=== PATIENT | male | born 1950 | race Caucasian/White ===

== ENCOUNTER → 2016-04-22 | Outpatient (CLI) | payer MEDICARE ==
--- NOTE | 2016-04-22 15:12 | XR ---
EXAMINATION TYPE: XR KUB DATE OF EXAM: 04/22/2016 12:13 PM CLINICAL HISTORY: Left-sided kidney stone per order. TECHNIQUE: 2 supine KUB images of the abdomen are obtained COMPARISON: CT abdomen and pelvis January 01, 2015. Abdominal x-ray May 09, 2015 FINDINGS: Small punctate renal calculi on CT are not clearly identified on plain films. Left-sided pe lvic phleboliths are redemonstrated in the pelvis. There is fairly moderate joint space loss with mild to moderate acetabular spurring in both hips. The re is prominent spurring along visualized course of the thoracolumbar spine. There is overall nonobst ructive bowel gas pattern. IMPRESSION: Punctate bilateral renal calculi on CT are less well seen on plain films.
== END ==
LOC: RADXRMAIN 11:56
PROVIDERS: ATTEND Urology
DX: N20.0 Calculus of kidney (principal)
CPT/HCPCS: 74000

== ENCOUNTER → 2016-06-18 | Outpatient (CLI) | payer MEDICARE ==
--- NOTE | 2016-06-18 17:37 | CT ---
EXAMINATION TYPE: CT abdomen pelvis wo con DATE OF EXAM: 06/18/2016 3:55 PM COMPARISON: 01/01/2015 HISTORY: year-old male with left flank pain for past couple of [id number] DLP: 1070.0 mGycm. Automate d exposure control for dose reduction was used. TECHNIQUE: Contiguous axial scanning of the abdomen and pelvis without IV contrast. Coronal and sagit ramiro reconstructions performed. FINDINGS: The heart is normal size without pericardial effusion. Coronary vessel calcifications are p resent and are remarkable for coronary artery disease. 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 There is patchy scarring at the posterior right base. No pleural effusion. Patchy opacity at the left base is new and probably represents atelectasis. Noncontrast appearance of the liver, adrenal glands, and spleen within normal limits. The cystic lesion within the pancreatic tail has enlarged now measuring 2.3 cm versus 1.9 cm on 2014. Additional 1 cm and smaller cystic lesions are suggestive, relatively stable from 01/01/2015. Cholelithiasis without abnormal gallbladder distention. Redemonstrated bilateral nephrolithiasis with 2 calculi on the right and 4 calculi in the left measur ing up to 3 mm. There is mild left-sided pelvocaliectasis and mild nephric stranding asymmetric to the contralateral side. However, there is no ureteric dilatation or ureteric calculus seen. However, there are increased tiny dependent bladder calculi measuring up to 3 mm. Redemonstrated pros tatomegaly at 6.5 cm. Multiple pelvic phleboliths. No dilated small bowel, free fluid, or free air. Some scattered prominent but nonenlarged mesenteric lymph nodes measuring up to 4 mm. Small fatty umbilical hernia. Normal appendix. Oral contrast has progressed to the ascending colon. N o pericolonic inflammatory change. Distended, thick-walled, trabeculated bladder with small bladder diverticula. Patulous right inguinal canal. No abnormal fluid collection in the pelvis or pelvic lymphadenopathy seen. Bones: Mild degenerative changes at the hips. Degenerative bridging ankylosis at the SI joints and ad ditional degenerative changes throughout the lumbar spine. No osseous destructive process. RESSION: 1. Mild left-sided pelvicaliectasis though without any obstructing calculus. As seen previously, find ings could represent sequela of a recently passed stone as there are increasing tiny calculi dependen t within the bladder. Some asymmetric perinephric stranding on the left could be reactive. Correlate to exclude underlying infection. 2. Additional nonobstructive bilateral nephrolithiasis measuring up to 3 mm. 3. The patient's cystic pancreatic tail lesion has enlarged now measuring 2.3 cm versus 1.9 cm on 12/05. Cystic pancreatic neoplasm is in the differential. Correlate with findings and recommendation s from interval workup. Appropriate management is recommended. 4. Redemonstrated marked prostatomegaly (6.5 cm wide) and changes involving the bladder wall suggesti ng chronic bladder outlet obstruction. 5. Mild aneurysm ascending aorta (4.0 cm), cholelithiasis, and small fatty umbilical hernia.
== END | disposition home or self-care (01) ==
LOC: RADCTMAIN 14:08
PROVIDERS: ATTEND Family Medicine
DX: N20.0 Calculus of kidney (principal); K86.2 Cyst of pancreas; N40.0 Benign prostatic hyperplasia without lower urinary tract symptoms; K80.20 Calculus of gallbladder without cholecystitis without obstruction; K42.9 Umbilical hernia without obstruction or gangrene; N21.0 Calculus in bladder
CPT/HCPCS: 74176

== ENCOUNTER → 2016-09-21 | Outpatient (CLI) | payer MEDICARE ==
[2016-09-21 14:13] LABS: Blood Urea Nitrogen 18 mg/dL (9-20); Non-African American GFR(MDRD) >60 (>60 ml/min/1.73 sqM)
--- NOTE | 2016-09-21 15:19 | CT ---
EXAMINATION TYPE: CT abdomen w con DATE OF EXAM: 09/21/2016 COMPARISON: 06/18/2016 HISTORY: BENIGN NEOPLASM OF PANCREAS CT DLP: 1523.6 mGycm Automated exposure control for dose reduction was used. TECHNIQUE: Helical acquisition of images was performed from the lung bases through the top of iliac crest to include entire abdomen. CONTRAST: Performed with Oral Contrast and with IV Contrast, patient injected with 100 mL of Omnipaque 300. FINDINGS: LUNG BASES: Subsegmental changes involving both lung bases compatible with atelectasis. Heart is enla rged. LIVER/GB: Tiny gallstones are noted. PANCREAS: There is a persistent cystic lesion involving the tail the pancreas appears fairly stable i n size measuring 2.2 cm SPLEEN: No significant abnormality is seen. ADRENALS: No significant abnormality is seen. KIDNEYS: Multiple punctate renal calculi are seen in the right estimated at 3 total and to definitive on the left. No hydronephrosis. All measure less than 5 mm. BOWEL: No significant abnormality is seen. LYMPH NODES: No significant abnormality is seen. OSSEOUS STRUCTURES: Hypertrophic and degenerative change of the spine.. FREE AIR: No free air is visualized. IMPRESSION: 1. Cystic pancreatic tail lesion measures 2.2 cm and is stable. Differential includes a pancreatic cy st although cystic neoplasms of the pancreas are also within the differential diagnosis. 2. Bilateral nonobstructing renal calculi 3. Cholelithiasis. 4. Right basilar atelectasis favored over infiltrate.
== END | disposition home or self-care (01) ==
LOC: RADCTMAIN 13:11
PROVIDERS: ATTEND Internal Medicine Hematology & Oncology
DX: L98.9 Disorder of the skin and subcutaneous tissue, unspecified (principal); N20.0 Calculus of kidney; K80.20 Calculus of gallbladder without cholecystitis without obstruction
CPT/HCPCS: 82565; 84520; 74160; 36415; Q9967

== ENCOUNTER → 2017-02-23 | Outpatient (CLI) | payer MEDICARE ==
[2017-02-23 16:04] LABS: CH 30.9; CHCM 32.4; HCT 46.4 % (39.0-53.0); HDW 2.27; HGB 14.7 gm/dL (13.0-17.5); MCH 30.4 pg (25.0-35.0); MCHC 31.7 g/dL (31.0-37.0); MCV 95.9 fL (80.0-100.0); Mean Platelet Volume 8.2; RBC 4.84 m/uL (4.30-5.90); WBC 5.7 k/uL (3.8-10.6)
[2017-02-23 16:38] LABS: Anion Gap 10 mmol/L; Blood Urea Nitrogen 20 mg/dL (9-20); Carbon Dioxide 25 mmol/L (22-30); Chloride 106 mmol/L (98-107); Non-African American GFR(MDRD) >60 (>60 ml/min/1.73 sqM); Potassium 4.2 mmol/L (3.5-5.1); Sodium 141 mmol/L (137-145)
== END | disposition home or self-care (01) ==
LOC: LABPAT 15:34
PROVIDERS: ATTEND Internal Medicine Interventional Cardiology
DX: Z01.812 Encounter for preprocedural laboratory examination (principal); R94.30 Abnormal result of cardiovascular function study, unspecified
CPT/HCPCS: 36415; 80051; 82565; 84520; 85027

== ENCOUNTER 2017-03-01 06:32 | Day surgery (SDC) | payer MEDICARE ==
[2017-02-22 11:59] VITALS: BMI 32.5
[~2017-03-01 06:32] MED LIST: ALPRAZolam 0.25 MG TAB PO PRN; ALPRAZolam 0.5 MG TAB PO PRN; ASPIRIN 325 MG TAB PO STA; NITROGLYCERIN SL TABS 0.4 MG TAB SUBLINGUAL PRN; SODIUM CHLORIDE 0.9% 1,000 ML in EMPTY BAG 1 BAG IV ONE
[2017-03-01 07:12] VITALS: TEMP 97.9
[2017-03-01] MEDS ORDERED: LIDOCAINE 2% INJ 20 MG/ML (20 ML MDV) ONE (07:26)
[2017-03-01] MEDS ORDERED: VERAPAMIL 2.5 MG/ML 2 ML AMP ONE (07:28)
[2017-03-01] MEDS ORDERED: MIDAZOLAM 2 MG/2 ML VIAL ONE (07:35)
[2017-03-01] MEDS ORDERED: MIDAZOLAM 2 MG/2 ML VIAL IV ONE (07:40)
[2017-03-01] MEDS ORDERED: LIDOCAINE 2% INJ 20 MG/ML SQ ONE (07:45)
[2017-03-01] MEDS ORDERED: HEPARIN SODIUM 1,000 UN/ML (10ML VL) ONE (07:45)
[2017-03-01] MEDS ORDERED: VERAPAMIL SYRINGE (5 MG/10 ML) INTRAARTER ONE ×2 (07:49→08:04)
[2017-03-01] MEDS ORDERED: IOHEXOL 350 MG/ML 125ML BOTTLE INJ ONE (08:05)
[2017-03-01] MEDS ORDERED: RX INFO: IV CONTRAST WAS GIVEN 1 EACH MISC MISCELLANE PRN (08:10)
[2017-03-01] MEDS ORDERED: SODIUM CHLORIDE 0.9% 1,000 ML IV SCH (08:15)
--- NOTE | 2017-03-01 09:40 | CC ---
CARDIAC CATHETERIZATION REPORT DATE OF SERVICE: 03/01/2017. PERFORMING PHYSICIAN: Michael Kenny MD, Clock Maker. PROCEDURE PERFORMED: 1. Selective right and left coronary angiogram. 2. Left heart catheterization. 3. Left ventriculography. INDICATION: This is a pleasant 66-year-old gentleman who was experiencing recurrent syncope. He underwent a myocardial perfusion imaging stress test and that came in to be abnormal with apical ischemia. In view of that, he was brought today to undergo a heart catheterization. APPROACH: Right radial artery. COMPLICATION: None. LEVEL OF SEDATION: Moderate with sedation length of 24 minutes. PROCEDURE DESCRIPTION: After obtaining an informed consent, the patient was brought to Cardiac [facility] [employer] Machine Operator [facility]. The right common femoral artery was cannulated using micropuncture technique and a micropuncture wire passed easily. Then I placed a 6-Swedish sheath in the right common femoral artery. After that, I did selective right and left coronary angiogram using JR4 and JL3.5 catheters. After that, I did left heart catheterization and left ventriculography using 6-Swedish pigtail catheter. The procedure was completed without any complication. SELECTIVE CORONARY ANGIOGRAM: 1. The RCA is a large caliber vessel and it is a dominant vessel. It is angiographically normal. It distally bifurcates into PDA and PLV branches, both are angiographically normal. 2. The left main has mild disease only distally. It bifurcates into the left circumflex and left anterior descending artery. 3. The left circumflex is a large caliber vessel. It is a codominant vessel. The proximal circ is angiographically normal and gives rise into the first OM branch which is intermediate caliber vessel and seems to be angiographically normal. The mid left circumflex is normal and the left circumflex distally is angiographically normal and bifurcates into PDA and PLV branches, both are angiographically normal. 4. The left anterior descending artery; the proximal LAD appeared to appear to be appears to have mild disease only. Gives rise into a good-sized diagonal branch which has ostial disease, appeared to be in the range of 50% to 60%. The mid LAD is angiographically normal and the LAD distally is normal and reached the apex. HEMODYNAMICS: The left ventricular end-diastolic pressure was 10 mmHg and no gradient was identified across the aortic valve. Left ventriculography was performed in the LIPSCOMB projection and using a power injection. The left ventricular systolic function is mildly impaired with EF about 45%. CONCLUSION: 1. Calcified right and left coronary systems. 2. Mild nonobstructive disease involving the distal left main coronary artery. 3. Mildly impaired left ventricular function with an ejection fraction of 45%. POSTPROCEDURE MANAGEMENT: Maximize medical treatment and follow up with the patient. VETO / JONI: [id number] /
--- NOTE | 2017-03-01 09:43 | LTR ---
DATE: 03/01/2017 RE: Caleb Riggins Dear Dr. Land; Mr. Caleb Riggins underwent a heart catheterization earlier today and that revealed mild nonobstructive coronary artery disease. I want to thank you for allowing me to participate in his care and please do not hesitate to call with any questions or concerns. Sincerely, MD VETO Diana / TATON: [id number] /
[2017-03-01 10:25] VITALS: RESP 16
[2017-03-01 13:53] VITALS: BP 150/86; PULSE 86
== END 2017-03-01 14:05 | disposition home or self-care (01) ==
LOC: CATHCVL 06:32
PROVIDERS: ATTEND Internal Medicine Interventional Cardiology
DX: I25.110 Atherosclerotic heart disease of native coronary artery with unstable angina pectoris (principal); I25.84 Coronary atherosclerosis due to calcified coronary lesion; Z79.899 Other long term (current) drug therapy; Z88.0 Allergy status to penicillin
CPT/HCPCS: 93458; C1894; J2001; J2250; J1644; Q9967

== ENCOUNTER 2017-12-17 12:45 | Inpatient (IN) | payer BC, MEDICARE ==
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
[2017-12-17 13:07] LABS: Glucose,Whole Blood 106 mg/dL (75-99)
[2017-12-17 13:28] LABS: ALT 21 U/L (21-72); AST 20 U/L (17-59); Alcohol <10 mg/dL; Alkaline Phosphatase 62 U/L (38-126); Amylase 46 U/L (30-110); Anion Gap 7 mmol/L; Basophils % (A) 0 %; Blood Urea Nitrogen 28 mg/dL (9-20); Calcium 9.1 mg/dL (8.4-10.2); Carbon Dioxide 27 mmol/L (22-30); Chloride 107 mmol/L (98-107); Eosinophils # (A) 0.1 k/uL (0-0.7); Eosinophils % (A) 1 %; Glucose 108 mg/dL (74-99); HCT 45.2 % (39.0-53.0); HGB 14.9 gm/dL (13.0-17.5); Lipase 24 U/L (23-300); Lymphocytes # (A) 0.8 k/uL (1.0-4.8); Lymphocytes % (A) 11 %; MCH 30.7 pg (25.0-35.0); MCV 93.2 fL (80.0-100.0); Mean Platelet Volume 7.5; Monocytes # (A) 0.3 k/uL (0-1.0); Monocytes % (A) 4 %; Neutrophils # (A) 6.6 k/uL (1.3-7.7); Neutrophils % (A) 83 %; Platelet Count 140 k/uL (150-450); Potassium 4.4 mmol/L (3.5-5.1); RBC 4.85 m/uL (4.30-5.90); RDW 13.1 % (11.5-15.5); Sodium 141 mmol/L (137-145); Total Bilirubin 0.7 mg/dL (0.2-1.3); Total Protein 6.9 g/dL (6.3-8.2); WBC 7.9 k/uL (3.8-10.6)
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
[2017-12-17 13:36] LABS: INR 1.1 (<1.2); Partial Thromboplastin Time 22.5 sec (22.0-30.0); Prothrombin Time 10.9 sec (9.0-12.0)
[2017-12-17 13:41] LABS: Creatine Kinase 144 U/L (55-170)
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
[2017-12-17 13:53] LABS: Creatine Kinase MB 2.5 ng/mL (0.0-2.4); Troponin I <0.012 ng/mL (0.000-0.034)
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
--- NOTE | 2017-12-17 14:41 | XR ---
EXAMINATION TYPE: XR shoulder complete LT DATE OF EXAM: 12/17/2017 COMPARISON: NONE HISTORY: Pain TECHNIQUE: Shoulder examined in 3 FINDINGS: The humeral head articulates with the glenoid. Acromioclavicular joint hypertrophy is present. Rib fractures 3,4,5, and 6 are evident. No pneumothorax is evident. A follow up study can be performed 7-10 days from acute trauma for continued pain. IMPRESSION: 1. Left shoulder appears intact. 2. Multiple left-sided rib fractures are present.
[2017-12-17] MEDS: LIDOCAINE 5% PATCH TOPICAL SCH (15:57)
[2017-12-17 16:03] LABS: Appearance,Urine Clear (Clear); Bilirubin,Urine Negative (Negative); Blood,Urine Large (Negative); Color,Urine Yellow; Glucose,Urine (UA) Negative (Negative); Ketones,Urine Negative (Negative); Leukocyte Esterase,Urine Negative (Negative); Mucus,Urine Rare /hpf; Nitrite,Urine Negative (Negative); PH, Urine 5.5 (5.0-8.0); Protein,Urine Negative (Negative); RBC,Urine 82 /hpf (0-5); Squamous Epithelial Cell,Urine <1 /hpf (0-4); Urobilinogen,Urine <2.0 mg/dL (<2.0); WBC,Urine 7 /hpf (0-5)
[2017-12-17 16:12] LABS: Amphetamine Screen,Urine Not Detected (NotDetected); Barbiturate Screen,Urine Not Detected (NotDetected); Benzodiazepines Screen,Urine Not Detected (NotDetected); Cocaine Screen,Urine Not Detected (NotDetected); Methadone Screen, Urine Not Detected (NotDetected); Opiate Screen,Urine Not Detected (NotDetected); Oxycodone Screen, Urine Not Detected (NotDetected); Phencyclidine Screen,Urine Not Detected (NotDetected); Tricyclic Antidepressant,Urine Not Detected (NotDetected); Urn Cannabinoid Scrn Not Detected (NotDetected)
[2017-12-17] MEDS ORDERED: NALOXONE 0.4 MG/ML 1 ML VIAL IV PRN (16:37)
[2017-12-17] MEDS ORDERED: ACETAMINOPHEN TAB 325 MG TAB PO PRN (16:37)
[2017-12-17] MEDS ORDERED: fentaNYL (PF) 50 MCG/ML 2 ML AMP IVP STA (16:55)
[2017-12-17] MEDS ORDERED: METHOCARBAMOL 750 MG TAB PO PRN (16:55)
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
[2017-12-17 18:26] LABS: Glucose,Whole Blood 117 mg/dL (75-99)
[2017-12-17] MEDS: HYDROcodone/APAP 5-325MG 1 EACH TAB PO SCH ×2 (19:08→22:00)
[2017-12-17 21:16] LABS: Specific Gravity,Urine >1.050 (1.001-1.035)
[2017-12-17] MEDS: CARBIDOPA-LEVODOPA ER 50-200MG 1 EACH TABLET.ER PO SCH (21:19)
[2017-12-17] MEDS: DOXAZOSIN 4 MG TAB PO SCH (21:19)
[2017-12-17] MEDS: FAMOTIDINE 20 MG TAB PO SCH (21:19)
[2017-12-17] MEDS: AMANTADINE HCL 100 MG CAP PO SCH (21:20)
[2017-12-18] MEDS: HYDROcodone/APAP 5-325MG 1 EACH TAB PO SCH ×5 (02:45→18:39)
[2017-12-18 05:27] LABS: Basophils % (A) 0 %; Eosinophils # (A) 0.1 k/uL (0-0.7); Eosinophils % (A) 1 %; HGB 13.3 gm/dL (13.0-17.5); Lymphocytes # (A) 1.1 k/uL (1.0-4.8); Lymphocytes % (A) 16 %; MCH 29.5 pg (25.0-35.0); MCHC 30.9 g/dL (31.0-37.0); MCV 95.5 fL (80.0-100.0); Mean Platelet Volume 6.9; Monocytes # (A) 0.5 k/uL (0-1.0); Monocytes % (A) 7 %; Neutrophils # (A) 5.1 k/uL (1.3-7.7); Neutrophils % (A) 75 %; Platelet Count 129 k/uL (150-450); RDW 13.3 % (11.5-15.5); WBC 6.8 k/uL (3.8-10.6)
[2017-12-18 05:40] LABS: Anion Gap 6 mmol/L; Blood Urea Nitrogen 24 mg/dL (9-20); Calcium 8.9 mg/dL (8.4-10.2); Carbon Dioxide 24 mmol/L (22-30); Chloride 106 mmol/L (98-107); Glucose 107 mg/dL (74-99); Phosphorus 3.3 mg/dL (2.5-4.5); Potassium 4.2 mmol/L (3.5-5.1); Sodium 136 mmol/L (137-145)
--- NOTE | 2017-12-18 06:50 | XR ---
EXAMINATION TYPE: XR chest 1V DATE OF EXAM: 12/18/2017 HISTORY: rib fracture. REFERENCE: Previous study dated 12/17/2017. FINDINGS: There are multiple left-sided rib fractures. No definite pneumothorax is seen. There is lef t basilar airspace disease. This has worsened. There is a left-sided effusion. IMPRESSION: 1. MULTIPLE LEFT-SIDED RIB FRACTURES. 2. LEFT BASILAR AIRSPACE DISEASE. 3. LEFT-SIDED EFFUSION.
[2017-12-18] MEDS: FAMOTIDINE 20 MG TAB PO SCH ×2 (08:28→20:50)
[2017-12-18] MEDS: TAMSULOSIN 0.4 MG CAP.ER.24H PO SCH (08:28)
[2017-12-18] MEDS: AMANTADINE HCL 100 MG CAP PO SCH ×2 (08:59→20:50)
[2017-12-18] MEDS: CARBIDOPA-LEVODOPA ER 50-200MG 1 EACH TABLET.ER PO SCH ×2 (08:59→20:50)
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
--- NOTE | 2017-12-18 13:29 | P.CRDCN ---
History of Present Illness History of present illness: This is Dr. Santana dictating a consult on this patient The patient was interviewed and examined by me IMPRESSION / ASSESSMENT: Chest trauma Left scapula fracture Multiple rib fractures Vitals stable Left-sided effusion noted, left-sided S pace consolidation Hypertension Nephrolithiasis Right bundle branch block, left anterior fascicular block PLAN: 2-D echo and Doppler study to assess pericardium post chest wall trauma HPI Patient interviewed and examined. He suffered an injury to the chest from the backside[, no syncope] ROS: No fever chills or rigors, no cough, phlegm or expectoration, no nausea, vomiting or diarrhea, no hematuria, dysuria, Musculoskeletal pain no strokes or seizures, no skin lesions. EXAMINATION Blood pressure 113/73 mmHg pulse rate in the 70s normal respirations afebrile 97.5F REVIEW OF LABS, ECG Hematocrit 43 Sodium 136 potassium normal kidney functions normal Troponin normal 12-lead ECG shows sinus rhythm normal SC right bundle branch block normal ST segments left anterior fascicular block Past Medical History Past Medical History: Hypertension, Musculoskeletal Disorder, Neurologic Disorder, Prostate Disorder, Renal Disease Additional Past Medical History / Comment(s): parkinsons disease, nephrolithiasis, BPH,uti's , fall 2012 with skull fracture and subdural hematoma and L eardrum rupture, sinus problems on occasion.past stress test, lt sprain ankle d/t fall. History of Any Multi-Drug Resistant Organisms: None Reported Past Surgical History: Heart Catheterization, Hernia Repair Additional Past Surgical History / Comment(s): cystoscopy, L inguinal hernia repair., anat cataracts Past Anesthesia/Blood Transfusion Reactions: No Reported Reaction Smoking Status: Never smoker - Past Family History Sister(s) Family Medical History: Cancer Mother Family Medical History: CVA/TIA, Diabetes Mellitus, Hypertension, Musculoskeletal Disorder, Neurologic Disorder Additional Family Medical History / Comment(s): Mother had parkinson's dx. Father Family Medical History: CVA/TIA Medications and Allergies Home Medications Medication Instructions Recorded Confirmed Type Amantadine HCl [Symmetrel] 100 mg PO BID 03/20/15 12/17/17 History Carbidopa-Levodopa ER 50-200Mg 1 tab PO BID 03/20/15 12/17/17 History [Sinemet CR 50-200 mg] Ferrous Sulfate [Feosol] 325 mg PO DAILY 03/20/15 12/17/17 History Terazosin HCl [Hytrin] 10 mg PO HS 03/20/15 12/17/17 History Tamsulosin HCl [Flomax] 0.4 mg PO DAILY 02/22/17 12/17/17 History [place]-3 Fatty Acids/Fish Oil [Fish 1 cap PO DAILY 12/17/17 12/17/17 History Oil 1,000 mg Softgel] Allergies Allergy/AdvReac Type Severity Reaction Status Date / Time adhesive tape Allergy Rash/Hives Verified 12/17/17 13:55 amoxicillin Allergy Dyspnea, Verified 12/17/17 13:55 SWELLING OF THROAT haloperidol [From Haldol] Allergy Unknown Verified 12/17/17 13:55 haloperidol lactate Allergy Unknown Verified 12/17/17 13:55 [From Haldol] lorazepam [From Ativan] Allergy Unknown Verified 12/17/17 13:55 Physical Exam Vitals: Vital Signs Temp Pulse Resp BP Pulse Ox 12/18/17 11:00 79 18 113/73 98 12/18/17 10:00 86 20 110/67 96 12/18/17 09:00 87 18 111/71 96 12/18/17 08:00 97.5 F L 84 18 121/74 95 12/18/17 07:00 75 18 119/74 96 12/18/17 06:30 74 16 122/75 96 12/18/17 06:00 72 16 122/75 98 12/18/17 05:30 73 15 134/78 99 12/18/17 05:00 73 14 134/78 97 12/18/17 04:30 68 16 115/74 98 12/18/17 04:00 72 16 115/74 98 12/18/17 03:30 75 15 118/73 95 12/18/17 03:00 75 18 118/73 97 12/18/17 02:30 70 18 110/73 98 12/18/17 02:00 72 20 119/68 99 12/18/17 01:30 70 17 111/77 98 12/18/17 01:00 98.7 F 71 18 112/71 97 12/18/17 00:30 69 19 121/71 97 12/18/17 00:00 71 21 110/68 97 12/17/17 23:30 74 19 137/77 98 12/17/17 23:00 75 18 125/78 98 12/17/17 22:30 77 20 125/77 88 L 12/17/17 22:00 76 17 119/72 97 12/17/17 21:30 78 131/69 97 12/17/17 21:00 81 15 121/69 96 12/17/17 20:30 80 14 110/70 96 12/17/17 20:00 98.9 F 87 16 123/73 98 12/17/17 19:30 81 15 119/71 99 12/17/17 19:00 76 150/78 99 12/17/17 18:30 78 142/87 100 12/17/17 18:20 76 151/92 99 12/17/17 18:10 97.4 F L 72 151/92 98 Intake and Output 12/17/17 12/18/17 12/18/17 22:59 06:59 14:59 Intake Total 340 Output Total 150 100 125 Balance -150 -100 215 Intake: Oral 340 Output: Urine 150 100 125 Other: Weight 101.3 kg Results 12/18/17 05:15 12/18/17 05:15 Cardiac Enzymes 12/17/17 Range/Units 13:06 CK-MB (CK-2) 2.5 H (0.0-2.4) ng/mL Troponin I <0.012 (0.000-0.034) ng/mL Coagulation 12/17/17 Range/Units 13:06 PT 10.9 (9.0-12.0) sec APTT 22.5 (22.0-30.0) sec CBC 12/17/17 12/18/17 Range/Units 13:06 05:15 WBC 7.9 6.8 (3.8-10.6) k/uL RBC 4.85 4.50 (4.30-5.90) m/uL Hgb 14.9 13.3 (13.0-17.5) gm/dL Hct 45.2 43.0 (39.0-53.0) % Plt Count 140 L 129 L (150-450) k/uL Comprehensive Metabolic Panel 12/18/17 Range/Units 05:15 Sodium 136 L (137-145) mmol/L Potassium 4.2 (3.5-5.1) mmol/L Chloride 106 (98-107) mmol/L Carbon Dioxide 24 (22-30) mmol/L BUN 24 H (9-20) mg/dL Creatinine 0.97 (0.66-1.25) mg/dL Glucose 107 H (74-99) mg/dL Calcium 8.9 (8.4-10.2) mg/dL Current Medications Generic Name Dose Route Start Last Admin Trade Name Freq PRN Reason Stop Dose Admin Acetaminophen 650 mg 12/17/17 16:37 Tylenol Tab PO Q4HR PRN Fever and/or Mild Pain Hydrocodone Bitart/Acetaminophen 1 each 12/17/17 18:00 12/18/17 11:39 [place] 5-325 PO 1 each Q4H ASHLYN Administration Albuterol/Ipratropium 3 ml 12/17/17 16:37 Duoneb 0.5 Mg-3 Mg/3 Ml Soln INHALATION RT-Q4H PRN Shortness Of Breath Or Wheezing Amantadine HCl 100 mg 12/17/17 21:00 12/18/17 08:59 Symmetrel PO 100 mg BID ASHLYN Administration Carbidopa/Levodopa 1 each 12/17/17 21:00 12/18/17 08:59 Sinemet Er 50-200 PO 1 each BID ASHLYN Administration Doxazosin Mesylate 8 mg 12/17/17 21:00 12/17/17 21:19 Cardura PO 8 mg HS ASHLYN Administration Famotidine 20 mg 12/17/17 21:00 12/18/17 08:28 Pepcid PO 20 mg BID ASHLYN Administration Hydromorphone HCl 1 mg 12/17/17 18:25 Dilaudid IVP Q4HR PRN Pain Lidocaine 1 patch 12/17/17 16:00 12/17/17 15:57 Lidoderm TOPICAL 1 patch Q24H ASHLYN Administration Methocarbamol 750 mg 12/17/17 16:55 Robaxin PO QID PRN Muscle Spasm Naloxone HCl 0.2 mg 12/17/17 16:37 Narcan IV Q2M PRN Opioid Reversal Tamsulosin HCl 0.4 mg 12/18/17 09:00 12/18/17 08:28 Flomax PO 0.4 mg DAILY ASHLYN Administration Intake and Output 12/17/17 12/18/17 12/18/17 22:59 06:59 14:59 Intake Total 340 Output Total 150 100 125 Balance -150 -100 215 Intake: Oral 340 Output: Urine 150 100 125 Other: Weight 101.3 kg 12/18/17 05:15 12/18/17 05:15
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
--- NOTE | 2017-12-18 13:52 | ECHOF ---
Referral Reason:r/o pericardial effusion MEASUREMENTS -------- HEIGHT: 182.9 cm WEIGHT: 101.2 kg BP: IVSd: 1.4 cm (0.6 - 1.1) LVIDd: 4.8 cm (3.9 - 5.3) LVPWd: 1.4 cm (0.6 - 1.1) IVSs: 2.2 cm LVIDs: 2.3 cm LVPWs: 2.1 cm Ao Diam: 3.5 cm (2.0 - 3.7) AV Cusp: 2.5 cm (1.5 - 2.6) LA Diam: 4.1 cm (2.7 - 3.8) MV EXCURSION: 17.570 mm (> 18.000) MV EF SLOPE: 85 mm/s (70 - 150) EPSS: 0.4 cm MV E Velasquez: 0.52 m/s MV DecT: 208 ms MV A Velasquez: 0.54 m/s MV E/A Ratio: 0.96 FINDINGS -------- Sinus rhythm. This was a technically difficult study with suboptimal views. The left ventricular size is normal. There is moderate concentric left ventricular hypertrophy. O verall left ventricular systolic function is normal with, an EF between 55 - 60 %. The right ventricle is normal in size and function. The left atrium is normal in size. The right atrium is normal in size. The aortic valve is trileaflet, and appears structurally normal. No aortic stenosis or regurgitation. There is trace mitral regurgitation. Trace tricuspid regurgitation present. The right ventricular systolic pressure, as measured by Dopp ler, is {RVSP}. Pulmonic valve appears structurally normal. The aortic root size is normal. Echo free space indicative of a pericardial fat pad. CONCLUSIONS -------- 1. Sinus rhythm. 2. This was a technically difficult study with suboptimal views. 3. The left ventricular size is normal. 4. There is moderate concentric left ventricular hypertrophy. 5. Overall left ventricular systolic function is normal with, an EF between 55 - 60 %. 6. The right ventricle is normal in size and function. 7. The left atrium is normal in size. 8. The right atrium is normal in size. 9. The aortic valve is trileaflet, and appears structurally normal. No aortic stenosis or regurgitati on. 10. There is trace mitral regurgitation. 11. Trace tricuspid regurgitation present. 12. The right ventricular systolic pressure, as measured by Doppler, is {RVSP}. 13. Pulmonic valve appears structurally normal. 14. The aortic root size is normal. 15. Echo free space indicative of a pericardial fat pad. FLORICULTURE PROFESSOR: Earnestine Carcamo RDCS
[2017-12-18] MEDS: LIDOCAINE 5% PATCH TOPICAL SCH (15:51)
[2017-12-18] MEDS: DOXAZOSIN 4 MG TAB PO SCH (20:50)
[2017-12-19] MEDS: HYDROcodone/APAP 5-325MG 1 EACH TAB PO SCH ×7 (00:55→22:56)
[2017-12-19 04:56] LABS: Basophils % (A) 0 %; Eosinophils # (A) 0.1 k/uL (0-0.7); Eosinophils % (A) 1 %; HCT 41.6 % (39.0-53.0); HGB 13.1 gm/dL (13.0-17.5); Lymphocytes # (A) 0.9 k/uL (1.0-4.8); Lymphocytes % (A) 14 %; MCH 29.9 pg (25.0-35.0); MCHC 31.4 g/dL (31.0-37.0); MCV 95.2 fL (80.0-100.0); Mean Platelet Volume 7.1; Monocytes # (A) 0.5 k/uL (0-1.0); Monocytes % (A) 7 %; Neutrophils # (A) 4.8 k/uL (1.3-7.7); Neutrophils % (A) 77 %; Platelet Count 118 k/uL (150-450); RBC 4.38 m/uL (4.30-5.90); WBC 6.2 k/uL (3.8-10.6)
[2017-12-19 05:14] LABS: Calcium 8.5 mg/dL (8.4-10.2); Phosphorus 2.6 mg/dL (2.5-4.5); Potassium 4.3 mmol/L (3.5-5.1)
[2017-12-19] MEDS: FAMOTIDINE 20 MG TAB PO SCH ×2 (08:22→20:35)
[2017-12-19] MEDS: CARBIDOPA-LEVODOPA ER 50-200MG 1 EACH TABLET.ER PO SCH ×2 (08:22→20:35)
[2017-12-19] MEDS: AMANTADINE HCL 100 MG CAP PO SCH ×2 (08:22→20:35)
[2017-12-19] MEDS: TAMSULOSIN 0.4 MG CAP.ER.24H PO SCH (08:23)
[2017-12-19] MEDS: HYDROmorphone 1 MG/ML 1 ML SYRINGE IVP PRN ×2 (08:37→16:56)
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
[2017-12-19] MEDS: HEPARIN SODIUM,PORCINE 5,000 UNIT/ML 1 ML VIAL SQ SCH (16:43)
[2017-12-19] MEDS: LIDOCAINE 5% PATCH TOPICAL SCH (16:43)
[2017-12-19] MEDS: DOXAZOSIN 4 MG TAB PO SCH (20:36)
[2017-12-20] MEDS: HEPARIN SODIUM,PORCINE 5,000 UNIT/ML 1 ML VIAL SQ SCH ×4 (00:12→23:42)
[2017-12-20] MEDS: HYDROcodone/APAP 5-325MG 1 EACH TAB PO SCH ×6 (02:00→22:20)
[2017-12-20 07:43] LABS: Basophils % (A) 0 %; Eosinophils # (A) 0.1 k/uL (0-0.7); Eosinophils % (A) 2 %; HGB 13.4 gm/dL (13.0-17.5); Lymphocytes # (A) 1.2 k/uL (1.0-4.8); Lymphocytes % (A) 23 %; MCH 31.4 pg (25.0-35.0); MCHC 33.5 g/dL (31.0-37.0); MCV 93.8 fL (80.0-100.0); Mean Platelet Volume 7.7; Monocytes # (A) 0.4 k/uL (0-1.0); Monocytes % (A) 8 %; Neutrophils # (A) 3.4 k/uL (1.3-7.7); Neutrophils % (A) 66 %; Platelet Count 120 k/uL (150-450); RBC 4.26 m/uL (4.30-5.90); RDW 13.1 % (11.5-15.5); WBC 5.1 k/uL (3.8-10.6)
[2017-12-20] MEDS: TAMSULOSIN 0.4 MG CAP.ER.24H PO SCH (08:00)
[2017-12-20] MEDS: FAMOTIDINE 20 MG TAB PO SCH ×2 (08:00→21:21)
[2017-12-20] MEDS: AMANTADINE HCL 100 MG CAP PO SCH ×2 (08:00→21:21)
[2017-12-20] MEDS: CARBIDOPA-LEVODOPA ER 50-200MG 1 EACH TABLET.ER PO SCH ×2 (08:00→21:21)
[2017-12-20 08:11] LABS: Anion Gap 8 mmol/L; Blood Urea Nitrogen 17 mg/dL (9-20); Calcium 8.5 mg/dL (8.4-10.2); Carbon Dioxide 27 mmol/L (22-30); Chloride 103 mmol/L (98-107); Glucose 99 mg/dL (74-99); Phosphorus 2.7 mg/dL (2.5-4.5); Potassium 4.3 mmol/L (3.5-5.1); Sodium 138 mmol/L (137-145)
[2017-12-20] MEDS: DOCUSATE 100 MG CAP PO SCH ×2 (09:17→21:21)
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
[2017-12-20] MEDS: LIDOCAINE 5% PATCH TOPICAL SCH (16:58)
[2017-12-20] MEDS: DOXAZOSIN 4 MG TAB PO SCH (21:21)
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
[2017-12-21] MEDS: HYDROcodone/APAP 5-325MG 1 EACH TAB PO SCH ×6 (03:45→22:24)
[2017-12-21] MEDS: IPRATROPIUM-ALBUTEROL 3 ML NEB INHALATION PRN ×2 (07:22→11:49)
[2017-12-21 08:06] LABS: Basophils % (A) 0 %; Eosinophils % (A) 0 %; HCT 42.4 % (39.0-53.0); HGB 14.2 gm/dL (13.0-17.5); Lymphocytes # (A) 0.7 k/uL (1.0-4.8); Lymphocytes % (A) 8 %; MCH 31.2 pg (25.0-35.0); MCHC 33.4 g/dL (31.0-37.0); MCV 93.1 fL (80.0-100.0); Mean Platelet Volume 7.6; Monocytes # (A) 0.6 k/uL (0-1.0); Monocytes % (A) 6 %; Neutrophils # (A) 7.7 k/uL (1.3-7.7); Neutrophils % (A) 85 %; Platelet Count 143 k/uL (150-450); RBC 4.55 m/uL (4.30-5.90); WBC 9.1 k/uL (3.8-10.6)
[2017-12-21 08:38] LABS: Anion Gap 11 mmol/L; Calcium 8.8 mg/dL (8.4-10.2); Carbon Dioxide 19 mmol/L (22-30); Chloride 107 mmol/L (98-107); Glucose 121 mg/dL (74-99); Sodium 137 mmol/L (137-145)
[2017-12-21] MEDS: TAMSULOSIN 0.4 MG CAP.ER.24H PO SCH (08:40)
[2017-12-21] MEDS: CARBIDOPA-LEVODOPA ER 50-200MG 1 EACH TABLET.ER PO SCH ×2 (08:40→20:19)
[2017-12-21] MEDS: AMANTADINE HCL 100 MG CAP PO SCH ×2 (08:41→20:19)
[2017-12-21] MEDS: FAMOTIDINE 20 MG TAB PO SCH ×2 (08:42→20:19)
[2017-12-21] MEDS: DOCUSATE 100 MG CAP PO SCH ×2 (08:42→20:19)
[2017-12-21] MEDS: HEPARIN SODIUM,PORCINE 5,000 UNIT/ML 1 ML VIAL SQ SCH ×3 (08:43→23:58)
[2017-12-21 08:45] LABS: Potassium 5.3 mmol/L (3.5-5.1)
[2017-12-21 08:46] LABS: Blood Urea Nitrogen 19 mg/dL (9-20); Phosphorus 3.4 mg/dL (2.5-4.5)
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
[2017-12-21] MEDS: LIDOCAINE 5% PATCH TOPICAL SCH (17:25)
[2017-12-21] MEDS: DOXAZOSIN 4 MG TAB PO SCH (20:19)
[2017-12-22] MEDS: HYDROcodone/APAP 5-325MG 1 EACH TAB PO SCH ×3 (02:49→09:28)
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
[2017-12-22 09:02] VITALS: RESP 22
[2017-12-22] MEDS: HEPARIN SODIUM,PORCINE 5,000 UNIT/ML 1 ML VIAL SQ SCH (09:29)
[2017-12-22] MEDS: CARBIDOPA-LEVODOPA ER 50-200MG 1 EACH TABLET.ER PO SCH (09:29)
[2017-12-22] MEDS: TAMSULOSIN 0.4 MG CAP.ER.24H PO SCH (09:29)
[2017-12-22] MEDS: AMANTADINE HCL 100 MG CAP PO SCH (09:29)
[2017-12-22] MEDS: FAMOTIDINE 20 MG TAB PO SCH (09:30)
[2017-12-22] MEDS: DOCUSATE 100 MG CAP PO SCH (09:30)
[2017-12-22 10:35] LABS: Basophils % (A) 0 %; Eosinophils # (A) 0.1 k/uL (0-0.7); Eosinophils % (A) 1 %; HCT 40.7 % (39.0-53.0); HGB 13.3 gm/dL (13.0-17.5); Lymphocytes # (A) 1.2 k/uL (1.0-4.8); Lymphocytes % (A) 18 %; MCH 30.6 pg (25.0-35.0); MCHC 32.7 g/dL (31.0-37.0); MCV 93.3 fL (80.0-100.0); Monocytes # (A) 0.4 k/uL (0-1.0); Monocytes % (A) 5 %; Neutrophils # (A) 4.9 k/uL (1.3-7.7); Neutrophils % (A) 75 %; Platelet Count 146 k/uL (150-450); RBC 4.36 m/uL (4.30-5.90); RDW 13.3 % (11.5-15.5); WBC 6.6 k/uL (3.8-10.6)
[2017-12-22 10:41] LABS: Anion Gap 7 mmol/L; Blood Urea Nitrogen 23 mg/dL (9-20); Calcium 8.5 mg/dL (8.4-10.2); Carbon Dioxide 25 mmol/L (22-30); Chloride 105 mmol/L (98-107); Glucose 153 mg/dL (74-99); Magnesium 2.2 mg/dL (1.6-2.3); Phosphorus 2.9 mg/dL (2.5-4.5); Potassium 4.5 mmol/L (3.5-5.1); Sodium 137 mmol/L (137-145)
--- NOTE | 2017-12-22 12:07 | XR ---
EXAMINATION TYPE: XR chest 1V portable DATE OF EXAM: 12/22/2017 COMPARISON: 12/18/2017 INDICATION: Follow-up history of rib fracture TECHNIQUE: Single frontal view of the chest is obtained. FINDINGS: The heart size is normal. The pulmonary vasculature is normal. There is a small left pleural effusion which is slightly greater comparison. Multiple left-sided rib fractures are again evident. IMPRESSION: 1. Multiple left upper lateral fractures with increased pleural fluid collection.
[2017-12-22 12:14] VITALS: BP 126/75; PULSE 87; TEMP 98
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
== END 2017-12-22 14:22 | disposition home health service (06) | DRG 183 ==
LOC: EC 12:45 → 6ICU 16:37 → 3SUR 12-19 13:29 → 5MS5E 12-20 11:03
PROVIDERS: ADMIT Surgery Plastic and Reconstructive Surgery; ATTEND Surgery Plastic and Reconstructive Surgery
PROC: 2W3BX1Z Immobilization of Left Upper Arm using Splint (ICD-10-PCS; principal; 2017-12-18)
DX: S22.42XA Multiple fractures of ribs, left side, initial encounter for closed fracture (principal); J96.01 Acute respiratory failure with hypoxia; I45.2 Bifascicular block; S27.321A Contusion of lung, unilateral, initial encounter; R04.89 Hemorrhage from other sites in respiratory passages; J98.11 Atelectasis; S42.112A Displaced fracture of body of scapula, left shoulder, initial encounter for closed fracture; G20 Parkinson's disease; F02.80 Dementia in other diseases classified elsewhere, unspecified severity, without behavioral disturbance, psychotic disturbance, mood disturbance, and anxiety; S70.02XA Contusion of left hip, initial encounter; G25.0 Essential tremor; I25.10 Atherosclerotic heart disease of native coronary artery without angina pectoris; N20.0 Calculus of kidney; M47.9 Spondylosis, unspecified; N40.0 Benign prostatic hyperplasia without lower urinary tract symptoms; I10 Essential (primary) hypertension; Z79.899 Other long term (current) drug therapy; Z87.820 Personal history of traumatic brain injury; Z87.442 Personal history of urinary calculi; Z98.42 Cataract extraction status, left eye; Z98.41 Cataract extraction status, right eye; V84.5XXA Driver of special agricultural vehicle injured in nontraffic accident, initial encounter; Z88.0 Allergy status to penicillin; Z88.8 Allergy status to other drugs, medicaments and biological substances; Z91.048 Other nonmedicinal substance allergy status; Z82.0 Family history of epilepsy and other diseases of the nervous system; Z82.49 Family history of ischemic heart disease and other diseases of the circulatory system; Z83.3 Family history of diabetes mellitus; Z82.3 Family history of stroke
CPT/HCPCS: 36415; 70450; 71045; 71260; 72125; 72170; 74177; 80048; 80053; 80306; 80320; 81001; 82150; 82550; 82553; 83690; 83735; 84100; 84484; 85025; 85610; 85730; 86850; 86900; 86901; 93306; 94640; 94760; 96374; 99285

== ENCOUNTER → 2019-01-12 | Outpatient (CLI) | payer MEDICARE ==
--- NOTE | 2019-01-12 11:48 | US ---
EXAMINATION TYPE: US abdomen complete DATE OF EXAM: 01/12/2019 COMPARISON: CT 2018 CLINICAL HISTORY: R10.32 LLQ PAIN. Pt has a caregiver and parkinson's, difficult to scan pt has constipation and unable to move much EXAM MEASUREMENTS: Liver Length: 14.6 cm Gallbladder Wall: 0.1 cm CBD: 0.2 cm Spleen: 12.4 cm Right Kidney: 11.0 x 5.4 x 7.3 cm Left Kidney: 11.1 x 6.8 c 7.3 cm Pancreas: Obscured by bowel gas Liver: portions seen wnl, limited accessibility for scanning Gallbladder: wnl Evidence for sonographic Gifford's sign: No CBD: wnl Spleen: wnl Right Kidney: hydronephrosis Left Kidney: hydronephrosis Upper IVC: wnl ,limited Abd Aorta: wnl distended bladder over area of pain pt has prostate cancer and just finished radiation this week The visualized portion of liver are slightly heterogeneous. The intrahepatic portion of the IVC and proximal abdominal aorta are within normal limits. There is no evidence of cholelithiasis. Common b ile duct is unremarkable. Suboptimal evaluation of pancreas due to overlying bowel gas per technologi st.. The spleen is unremarkable. Kidneys are symmetric with suspected bilateral left greater than r ight hydronephrosis. No renal lesions are seen. Bladder is distended with trabeculations in the wall . IMPRESSION: Moderate to severe left greater than right hydronephrosis. Correlate for vesicoureteral r eflux as there is distended bladder. Overall suboptimal study.
== END | disposition home or self-care (01) ==
LOC: RADUSWWP 10:36
PROVIDERS: ATTEND Family Medicine
DX: N13.30 Unspecified hydronephrosis (principal); N32.89 Other specified disorders of bladder
CPT/HCPCS: 76700

== ENCOUNTER 2019-01-21 15:26 | Emergency (ER) | payer MEDICARE ==
[2019-01-21 16:00] LABS: Glucose,Whole Blood 132 mg/dL (75-99)
--- NOTE | 2019-01-21 16:22 | ED ---
Altered Mental Status HPI - General Chief Complaint: Altered Mental Status Stated Complaint: Falls/confusion Time Seen by Provider: 01/21/19 16:03 Source: patient Mode of arrival: wheelchair Limitations: altered mental status - History of Present Illness Initial Comments: Patient is a 68-year-old male with history of Parkinson's and prostate cancer is presenting to the emergency department with a chief complaint of altered mental status. Daughter reports the patient was at Dr. Cardoso's office yesterday when he tripped and fell forward and assessment. Daughter reports the patient had trauma to the face and his left hand. Daughter reports they went to the primary care please multiple stitches on the mucosal side of the upper lip. According to daughter patient also had an abrasion on the face which she has been putting Silvadene on. Patient reports he has pain in his left hand and limited range of motion. Patient is arousable and able to answer questions. Patient denies any weakness at this time reports feeling tired. - Related Data Home Medications Medication Instructions Recorded Confirmed Amantadine HCl [Symmetrel] 100 mg PO BID 03/20/15 12/17/17 Carbidopa-Levodopa ER 50-200Mg 1 tab PO BID 03/20/15 12/17/17 [Sinemet CR 50-200 mg] Ferrous Sulfate [Feosol] 325 mg PO DAILY 03/20/15 12/17/17 Terazosin HCl [Hytrin] 10 mg PO HS 03/20/15 12/17/17 Tamsulosin HCl [Flomax] 0.4 mg PO DAILY 02/22/17 12/17/17 [place]-3 Fatty Acids/Fish Oil [Fish 1 cap PO DAILY 12/17/17 12/17/17 Oil 1,000 mg Softgel] Previous Rx's Medication Instructions Recorded Acetaminophen Tab [Tylenol] 650 mg PO Q4HR PRN #30 tab 12/22/17 HYDROcodone/APAP 5-325MG [[place] 1 tab PO Q4HR PRN 3 Days #18 tab 12/22/17 5-325] Ipratropium-Albuterol Nebulize 3 ml INHALATION RT-Q4H PRN 12/22/17 [Duoneb 0.5 mg-3 mg/3 ml Soln] ampul.neb Allergies Allergy/AdvReac Type Severity Reaction Status Date / Time adhesive tape Allergy Rash/Hives Verified 01/21/19 15:42 amoxicillin Allergy Dyspnea, Verified 01/21/19 15:42 SWELLING OF THROAT haloperidol [From Haldol] Allergy Unknown Verified 01/21/19 15:42 haloperidol lactate Allergy Unknown Verified 01/21/19 15:42 [From Haldol] lorazepam [From Ativan] Allergy Unknown Verified 01/21/19 15:42 alprazolam [From Xanax] AdvReac Unknown Verified 01/21/19 15:44 Review of Systems ROS Statement: Those systems with pertinent positive or pertinent negative responses have been documented in the HPI. ROS Other: All systems not noted in ROS Statement are negative. Past Medical History Past Medical History: Hypertension, Musculoskeletal Disorder, Neurologic Dis order, Prostate Disorder, Renal Disease Additional Past Medical History / Comment(s): parkinsons disease, nephrolithiasis, BPH,uti's , fall 2012 with skull fracture and subdural hematoma and L eardrum rupture, sinus problems on occasion.past stress test, lt sprain ankle d/t fall. History of Any Multi-Drug Resistant Organisms: None Reported Past Surgical History: Heart Catheterization, Hernia Repair Additional Past Surgical History / Comment(s): cystoscopy, L inguinal hernia repair., anat cataracts Past Anesthesia/Blood Transfusion Reactions: No Reported Reaction Past Psychological History: No Psychological Hx Reported Smoking Status: Never smoker - Past Family History Sister(s) Family Medical History: Cancer Mother Family Medical History: CVA/TIA, Diabetes Mellitus, Hypertension, Musculoskeletal Disorder, Neurologic Disorder Additional Family Medical History / Comment(s): Mother had parkinson's dx. Father Family Medical History: CVA/TIA General Exam Limitations: altered mental status General appearance: alert, in no apparent distress Head exam: Present: normocephalic. Absent: atraumatic (Abrasion on the left side of the face covered with Silvadene.), normal inspection (Negative hemotympanum, negative Lau sign, negative periorbital ecchymosis.) Eye exam: Present: normal appearance ENT exam: Present: normal exam, normal oropharynx (Sutures due to oral trauma), mucous membranes moist, TM's normal bilaterally, normal external ear exam Neck exam: Present: normal inspection, full ROM. Absent: tenderness Respiratory exam: Present: normal lung sounds bilaterally Cardiovascular Exam: Present: regular rate, normal rhythm, normal heart sounds Extremities exam: Present: tenderness (Tenderness in the left hand), normal ca pillary refill, other (+2 ulnar radial pulses bilaterally.). Absent: normal inspection (Swelling and ecchymosis in the left hand), full ROM (Limited range of motion the left hand.) Back exam: Present: normal inspection, full ROM Neurological exam: Present: alert, oriented X3, CN II-XII intact, normal gait, other (Neuro exam unremarkable.) Psychiatric exam: Present: normal affect, normal mood Skin exam: Present: warm, intact, normal color Course Vital Signs 01/21/19 01/21/19 01/21/19 15:36 15:49 16:00 Temperature 99.1 F Pulse Rate 91 81 Respiratory 16 13 Rate Blood Pressure 122/68 129/82 O2 Sat by Pulse 95 94 L 98 Oximetry 01/21/19 01/21/19 01/21/19 16:35 17:00 18:00 Temperature 98.7 F Pulse Rate 87 78 76 Respiratory 18 21 15 Rate Blood Pressure 125/78 124/82 152/90 O2 Sat by Pulse 98 97 98 Oximetry Medical Decision Making - Medical Decision Making Patient is a 68-year-old male with history of Parkinson's disease presenting to emergency per with the chief complaint altered mental status. Daughter is there to answer additional questions. On initial evaluation patient is responsive however he does appear to be sleepy. Patient does appear to be having involuntary movements however that is his baseline due to the Parkinson's according to the daughter. Physical examination is remarkable for an abrasion on the face and a laceration to the mouth. Patient does have swelling in the left hand from the fall that he took yesterday. Neurological examination is unremarkable. Chest x-ray is unremarkable. Labs indicate poor kidney function and decrease in his hemoglobin by 3 during the past 30 days. Patient appears to be in acute kidney injury. Patient given fluids. On reevaluation patient is more sleepy and is less responsive to stimuli. Dr. Tapia also examined the patient. Case was discussed with internal medicine who would like to transfer the patient to [facility] for neurological evaluation. I spoke with who will accept the patient. - Lab Data Result diagrams: 01/21/19 16:02 01/21/19 16:02 Lab Results 01/21/19 01/21/19 01/21/19 Range/Units 15:56 16:02 16:02 WBC 5.8 (3.8-10.6) k/uL RBC 3.19 L (4.30-5.90) m/uL Hgb 10.5 L (13.0-17.5) gm/dL Hct 30.0 L (39.0-53.0) % MCV 94.1 (80.0-100.0) fL MCH 32.8 (25.0-35.0) pg MCHC 34.9 (31.0-37.0) g/dL RDW 13.1 (11.5-15.5) % Plt Count 141 L (150-450) k/uL Neutrophils % 78 % Lymphocytes % 13 % Monocytes % 6 % Eosinophils % 1 % Basophils % 0 % Neutrophils # 4.5 (1.3-7.7) k/uL Lymphocytes # 0.8 L (1.0-4.8) k/uL Monocytes # 0.4 (0-1.0) k/uL Eosinophils # 0.1 (0-0.7) k/uL Basophils # 0.0 (0-0.2) k/uL PT (9.0-12.0) sec INR (<1.2) APTT (22.0-30.0) sec Sodium 142 (137-145) mmol/L Potassium 4.1 (3.5-5.1) mmol/L Chloride 108 H (98-107) mmol/L Carbon Dioxide 24 (22-30) mmol/L Anion Gap 10 mmol/L BUN 33 H (9-20) mg/dL Creatinine 2.12 H (0.66-1.25) mg/dL Est GFR (CKD-EPI)AfAm 35 (>60 ml/min/1.73 sqM) Est GFR (CKD-EPI)NonAf 31 (>60 ml/min/1.73 sqM) Glucose 132 H (74-99) mg/dL POC Glucose (mg/dL) 132 H (75-99) mg/dL POC Glu Immigration Inspector ID July Calcium 8.6 (8.4-10.2) mg/dL Total Bilirubin 0.7 (0.2-1.3) mg/dL AST 25 (17-59) U/L ALT 25 (21-72) U/L Alkaline Phosphatase 68 (38-126) U/L Ammonia (<30) umol/L Troponin I (0.000-0.034) ng/mL Total Protein 6.7 (6.3-8.2) g/dL Albumin 3.7 (3.5-5.0) g/dL Urine Color Urine Appearance (Clear) Urine pH (5.0-8.0) Ur Specific [place] (1.001-1.035) Urine Protein (Negative) Urine Glucose (UA) (Negative) Urine Ketones (Negative) Urine Blood (Negative) Urine Nitrite (Negative) Urine Bilirubin (Negative) Urine Urobilinogen (<2.0) mg/dL Ur Leukocyte Esterase (Negative) Urine RBC (0-5) /hpf Urine WBC (0-5) /hpf Urine Mucus (None) /hpf Urine Opiates Screen (NotDetected) Ur Oxycodone Screen (NotDetected) Urine Methadone Screen (NotDetected) Ur Propoxyphene Screen (NotDetected) Ur Barbiturates Screen (NotDetected) U Tricyclic Antidepress (NotDetected) Ur Phencyclidine Scrn (NotDetected) Ur Amphetamines Screen (NotDetected) U Methamphetamines Scrn (NotDetected) U Benzodiazepines Scrn (NotDetected) Urine Cocaine Screen (NotDetected) U Marijuana (THC) Screen (NotDetected) 01/21/19 01/21/19 01/21/19 Range/Units 16:02 16:02 16:02 WBC (3.8-10.6) k/uL RBC (4.30-5.90) m/uL Hgb (13.0-17.5) gm/dL Hct (39.0-53.0) % MCV (80.0-100.0) fL MCH (25.0-35.0) pg MCHC (31.0-37.0) g/dL RDW (11.5-15.5) % Plt Count (150-450) k/uL Neutrophils % % Lymphocytes % % Monocytes % % Eosinophils % % Basophils % % Neutrophils # (1.3-7.7) k/uL Lymphocytes # (1.0-4.8) k/uL Monocytes # (0-1.0) k/uL Eosinophils # (0-0.7) k/uL Basophils # (0-0.2) k/uL PT 10.5 (9.0-12.0) sec INR 1.0 (<1.2) APTT 26.8 (22.0-30.0) sec Sodium (137-145) mmol/L Potassium (3.5-5.1) mmol/L Chloride (98-107) mmol/L Carbon Dioxide (22-30) mmol/L Anion Gap mmol/L BUN (9-20) mg/dL Creatinine (0.66-1.25) mg/dL Est GFR (CKD-EPI)AfAm (>60 ml/min/1.73 sqM) Est GFR (CKD-EPI)NonAf (>60 ml/min/1.73 sqM) Glucose (74-99) mg/dL POC Glucose (mg/dL) (75-99) mg/dL POC Glu Immigration Inspector ID Calcium (8.4-10.2) mg/dL Total Bilirubin (0.2-1.3) mg/dL AST (17-59) U/L ALT (21-72) U/L Alkaline Phosphatase (38-126) U/L Ammonia 10 (<30) umol/L Troponin I <0.012 (0.000-0.034) ng/mL Total Protein (6.3-8.2) g/dL Albumin (3.5-5.0) g/dL Urine Color Urine Appearance (Clear) Urine pH (5.0-8.0) Ur Specific [place] (1.001-1.035) Urine Protein (Negative) Urine Glucose (UA) (Negative) Urine Ketones (Negative) Urine Blood (Negative) Urine Nitrite (Negative) Urine Bilirubin (Negative) Urine Urobilinogen (<2.0) mg/dL Ur Leukocyte Esterase (Negative) Urine RBC (0-5) /hpf Urine WBC (0-5) /hpf Urine Mucus (None) /hpf Urine Opiates Screen (NotDetected) Ur Oxycodone Screen (NotDetected) Urine Methadone Screen (NotDetected) Ur Propoxyphene Screen (NotDetected) Ur Barbiturates Screen (NotDetected) U Tricyclic Antidepress (NotDetected) Ur Phencyclidine Scrn (NotDetected) Ur Amphetamines Screen (NotDetected) U Methamphetamines Scrn (NotDetected) U Benzodiazepines Scrn (NotDetected) Urine Cocaine Screen (NotDetected) U Marijuana (THC) Screen (NotDetected) 01/21/19 01/21/19 Range/Units 17:52 17:52 WBC (3.8-10.6) k/uL RBC (4.30-5.90) m/uL Hgb (13.0-17.5) gm/dL Hct (39.0-53.0) % MCV (80.0-100.0) fL MCH (25.0-35.0) pg MCHC (31.0-37.0) g/dL RDW (11.5-15.5) % Plt Count (150-450) k/uL Neutrophils % % Lymphocytes % % Monocytes % % Eosinophils % % Basophils % % Neutrophils # (1.3-7.7) k/uL Lymphocytes # (1.0-4.8) k/uL Monocytes # (0-1.0) k/uL Eosinophils # (0-0.7) k/uL Basophils # (0-0.2) k/uL PT (9.0-12.0) sec INR (<1.2) APTT (22.0-30.0) sec Sodium (137-145) mmol/L Potassium (3.5-5.1) mmol/L Chloride (98-107) mmol/L Carbon Dioxide (22-30) mmol/L Anion Gap mmol/L BUN (9-20) mg/dL Creatinine (0.66-1.25) mg/dL Est GFR (CKD-EPI)AfAm (>60 ml/min/1.73 sqM) Est GFR (CKD-EPI)NonAf (>60 ml/min/1.73 sqM) Glucose (74-99) mg/dL POC Glucose (mg/dL) (75-99) mg/dL POC Glu Immigration Inspector ID Calcium (8.4-10.2) mg/dL Total Bilirubin (0.2-1.3) mg/dL AST (17-59) U/L ALT (21-72) U/L Alkaline Phosphatase (38-126) U/L Ammonia (<30) umol/L Troponin I (0.000-0.034) ng/mL Total Protein (6.3-8.2) g/dL Albumin (3.5-5.0) g/dL Urine Color Yellow Urine Appearance Clear (Clear) Urine pH 6.0 (5.0-8.0) Ur Specific [place] 1.017 (1.001-1.035) Urine Protein 1+ H (Negative) Urine Glucose (UA) Negative (Negative) Urine Ketones Negative (Negative) Urine Blood Moderate H (Negative) Urine Nitrite Negative (Negative) Urine Bilirubin Negative (Negative) Urine Urobilinogen <2.0 (<2.0) mg/dL Ur Leukocyte Esterase Moderate H (Negative) Urine RBC 50 H (0-5) /hpf Urine WBC 5 (0-5) /hpf Urine Mucus Rare H (None) /hpf Urine Opiates Screen Detected H (NotDetected) Ur Oxycodone Screen Not Detected (NotDetected) Urine Methadone Screen Not Detected (NotDetected) Ur Propoxyphene Screen Not Detected (NotDetected) Ur Barbiturates Screen Not Detected (NotDetected) U Tricyclic Antidepress Not Detected (NotDetected) Ur Phencyclidine Scrn Not Detected (NotDetected) Ur Amphetamines Screen Not Detected (NotDetected) U Methamphetamines Scrn Not Detected (NotDetected) U Benzodiazepines Scrn Not Detected (NotDetected) Urine Cocaine Screen Not Detected (NotDetected) U Marijuana (THC) Screen Not Detected (NotDetected) Disposition Clinical Impression: Altered mental status Disposition: OTHER INSTITUTION NOT DEFINED Condition: Stable Instructions (If sedation given, give patient instructions): Altered Mental Status (ED) Additional Instructions: Patient will be transferred Is patient prescribed a controlled substance at d/c from ED?: No Referrals: Nancy Land MD [Primary Care Provider] - 1-2 days Time of Disposition: 18:17 - Out of Hospital Transfer - Req. Specs Out of Hospital Transfer - Requested Specifics: Other Emergency Center ([facility]
[2019-01-21 16:54] LABS: Basophils % (A) 0 %; Eosinophils # (A) 0.1 k/uL (0-0.7); Eosinophils % (A) 1 %; HGB 10.5 gm/dL (13.0-17.5); Lymphocytes # (A) 0.8 k/uL (1.0-4.8); Lymphocytes % (A) 13 %; MCH 32.8 pg (25.0-35.0); MCHC 34.9 g/dL (31.0-37.0); MCV 94.1 fL (80.0-100.0); Mean Platelet Volume 6.3; Monocytes # (A) 0.4 k/uL (0-1.0); Monocytes % (A) 6 %; Neutrophils # (A) 4.5 k/uL (1.3-7.7); Neutrophils % (A) 78 %; Platelet Count 141 k/uL (150-450); RBC 3.19 m/uL (4.30-5.90); RDW 13.1 % (11.5-15.5); WBC 5.8 k/uL (3.8-10.6)
--- NOTE | 2019-01-21 16:54 | XR ---
EXAMINATION TYPE: XR chest 2V DATE OF EXAM: 01/21/2019 COMPARISON: 12/22/2017 HISTORY: Altered mental status TECHNIQUE: Frontal and lateral views of the chest are obtained. FINDINGS: There is rib deformity on the left lateral chest wall related to multiple old fractures. T here is no heart failure nor confluent pneumonic infiltrate. Costophrenic angles are fairly clear. Th ere are chest leads. IMPRESSION: No active cardiopulmonary disease. There is clearing of the pleural reaction at the late ral left lung base to a large extent compared to old exam.
[2019-01-21 17:03] LABS: Partial Thromboplastin Time 26.8 sec (22.0-30.0); Prothrombin Time 10.5 sec (9.0-12.0)
[2019-01-21 17:04] LABS: Albumin 3.7 g/dL (3.5-5.0); Calcium 8.6 mg/dL (8.4-10.2); Potassium 4.1 mmol/L (3.5-5.1); Total Bilirubin 0.7 mg/dL (0.2-1.3); Total Protein 6.7 g/dL (6.3-8.2)
[2019-01-21] MEDS ORDERED: SODIUM CHLORIDE 0.9% 1,000 ML IV STA (18:12)
[2019-01-21 18:31] LABS: Appearance,Urine Clear (Clear); Bilirubin,Urine Negative (Negative); Blood,Urine Moderate (Negative); Color,Urine Yellow; Glucose,Urine (UA) Negative (Negative); Ketones,Urine Negative (Negative); Leukocyte Esterase,Urine Moderate (Negative); Mucus,Urine Rare /hpf; Nitrite,Urine Negative (Negative); Protein,Urine 1+ (Negative); RBC,Urine 50 /hpf (0-5); Specific Gravity,Urine 1.017 (1.001-1.035); Urobilinogen,Urine <2.0 mg/dL (<2.0)
--- NOTE | 2019-01-21 18:31 | CT ---
EXAMINATION TYPE: CT brain tung gomez con DATE OF EXAM: 01/21/2019 COMPARISON: 12/17/2017 HISTORY: Pt fall yesterday, and subsequently fell 2 more times. Laceration to LT forehead. Pt family states hx Parkinson's, hx of falls Neck pain CT DLP: 1584 mGycm Automated exposure control for dose reduction was used. TECHNIQUE: CT scan of the head and cervical spine are performed without contrast. FINDINGS: There is cerebral cortical atrophy. There is no mass effect nor midline shift. There is n o sign of intracranial hemorrhage. There is hypodensity left lateral frontal lobe consistent with old ischemic infarct. The calvarium is intact. Cervical vertebra show fairly normal alignment. There is hypertrophic anterior spurring in the lower cervical and upper thoracic spine. Posterior elements are intact. There is multilevel hypertrophic fa cet arthropathy. The skull base is intact. There is no evidence of cervical spine fracture. IMPRESSION: Cerebral atrophy. 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 Spondylotic changes in the cervical spine unchanged.
--- NOTE | 2019-01-21 18:34 | XR ---
EXAMINATION TYPE: XR hand complete LT DATE OF EXAM: 01/21/2019 COMPARISON: NONE HISTORY: Pain and injury TECHNIQUE: 3 views FINDINGS: There is soft tissue swelling on the dorsum of the hand. The metacarpals appear intact. Car pal bones are intact. There is moderate narrowing and spurring at the first carpometacarpal joint. Th ere is spurring at the IP joints of the fingers. IMPRESSION: Osteoarthritic changes. No fracture seen. Moderate soft tissue swelling.
[2019-01-21 18:53] LABS: Amphetamine Screen,Urine Not Detected (NotDetected); Barbiturate Screen,Urine Not Detected (NotDetected); Benzodiazepines Screen,Urine Not Detected (NotDetected); Cocaine Screen,Urine Not Detected (NotDetected); Methadone Screen, Urine Not Detected (NotDetected); Opiate Screen,Urine Detected (NotDetected); Oxycodone Screen, Urine Not Detected (NotDetected); Phencyclidine Screen,Urine Not Detected (NotDetected); Tricyclic Antidepressant,Urine Not Detected (NotDetected); Urn Cannabinoid Scrn Not Detected (NotDetected)
[2019-01-21 21:13] VITALS: BP 148/78; PULSE 78; RESP 18; TEMP 97.8
== END 2019-01-21 20:20 | disposition other institution (70) ==
LOC: EC 15:26
DX: R41.82 Altered mental status, unspecified (principal); S01.81XA Laceration without foreign body of other part of head, initial encounter; G20 Parkinson's disease; N40.0 Benign prostatic hyperplasia without lower urinary tract symptoms; I10 Essential (primary) hypertension; Z88.8 Allergy status to other drugs, medicaments and biological substances; Z91.048 Other nonmedicinal substance allergy status; Z88.0 Allergy status to penicillin; Z79.899 Other long term (current) drug therapy; Z91.81 History of falling; Z95.5 Presence of coronary angioplasty implant and graft; Z83.3 Family history of diabetes mellitus; Z82.49 Family history of ischemic heart disease and other diseases of the circulatory system; Z85.46 Personal history of malignant neoplasm of prostate; W01.0XXA Fall on same level from slipping, tripping and stumbling without subsequent striking against object, initial encounter
CPT/HCPCS: 36415; 70450; 71046; 72125; 80053; 80306; 81001; 82140; 84484; 85025; 85610; 85730; 93005; 96360; 99285

== ENCOUNTER → 2019-05-03 | Outpatient (CLI) | payer MEDICARE, OTHER ==
--- NOTE | 2019-05-03 15:26 | US ---
EXAMINATION TYPE: US kidneys/renal and bladder DATE OF EXAM: 05/03/2019 COMPARISON: 01/12/2019 CLINICAL HISTORY: R93.4 Hx of hydronephrosis. History of hydronephrosis EXAM MEASUREMENTS: Right Kidney: 11.2 x 5.5 x 4.3 cm Left Kidney: 13.2 x 7.0 x 5.1 cm Right Kidney: very minimal hydronephrosis Left Kidney: Mild hydronephrosis Bladder: diverticula noted Bilateral Jets seen: no There is no evidence for hydronephrosis at this point in time. No nephrolithiasis is seen. No yudelka s are identified. The urinary bladder is anechoic but has trabeculated urinary bladder londono. Bilate ral ureteral jets are not seen. Small urinary bladder diverticula are likely on the basis of chronic urinary bladder outlet obstruction. IMPRESSION: 1. Minimal right and mild left hydronephrosis, improved from the prior of 01/12/2019. 2. There is a trabeculated appearance of the urinary bladder wall, small urinary bladder diverticula and enlarged prostate gland. Findings suggest sequela of urinary bladder outlet obstruction.
== END | disposition home or self-care (01) ==
LOC: RADUSWWP 14:42
PROVIDERS: ATTEND Urology
DX: N13.30 Unspecified hydronephrosis (principal); N32.89 Other specified disorders of bladder; N40.0 Benign prostatic hyperplasia without lower urinary tract symptoms; Z88.1 Allergy status to other antibiotic agents; Z88.8 Allergy status to other drugs, medicaments and biological substances
CPT/HCPCS: 76770

== ENCOUNTER 2019-11-07 13:38 | Inpatient (IN) | payer MEDICARE, OTHER ==
[2019-11-07] MEDS ORDERED: SODIUM CHLORIDE 0.9% 500 ML 500 ML IV STA (13:55)
[2019-11-07 14:41] LABS: Basophils % (A) 0 %; Eosinophils % (A) 0 %; HCT 45.5 % (39.0-53.0); HGB 14.7 gm/dL (13.0-17.5); Lymphocytes # (A) 0.4 k/uL (1.0-4.8); Lymphocytes % (A) 4 %; MCH 30.9 pg (25.0-35.0); MCHC 32.4 g/dL (31.0-37.0); MCV 95.4 fL (80.0-100.0); Mean Platelet Volume 7.7; Monocytes # (A) 0.4 k/uL (0-1.0); Monocytes % (A) 4 %; Neutrophils # (A) 7.8 k/uL (1.3-7.7); Neutrophils % (A) 91 %; Platelet Count 141 k/uL (150-450); RBC 4.77 m/uL (4.30-5.90); RDW 13.6 % (11.5-15.5); WBC 8.6 k/uL (3.8-10.6)
[2019-11-07 14:44] LABS: Albumin 3.9 g/dL (3.5-5.0); Magnesium 2.2 mg/dL (1.6-2.3); Potassium 4.5 mmol/L (3.5-5.1); Total Bilirubin 0.9 mg/dL (0.2-1.3); Total Protein 6.8 g/dL (6.3-8.2)
--- NOTE | 2019-11-07 14:52 | ED ---
General Adult HPI - General Source: patient, RN notes reviewed, old records reviewed Mode of arrival: ambulatory Limitations: no limitations <Feliberto Lara - Last Filed: 11/07/19 14:52> <Giovanni Sainz - Last Filed: 11/07/19 15:57> - General Chief complaint: Weakness Stated complaint: Weakness/fall Time Seen by Provider: 11/07/19 13:50 - History of Present Illness Initial comments: This is a 68-year-old male presents emergency department stating over the last 3 days he is becoming weaker and weaker patient states it's fallen 3 times. Patient states he felt today try to get out of bed and ambulate on the ground for about 3 hours. Patient states he does have Parkinson's disease. Patient states he's had generalized weakness and there is been no focal deficit. Patient states he fell today and landed on his knees and forearms did not hit his head. Patient denies any loss of consciousness or neck pain. Patient denies any numbness or weakness. Patient states she has a little bit of tenderness in his ribs. Patient denies any shortness of breath or difficulty breathing. Patient denies any back pain. Patient denies any lower extremity pain. Patient states she has no knee or hip pain. He states he feels a superficial abrasion on the left knee. (Feliberto Lara) - Related Data Home Medications Medication Instructions Recorded Confirmed Carbidopa-Levodopa ER 50-200Mg 1 tab PO BID 03/20/15 12/17/17 [Sinemet CR 50-200 mg] Ferrous Sulfate [Feosol] 325 mg PO DAILY 03/20/15 12/17/17 Terazosin HCl [Hytrin] 10 mg PO HS 03/20/15 12/17/17 amantadine HCL [Symmetrel] 100 mg PO BID 03/20/15 12/17/17 Tamsulosin HCl [Flomax] 0.4 mg PO DAILY 02/22/17 12/17/17 Hallie-3 Fatty Acids/Fish Oil [Fish 1 cap PO DAILY 12/17/17 12/17/17 Oil 1,000 mg Softgel] Previous Rx's Medication Instructions Recorded Acetaminophen Tab [Tylenol] 650 mg PO Q4HR PRN #30 tab 12/22/17 HYDROcodone/APAP 5-325MG [[place] 1 tab PO Q4HR PRN 3 Days #18 tab 12/22/17 5-325] Ipratropium-Albuterol Nebulize 3 ml INHALATION RT-Q4H PRN 12/22/17 [Duoneb 0.5 mg-3 mg/3 ml Soln] ampul.neb Allergies Allergy/AdvReac Type Severity Reaction Status Date / Time adhesive tape Allergy Rash/Hives Verified 11/07/19 13:55 amoxicillin Allergy Dyspnea, Verified 11/07/19 13:55 SWELLING OF THROAT haloperidol [From Haldol] Allergy Unknown Verified 11/07/19 13:55 haloperidol lactate Allergy Unknown Verified 11/07/19 13:55 [From Haldol] lorazepam [From Ativan] Allergy Unknown Verified 11/07/19 13:55 alprazolam [From Xanax] AdvReac Unknown Verified 11/07/19 13:55 Review of Systems ROS Other: All systems not noted in ROS Statement are negative. <Feliberto Lara - Last Filed: 11/07/19 14:52> ROS Other: All systems not noted in ROS Statement are negative. <Giovanni Sainz - Last Filed: 11/07/19 15:57> ROS Statement: Those systems with pertinent positive or pertinent negative responses have been documented in the HPI. Past Medical History Past Medical History: Hypertension, Musculoskeletal Disorder, Neurologic Disorder, Prostate Disorder, Renal Disease Additional Past Medical History / Comment(s): parkinsons disease, nephrolithiasis, BPH,uti's , fall 2012 with skull fracture and subdural hematoma and L eardrum rupture, sinus problems on occasion.past stress test, lt sprain ankle d/t fall. History of Any Multi-Drug Resistant Organisms: None Reported Past Surgical History: Heart Catheterization, Hernia Repair Additional Past Surgical History / Comment(s): cystoscopy, L inguinal hernia repair., anat cataracts Past Anesthesia/Blood Transfusion Reactions: No Reported Reaction Past Psychological History: No Psychological Hx Reported Smoking Status: Never smoker Past Alcohol Use History: None Reported Past Drug Use History: None Reported - Past Family History Sister(s) Family Medical History: Cancer Mother Family Medical History: CVA/TIA, Diabetes Mellitus, Hypertension, Muscul oskeletal Disorder, Neurologic Disorder Additional Family Medical History / Comment(s): Mother had parkinson's dx. Father Family Medical History: CVA/TIA <Feliberto Lara - Last Filed: 11/07/19 14:52> General Exam Limitations: no limitations <Feliberto Lara - Last Filed: 11/07/19 14:52> - General Exam Comments Initial Comments: GENERAL: Patient is well-developed and well-nourished. Patient is nontoxic and well- hydrated and is in no acute distress. ENT: Neck is soft and supple. No significant lymphadenopathy is noted. Oropharynx is clear. Moist mucous membranes. Neck has full range of motion without eliciting any pain. EYES: The sclera were anicteric and conjunctiva were pink and moist. Extraocular movements were intact and pupils were equal round and reactive to light. Eyelids were unremarkable. PULMONARY: Unlabored respirations. Good breath sounds bilaterally. No audible rales rhonchi or wheezing was noted. CARDIOVASCULAR: There is a regular rate and rhythm without any murmurs gallops or rubs. ABDOMEN: Soft and nontender with normal bowel sounds. SKIN: Patient has a very superficial abrasion to the right upper arm and left knee. NEUROLOGIC: Patient is alert and oriented x3. Cranial nerves II through XII are grossly intact. Motor and sensory are also intact. Normal speech, volume and content. Symmetrical smile. MUSCULOSKELETAL: Patient has some tenderness in the mid forearm on the right.. LYMPHATICS: No significant lymphadenopathy is noted PSYCHIATRIC: Normal psychiatric evaluation. (Feliberto Lara) Course Vital Signs 11/07/19 11/07/19 11/07/19 13:49 14:00 14:30 Temperature 97.5 F L Pulse Rate 100 91 89 Respiratory 18 16 16 Rate Blood Pressure 132/98 132/98 121/78 O2 Sat by Pulse 98 95 95 Oximetry 11/07/19 15:30 Temperature Pulse Rate 89 Respiratory 15 Rate Blood Pressure 122/98 O2 Sat by Pulse 98 Oximetry Medical Decision Making - Lab Data Result diagrams: 11/07/19 14:16 <Feliberto Lara - Last Filed: 11/07/19 14:52> - Lab Data Result diagrams: 11/07/19 14:16 11/07/19 14:16 - Radiology Data Radiology results: image reviewed (Chest x-ray shows no acute process. X-ray of the right forearm shows no fracture.) <Giovanni Sainz - Last Filed: 11/07/19 15:57> - Medical Decision Making EKG shows atrial fibrillation at 110 bpm QRS is 140 QT interval 410 QTC is 554. Patient's has a right bundle branch block Dr. Sainz be taking over the care of this patient at 3 PM (Feliberto Lara) Patient reevaluated and reexamined by myself, Dr. Sainz. Patient resting co mfortably in bed. Patient updated on results and plan. Case was discussed in detail with Dr. Fernandez, who will admit covering for Dr. sanches. IV fluids will be provided. Patient has evidence of UTI however no evidence of sepsis at this time. Elevated lactic acid is felt to be due to fluid depletion and rhabdomyolysis (Giovanni Sainz) - Lab Data Lab Results 11/07/19 11/07/19 11/07/19 Range/Units 14:16 14:16 14:16 WBC 8.6 (3.8-10.6) k/uL RBC 4.77 (4.30-5.90) m/uL Hgb 14.7 (13.0-17.5) gm/dL Hct 45.5 (39.0-53.0) % MCV 95.4 (80.0-100.0) fL MCH 30.9 (25.0-35.0) pg MCHC 32.4 (31.0-37.0) g/dL RDW 13.6 (11.5-15.5) % Plt Count 141 L (150-450) k/uL Neutrophils % 91 % Lymphocytes % 4 % Monocytes % 4 % Eosinophils % 0 % Basophils % 0 % Neutrophils # 7.8 H (1.3-7.7) k/uL Lymphocytes # 0.4 L (1.0-4.8) k/uL Monocytes # 0.4 (0-1.0) k/uL Eosinophils # 0.0 (0-0.7) k/uL Basophils # 0.0 (0-0.2) k/uL PT 10.4 (9.0-12.0) sec INR 1.0 (<1.2) APTT 21.2 L (22.0-30.0) sec Sodium 138 (137-145) mmol/L Potassium 4.5 (3.5-5.1) mmol/L Chloride 109 H (98-107) mmol/L Carbon Dioxide 20 L (22-30) mmol/L Anion Gap 9 mmol/L BUN 23 H (9-20) mg/dL Creatinine 1.18 (0.66-1.25) mg/dL Est GFR (CKD-EPI)AfAm 72 (>60 ml/min/1.73 sqM) Est GFR (CKD-EPI)NonAf 62 (>60 ml/min/1.73 sqM) Glucose 128 H (74-99) mg/dL Plasma Lactic Acid Boni (0.7-2.0) mmol/L Calcium 9.0 (8.4-10.2) mg/dL Magnesium 2.2 (1.6-2.3) mg/dL Total Bilirubin 0.9 (0.2-1.3) mg/dL AST 226 H (17-59) U/L ALT 17 (4-49) U/L Alkaline Phosphatase 79 (38-126) U/L Creatine Kinase 7120 H* (55-170) U/L Troponin I (0.000-0.034) ng/mL Total Protein 6.8 (6.3-8.2) g/dL Albumin 3.9 (3.5-5.0) g/dL Urine Color Urine Appearance (Clear) Urine pH (5.0-8.0) Ur Specific [place] (1.001-1.035) Urine Protein (Negative) Urine Glucose (UA) (Negative) Urine Ketones (Negative) Urine Blood (Negative) Urine Nitrite (Negative) Urine Bilirubin (Negative) Urine Urobilinogen (<2.0) mg/dL Ur Leukocyte Esterase (Negative) Urine RBC (0-5) /hpf Urine WBC (0-5) /hpf Urine WBC Clumps (None) /hpf Urine Bacteria (None) /hpf Urine Mucus (None) /hpf 11/07/19 11/07/19 11/07/19 Range/Units 14:16 14:16 14:52 WBC (3.8-10.6) k/uL RBC (4.30-5.90) m/uL Hgb (13.0-17.5) gm/dL Hct (39.0-53.0) % MCV (80.0-100.0) fL MCH (25.0-35.0) pg MCHC (31.0-37.0) g/dL RDW (11.5-15.5) % Plt Count (150-450) k/uL Neutrophils % % Lymphocytes % % Monocytes % % Eosinophils % % Basophils % % Neutrophils # (1.3-7.7) k/uL Lymphocytes # (1.0-4.8) k/uL Monocytes # (0-1.0) k/uL Eosinophils # (0-0.7) k/uL Basophils # (0-0.2) k/uL PT (9.0-12.0) sec INR (<1.2) APTT (22.0-30.0) sec Sodium (137-145) mmol/L Potassium (3.5-5.1) mmol/L Chloride (98-107) mmol/L Carbon Dioxide (22-30) mmol/L Anion Gap mmol/L BUN (9-20) mg/dL Creatinine (0.66-1.25) mg/dL Est GFR (CKD-EPI)AfAm (>60 ml/min/1.73 sqM) Est GFR (CKD-EPI)NonAf (>60 ml/min/1.73 sqM) Glucose (74-99) mg/dL Plasma Lactic Acid Boni 3.4 H* (0.7-2.0) mmol/L Calcium (8.4-10.2) mg/dL Magnesium (1.6-2.3) mg/dL Total Bilirubin (0.2-1.3) mg/dL AST (17-59) U/L ALT (4-49) U/L Alkaline Phosphatase (38-126) U/L Creatine Kinase (55-170) U/L Troponin I <0.012 (0.000-0.034) ng/mL Total Protein (6.3-8.2) g/dL Albumin (3.5-5.0) g/dL Urine Color Yellow Urine Appearance Turbid (Clear) Urine pH 6.5 (5.0-8.0) Ur Specific [place] 1.020 (1.001-1.035) Urine Protein 2+ H (Negative) Urine Glucose (UA) Negative (Negative) Urine Ketones Negative (Negative) Urine Blood Large H (Negative) Urine Nitrite Positive (Negative) Urine Bilirubin Negative (Negative) Urine Urobilinogen <2.0 (<2.0) mg/dL Ur Leukocyte Esterase Large H (Negative) Urine RBC 13 H (0-5) /hpf Urine WBC >182 H (0-5) /hpf Urine WBC Clumps Many H (None) /hpf Urine Bacteria Occasional H (None) /hpf Urine Mucus Few H (None) /hpf Disposition <Feliberto Lara - Last Filed: 11/07/19 14:52> Is patient prescribed a controlled substance at d/c from ED?: No Decision Time: 15:57 <Giovanni Sainz - Last Filed: 11/07/19 15:57> Clinical Impression: Rhabdomyolysis, Urinary tract infection Disposition: ADMITTED IP TO THIS HOSP Referrals: Nancy Land MD [Primary Care Provider] - 1-2 days
[2019-11-07 15:04] LABS: Prothrombin Time 10.4 sec (9.0-12.0)
--- NOTE | 2019-11-07 15:14 | XR ---
EXAMINATION TYPE: XR chest 2V DATE OF EXAM: 11/07/2019 COMPARISON: 01/21/19 HISTORY: Shortness of breath TECHNIQUE: Frontal and lateral views of the chest are obtained. FINDINGS: Scattered senescent parenchymal changes noted. No evidence for infiltrate. No evidence for atelectasis. Heart size is stable. Mediastinal structures are stable and grossly unremarkable. No evidence for hilar prominence. Degenerative changes dorsal spine. IMPRESSION: 1. No evidence for acute pulmonary disease.
--- NOTE | 2019-11-07 15:15 | XR ---
EXAMINATION TYPE: XR forearm RT DATE OF EXAM: 11/07/2019 CLINICAL HISTORY: pain TECHNIQUE: Frontal and lateral images of the right forearm are obtained. COMPARISON: None. FINDINGS: There is no acute fracture/dislocation evident. The joint spaces appear within normal limi ts. The overlying soft tissue appears unremarkable. IMPRESSION: There is no acute fracture or dislocation. ICD 10 NO FRACTURE, INITIAL EVALUATION
[2019-11-07 15:21] LABS: Appearance,Urine Turbid (Clear); Bacteria,Urine Occasional /hpf; Bilirubin,Urine Negative (Negative); Blood,Urine Large (Negative); Color,Urine Yellow; Glucose,Urine (UA) Negative (Negative); Ketones,Urine Negative (Negative); Leukocyte Esterase,Urine Large (Negative); Mucus,Urine Few /hpf; Nitrite,Urine Positive (Negative); PH, Urine 6.5 (5.0-8.0); Protein,Urine 2+ (Negative); RBC,Urine 13 /hpf (0-5); Urobilinogen,Urine <2.0 mg/dL (<2.0); WBC,Urine >182 /hpf (0-5)
[2019-11-07 15:26] LABS: Partial Thromboplastin Time 21.2 sec (22.0-30.0)
[2019-11-07] MEDS ORDERED: LEVOFLOXACIN 750MG-D5W PMX 750 MG in DEXTROSE/WATER 1 150ML.BAG IVPB STA (15:57)
[2019-11-07] MEDS ORDERED: NALOXONE 0.4 MG/ML 1 ML VIAL IV PRN (15:58)
[2019-11-07] MEDS: SODIUM CHLORIDE 0.9% 1,000 ML IV SCH ×2 (16:14→23:41)
--- NOTE | 2019-11-07 18:39 | P.HPIM ---
History of Present Illness H&P Date: 11/07/19 Caleb Riggins, is a 68-year-old male patient of Dr. Land with known history of advanced Parkinson disease who presented to [facility] emergency room after sustaining falls 3 days in a row patient was complaining of generalized pain, he was evaluated in the emergency room, no clinical or radiologic evidence of any fracture, patient had elevated creatinine kinase with evidence of rhabdomyolysis, he also had evidence of urinary tract infection, he was started on IV antibiotics and was admitted to medical floor for further evaluation. On review of system patient is alert and oriented 3 in no apparent distress there is no fever or chills no headache or dizziness no chest pain no shortness of breath no cough no nausea or vomiting no abdominal pain no diarrhea no burning with urination no frequency or urgency and no hematuria patient has tremors in bilateral hands. Past Medical History Past Medical History: Hypertension, Musculoskeletal Disorder, Neurologic Disorder, Prostate Disorder, Renal Disease Additional Past Medical History / Comment(s): parkinsons disease, nephrolithiasis, BPH,uti's , fall 2012 with skull fracture and subdural hematoma and L eardrum rupture, sinus problems on occasion.past stress test, lt sprain ankle d/t fall. History of Any Multi-Drug Resistant Organisms: None Reported Past Surgical History: Heart Catheterization, Hernia Repair Additional Past Surgical History / Comment(s): cystoscopy, L inguinal hernia repair., anat cataracts Past Anesthesia/Blood Transfusion Reactions: No Reported Reaction Past Psychological History: No Psychological Hx Reported Smoking Status: Never smoker Past Alcohol Use History: None Reported Past Drug Use History: None Reported - Past Family History Sister(s) Family Medical History: Cancer Mother Family Medical History: CVA/TIA, Diabetes Mellitus, Hypertension, Musculoskeletal Disorder, Neurologic Disorder Additional Family Medical History / Comment(s): Mother had parkinson's dx. Father Family Medical History: CVA/TIA Medications and Allergies Home Medications Medication Instructions Recorded Confirmed Type Carbidopa-Levodopa ER 50-200Mg 2 tab PO BID 03/20/15 11/07/19 History [Sinemet CR 50-200 mg] Ferrous Sulfate [Feosol] 325 mg PO DAILY 03/20/15 11/07/19 History Terazosin HCl [Hytrin] 10 mg PO HS 03/20/15 11/07/19 History amantadine HCL [Symmetrel] 100 mg PO BID 03/20/15 11/07/19 History Tamsulosin HCl [Flomax] 0.4 mg PO DAILY 02/22/17 11/07/19 History Finasteride [Proscar] 5 mg PO HS 11/07/19 11/07/19 History HYDROcodone/APAP 7.5-325MG [[place] 1 tab PO Q6H PRN 11/07/19 11/07/19 History 7.5-325] Metoprolol Tartrate [Lopressor] 25 mg PO DAILY 11/07/19 11/07/19 History Multivitamins, Thera [Multivitamin 1 tab PO DAILY 11/07/19 11/07/19 History (formulary)] Allergies Allergy/AdvReac Type Severity Reaction Status Date / Time adhesive tape Allergy Rash/Hives Verified 11/07/19 16:22 amoxicillin Allergy Dyspnea, Verified 11/07/19 16:22 SWELLING OF THROAT haloperidol [From Haldol] Allergy Unknown Verified 11/07/19 16:22 haloperidol lactate Allergy Unknown Verified 11/07/19 16:22 [From Haldol] lorazepam [From Ativan] Allergy Unknown Verified 11/07/19 16:22 alprazolam [From Xanax] AdvReac Unknown Verified 11/07/19 16:22 Physical Exam Vitals: Vital Signs Temp Pulse Pulse Resp BP BP Pulse Ox 11/07/19 17:02 97.6 F 90 18 133/85 96 11/07/19 16:30 92 18 139/94 94 L 11/07/19 16:00 88 18 125/89 99 11/07/19 15:30 89 15 122/98 98 11/07/19 14:30 89 16 121/78 95 11/07/19 14:00 91 16 132/98 95 11/07/19 13:49 97.5 F L 100 18 132/98 98 Intake and Output 11/07/19 11/07/19 11/07/19 06:59 14:59 22:59 Other: Weight 117.934 kg In general patient is alert and oriented 3 in no apparent distress HEENT head normocephalic and atraumatic Neck is supple no JVD no goiter no lymphadenopathy no carotid bruit Chest exam reveals a few scattered rhonchi no wheezing Cardiac exam reveals regular heart sounds no gallops no murmurs Abdomen is soft nontender no organomegaly with normal bowel sounds Extremity exam reveals no edema no cyanosis or clubbing Neurological examination reveals no gross focal deficit Results CBC & Chem 7: 11/07/19 14:16 11/07/19 14:16 Labs: Abnormal Lab Results - Last 24 Hours (Table) 11/07/19 11/07/19 11/07/19 Range/Units 14:16 14:16 14:16 Plt Count 141 L (150-450) k/uL Neutrophils # 7.8 H (1.3-7.7) k/uL Lymphocytes # 0.4 L (1.0-4.8) k/uL APTT 21.2 L (22.0-30.0) sec Chloride 109 H (98-107) mmol/L Carbon Dioxide 20 L (22-30) mmol/L BUN 23 H (9-20) mg/dL Glucose 128 H (74-99) mg/dL Plasma Lactic Acid Boni (0.7-2.0) mmol/L AST 226 H (17-59) U/L Creatine Kinase 7120 H* (55-170) U/L Urine Protein (Negative) Urine Blood (Negative) Ur Leukocyte Esterase (Negative) Urine RBC (0-5) /hpf Urine WBC (0-5) /hpf Urine WBC Clumps (None) /hpf Urine Bacteria (None) /hpf Urine Mucus (None) /hpf 11/07/19 11/07/19 Range/Units 14:16 14:52 Plt Count (150-450) k/uL Neutrophils # (1.3-7.7) k/uL Lymphocytes # (1.0-4.8) k/uL APTT (22.0-30.0) sec Chloride (98-107) mmol/L Carbon Dioxide (22-30) mmol/L BUN (9-20) mg/dL Glucose (74-99) mg/dL Plasma Lactic Acid Boni 3.4 H* (0.7-2.0) mmol/L AST (17-59) U/L Creatine Kinase (55-170) U/L Urine Protein 2+ H (Negative) Urine Blood Large H (Negative) Ur Leukocyte Esterase Large H (Negative) Urine RBC 13 H (0-5) /hpf Urine WBC >182 H (0-5) /hpf Urine WBC Clumps Many H (None) /hpf Urine Bacteria Occasional H (None) /hpf Urine Mucus Few H (None) /hpf Assessment and Plan Plan: 1. Rhabdomyolysis, CPK is 7120, on presentation will monitor kidney function closely 2. Urinary tract infection with sepsis, as evidenced by elevated lactic acid at 3.4 patient was started on IV Levaquin in the emergency room will monitor closely 3. Underlying history of advanced Parkinson disease 4. Underlying history of benign prostatic hypertrophy 5. Underlying history of hypertension 6. Underlying history of anemia At this time patient is admitted to medical floor he was started on IV antibiotics Will monitor progress closely Will consult physical therapy and occupational therapy and assess if patient needs rehab in regard to recurrent falls Will consult neurology to assess if Parkinson disease medications need to be adjusted For DVT prophylaxis we will use subcu Lovenox for GI prophylaxis we will use Protonix Will follow in a.m.
[2019-11-07] MEDS: CARBIDOPA-LEVODOPA ER 50-200MG 1 EACH TABLET.ER PO SCH (21:04)
[2019-11-07] MEDS: DOXAZOSIN 4 MG TAB PO SCH (21:04)
[2019-11-07] MEDS: ENOXAPARIN 40 MG/0.4 ML SYRINGE SQ SCH (21:05)
[2019-11-07] MEDS: FINASTERIDE 5 MG TAB PO SCH (21:09)
[2019-11-08 06:31] LABS: Basophils % (A) 0 %; Eosinophils # (A) 0.1 k/uL (0-0.7); Eosinophils % (A) 2 %; HCT 40.3 % (39.0-53.0); Lymphocytes # (A) 0.9 k/uL (1.0-4.8); Lymphocytes % (A) 17 %; MCHC 32.2 g/dL (31.0-37.0); MCV 96.3 fL (80.0-100.0); Mean Platelet Volume 7.8; Monocytes # (A) 0.4 k/uL (0-1.0); Monocytes % (A) 8 %; Neutrophils # (A) 3.7 k/uL (1.3-7.7); Neutrophils % (A) 72 %; Platelet Count 130 k/uL (150-450); RBC 4.19 m/uL (4.30-5.90); RDW 13.6 % (11.5-15.5); WBC 5.2 k/uL (3.8-10.6)
[2019-11-08 06:45] LABS: Calcium 7.9 mg/dL (8.4-10.2); Potassium 4.4 mmol/L (3.5-5.1); Total Bilirubin 0.9 mg/dL (0.2-1.3); Total Protein 5.5 g/dL (6.3-8.2)
[2019-11-08] MEDS: SODIUM CHLORIDE 0.9% 1,000 ML IV SCH ×3 (08:03→20:09)
[2019-11-08] MEDS: PANTOPRAZOLE 40 MG TABLET PO SCH (08:03)
[2019-11-08] MEDS: FERROUS SULFATE 325 MG TAB PO SCH (08:03)
[2019-11-08] MEDS: CARBIDOPA-LEVODOPA ER 50-200MG 1 EACH TABLET.ER PO SCH ×2 (09:44→20:04)
[2019-11-08] MEDS: METOPROLOL TARTRATE 25 MG TAB PO SCH (09:45)
[2019-11-08] MEDS: MULTIVITAMINS, THERA 1 EACH TAB PO SCH (09:45)
[2019-11-08] MEDS: ENOXAPARIN 40 MG/0.4 ML SYRINGE SQ SCH (09:46)
[2019-11-08] MEDS: TAMSULOSIN 0.4 MG CAP.ER.24H PO SCH (09:46)
--- NOTE | 2019-11-08 14:09 | P.PN ---
Subjective Progress Note Date: 11/08/19 Caleb Riggins, is a 68-year-old male patient of Dr. Land with known history of advanced Parkinson disease who presented to [facility] emergency room after sustaining falls 3 days in a row patient was complaining of generalized pain, he was evaluated in the emergency room, no clinical or r adiologic evidence of any fracture, patient had elevated creatinine kinase with evidence of rhabdomyolysis, he also had evidence of urinary tract infection, he was started on IV antibiotics and was admitted to medical floor for further evaluation. On review of system patient is alert and oriented 3 in no apparent distress there is no fever or chills no headache or dizziness no chest pain no shortness of breath no cough no nausea or vomiting no abdominal pain no diarrhea no burning with urination no frequency or urgency and no hematuria patient has tremors in bilateral hands. On 11/08/2019 patient was seen and examined on the medical floor he is alert and oriented 3 in no apparent distress CPK level has increased since yesterday he remains on IV fluid normal saline at 130 mL/h he is still maintained on IV antibiotic for urinary tract infection neurology was consulted to review medication of Parkinson disease and assess if any changes beneficial to patient. Clinically he is stable there is no fever or chills no headache no dizziness no chest pain no shortness of breath no cough no nausea or vomiting no abdominal pain no diarrhea no burning was urination no frequency or urgency no hematuria. Objective - Vital Signs Vital signs: Vital Signs Temp 97.9 F 11/08/19 13:00 Pulse 68 11/08/19 13:00 Resp 18 11/08/19 13:00 BP 100/65 11/08/19 13:00 Pulse Ox 96 11/08/19 13:00 Intake & Output 11/07/19 11/08/19 11/08/19 18:59 06:59 18:59 Weight 117.934 kg Other: Voiding Method Urinal Urinal Diaper Incontinent # Voids 1 - Exam In general patient is alert and oriented 3 in no apparent distress HEENT head normocephalic and atraumatic Neck is supple no JVD no goiter no lymphadenopathy no carotid bruit Chest exam reveals a few scattered rhonchi no wheezing Cardiac exam reveals regular heart sounds no gallops no murmurs Abdomen is soft nontender no organomegaly with normal bowel sounds Extremity exam reveals no edema no cyanosis or clubbing Neurological examination reveals no gross focal deficit - Labs CBC & Chem 7: 11/08/19 05:47 11/08/19 05:47 Labs: Abnormal Lab Results - Last 24 Hours (Table) 11/07/19 11/07/19 11/07/19 Range/Units 14:16 14:16 14:16 RBC (4.30-5.90) m/uL Plt Count 141 L (150-450) k/uL Neutrophils # 7.8 H (1.3-7.7) k/uL Lymphocytes # 0.4 L (1.0-4.8) k/uL APTT 21.2 L (22.0-30.0) sec Chloride 109 H (98-107) mmol/L Carbon Dioxide 20 L (22-30) mmol/L BUN 23 H (9-20) mg/dL Glucose 128 H (74-99) mg/dL Plasma Lactic Acid Boni (0.7-2.0) mmol/L Calcium (8.4-10.2) mg/dL AST 226 H (17-59) U/L Creatine Kinase 7120 H* (55-170) U/L Total Protein (6.3-8.2) g/dL Albumin (3.5-5.0) g/dL Urine Protein (Negative) Urine Blood (Negative) Ur Leukocyte Esterase (Negative) Urine RBC (0-5) /hpf Urine WBC (0-5) /hpf Urine WBC Clumps (None) /hpf Urine Bacteria (None) /hpf Urine Mucus (None) /hpf 11/07/19 11/07/19 11/07/19 Range/Units 14:16 14:52 18:14 RBC (4.30-5.90) m/uL Plt Count (150-450) k/uL Neutrophils # (1.3-7.7) k/uL Lymphocytes # (1.0-4.8) k/uL APTT (22.0-30.0) sec Chloride (98-107) mmol/L Carbon Dioxide (22-30) mmol/L BUN (9-20) mg/dL Glucose (74-99) mg/dL Plasma Lactic Acid Boni 3.4 H* 2.1 H* (0.7-2.0) mmol/L Calcium (8.4-10.2) mg/dL AST (17-59) U/L Creatine Kinase (55-170) U/L Total Protein (6.3-8.2) g/dL Albumin (3.5-5.0) g/dL Urine Protein 2+ H (Negative) Urine Blood Large H (Negative) Ur Leukocyte Esterase Large H (Negative) Urine RBC 13 H (0-5) /hpf Urine WBC >182 H (0-5) /hpf Urine WBC Clumps Many H (None) /hpf Urine Bacteria Occasional H (None) /hpf Urine Mucus Few H (None) /hpf 11/08/19 11/08/19 Range/Units 05:47 05:47 RBC 4.19 L (4.30-5.90) m/uL Plt Count 130 L (150-450) k/uL Neutrophils # (1.3-7.7) k/uL Lymphocytes # 0.9 L (1.0-4.8) k/uL APTT (22.0-30.0) sec Chloride 111 H (98-107) mmol/L Carbon Dioxide (22-30) mmol/L BUN 22 H (9-20) mg/dL Glucose 106 H (74-99) mg/dL Plasma Lactic Acid Boni (0.7-2.0) mmol/L Calcium 7.9 L (8.4-10.2) mg/dL AST 310 H (17-59) U/L Creatine Kinase 01452 H* (55-170) U/L Total Protein 5.5 L (6.3-8.2) g/dL Albumin 3.0 L (3.5-5.0) g/dL Urine Protein (Negative) Urine Blood (Negative) Ur Leukocyte Esterase (Negative) Urine RBC (0-5) /hpf Urine WBC (0-5) /hpf Urine WBC Clumps (None) /hpf Urine Bacteria (None) /hpf Urine Mucus (None) /hpf Microbiology - Last 24 Hours (Table) 11/07/19 14:52 Urine Culture - Preliminary Urine,Voided Assessment and Plan Plan: 1. Rhabdomyolysis, CPK is 7120, on presentation will monitor kidney function closely 2. Urinary tract infection with sepsis, as evidenced by elevated lactic acid at 3.4 patient was started on IV Levaquin in the emergency room will monitor cl osely 3. Underlying history of advanced Parkinson disease 4. Underlying history of benign prostatic hypertrophy 5. Underlying history of hypertension 6. Underlying history of anemia At this time patient is admitted to medical floor he was started on IV antibiotics Will monitor progress closely Will consult physical therapy and occupational therapy and assess if patient needs rehab in regard to recurrent falls Will consult neurology to assess if Parkinson disease medications need to be a djusted For DVT prophylaxis we will use subcu Lovenox for GI prophylaxis we will use Protonix Will follow in a.m.
[2019-11-08] MEDS: HYDROcodone/APAP 7.5-325MG 1 EACH TAB PO PRN (15:44)
[2019-11-08] MEDS ORDERED: LEVOFLOXACIN 750MG-D5W PMX 750 MG in DEXTROSE/WATER 1 150ML.BAG IVPB SCH (16:00)
[2019-11-08] MEDS: FINASTERIDE 5 MG TAB PO SCH (20:03)
[2019-11-08] MEDS: DOXAZOSIN 4 MG TAB PO SCH (20:04)
[2019-11-09 07:04] LABS: Basophils % (A) 0 %; Eosinophils # (A) 0.1 k/uL (0-0.7); Eosinophils % (A) 3 %; HCT 40.7 % (39.0-53.0); HGB 12.5 gm/dL (13.0-17.5); Hypochromasia Slight; Lymphocytes # (A) 0.9 k/uL (1.0-4.8); Lymphocytes % (A) 17 %; MCH 30.1 pg (25.0-35.0); MCHC 30.6 g/dL (31.0-37.0); MCV 98.3 fL (80.0-100.0); Mean Platelet Volume 7.5; Monocytes # (A) 0.4 k/uL (0-1.0); Monocytes % (A) 8 %; Neutrophils # (A) 3.6 k/uL (1.3-7.7); Neutrophils % (A) 70 %; Platelet Count 124 k/uL (150-450); RBC 4.14 m/uL (4.30-5.90); RDW 13.6 % (11.5-15.5); WBC 5.1 k/uL (3.8-10.6)
[2019-11-09 07:21] LABS: ALT 10 U/L (4-49); AST 229 U/L (17-59); African American GFR (CKD) >90 (>60 ml/min/1.73 sqM); Albumin 2.7 g/dL (3.5-5.0); Alkaline Phosphatase 54 U/L (38-126); Anion Gap 4 mmol/L; Blood Urea Nitrogen 18 mg/dL (9-20); Calcium 7.9 mg/dL (8.4-10.2); Carbon Dioxide 20 mmol/L (22-30); Chloride 113 mmol/L (98-107); Glucose 109 mg/dL (74-99); Non-African American GFR(CKD) 85 (>60 ml/min/1.73 sqM); Potassium 4.3 mmol/L (3.5-5.1); Sodium 137 mmol/L (137-145); Total Bilirubin 0.8 mg/dL (0.2-1.3); Total Protein 5.3 g/dL (6.3-8.2)
[2019-11-09 07:37] LABS: Creatine Kinase 6383 U/L (55-170)
[2019-11-09] MEDS: SODIUM CHLORIDE 0.9% 1,000 ML IV SCH ×3 (07:45→22:16)
[2019-11-09] MEDS: PANTOPRAZOLE 40 MG TABLET PO SCH (08:50)
[2019-11-09] MEDS: TAMSULOSIN 0.4 MG CAP.ER.24H PO SCH (08:50)
[2019-11-09] MEDS: CARBIDOPA-LEVODOPA ER 50-200MG 1 EACH TABLET.ER PO SCH ×2 (08:50→20:22)
[2019-11-09] MEDS: METOPROLOL TARTRATE 25 MG TAB PO SCH (08:50)
[2019-11-09] MEDS: FERROUS SULFATE 325 MG TAB PO SCH (08:50)
[2019-11-09] MEDS: MULTIVITAMINS, THERA 1 EACH TAB PO SCH (08:50)
[2019-11-09] MEDS: ENOXAPARIN 40 MG/0.4 ML SYRINGE SQ SCH (08:51)
--- NOTE | 2019-11-09 09:18 | CT ---
EXAMINATION TYPE: CT brain wo con DATE OF EXAM: 11/09/2019 HISTORY: Multiple falls CT DLP: 995.5 mGycm. Automated Exposure Control for Dose Reduction was Utilized. TECHNIQUE: CT scan of the head is performed without contrast. COMPARISON: 01/21/2019 CT brain FINDINGS: There is no acute intracranial hemorrhage, midline shift, or mass effect identified. There is old enc ephalomalacia of the left frontal lobe. Patchy white matter hypodensities likely sequela of chronic m icrovascular ischemic change. Diffuse volume loss. The ventricles, sulci, and cisterns are normal in size and configuration. No extra-axial fluid collection. Bones and extracranial soft tissues are intact. The globes are gross ly symmetric. Bilateral maxillary sinus mucosal retention cyst versus polyps. Mastoid air cells are c lear. IMPRESSION: No acute intracranial hemorrhage, midline shift, or mass effect.
--- NOTE | 2019-11-09 14:09 | P.CNNES ---
History of Present Illness Consult date: 11/09/19 Requesting physician: Rose Fernandez Reason for Consult: Multiple falls and Parkinsons disease History of Present Illness: Mr. Riggins is a 68-year-old gentleman with medical history of Parkinson's disease, fallen 2012 with skull fracture and subdural hematoma and left ear drum rupture, atrial fibrillation (not on anticoagulation at home), hypertension, nephrolithiasis, benign prostatic hyperplasia who presented to the [facility] emergency 11/07/2019 after sustaining multiple falls. patient is complaining of generalized pain. Patient stated that he has a fallen 3 times in total and that was in 3 days, which were November 03, and the third. He said that he got out of bed that he wasn't feeling dizzy no lightheadedness no blurry vision no weakness and then he was walk-in he took a couple steps and all of a sudden he fell. And the old 3 falls were similar presentation. He denies of any tripping over anything or the floor being wet. He lives alone without the any Walker or can assistance. Again he did not have any weakness numbness blurry vision difficulty swallowing prior or after that fall. Regarding the patient's of Parkinson's disease he is on carbidopa levodopa 50/200 mg 2 tablets twice a day. He is on amantadine 100 mg twice a day. He said that he had Parkinson's for about 12 years and he follows up with a neurologist at [facility]. His Parkinson that started off with the r esting tremor of the right upper extremity that worsens with years. He was initially started on amantadine and a while then was later started on carbidopa levodopa area and he said the last time that the carbidopa levodopa was changed was about 6 months ago and that was titrated up. Regarding patient's history of atrial fibrillation he said that he is not on any anticoagulation. On admission he had elevated creatinine kinase 7120 and the with evidence of rhabdomyolysis and had evidence of urinary tract infections with the patient was started on IV antibiotics and was admitted to the hospital. CT of the head on 11/09/2019 showed an old encephalomalacia over the left frontal lobe. This showed the chronic microvascular ischemic changes. Diffuse volume loss. No acute intracranial hemorrhage, midline shift or mass effect. EKG was read as atrial fibrillation with rapid ventricular response. Right bundle branch block. Left anterior fascicular block. chest x-ray was done and shows no evidence of acute pulmonary disease. On initial presentation his AST was 226 currently it's 229.ALTs 17 and currently 10. Calcium initially was 9.0 currently last was 7.9. CPK initially was 7120 last was 6300s. UA shows the colors yellow appears turbid, 20 with 2 positive, there is a large amount of blood, nitrite is positive leukocyte esterase was large and urinary blood cell is 13. I attempted and contacting the patient's daughter who is the next of kin at [phone] but no response. Review of Systems Review of system: The 12 point system was reviewed and apparent positive and negative per HPI. Past Medical History Past Medical History: Hypertension, Musculoskeletal Disorder, Neurologic Disorder, Prostate Disorder, Renal Disease Additional Past Medical History / Comment(s): parkinsons disease, nephrolithiasis, BPH,uti's , fall 2012 with skull fracture and subdural hematoma and L eardrum rupture, sinus problems on occasion.past stress test, lt sprain ankle d/t fall. History of Any Multi-Drug Resistant Organisms: None Reported Past Surgical History: Heart Catheterization, Hernia Repair Additional Past Surgical History / Comment(s): cystoscopy, L inguinal hernia repair., anat cataracts Past Anesthesia/Blood Transfusion Reactions: No Reported Reaction Past Psychological History: No Psychological Hx Reported Smoking Status: Never smoker Past Alcohol Use History: None Reported Past Drug Use History: None Reported - Past Family History Sister(s) Family Medical History: Cancer Mother Family Medical History: CVA/TIA, Diabetes Mellitus, Hypertension, Musculo skeletal Disorder, Neurologic Disorder Additional Family Medical History / Comment(s): Mother had parkinson's dx. Father Family Medical History: CVA/TIA Medications and Allergies Home Medications Medication Instructions Recorded Confirmed Type Carbidopa-Levodopa ER 50-200Mg 2 tab PO BID 03/20/15 11/07/19 History [Sinemet CR 50-200 mg] Ferrous Sulfate [Feosol] 325 mg PO DAILY 03/20/15 11/07/19 History Terazosin HCl [Hytrin] 10 mg PO HS 03/20/15 11/07/19 History amantadine HCL [Symmetrel] 100 mg PO BID 03/20/15 11/07/19 History Tamsulosin HCl [Flomax] 0.4 mg PO DAILY 02/22/17 11/07/19 History Finasteride [Proscar] 5 mg PO HS 11/07/19 11/07/19 History HYDROcodone/APAP 7.5-325MG [Ogden 1 tab PO Q6H PRN 11/07/19 11/07/19 History 7.5-325] Metoprolol Tartrate [Lopressor] 25 mg PO DAILY 11/07/19 11/07/19 History Multivitamins, Thera [Multivitamin 1 tab PO DAILY 11/07/19 11/07/19 History (formulary)] Allergies Allergy/AdvReac Type Severity Reaction Status Date / Time adhesive tape Allergy Rash/Hives Verified 11/07/19 16:22 amoxicillin Allergy Dyspnea, Verified 11/07/19 16:22 SWELLING OF THROAT haloperidol [From Haldol] Allergy Unknown Verified 11/07/19 16:22 haloperidol lactate Allergy Unknown Verified 11/07/19 16:22 [From Haldol] lorazepam [From Ativan] Allergy Unknown Verified 11/07/19 16:22 alprazolam [From Xanax] AdvReac Unknown Verified 11/07/19 16:22 Physical Examination - Vital Signs Vital Signs: Vital Signs Temp Pulse Resp BP Pulse Ox 11/09/19 12:02 98.3 F 69 19 138/86 100 11/09/19 05:00 98.0 F 67 18 127/80 94 L 11/08/19 20:31 98.2 F 65 18 134/78 95 11/08/19 13:00 97.9 F 68 18 100/65 96 Intake and Output 11/08/19 11/09/19 11/09/19 22:59 06:59 14:59 Intake Total 250 1760 Balance 250 1760 Intake: Intake, IV Titration 1560 Amount Sodium Chloride 0.9% 1, 1560 000 ml @ 130 mls/hr IV . Q7H42M [facility] Rx#:[id number] Oral 250 200 Other: Voiding Method Urinal Urinal Diaper Diaper Incontinent Incontinent # Voids 2 400 # Bowel Movements 1 GENERAL: The patient is sitting in chair and is not in acute distress. CHEST: The heart rate is irregular rate rhythm. No murmurs to auscultation. LUNG: Clear to auscultation bilaterally. Not labored breathing. ABDOMEN/GI: Bowel sounds present in all 4 quadrants. No tenderness to palpation throughout. NEUROLOGICAL: Higher mental function: The patient is awake, alert, oriented to self, place. He correctly said it was November but said the year was 2001 Patient is following simple commands. No aphasia and no neglect. Cranial nerves: The pupils are round, equal and reactive to light and accommodation. Visual ramos are full to confrontation throughout. Extraocular movement is intact somewhat limited to vertical gaze. Facial sensation is normal to touch throughout. The facial strength is normal throughout. Hearing is normal bilaterally to hand rub. Tongue is midline and moved [id number] without any difficulty. No dysarthria is noted. Shoulder shrug is normal bilaterally. Motor: Gait: It was hard to assess but had mild shuffling gait but will attempt to walk fast. The strength is 5 over 5 throughout but was somewhat slow in performing test. Normal tone and bulk. No cogwheel rigidity noted but maybe some increase tone in both elbows. Cerebellum: Normal finger to nose bilaterally. Sensation: Sensation is normal to touch throughout. Reflexes (right/left): 1+ throughout. Plantars are downgoing bilaterally. Results - Laboratory Findings CBC and BMP: 11/09/19 06:44 11/09/19 06:44 Abnormal Lab Findings: Abnormal Labs 11/07/19 11/07/19 11/07/19 14:16 14:16 14:16 RBC Hgb MCHC Plt Count 141 L Neutrophils # 7.8 H Lymphocytes # 0.4 L APTT 21.2 L Chloride 109 H Carbon Dioxide 20 L BUN 23 H Glucose 128 H Plasma Lactic Acid Boni Calcium AST 226 H Creatine Kinase 7120 H* Total Protein Albumin Urine Protein Urine Blood Ur Leukocyte Esterase Urine RBC Urine WBC Urine WBC Clumps Urine Bacteria Urine Mucus 11/07/19 11/07/19 11/07/19 14:16 14:52 18:14 RBC Hgb MCHC Plt Count Neutrophils # Lymphocytes # APTT Chloride Carbon Dioxide BUN Glucose Plasma Lactic Acid Boni 3.4 H* 2.1 H* Calcium AST Creatine Kinase Total Protein Albumin Urine Protein 2+ H Urine Blood Large H Ur Leukocyte Esterase Large H Urine RBC 13 H Urine WBC >182 H Urine WBC Clumps Many H Urine Bacteria Occasional H Urine Mucus Few H 11/08/19 11/08/19 11/09/19 05:47 05:47 06:44 RBC 4.19 L 4.14 L Hgb 12.5 L MCHC 30.6 L Plt Count 130 L 124 L Neutrophils # Lymphocytes # 0.9 L 0.9 L APTT Chloride 111 H Carbon Dioxide BUN 22 H Glucose 106 H Plasma Lactic Acid Boni Calcium 7.9 L AST 310 H Creatine Kinase 41635 H* Total Protein 5.5 L Albumin 3.0 L Urine Protein Urine Blood Ur Leukocyte Esterase Urine RBC Urine WBC Urine WBC Clumps Urine Bacteria Urine Mucus 11/09/19 06:44 RBC Hgb MCHC Plt Count Neutrophils # Lymphocytes # APTT Chloride 113 H Carbon Dioxide 20 L BUN Glucose 109 H Plasma Lactic Acid Boni Calcium 7.9 L AST 229 H Creatine Kinase 6383 H* Total Protein 5.3 L Albumin 2.7 L Urine Protein Urine Blood Ur Leukocyte Esterase Urine RBC Urine WBC Urine WBC Clumps Urine Bacteria Urine Mucus Assessment and Plan Assessment: Mr. Riggins is a 68-year-old gentleman with medical history of Parkinson's disease for 12 years, fallen 2012 with skull fracture and subdural hematoma and left ear drum rupture, atrial fibrillation (not on anticoagulation at home), hy pertension, nephrolithiasis, benign prostatic hyperplasia who presented to the [facility] emergency 11/07/2019 after sustaining three falls and were not mechanical. He lives alone without the any Walker or can assistance. Denies weakness or numbness or any neurological problem. Regarding patient's history of atrial fibrillation he said that he is not on any anticoagulation. On admission he had elevated creatinine kinase 7120 and the with evidence of rhabdomyolysis and had evidence of urinary tract infections with the patient was started on IV antibiotics and was admitted to the hospital. On examination I felt he had limitation in vertical eye movement, no resting tremor. Parkinson's disease Falls Rhabdomyolysis urinary tract infection Atrial fibrillation Plan: CT of the head on 11/09/2019 showed an old encephalomalacia over the left frontal lobe. This showed the chronic microvascular ischemic changes. Diffuse volume loss. No acute intracranial hemorrhage, midline shift or mass effect. 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 He is currently on carbidopa levodopa 50/200 mg 2 tablets twice a day. He is on amantadine 100 mg twice a day. I will not change his carbidopa levodopa. Regarding the amantadine he takes 1 in the morning when at night amantadine should be avoided at nighttime since it can and hands the the neurocognitive system. So I'll change it in the morning and the last one at 2:00 or 3:00 in the afternoon. Patient's need to follow up with his neurologist regarding his management of his Parkinson's disease Recommend getting orthostatic blood pressure with heart rate. I will defer treatment of the rhabdomyolysis and urinary tract infection to the primary team. Regarding the patient's living status, I feel the patient should be residing and the assisted-living facility since he lives alone and has multiple falls. And that if it's deemed that he should the decides to live alone then I recommended that he has a walker or a cane for ambulation. Regarding patient's history of atrial fibrillation, he states that he is not in any and fibrillation I we'll defer the management to the primary team. But I would not recommend Coumadin, I would recommend if it's deemed necessary to put him on Eliquis since there is a less risk of bleed compared with Coumadin. I attempted and contacting the patient's daughter who is the next of kin at [phone] but no response. thank you for the consult Tony Baker MD Neurohospitalist Time with Patient: Greater than 30
[2019-11-09] MEDS: LEVOFLOXACIN 750 MG TAB PO SCH (15:18)
--- NOTE | 2019-11-09 18:23 | P.PN ---
Subjective Progress Note Date: 11/09/19 Caleb Riggins, is a 68-year-old male patient of Dr. Land with known history of advanced Parkinson disease who presented to [facility] emergency room after sustaining falls 3 days in a row patient was complaining of generalized pain, he was evaluated in the emergency room, no clinical or r adiologic evidence of any fracture, patient had elevated creatinine kinase with evidence of rhabdomyolysis, he also had evidence of urinary tract infection, he was started on IV antibiotics and was admitted to medical floor for further evaluation. On review of system patient is alert and oriented 3 in no apparent distress there is no fever or chills no headache or dizziness no chest pain no shortness of breath no cough no nausea or vomiting no abdominal pain no diarrhea no burning with urination no frequency or urgency and no hematuria patient has tremors in bilateral hands. On 11/08/2019 patient was seen and examined on the medical floor he is alert and oriented 3 in no apparent distress CPK level has increased since yesterday he remains on IV fluid normal saline at 130 mL/h he is still maintained on IV antibiotic for urinary tract infection neurology was consulted to review medication of Parkinson disease and assess if any changes beneficial to patient. Clinically he is stable there is no fever or chills no headache no dizziness no chest pain no shortness of breath no cough no nausea or vomiting no abdominal pain no diarrhea no burning was urination no frequency or urgency no hematuria. On 11/09/2019 patient was seen and examined on the medical floor, he is complaining of pain in the lower chest and upper abdomen on the left side he stated that his pain started when he fell and has been worsening otherwise he denies any complaints he was evaluated by neurology no significant change in Parkinson medication was suggested, at this time will check computed tomography scan of the chest and abdomen without contrast if stable patient can be discharged to home tomorrow Objective - Vital Signs Vital signs: Vital Signs Temp 98.3 F 11/09/19 12:02 Pulse 72 11/09/19 15:42 Resp 19 11/09/19 15:42 BP 138/86 11/09/19 12:02 Pulse Ox 100 11/09/19 12:02 Intake & Output 11/08/19 11/09/19 11/09/19 18:59 06:59 18:59 Intake Total 2009 1919 Balance 2009 1919 Intake: Intake, IV Titration 1560 1300 Amount Sodium Chloride 0.9% 1, 1560 1300 000 ml @ 130 mls/hr IV . Q7H42M [facility] Rx#:[id number] Oral 450 620 Other: Voiding Method Urinal Urinal Urinal Diaper Diaper Diaper Incontinent Incontinent Incontinent # Voids 4 400 3 # Bowel Movements 1 - Exam In general patient is alert and oriented 3 in no apparent distress HEENT head normocephalic and atraumatic Neck is supple no JVD no goiter no lymphadenopathy no carotid bruit Chest exam reveals a few scattered rhonchi no wheezing Cardiac exam reveals regular heart sounds no gallops no murmurs Abdomen is soft nontender no organomegaly with normal bowel sounds Extremity exam reveals no edema no cyanosis or clubbing Neurological examination reveals no gross focal deficit - Labs CBC & Chem 7: 11/09/19 06:44 11/09/19 06:44 Labs: Abnormal Lab Results - Last 24 Hours (Table) 11/09/19 11/09/19 Range/Units 06:44 06:44 RBC 4.14 L (4.30-5.90) m/uL Hgb 12.5 L (13.0-17.5) gm/dL MCHC 30.6 L (31.0-37.0) g/dL Plt Count 124 L (150-450) k/uL Lymphocytes # 0.9 L (1.0-4.8) k/uL Chloride 113 H (98-107) mmol/L Carbon Dioxide 20 L (22-30) mmol/L Glucose 109 H (74-99) mg/dL Calcium 7.9 L (8.4-10.2) mg/dL AST 229 H (17-59) U/L Creatine Kinase 6383 H* (55-170) U/L Total Protein 5.3 L (6.3-8.2) g/dL Albumin 2.7 L (3.5-5.0) g/dL Microbiology - Last 24 Hours (Table) 11/07/19 14:52 Urine Culture - Final Urine,Voided Assessment and Plan Plan: 1. Rhabdomyolysis, CPK is 7120, on presentation will monitor kidney function closely 2. Urinary tract infection with sepsis, as evidenced by elevated lactic acid at 3.4 patient was started on IV Levaquin in the emergency room will monitor closely 3. Underlying history of advanced Parkinson disease 4. Underlying history of benign prostatic hypertrophy 5. Underlying history of hypertension 6. Underlying history of anemia 7. Atrial fibrillation, paroxysmal at this time heart rate is well-controlled patient is not a candidate for anticoagulation at this time due to multiple falls. If patient is not having any falls for a while. I will leave for his primary care physician to start anticoagulation as outpatient At this time patient is admitted to medical floor he was started on IV antibiotics Will monitor progress closely Will consult physical therapy and occupational therapy and assess if patient needs rehab in regard to recurrent falls Neurology consultation reviewed For DVT prophylaxis we will use subcu Lovenox for GI prophylaxis we will use Protonix Will follow in a.m.
[2019-11-09] MEDS: FINASTERIDE 5 MG TAB PO SCH (20:22)
[2019-11-09] MEDS: DOXAZOSIN 4 MG TAB PO SCH (20:23)
[2019-11-09] MEDS: HYDROcodone/APAP 7.5-325MG 1 EACH TAB PO PRN (21:10)
--- NOTE | 2019-11-09 22:51 | CT ---
EXAMINATION TYPE: CT ChestAbdPelvis wo con DATE OF EXAM: 11/09/2019 COMPARISON: 12/17/2017 HISTORY: Fall, left sided chest and abdominal pain. CT DLP: 1873.6 mGycm Automated exposure control for dose reduction was used. Images were obtained from the thoracic inlet to the floor the pelvis with no contrast. There is some atelectasis and pleural thickening and infiltrate posterior right lung base. Heart size is normal. There are no hilar masses. There is no mediastinal adenopathy. There is mild atherosclero tic vascular calcification. There is no pericardial effusion. Liver shows no focal defect. There are small calcified gallstones. Spleen is intact. The stomach is i ntact. There is small left pleural effusion and left basilar atelectasis. There is 4 cm cyst anterior tail of the pancreas consistent with a pseudocyst. There is pancreatic at rophy. There is 1.7 cm cyst in the anterior tail of the pancreas. There is additional 1.8 cm rounded mass in the anterior body of the pancreas. There is moderate bilateral hydronephrosis. There is left-sided hydroureter. I see no definite ureter al calculus. Right ureter also somewhat dilated. There is dilated urinary bladder that measures 16 cm . There is right-sided inguinal hernia that contains fat. There is no free fluid in the pelvis. There is no sign of a bowel obstruction. Appendix is posterior and appears normal. Small bowel pattern is normal. There is no ascites or free air. There is no mesenteric edema. There is small umbilical herni a that contains fat. There is multilevel spondylotic changes in the thoracic and lumbar spine. The bony pelvis appears int act. There is no thoracic or lumbar compression fracture. Sternum is intact. The ribs appear intact. Prostate is enlarged and measures 6.1 cm but is smaller than old exam. IMPRESSION: There is infiltrate and atelectasis at both lung bases similar to old exam. There is a new small left pleural effusion compared to old exam. Pancreatic multiple densities as above appear not significantly different than old exam and consisten t with benign disease and stenosis. Moderate bilateral hydronephrosis and hydroureter is a change compared to old exam. Dilated urinary b ladder. Chronic bladder outlet obstruction should be considered with secondary obstruction of the upp er collecting systems. Normal appendix. Right inguinal hernia unchanged. Cholelithiasis unchanged. Enlarged prostate.
[2019-11-10] MEDS: SODIUM CHLORIDE 0.9% 1,000 ML IV SCH ×3 (05:26→20:51)
[2019-11-10 07:38] LABS: Basophils % (A) 0 %; Eosinophils # (A) 0.1 k/uL (0-0.7); Eosinophils % (A) 3 %; HCT 38.9 % (39.0-53.0); HGB 12.4 gm/dL (13.0-17.5); Lymphocytes # (A) 0.8 k/uL (1.0-4.8); Lymphocytes % (A) 20 %; MCH 30.5 pg (25.0-35.0); MCHC 31.8 g/dL (31.0-37.0); MCV 95.9 fL (80.0-100.0); Mean Platelet Volume 7.5; Monocytes # (A) 0.3 k/uL (0-1.0); Monocytes % (A) 8 %; Neutrophils # (A) 2.8 k/uL (1.3-7.7); Neutrophils % (A) 66 %; Platelet Count 133 k/uL (150-450); RBC 4.05 m/uL (4.30-5.90); RDW 13.4 % (11.5-15.5); WBC 4.2 k/uL (3.8-10.6)
[2019-11-10 07:51] LABS: ALT 14 U/L (4-49); AST 229 U/L (17-59); African American GFR (CKD) >90 (>60 ml/min/1.73 sqM); Albumin 2.9 g/dL (3.5-5.0); Alkaline Phosphatase 60 U/L (38-126); Anion Gap 3 mmol/L; Blood Urea Nitrogen 18 mg/dL (9-20); Calcium 8.2 mg/dL (8.4-10.2); Carbon Dioxide 23 mmol/L (22-30); Chloride 110 mmol/L (98-107); Glucose 106 mg/dL (74-99); Non-African American GFR(CKD) 85 (>60 ml/min/1.73 sqM); Potassium 4.3 mmol/L (3.5-5.1); Sodium 136 mmol/L (137-145); Total Bilirubin 0.7 mg/dL (0.2-1.3); Total Protein 5.4 g/dL (6.3-8.2)
[2019-11-10 08:13] LABS: Creatine Kinase 5833 U/L (55-170)
[2019-11-10] MEDS: TAMSULOSIN 0.4 MG CAP.ER.24H PO SCH (09:14)
[2019-11-10] MEDS: MULTIVITAMINS, THERA 1 EACH TAB PO SCH (09:14)
[2019-11-10] MEDS: METOPROLOL TARTRATE 25 MG TAB PO SCH (09:15)
[2019-11-10] MEDS: FERROUS SULFATE 325 MG TAB PO SCH (09:15)
[2019-11-10] MEDS: PANTOPRAZOLE 40 MG TABLET PO SCH (09:15)
[2019-11-10] MEDS: ENOXAPARIN 40 MG/0.4 ML SYRINGE SQ SCH (09:16)
[2019-11-10] MEDS: CARBIDOPA-LEVODOPA ER 50-200MG 1 EACH TABLET.ER PO SCH ×2 (09:16→20:46)
--- NOTE | 2019-11-10 13:45 | P.PN ---
Subjective Progress Note Date: 11/10/19 Caleb Riggins, is a 68-year-old male patient of Dr. Land with known history of advanced Parkinson disease who presented to [facility] emergency room after sustaining falls 3 days in a row patient was complaining of generalized pain, he was evaluated in the emergency room, no clinical or r adiologic evidence of any fracture, patient had elevated creatinine kinase with evidence of rhabdomyolysis, he also had evidence of urinary tract infection, he was started on IV antibiotics and was admitted to medical floor for further evaluation. On review of system patient is alert and oriented 3 in no apparent distress there is no fever or chills no headache or dizziness no chest pain no shortness of breath no cough no nausea or vomiting no abdominal pain no diarrhea no burning with urination no frequency or urgency and no hematuria patient has tremors in bilateral hands. On 11/08/2019 patient was seen and examined on the medical floor he is alert and oriented 3 in no apparent distress CPK level has increased since yesterday he remains on IV fluid normal saline at 130 mL/h he is still maintained on IV antibiotic for urinary tract infection neurology was consulted to review medication of Parkinson disease and assess if any changes beneficial to patient. Clinically he is stable there is no fever or chills no headache no dizziness no chest pain no shortness of breath no cough no nausea or vomiting no abdominal pain no diarrhea no burning was urination no frequency or urgency no hematuria. On 11/09/2019 patient was seen and examined on the medical floor, he is complaining of pain in the lower chest and upper abdomen on the left side he stated that his pain started when he fell and has been worsening otherwise he denies any complaints he was evaluated by neurology no significant change in Parkinson medication was suggested, at this time will check computed tomography scan of the chest and abdomen without contrast if stable patient can be discharged to home tomorrow. On 11/10/2019 patient was seen and examined on the medical floor he is still complaining of left upper quadrant abdominal pain, computed tomography scan of the chest abdomen and pelvis was reviewed, there is no evidence of rib fracture, there is evidence of bilateral hydronephrosis, urology consultation was requested in that regard, otherwise patient denies any complaints there is no fever or chills no headache or dizziness no chest pain no shortness of breath no cough no nausea or vomiting no abdominal pain no diarrhea no burning with urination no frequency or urgency and no hematuria Objective - Vital Signs Vital signs: Vital Signs Temp 98.5 F 11/10/19 12:17 Pulse 61 11/10/19 12:17 Resp 18 11/10/19 12:17 BP 107/72 11/10/19 12:17 Pulse Ox 96 11/10/19 12:17 Intake & Output 11/09/19 11/10/19 11/10/19 18:59 06:59 18:59 Intake Total 1920 400 Balance 1920 400 Intake: Intake, IV Titration 1300 Amount Sodium Chloride 0.9% 1, 1300 000 ml @ 130 mls/hr IV . Q7H42M [facility] Rx#:[id number] Oral 620 400 Other: Voiding Method Urinal Urinal Urinal Diaper Diaper Diaper Incontinent Incontinent Incontinent # Voids 3 1 - Exam In general patient is alert and oriented 3 in no apparent distress HEENT head normocephalic and atraumatic Neck is supple no JVD no goiter no lymphadenopathy no carotid bruit Chest exam reveals a few scattered rhonchi no wheezing Cardiac exam reveals regular heart sounds no gallops no murmurs Abdomen is soft nontender no organomegaly with normal bowel sounds Extremity exam reveals no edema no cyanosis or clubbing Neurological examination reveals no gross focal deficit - Labs CBC & Chem 7: 11/10/19 06:56 11/10/19 06:56 Labs: Abnormal Lab Results - Last 24 Hours (Table) 11/10/19 11/10/19 Range/Units 06:56 06:56 RBC 4.05 L (4.30-5.90) m/uL Hgb 12.4 L (13.0-17.5) gm/dL Hct 38.9 L (39.0-53.0) % Plt Count 133 L (150-450) k/uL Lymphocytes # 0.8 L (1.0-4.8) k/uL Sodium 136 L (137-145) mmol/L Chloride 110 H (98-107) mmol/L Glucose 106 H (74-99) mg/dL Calcium 8.2 L (8.4-10.2) mg/dL AST 229 H (17-59) U/L Creatine Kinase 5833 H* (55-170) U/L Total Protein 5.4 L (6.3-8.2) g/dL Albumin 2.9 L (3.5-5.0) g/dL Assessment and Plan Plan: 1. Rhabdomyolysis, CPK is 7120, on presentation will monitor kidney function closely 2. Urinary tract infection with sepsis, as evidenced by elevated lactic acid at 3.4 patient was started on IV Levaquin in the emergency room will monitor closely 3. Underlying history of advanced Parkinson disease 4. Underlying history of benign prostatic hypertrophy 5. Underlying history of hypertension 6. Underlying history of anemia 7. Atrial fibrillation, paroxysmal at this time heart rate is well-controlled patient is not a candidate for anticoagulation at this time due to multiple falls. If patient is not having any falls for a while. I will leave for his primary care physician to start anticoagulation as outpatient 8. Abdominal pain with evidence of bilateral hydronephrosis on computed tomography scan urology consultation was requested At this time patient is admitted to medical floor he was started on IV antibiotics Will monitor progress closely Will consult physical therapy and occupational therapy and assess if patient needs rehab in regard to recurrent falls Neurology consultation reviewed For DVT prophylaxis we will use subcu Lovenox for GI prophylaxis we will use Protonix Will follow in a.m.
[2019-11-10] MEDS: LEVOFLOXACIN 750 MG TAB PO SCH (16:22)
--- NOTE | 2019-11-10 19:16 | P.PN ---
Subjective Progress Note Date: 11/10/19 Principal diagnosis: Falls, Rhabdomyolysis, UTI The patient was seen at bedside and states he is doing well. Objective - Vital Signs Vital signs: Vital Signs Temp 98.5 F 11/10/19 12:17 Pulse 61 11/10/19 12:17 Resp 18 11/10/19 12:17 BP 107/72 11/10/19 12:17 Pulse Ox 96 11/10/19 12:17 Intake & Output 11/10/19 11/10/19 11/11/19 06:59 18:59 06:59 Intake Total 400 Balance 400 Intake: Oral 400 Other: Voiding Method Urinal Urinal Diaper Diaper Incontinent Incontinent # Voids 1 2 - Exam GENERAL: The patient is sitting in chair and is not in acute distress. CHEST: The heart rate is irregular rate rhythm. No murmurs to auscultation. LUNG: Clear to auscultation bilaterally. Not labored breathing. ABDOMEN/GI: Bowel sounds present in all 4 quadrants. No tenderness to palpation throughout. NEUROLOGICAL: Higher mental function: The patient is awake, alert, oriented to self, place. He correctly said it was November but said the year was 2001 Patient is following simple commands. No aphasia and no neglect. Cranial nerves: The pupils are round, equal and reactive to light and accommodation. Visual ramos are full to confrontation throughout. Extraocular movement is intact somewhat limited to vertical gaze. Facial sensation is normal to touch throughout. The facial strength is normal throughout. Hearing is normal bilaterally to hand rub. Tongue is midline and moved [id number] without any difficulty. No dysarthria is noted. Shoulder shrug is normal bilaterally. Motor: Defered. The strength is 5 over 5 throughout but was somewhat slow in performing test. Normal tone and bulk. No cogwheel rigidity noted but maybe some increase tone in both elbows. Cerebellum: Normal finger to nose bilaterally. Sensation: Sensation is normal to touch throughout. Reflexes (right/left): 1+ throughout. Plantars are downgoing bilaterally. - Labs CBC & Chem 7: 11/10/19 06:56 11/10/19 06:56 Labs: Abnormal Lab Results - Last 24 Hours (Table) 11/10/19 11/10/19 Range/Units 06:56 06:56 RBC 4.05 L (4.30-5.90) m/uL Hgb 12.4 L (13.0-17.5) gm/dL Hct 38.9 L (39.0-53.0) % Plt Count 133 L (150-450) k/uL Lymphocytes # 0.8 L (1.0-4.8) k/uL Sodium 136 L (137-145) mmol/L Chloride 110 H (98-107) mmol/L Glucose 106 H (74-99) mg/dL Calcium 8.2 L (8.4-10.2) mg/dL AST 229 H (17-59) U/L Creatine Kinase 5833 H* (55-170) U/L Total Protein 5.4 L (6.3-8.2) g/dL Albumin 2.9 L (3.5-5.0) g/dL Assessment and Plan Assessment: Mr. Riggins is a 68-year-old gentleman with medical history of Parkinson's disease for 12 years, fallen 2012 with skull fracture and subdural hematoma and left ear drum rupture, atrial fibrillation (not on anticoagulation at home), hypertension, nephrolithiasis, benign prostatic hyperplasia who presented to the [facility] emergency 11/07/2019 after sustaining three falls and were not mechanical. He lives alone without the any Walker or can assistance. Denies weakness or numbness or any neurological problem. Regarding patient's history of atrial fibrillation he said that he is not on any anticoagulation. On admission he had elevated creatinine kinase 7120 and the with evidence of rhabdomyolysis and had evidence of urinary tract infections with the patient was started on IV antibiotics and was admitted to the hospital. On examination I felt he had limitation in vertical eye movement, no resting tremor. Parkinson's disease Falls Rhabdomyolysis urinary tract infection Atrial fibrillation Plan: CT of the head on 11/09/2019 showed an old encephalomalacia over the left frontal lobe. This showed the chronic microvascular ischemic changes. Diffuse volume loss. No acute intracranial hemorrhage, midline shift or mass effect. 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 He is currently on carbidopa levodopa 50/200 mg 2 tablets twice a day. He is on amantadine 100 mg twice a day. I will not change his carbidopa levodopa. Regarding the amantadine he takes 1 in the morning when at night amantadine should be avoided at nighttime since it can and hands the the neurocognitive system. So I'll change it in the morning and the last one at 2:00 or 3:00 in the afternoon. Patient's need to follow up with his neurologist regarding his management of his Parkinson's disease Orthostatic blood pressure: Supine 157/84. Sittin/110. Standin/104. The orthostatic was not performed without heart rate. I spoke with patient nurse and notified her if orthostatic can be done with heart rate. I will defer treatment of the rhabdomyolysis and urinary tract infection to the primary team. Regarding the patient's living status, I feel the patient should be residing and the assisted-living facility since he lives alone and has multiple falls. And that if it's deemed that he should the decides to live alone then I recommended that he has a walker or a cane for ambulation. Regarding patient's history of atrial fibrillation, he states that he is not in any and fibrillation I we'll defer the management to the primary team. Patient has history of falls. I would not recommend Coumadin, I would recommend if it's deemed necessary to put him on Eliquis since there is a less risk of bleed compared with Coumadin. Patient need to follow-up with his neurologist as outpatient. If orthostatic vitals are positive please contact us. If not then no further work-up. Tony Baker MD Neurohospitalist Time with Patient: Less than 30
[2019-11-10] MEDS: FINASTERIDE 5 MG TAB PO SCH (20:47)
[2019-11-10] MEDS: DOXAZOSIN 4 MG TAB PO SCH (20:47)
[2019-11-10] MEDS: HYDROcodone/APAP 7.5-325MG 1 EACH TAB PO PRN (22:40)
[2019-11-11] MEDS: CARBIDOPA-LEVODOPA ER 50-200MG 1 EACH TABLET.ER PO SCH ×2 (08:22→20:38)
[2019-11-11] MEDS: FERROUS SULFATE 325 MG TAB PO SCH (08:22)
[2019-11-11] MEDS: TAMSULOSIN 0.4 MG CAP.ER.24H PO SCH (08:22)
[2019-11-11] MEDS: PANTOPRAZOLE 40 MG TABLET PO SCH (08:22)
[2019-11-11] MEDS: MULTIVITAMINS, THERA 1 EACH TAB PO SCH (08:22)
[2019-11-11] MEDS: METOPROLOL TARTRATE 25 MG TAB PO SCH (08:22)
[2019-11-11] MEDS: ENOXAPARIN 40 MG/0.4 ML SYRINGE SQ SCH (08:23)
[2019-11-11 08:37] LABS: Basophils % (A) 0 %; Eosinophils # (A) 0.1 k/uL (0-0.7); Eosinophils % (A) 3 %; HCT 39.9 % (39.0-53.0); HGB 12.9 gm/dL (13.0-17.5); Lymphocytes # (A) 0.7 k/uL (1.0-4.8); Lymphocytes % (A) 17 %; MCH 30.4 pg (25.0-35.0); MCHC 32.4 g/dL (31.0-37.0); Mean Platelet Volume 7.5; Monocytes # (A) 0.2 k/uL (0-1.0); Monocytes % (A) 5 %; Neutrophils # (A) 3.1 k/uL (1.3-7.7); Neutrophils % (A) 73 %; Platelet Count 145 k/uL (150-450); RBC 4.24 m/uL (4.30-5.90); RDW 13.3 % (11.5-15.5); WBC 4.3 k/uL (3.8-10.6)
[2019-11-11 08:47] LABS: ALT 10 U/L (4-49); AST 177 U/L (17-59); African American GFR (CKD) >90 (>60 ml/min/1.73 sqM); Alkaline Phosphatase 62 U/L (38-126); Anion Gap 5 mmol/L; Blood Urea Nitrogen 19 mg/dL (9-20); Calcium 8.4 mg/dL (8.4-10.2); Carbon Dioxide 23 mmol/L (22-30); Chloride 108 mmol/L (98-107); Glucose 144 mg/dL (74-99); Non-African American GFR(CKD) 84 (>60 ml/min/1.73 sqM); Sodium 136 mmol/L (137-145); Total Bilirubin 0.7 mg/dL (0.2-1.3); Total Protein 5.4 g/dL (6.3-8.2)
--- NOTE | 2019-11-11 11:13 | P.GSCN ---
History of Present Illness Consult date: 11/11/19 Reason for Consult: Hydronephrosis Requesting physician: Rose Fernandez History of present illness: the patient is a 68-year-old white male well known to me. He has a long history of prostatic enlargement with incomplete bladder emptying. A CT scan in December 2017 showed small right renal calculi and bladder calculi, with no evidence of hydronephrosis. The postvoid residual in June 2018 was 456 mL. In June 2018, his PSA level was 7.8. He underwent a prostate ultrasound with biopsies. The prostate volume was measured to be 112 mL. 2 of 12 biopsies showed [place] 7 (3+4) adenocarcinoma. He was treated with 6 months of androgen deprivation therapy in conjunction with IMRT. A Sosa catheter was placed in March 2019 for urinary retention. In April 2019, the postvoid residual was 340 mL. He was taking Terazosin 10 mg daily at bedtime at that time. Ultrasound in April 2019 showed minimal right hydronephrosis, mild left hydronephrosis. He was last seen in the office in May 2019. The postvoid residual at that time was 354 mL, and he was advised to consider a TURP. He has not been seen since that time. He is now admitted after several falls at home. Review of Systems - Constitutional Denies chills, Denies fever - Genitourinary Denies dysuria, Denies flank pain, Denies hematuria Past Medical History Past Medical History: Hypertension, Musculoskeletal Disorder, Neurologic Disorder, Prostate Disorder, Renal Disease Additional Past Medical History / Comment(s): parkinsons disease, nephrolithiasis, BPH,uti's , fall 2012 with skull fracture and subdural hematoma and L eardrum rupture, sinus problems on occasion.past stress test, lt sprain ankle d/t fall. History of Any Multi-Drug Resistant Organisms: None Reported Past Surgical History: Heart Catheterization, Hernia Repair Additional Past Surgical History / Comment(s): cystoscopy, L inguinal hernia repair., anat cataracts Past Anesthesia/Blood Transfusion Reactions: No Reported Reaction Past Psychological History: No Psychological Hx Reported Smoking Status: Never smoker Past Alcohol Use History: None Reported Past Drug Use History: None Reported - Past Family History Sister(s) Family Medical History: Cancer Mother Family Medical History: CVA/TIA, Diabetes Mellitus, Hypertension, Muscul oskeletal Disorder, Neurologic Disorder Additional Family Medical History / Comment(s): Mother had parkinson's dx. Father Family Medical History: CVA/TIA Medications and Allergies Home Medications Medication Instructions Recorded Confirmed Type Carbidopa-Levodopa ER 50-200Mg 2 tab PO BID 03/20/15 11/07/19 History [Sinemet CR 50-200 mg] Ferrous Sulfate [Feosol] 325 mg PO DAILY 03/20/15 11/07/19 History Terazosin HCl [Hytrin] 10 mg PO HS 03/20/15 11/07/19 History amantadine HCL [Symmetrel] 100 mg PO BID 03/20/15 11/07/19 History Tamsulosin HCl [Flomax] 0.4 mg PO DAILY 02/22/17 11/07/19 History Finasteride [Proscar] 5 mg PO HS 11/07/19 11/07/19 History HYDROcodone/APAP 7.5-325MG [[place] 1 tab PO Q6H PRN 11/07/19 11/07/19 History 7.5-325] Metoprolol Tartrate [Lopressor] 25 mg PO DAILY 11/07/19 11/07/19 History Multivitamins, Thera [Multivitamin 1 tab PO DAILY 11/07/19 11/07/19 History (formulary)] Allergies Allergy/AdvReac Type Severity Reaction Status Date / Time adhesive tape Allergy Rash/Hives Verified 11/07/19 16:22 amoxicillin Allergy Dyspnea, Verified 11/07/19 16:22 SWELLING OF THROAT haloperidol [From Haldol] Allergy Unknown Verified 11/07/19 16:22 haloperidol lactate Allergy Unknown Verified 11/07/19 16:22 [From Haldol] lorazepam [From Ativan] Allergy Unknown Verified 11/07/19 16:22 alprazolam [From Xanax] AdvReac Unknown Verified 11/07/19 16:22 Surgical - Exam Vital Signs Temp Pulse Resp BP Pulse Ox 97.5 F L 100 18 132/98 98 11/07/19 13:49 11/07/19 13:49 11/07/19 13:49 11/07/19 13:49 11/07/19 13:49 - General well developed, well nourished, no distress - Respiratory normal respiratory effort - Abdomen Abdomen: soft, non tender, no guarding, no rigid, no rebound - Genitourinary normal penis with no external lesions, testicles non-tender - Psychiatric oriented to time, oriented to person, oriented to place, speech is normal, memory intact Results - Labs 11/11/19 08:04 11/11/19 08:04 Abnormal Lab Results - Last 24 Hours (Table) 11/11/19 11/11/19 Range/Units 08:04 08:04 RBC 4.24 L (4.30-5.90) m/uL Hgb 12.9 L (13.0-17.5) gm/dL Plt Count 145 L (150-450) k/uL Lymphocytes # 0.7 L (1.0-4.8) k/uL Sodium 136 L (137-145) mmol/L Chloride 108 H (98-107) mmol/L Glucose 144 H (74-99) mg/dL AST 177 H (17-59) U/L Total Protein 5.4 L (6.3-8.2) g/dL Albumin 3.0 L (3.5-5.0) g/dL Diabetes panel 11/11/19 Range/Units 08:04 Sodium 136 L (137-145) mmol/L Potassium 4.0 (3.5-5.1) mmol/L Chloride 108 H (98-107) mmol/L Carbon Dioxide 23 (22-30) mmol/L BUN 19 (9-20) mg/dL Creatinine 0.92 (0.66-1.25) mg/dL Glucose 144 H (74-99) mg/dL Calcium 8.4 (8.4-10.2) mg/dL AST 177 H (17-59) U/L ALT 10 (4-49) U/L Alkaline Phosphatase 62 (38-126) U/L Total Protein 5.4 L (6.3-8.2) g/dL Albumin 3.0 L (3.5-5.0) g/dL Calcium panel 11/11/19 Range/Units 08:04 Calcium 8.4 (8.4-10.2) mg/dL Albumin 3.0 L (3.5-5.0) g/dL Pituitary panel 11/11/19 Range/Units 08:04 Sodium 136 L (137-145) mmol/L Potassium 4.0 (3.5-5.1) mmol/L Chloride 108 H (98-107) mmol/L Carbon Dioxide 23 (22-30) mmol/L BUN 19 (9-20) mg/dL Creatinine 0.92 (0.66-1.25) mg/dL Glucose 144 H (74-99) mg/dL Calcium 8.4 (8.4-10.2) mg/dL Adrenal panel 11/11/19 Range/Units 08:04 Sodium 136 L (137-145) mmol/L Potassium 4.0 (3.5-5.1) mmol/L Chloride 108 H (98-107) mmol/L Carbon Dioxide 23 (22-30) mmol/L BUN 19 (9-20) mg/dL Creatinine 0.92 (0.66-1.25) mg/dL Glucose 144 H (74-99) mg/dL Calcium 8.4 (8.4-10.2) mg/dL Total Bilirubin 0.7 (0.2-1.3) mg/dL AST 177 H (17-59) U/L ALT 10 (4-49) U/L Alkaline Phosphatase 62 (38-126) U/L Total Protein 5.4 L (6.3-8.2) g/dL Albumin 3.0 L (3.5-5.0) g/dL - Imaging CT scan - abdomen: report reviewed, image reviewed Assessment and Plan (1) Malignant neoplasm of prostate Current Visit: Yes Status: Acute Code(s): C61 - MALIGNANT NEOPLASM OF PROSTATE SNOMED Code(s): 707661296 (2) Acquired hydronephrosis due to obstruction of bladder Current Visit: Yes Status: Acute Code(s): N13.30 - UNSPECIFIED HYDRONEPHROSIS; N32.89 - OTHER SPECIFIED DISORDERS OF BLADDER SNOMED Code(s): 067777062 Plan: Urinalysis obtained at the time of admission suggested a UTI, but a urine cultur e showed mixed skin organisms. PSA and testosterone levels will be obtained to assess the status of his known prostate cancer. I attribute the hydronephrosis to the patient's known incomplete bladder emptying. His renal function is normal. Bladder scan will be utilized to check the postvoid residual. The patient may benefit from a TURP, but given his progressive Parkinson's disease this may result in urinary incontinence. Time with Patient: Greater than 30
--- NOTE | 2019-11-11 14:46 | P.PN ---
Subjective Progress Note Date: 11/11/19 Caleb Riggins, is a 68-year-old male patient of Dr. Land with known history of advanced Parkinson disease who presented to [facility] emergency room after sustaining falls 3 days in a row patient was complaining of generalized pain, he was evaluated in the emergency room, no clinical or r adiologic evidence of any fracture, patient had elevated creatinine kinase with evidence of rhabdomyolysis, he also had evidence of urinary tract infection, he was started on IV antibiotics and was admitted to medical floor for further evaluation. On review of system patient is alert and oriented 3 in no apparent distress there is no fever or chills no headache or dizziness no chest pain no shortness of breath no cough no nausea or vomiting no abdominal pain no diarrhea no burning with urination no frequency or urgency and no hematuria patient has tremors in bilateral hands. On 11/08/2019 patient was seen and examined on the medical floor he is alert and oriented 3 in no apparent distress CPK level has increased since yesterday he remains on IV fluid normal saline at 130 mL/h he is still maintained on IV antibiotic for urinary tract infection neurology was consulted to review medication of Parkinson disease and assess if any changes beneficial to patient. Clinically he is stable there is no fever or chills no headache no dizziness no chest pain no shortness of breath no cough no nausea or vomiting no abdominal pain no diarrhea no burning was urination no frequency or urgency no hematuria. On 11/09/2019 patient was seen and examined on the medical floor, he is complaining of pain in the lower chest and upper abdomen on the left side he stated that his pain started when he fell and has been worsening otherwise he denies any complaints he was evaluated by neurology no significant change in Parkinson medication was suggested, at this time will check computed tomography scan of the chest and abdomen without contrast if stable patient can be discharged to home tomorrow. On 11/10/2019 patient was seen and examined on the medical floor he is still complaining of left upper quadrant abdominal pain, computed tomography scan of the chest abdomen and pelvis was reviewed, there is no evidence of rib fracture, there is evidence of bilateral hydronephrosis, urology consultation was requested in that regard, otherwise patient denies any complaints there is no fever or chills no headache or dizziness no chest pain no shortness of breath no cough no nausea or vomiting no abdominal pain no diarrhea no burning with urination no frequency or urgency and no hematuria. On 11/11/2019 patient was seen and examined on the medical floor he is alert and oriented 3 he is having significant difficulty with his mobility he is unable to stand on his own without 2 person assist there is no fever or chills no headache or dizziness no chest pain no shortness of breath no cough no nausea or vomiting no abdominal pain no diarrhea no burning with urination no frequency or urgency and no hematuria. Patient lives at home by himself he is not able to take care of himself continue physical therapy and occupational therapy if there is no significant improvement by Wednesday will discuss transfer to a rehab unit, although patient is very strongly opposed to that at this time Objective - Vital Signs Vital signs: Vital Signs Temp 97.8 F 11/11/19 12:00 Pulse 64 11/11/19 12:00 Resp 18 11/11/19 05:37 BP 110/67 11/11/19 12:00 Pulse Ox 96 11/11/19 05:37 Intake & Output 11/10/19 11/11/19 11/11/19 18:59 06:59 18:59 Intake Total 600 Balance 600 Intake: Oral 600 Other: Voiding Method Urinal Urinal Urinal Diaper Diaper Diaper Incontinent Incontinent Incontinent # Voids 2 1 - Exam In general patient is alert and oriented 3 in no apparent distress HEENT head normocephalic and atraumatic Neck is supple no JVD no goiter no lymphadenopathy no carotid bruit Chest exam reveals a few scattered rhonchi no wheezing Cardiac exam reveals regular heart sounds no gallops no murmurs Abdomen is soft nontender no organomegaly with normal bowel sounds Extremity exam reveals no edema no cyanosis or clubbing Neurological examination reveals no gross focal deficit - Labs CBC & Chem 7: 11/11/19 08:04 11/11/19 08:04 Labs: Abnormal Lab Results - Last 24 Hours (Table) 11/11/19 11/11/19 Range/Units 08:04 08:04 RBC 4.24 L (4.30-5.90) m/uL Hgb 12.9 L (13.0-17.5) gm/dL Plt Count 145 L (150-450) k/uL Lymphocytes # 0.7 L (1.0-4.8) k/uL Sodium 136 L (137-145) mmol/L Chloride 108 H (98-107) mmol/L Glucose 144 H (74-99) mg/dL AST 177 H (17-59) U/L Total Protein 5.4 L (6.3-8.2) g/dL Albumin 3.0 L (3.5-5.0) g/dL Assessment and Plan Plan: 1. Rhabdomyolysis, CPK is 7120, on presentation will monitor kidney function closely 2. Urinary tract infection with sepsis, as evidenced by elevated lactic acid at 3.4 patient was started on IV Levaquin in the emergency room will monitor closely 3. Underlying history of advanced Parkinson disease 4. Underlying history of benign prostatic hypertrophy 5. Underlying history of hypertension 6. Underlying history of anemia 7. Atrial fibrillation, paroxysmal at this time heart rate is well-controlled patient is not a candidate for anticoagulation at this time due to multiple falls. If patient is not having any falls for a while. I will leave for his primary care physician to start anticoagulation as outpatient 8. Abdominal pain with evidence of bilateral hydronephrosis on computed harris graphy scan urology consultation was requested At this time patient is admitted to medical floor he was started on IV antibiotics Will monitor progress closely Will consult physical therapy and occupational therapy and assess if patient needs rehab in regard to recurrent falls Neurology consultation reviewed For DVT prophylaxis we will use subcu Lovenox for GI prophylaxis we will use Protonix Will follow in a.m.
[2019-11-11] MEDS: LEVOFLOXACIN 750 MG TAB PO SCH (15:25)
[2019-11-11] MEDS: HYDROcodone/APAP 7.5-325MG 1 EACH TAB PO PRN ×2 (15:26→21:26)
[2019-11-11] MEDS: DOXAZOSIN 4 MG TAB PO SCH (20:38)
[2019-11-11] MEDS: FINASTERIDE 5 MG TAB PO SCH (20:38)
[2019-11-12] MEDS: HYDROcodone/APAP 7.5-325MG 1 EACH TAB PO PRN ×2 (05:55→20:49)
[2019-11-12 07:42] LABS: Basophils % (A) 0 %; Eosinophils # (A) 0.2 k/uL (0-0.7); Eosinophils % (A) 5 %; HCT 39.7 % (39.0-53.0); HGB 12.6 gm/dL (13.0-17.5); Lymphocytes # (A) 0.9 k/uL (1.0-4.8); Lymphocytes % (A) 21 %; MCH 30.4 pg (25.0-35.0); MCHC 31.6 g/dL (31.0-37.0); MCV 96.2 fL (80.0-100.0); Mean Platelet Volume 7.6; Monocytes # (A) 0.4 k/uL (0-1.0); Monocytes % (A) 9 %; Neutrophils # (A) 2.6 k/uL (1.3-7.7); Neutrophils % (A) 64 %; Platelet Count 140 k/uL (150-450); RBC 4.13 m/uL (4.30-5.90); RDW 13.4 % (11.5-15.5); WBC 4.1 k/uL (3.8-10.6)
[2019-11-12 07:54] LABS: ALT 13 U/L (4-49); AST 128 U/L (17-59); African American GFR (CKD) >90 (>60 ml/min/1.73 sqM); Albumin 2.6 g/dL (3.5-5.0); Alkaline Phosphatase 45 U/L (38-126); Anion Gap 5 mmol/L; Blood Urea Nitrogen 21 mg/dL (9-20); Carbon Dioxide 21 mmol/L (22-30); Chloride 110 mmol/L (98-107); Glucose 93 mg/dL (74-99); Non-African American GFR(CKD) 87 (>60 ml/min/1.73 sqM); Potassium 4.3 mmol/L (3.5-5.1); Sodium 136 mmol/L (137-145); Total Bilirubin 0.7 mg/dL (0.2-1.3); Total Protein 5.2 g/dL (6.3-8.2)
[2019-11-12] MEDS: ENOXAPARIN 40 MG/0.4 ML SYRINGE SQ SCH (08:08)
[2019-11-12] MEDS: PANTOPRAZOLE 40 MG TABLET PO SCH (08:09)
[2019-11-12] MEDS: METOPROLOL TARTRATE 25 MG TAB PO SCH (08:09)
[2019-11-12] MEDS: MULTIVITAMINS, THERA 1 EACH TAB PO SCH (08:09)
[2019-11-12] MEDS: FERROUS SULFATE 325 MG TAB PO SCH (08:09)
[2019-11-12] MEDS: CARBIDOPA-LEVODOPA ER 50-200MG 1 EACH TABLET.ER PO SCH ×2 (08:09→20:43)
[2019-11-12] MEDS: TAMSULOSIN 0.4 MG CAP.ER.24H PO SCH (08:09)
--- NOTE | 2019-11-12 09:59 | P.PN ---
Progress Note - Text Progress Note Date: 11/12/19 The patient has been noted to be incontinent of urine. His serum creatinine level remains normal. His postvoid residual was measured at 612 mL. In view of this, a Sosa catheter will be placed. He has a long history of incomplete bladder emptying. It will be my recommendation that he be discharged home with the Sosa catheter. Arrangements will be made for him to undergo outpatient urodynamic testing and cystoscopy, as he may benefit from a TURP.
[2019-11-12] MEDS: LEVOFLOXACIN 750 MG TAB PO SCH (16:24)
[2019-11-12] MEDS: DOXAZOSIN 4 MG TAB PO SCH (20:43)
[2019-11-12] MEDS: FINASTERIDE 5 MG TAB PO SCH (20:43)
[2019-11-13] MEDS: HYDROcodone/APAP 7.5-325MG 1 EACH TAB PO PRN (06:00)
[2019-11-13] MEDS: CARBIDOPA-LEVODOPA ER 50-200MG 1 EACH TABLET.ER PO SCH ×2 (07:55→22:47)
[2019-11-13] MEDS: FERROUS SULFATE 325 MG TAB PO SCH (07:55)
[2019-11-13] MEDS: PANTOPRAZOLE 40 MG TABLET PO SCH (07:55)
[2019-11-13] MEDS: TAMSULOSIN 0.4 MG CAP.ER.24H PO SCH (07:56)
[2019-11-13] MEDS: METOPROLOL TARTRATE 25 MG TAB PO SCH (07:56)
[2019-11-13] MEDS: ENOXAPARIN 40 MG/0.4 ML SYRINGE SQ SCH (07:56)
[2019-11-13] MEDS: MULTIVITAMINS, THERA 1 EACH TAB PO SCH (07:57)
[2019-11-13 08:40] LABS: Basophils % (A) 0 %; Eosinophils # (A) 0.1 k/uL (0-0.7); Eosinophils % (A) 3 %; HCT 38.9 % (39.0-53.0); HGB 12.9 gm/dL (13.0-17.5); Lymphocytes % (A) 20 %; MCH 30.8 pg (25.0-35.0); MCHC 33.2 g/dL (31.0-37.0); MCV 92.7 fL (80.0-100.0); Mean Platelet Volume 7.5; Monocytes # (A) 0.3 k/uL (0-1.0); Monocytes % (A) 7 %; Neutrophils # (A) 3.3 k/uL (1.3-7.7); Neutrophils % (A) 69 %; Platelet Count 153 k/uL (150-450); RDW 13.2 % (11.5-15.5); WBC 4.8 k/uL (3.8-10.6)
[2019-11-13 08:51] LABS: ALT 10 U/L (4-49); AST 97 U/L (17-59); African American GFR (CKD) >90 (>60 ml/min/1.73 sqM); Alkaline Phosphatase 59 U/L (38-126); Anion Gap 4 mmol/L; Blood Urea Nitrogen 18 mg/dL (9-20); Calcium 8.2 mg/dL (8.4-10.2); Carbon Dioxide 27 mmol/L (22-30); Chloride 105 mmol/L (98-107); Glucose 95 mg/dL (74-99); Non-African American GFR(CKD) 88 (>60 ml/min/1.73 sqM); Potassium 4.2 mmol/L (3.5-5.1); Sodium 136 mmol/L (137-145); Total Bilirubin 0.7 mg/dL (0.2-1.3); Total Protein 5.4 g/dL (6.3-8.2)
--- NOTE | 2019-11-13 10:27 | P.PN ---
Subjective Progress Note Date: 11/12/19 Caleb Riggins, is a 68-year-old male patient of Dr. Land with known history of advanced Parkinson disease who presented to [facility] emergency room after sustaining falls 3 days in a row patient was complaining of generalized pain, he was evaluated in the emergency room, no clinical or r adiologic evidence of any fracture, patient had elevated creatinine kinase with evidence of rhabdomyolysis, he also had evidence of urinary tract infection, he was started on IV antibiotics and was admitted to medical floor for further evaluation. On review of system patient is alert and oriented 3 in no apparent distress there is no fever or chills no headache or dizziness no chest pain no shortness of breath no cough no nausea or vomiting no abdominal pain no diarrhea no burning with urination no frequency or urgency and no hematuria patient has tremors in bilateral hands. On 11/08/2019 patient was seen and examined on the medical floor he is alert and oriented 3 in no apparent distress CPK level has increased since yesterday he remains on IV fluid normal saline at 130 mL/h he is still maintained on IV antibiotic for urinary tract infection neurology was consulted to review medication of Parkinson disease and assess if any changes beneficial to patient. Clinically he is stable there is no fever or chills no headache no dizziness no chest pain no shortness of breath no cough no nausea or vomiting no abdominal pain no diarrhea no burning was urination no frequency or urgency no hematuria. On 11/09/2019 patient was seen and examined on the medical floor, he is complaining of pain in the lower chest and upper abdomen on the left side he stated that his pain started when he fell and has been worsening otherwise he denies any complaints he was evaluated by neurology no significant change in Parkinson medication was suggested, at this time will check computed tomography scan of the chest and abdomen without contrast if stable patient can be discharged to home tomorrow. On 11/10/2019 patient was seen and examined on the medical floor he is still complaining of left upper quadrant abdominal pain, computed tomography scan of the chest abdomen and pelvis was reviewed, there is no evidence of rib fracture, there is evidence of bilateral hydronephrosis, urology consultation was requested in that regard, otherwise patient denies any complaints there is no fever or chills no headache or dizziness no chest pain no shortness of breath no cough no nausea or vomiting no abdominal pain no diarrhea no burning with urination no frequency or urgency and no hematuria. On 11/11/2019 patient was seen and examined on the medical floor he is alert and oriented 3 he is having significant difficulty with his mobility he is unable to stand on his own without 2 person assist there is no fever or chills no headache or dizziness no chest pain no shortness of breath no cough no nausea or vomiting no abdominal pain no diarrhea no burning with urination no frequency or urgency and no hematuria. Patient lives at home by himself he is not able to take care of himself continue physical therapy and occupational therapy if there is no significant improvement by Wednesday will discuss transfer to a rehab unit, although patient is very strongly opposed to that at this time. On 11/12/2019 patient was seen and examined on the medical floor, input from Dr. Johnson reviewed Sosa catheter inserted, patient remains very weak and and able to stand without help otherwise he denies any complaints there is no fever or chills no headache or dizziness no chest pain no shortness of breath no cough no nausea or vomiting no abdominal pain no diarrhea no burning with urination no frequency or urgency and no hematuria Objective - Vital Signs Vital signs: Vital Signs Temp 97.9 F 11/12/19 04:32 Pulse 75 11/12/19 04:32 Resp 16 11/12/19 04:32 BP 141/75 11/12/19 04:32 Pulse Ox 96 11/12/19 04:32 Intake & Output 11/11/19 11/12/19 11/12/19 18:59 06:59 18:59 Intake Total 1040 1180 Output Total 612 Balance 1040 1180 -612 Intake: Intake, IV Titration 1040 Amount Sodium Chloride 0.9% 1, 1040 000 ml @ 130 mls/hr IV . [id number] [facility] Rx#:[id number] Oral 1180 Output: Post Void Residual 612 Other: Voiding Method Urinal Urinal Urinal Diaper Diaper Diaper Incontinent Incontinent Incontinent # Voids 2 2 - Exam In general patient is alert and oriented 3 in no apparent distress HEENT head normocephalic and atraumatic Neck is supple no JVD no goiter no lymphadenopathy no carotid bruit Chest exam reveals a few scattered rhonchi no wheezing Cardiac exam reveals regular heart sounds no gallops no murmurs Abdomen is soft nontender no organomegaly with normal bowel sounds Extremity exam reveals no edema no cyanosis or clubbing Neurological examination reveals no gross focal deficit - Labs CBC & Chem 7: 11/12/19 06:26 11/12/19 06:26 Labs: Abnormal Lab Results - Last 24 Hours (Table) 11/12/19 11/12/19 Range/Units 06:26 06:26 RBC 4.13 L (4.30-5.90) m/uL Hgb 12.6 L (13.0-17.5) gm/dL Plt Count 140 L (150-450) k/uL Lymphocytes # 0.9 L (1.0-4.8) k/uL Sodium 136 L (137-145) mmol/L Chloride 110 H (98-107) mmol/L Carbon Dioxide 21 L (22-30) mmol/L BUN 21 H (9-20) mg/dL Calcium 8.0 L (8.4-10.2) mg/dL AST 128 H (17-59) U/L Total Protein 5.2 L (6.3-8.2) g/dL Albumin 2.6 L (3.5-5.0) g/dL Assessment and Plan Plan: 1. Rhabdomyolysis, CPK is 7120, on presentation will monitor kidney function closely 2. Urinary tract infection with sepsis, as evidenced by elevated lactic acid at 3.4 patient was started on IV Levaquin in the emergency room will monitor closely 3. Underlying history of advanced Parkinson disease 4. Underlying history of benign prostatic hypertrophy 5. Underlying history of hypertension 6. Underlying history of anemia 7. Atrial fibrillation, paroxysmal at this time heart rate is well-controlled patient is not a candidate for anticoagulation at this time due to multiple falls. If patient is not having any falls for a while. I will leave for his primary care physician to start anticoagulation as outpatient 8. Abdominal pain with evidence of bilateral hydronephrosis on computed tomography scan urology consultation was requested At this time patient is admitted to medical floor he was started on IV antibiotics Will monitor progress closely Will consult physical therapy and occupational therapy and assess if patient needs rehab in regard to recurrent falls Neurology consultation reviewed For DVT prophylaxis we will use subcu Lovenox for GI prophylaxis we will use Protonix Will follow in a.m.
[2019-11-13 10:47] VITALS: BMI 35.2
[2019-11-13] MEDS: LEVOFLOXACIN 750 MG TAB PO SCH (16:21)
--- NOTE | 2019-11-13 19:29 | P.PN ---
Subjective Progress Note Date: 11/13/19 Caleb Riggins, is a 68-year-old male patient of Dr. Land with known history of advanced Parkinson disease who presented to [facility] emergency room after sustaining falls 3 days in a row patient was complaining of generalized pain, he was evaluated in the emergency room, no clinical or r adiologic evidence of any fracture, patient had elevated creatinine kinase with evidence of rhabdomyolysis, he also had evidence of urinary tract infection, he was started on IV antibiotics and was admitted to medical floor for further evaluation. On review of system patient is alert and oriented 3 in no apparent distress there is no fever or chills no headache or dizziness no chest pain no shortness of breath no cough no nausea or vomiting no abdominal pain no diarrhea no burning with urination no frequency or urgency and no hematuria patient has tremors in bilateral hands. On 11/08/2019 patient was seen and examined on the medical floor he is alert and oriented 3 in no apparent distress CPK level has increased since yesterday he remains on IV fluid normal saline at 130 mL/h he is still maintained on IV antibiotic for urinary tract infection neurology was consulted to review medication of Parkinson disease and assess if any changes beneficial to patient. Clinically he is stable there is no fever or chills no headache no dizziness no chest pain no shortness of breath no cough no nausea or vomiting no abdominal pain no diarrhea no burning was urination no frequency or urgency no hematuria. On 11/09/2019 patient was seen and examined on the medical floor, he is complaining of pain in the lower chest and upper abdomen on the left side he stated that his pain started when he fell and has been worsening otherwise he denies any complaints he was evaluated by neurology no significant change in Parkinson medication was suggested, at this time will check computed tomography scan of the chest and abdomen without contrast if stable patient can be discharged to home tomorrow. On 11/10/2019 patient was seen and examined on the medical floor he is still complaining of left upper quadrant abdominal pain, computed tomography scan of the chest abdomen and pelvis was reviewed, there is no evidence of rib fracture, there is evidence of bilateral hydronephrosis, urology consultation was requested in that regard, otherwise patient denies any complaints there is no fever or chills no headache or dizziness no chest pain no shortness of breath no cough no nausea or vomiting no abdominal pain no diarrhea no burning with urination no frequency or urgency and no hematuria. On 11/11/2019 patient was seen and examined on the medical floor he is alert and oriented 3 he is having significant difficulty with his mobility he is unable to stand on his own without 2 person assist there is no fever or chills no headache or dizziness no chest pain no shortness of breath no cough no nausea or vomiting no abdominal pain no diarrhea no burning with urination no frequency or urgency and no hematuria. Patient lives at home by himself he is not able to take care of himself continue physical therapy and occupational therapy if there is no significant improvement by Wednesday will discuss transfer to a rehab unit, although patient is very strongly opposed to that at this time. On 11/12/2019 patient was seen and examined on the medical floor, input from Dr. Johnson reviewed Sosa catheter inserted, patient remains very weak and and able to stand without help otherwise he denies any complaints there is no fever or chills no headache or dizziness no chest pain no shortness of breath no cough no nausea or vomiting no abdominal pain no diarrhea no burning with urination no frequency or urgency and no hematuria. On 11/13/2019 patient was seen and examined on the medical floor he is alert and oriented 3 in no apparent distress there is no fever or chills no headache or dizziness no chest pain no shortness of breath no cough no nausea or vomiting no abdominal pain no diarrhea no burning with urination no frequency or urgency and no hematuria. Clinically patient is stable for discharge, he received a full course of antibiotic for urinary tract infection. Patient is and able to stand or walk on his own, however he is insisting on going home and not going to any alf or any rehab unit, social psychologist and briefcase sewer are working with his family to resolve this issue either by providing 24-hour care for patient at home or to obtain legal guardianship and transfer him to a alf or rehab unit. From clinical standpoint patient is ready for discharge. Objective - Vital Signs Vital signs: Vital Signs Temp 97.7 F 11/13/19 11:05 Pulse 62 11/13/19 11:05 Resp 18 11/13/19 11:05 BP 113/71 11/13/19 11:05 Pulse Ox 97 11/13/19 11:05 Intake & Output 11/12/19 11/13/19 11/13/19 18:59 06:59 18:59 Intake Total 890 Output Total 1712 825 Balance -1712 65 Weight 117.934 kg Intake: Oral 890 Output: Urine 1100 825 Post Void Residual 612 Other: Voiding Method Indwelling Catheter Indwelling Catheter Indwelling Catheter # Voids 2 - Exam In general patient is alert and oriented 3 in no apparent distress HEENT head normocephalic and atraumatic Neck is supple no JVD no goiter no lymphadenopathy no carotid bruit Chest exam reveals a few scattered rhonchi no wheezing Cardiac exam reveals regular heart sounds no gallops no murmurs Abdomen is soft nontender no organomegaly with normal bowel sounds Extremity exam reveals no edema no cyanosis or clubbing Neurological examination reveals no gross focal deficit - Labs CBC & Chem 7: 11/13/19 07:45 11/13/19 07:45 Labs: Abnormal Lab Results - Last 24 Hours (Table) 11/13/19 11/13/19 Range/Units 07:45 07:45 RBC 4.20 L (4.30-5.90) m/uL Hgb 12.9 L (13.0-17.5) gm/dL Hct 38.9 L (39.0-53.0) % Sodium 136 L (137-145) mmol/L Calcium 8.2 L (8.4-10.2) mg/dL AST 97 H (17-59) U/L Total Protein 5.4 L (6.3-8.2) g/dL Albumin 3.0 L (3.5-5.0) g/dL Assessment and Plan Plan: 1. Rhabdomyolysis, CPK is 7120, on presentation will monitor kidney function closely 2. Urinary tract infection with sepsis, as evidenced by elevated lactic acid at 3.4 patient was started on IV Levaquin in the emergency room will monitor closely 3. Underlying history of advanced Parkinson disease 4. Underlying history of benign prostatic hypertrophy 5. Underlying history of hypertension 6. Underlying history of anemia 7. Atrial fibrillation, paroxysmal at this time heart rate is well-controlled patient is not a candidate for anticoagulation at this time due to multiple falls. If patient is not having any falls for a while. I will leave for his primary care physician to start anticoagulation as outpatient 8. Abdominal pain with evidence of bilateral hydronephrosis on computed tomography scan urology consultation was requested At this time patient is admitted to medical floor he was started on IV antibiotics Will monitor progress closely Will consult physical therapy and occupational therapy and assess if patient needs rehab in regard to recurrent falls Neurology consultation reviewed For DVT prophylaxis we will use subcu Lovenox for GI prophylaxis we will use P rotonix Will follow in a.m.
[2019-11-13] MEDS: FINASTERIDE 5 MG TAB PO SCH (22:46)
[2019-11-13] MEDS: DOXAZOSIN 4 MG TAB PO SCH (22:47)
[2019-11-14 05:52] VITALS: BP 138/73; PULSE 67; RESP 20; TEMP 97
[2019-11-14] MEDS: CARBIDOPA-LEVODOPA ER 50-200MG 1 EACH TABLET.ER PO SCH (08:26)
[2019-11-14] MEDS: METOPROLOL TARTRATE 25 MG TAB PO SCH (08:26)
[2019-11-14] MEDS: MULTIVITAMINS, THERA 1 EACH TAB PO SCH (08:26)
[2019-11-14] MEDS: PANTOPRAZOLE 40 MG TABLET PO SCH (08:26)
[2019-11-14] MEDS: TAMSULOSIN 0.4 MG CAP.ER.24H PO SCH (08:26)
[2019-11-14] MEDS: FERROUS SULFATE 325 MG TAB PO SCH (08:26)
[2019-11-14] MEDS: ENOXAPARIN 40 MG/0.4 ML SYRINGE SQ SCH (08:27)
--- NOTE | 2019-11-14 19:15 | P.DS ---
Providers Date of admission: 11/07/19 15:58 Expected date of discharge: 11/14/19 Attending physician: Rose Fernandez Consults: 11/08/19 13:53 Consult Physician Routine Consulting Provider: Tony Baker Consult Reason/Comments: parkinson disease multiple falls Do you want consulting provider notified?: Yes 11/10/19 12:57 Consult Physician Routine Consulting Provider: Adis Fine Consult Reason/Comments: hydronephrosis Do you want consulting provider notified?: Yes Primary care physician: Nancy Land Hospital Course: diagnosis on discharge: 1. Rhabdomyolysis, CPK is 7120, on presentation will monitor kidney function closely 2. Urinary tract infection with sepsis, as evidenced by elevated lactic acid at 3.4 patient was started on IV Levaquin in the emergency room will monitor closely 3. Underlying history of advanced Parkinson disease 4. Underlying history of benign prostatic hypertrophy 5. Underlying history of hypertension 6. Underlying history of anemia 7. Atrial fibrillation, paroxysmal at this time heart rate is well-controlled patient is not a candidate for anticoagulation at this time due to multiple fa lls. If patient is not having any falls for a while. I will leave for his primary care physician to start anticoagulation as outpatient 8. Abdominal pain with evidence of bilateral hydronephrosis on computed tomography scan urology consultation was requested Hospital course: Caleb Riggins, is a 68-year-old male patient of Dr. Land with known history of advanced Parkinson disease who presented to [facility] emergency room after sustaining falls 3 days in a row patient was complaining of generalized pain, he was evaluated in the emergency room, no clinical or radiologic evidence of any fracture, patient had elevated creatinine kinase with evidence of rhabdomyolysis, he also had evidence of urinary tract infection, he was started on IV antibiotics and was admitted to medical floor for further evaluation. On review of system patient is alert and oriented 3 in no apparent distress there is no fever or chills no headache or dizziness no chest pain no shortness of breath no cough no nausea or vomiting no abdominal pain no diarrhea no burning with urination no frequency or urgency and no hematuria patient has tremors in bilateral hands. On 11/08/2019 patient was seen and examined on the medical floor he is alert and oriented 3 in no apparent distress CPK level has increased since yesterday he remains on IV fluid normal saline at 130 mL/h he is still maintained on IV antibiotic for urinary tract infection neurology was consulted to review medication of Parkinson disease and assess if any changes beneficial to patient. Clinically he is stable there is no fever or chills no headache no dizziness no chest pain no shortness of breath no cough no nausea or vomiting no abdominal pain no diarrhea no burning was urination no frequency or urgency no hematuria. On 11/09/2019 patient was seen and examined on the medical floor, he is complaining of pain in the lower chest and upper abdomen on the left side he stated that his pain started when he fell and has been worsening otherwise he denies any complaints he was evaluated by neurology no significant change in Parkinson medication was suggested, at this time will check computed tomography scan of the chest and abdomen without contrast if stable patient can be discharged to home tomorrow. On 11/10/2019 patient was seen and examined on the medical floor he is still complaining of left upper quadrant abdominal pain, computed tomography scan of the chest abdomen and pelvis was reviewed, there is no evidence of rib fracture, there is evidence of bilateral hydronephrosis, urology consultation was requested in that regard, otherwise patient denies any complaints there is no fever or chills no headache or dizziness no chest pain no shortness of breath no cough no nausea or vomiting no abdominal pain no diarrhea no burning with urination no frequency or urgency and no hematuria. On 11/11/2019 patient was seen and examined on the medical floor he is alert and oriented 3 he is having significant difficulty with his mobility he is unable to stand on his own without 2 person assist there is no fever or chills no headache or dizziness no chest pain no shortness of breath no cough no nausea or vomiting no abdominal pain no diarrhea no burning with urination no frequency or urgency and no hematuria. Patient lives at home by himself he is not able to take care of himself continue physical therapy and occupational therapy if there is no significant improvement by Wednesday will discuss transfer to a rehab unit, although patient is very strongly opposed to that at this time. On 11/12/2019 patient was seen and examined on the medical floor, input from Dr. Johnson reviewed Sosa catheter inserted, patient remains very weak and and able to stand without help otherwise he denies any complaints there is no fever or chills no headache or dizziness no chest pain no shortness of breath no cough no nausea or vomiting no abdominal pain no diarrhea no burning with urination no frequency or urgency and no hematuria. On 11/13/2019 patient was seen and examined on the medical floor he is alert and oriented 3 in no apparent distress there is no fever or chills no headache or dizziness no chest pain no shortness of breath no cough no nausea or vomiting no abdominal pain no diarrhea no burning with urination no frequency or urgency and no hematuria. Clinically patient is stable for discharge, he received a full course of antibiotic for urinary tract infection. Patient is and able to stand or walk on his own, however he is insisting on going home and not going to any care home or any rehab unit, director of social work and renal case manager are working with his family to resolve this issue either by providing 24-hour care for patient at home or to obtain legal guardianship and transfer him to a care home or rehab unit. From clinical standpoint patient is ready for discharge. on 11/14/2019 patient was seen and examined on the medical floor he is alert and oriented 3 in no distress there is no or chills no headach or dizziness no chest pain no shortness of nausea or vomiting no abdominl pain, no diarrhea, Sosa catheter is in. Patient is still complaining of severe weakness and having significant difficulty standing up from the sitting position, however he is very insisting on not going to any rehab unit and to on returning to his own home he states that he has head up operator helper at the house to help him with his daily activities. He is refusing any kind of rehab admission at this time. Plan - Discharge Summary New Discharge Prescriptions: Continue amantadine HCL [Symmetrel] 100 mg PO BID Carbidopa-Levodopa ER 50-200Mg [Sinemet CR 50-200 mg] 2 tab PO BID Terazosin HCl [Hytrin] 10 mg PO HS Ferrous Sulfate [Feosol] 325 mg PO DAILY Tamsulosin HCl [Flomax] 0.4 mg PO DAILY Finasteride [Proscar] 5 mg PO HS HYDROcodone/APAP 7.5-325MG [Marion 7.5-325] 1 tab PO Q6H PRN PRN Reason: Pain Metoprolol Tartrate [Lopressor] 25 mg PO DAILY Multivitamins, Thera [Multivitamin (formulary)] 1 tab PO DAILY Discharge Medication List Carbidopa-Levodopa ER 50-200Mg [Sinemet CR 50-200 mg] 2 tab PO BID 03/20/15 [History] Ferrous Sulfate [Feosol] 325 mg PO DAILY 03/20/15 [History] Terazosin HCl [Hytrin] 10 mg PO HS 03/20/15 [History] amantadine HCL [Symmetrel] 100 mg PO BID 03/20/15 [History] Tamsulosin HCl [Flomax] 0.4 mg PO DAILY 02/22/17 [History] Finasteride [Proscar] 5 mg PO HS 11/07/19 [History] HYDROcodone/APAP 7.5-325MG [Marion 7.5-325] 1 tab PO Q6H PRN 11/07/19 [History] Metoprolol Tartrate [Lopressor] 25 mg PO DAILY 11/07/19 [History] Multivitamins, Thera [Multivitamin (formulary)] 1 tab PO DAILY 11/07/19 [History] Follow up Appointment(s)/Referral(s): Nancy Land MD [Primary Care Provider] - 11/21/19 1:00 pm [facility] [NON-STAFF] - 1 Week Bong Johnson MD [STAFF PHYSICIAN] - 1 Week (office to contact pt) Patient Instructions/Handouts: Rhabdomyolysis (DC), Sosa Catheter Placement and Care (DC), Fall Prevention for Older Adults (DC), Urinary Leg Bag (GEN) Activity/Diet/Wound Care/Special Instructions: Patient is to be discharged home with Sosa catheter. Dr. Johnson' office will contact patient to schedule in-office urodynamic testing and cystoscopy. Discharge Disposition: HOME WITH HOME HEALTH SERVICES
== END 2019-11-14 17:02 | disposition home health service (06) | DRG 872 ==
LOC: EC 13:38 → 5NMEDONC 15:58
PROVIDERS: ADMIT Internal Medicine; ATTEND Internal Medicine
DX: A41.9 Sepsis, unspecified organism (principal); I45.2 Bifascicular block; M62.82 Rhabdomyolysis; N13.6 Pyonephrosis; N13.8 Other obstructive and reflux uropathy; E87.2 Acidosis; C61 Malignant neoplasm of prostate; G20 Parkinson's disease; I10 Essential (primary) hypertension; I48.0 Paroxysmal atrial fibrillation; N40.1 Benign prostatic hyperplasia with lower urinary tract symptoms; R29.6 Repeated falls; R32 Unspecified urinary incontinence; Z79.899 Other long term (current) drug therapy; Z82.0 Family history of epilepsy and other diseases of the nervous system; Z82.49 Family history of ischemic heart disease and other diseases of the circulatory system; Z83.3 Family history of diabetes mellitus; Z87.442 Personal history of urinary calculi; D64.9 Anemia, unspecified; Z20.828 Contact with and (suspected) exposure to other viral communicable diseases; Z82.69 Family history of other diseases of the musculoskeletal system and connective tissue; Z82.3 Family history of stroke; W19.XXXA Unspecified fall, initial encounter; R07.81 Pleurodynia; S80.212A Abrasion, left knee, initial encounter; Z60.2 Problems related to living alone; Z87.440 Personal history of urinary (tract) infections; Z80.9 Family history of malignant neoplasm, unspecified; Z98.42 Cataract extraction status, left eye; Z98.41 Cataract extraction status, right eye; Z87.81 Personal history of (healed) traumatic fracture; Z87.820 Personal history of traumatic brain injury; Z88.0 Allergy status to penicillin; Z88.8 Allergy status to other drugs, medicaments and biological substances
CPT/HCPCS: 36415; 70450; 71046; 71250; 74176; 80053; 81001; 82330; 82550; 83605; 83735; 84153; 84403; 84484; 85025; 85610; 85730; 87086; 93005; 96361; 96365; 99285

== ENCOUNTER → 2019-12-14 | Outpatient (CLI) | payer MEDICARE, OTHER ==
[2019-12-14 13:47] LABS: Basophils % (A) 0 %; Eosinophils # (A) 0.1 k/uL (0-0.7); Eosinophils % (A) 2 %; HCT 40.9 % (39.0-53.0); Lymphocytes # (A) 1.1 k/uL (1.0-4.8); Lymphocytes % (A) 23 %; MCHC 31.9 g/dL (31.0-37.0); MCV 94.2 fL (80.0-100.0); Mean Platelet Volume 7.6; Monocytes # (A) 0.3 k/uL (0-1.0); Monocytes % (A) 6 %; Neutrophils # (A) 3.4 k/uL (1.3-7.7); Neutrophils % (A) 67 %; Platelet Count 140 k/uL (150-450); RBC 4.35 m/uL (4.30-5.90); RDW 13.4 % (11.5-15.5)
[2019-12-14 13:56] LABS: African American GFR (CKD) >90 (>60 ml/min/1.73 sqM); Anion Gap 6 mmol/L; Blood Urea Nitrogen 17 mg/dL (9-20); Carbon Dioxide 27 mmol/L (22-30); Chloride 107 mmol/L (98-107); Glucose 131 mg/dL (74-99); Non-African American GFR(CKD) 78 (>60 ml/min/1.73 sqM); Potassium 4.2 mmol/L (3.5-5.1); Sodium 140 mmol/L (137-145)
== END | disposition home or self-care (01) ==
LOC: LABPAT 12:27
PROVIDERS: ATTEND Urology
DX: Z01.818 Encounter for other preprocedural examination (principal); R33.9 Retention of urine, unspecified; R31.29 Other microscopic hematuria
CPT/HCPCS: 36415; 80048; 85025; 87086

== ENCOUNTER 2019-12-21 07:57 | Day surgery (SDC) | payer MEDICARE, OTHER ==
--- NOTE | 2019-12-18 06:54 | P.GSHP ---
History of Present Illness H&P Date: 12/18/19 Chief Complaint: Incomplete bladder emptying The patient is a 69-year-old white male well known to me. He has a long history of prostatic enlargement with incomplete bladder emptying. A CT scan in December 2017 showed small right renal calculi and bladder calculi, with no evidence of hydronephrosis. The postvoid residual in June 2018 was 456 mL. In June 2018, his PSA level was 7.8. He underwent a prostate ultrasound with biopsies. The prostate volume was measured to be 112 mL. 2 of 12 biopsies showed Yar[place]za 7 (3+4) adenocarcinoma. He was treated with 6 months of androgen deprivation therapy in conjunction with IMRT. His PSA level last month was undetectable. A Sosa catheter was placed in March 2019 for urinary retention. In April 2019, the postvoid residual was 340 mL. He was taking Terazosin 10 mg daily at bedtime at that time. Ultrasound in April 2019 showed minimal right hydronephrosis, mild left hydronephrosis. The postvoid residual in May 2019 was 354 mL, and he was advised to consider a TURP. He was recently admitted after several falls at home. A Sosa catheter was placed due to incomplete bladder emptying. Recent urodynamic testing shows normal detrusor function. Cystoscopy in February 2019 showed trilobar prostatic enlargement, and he now comes for transurethral resection of the prostate (TURP). - Constitutional Constitutional: Denies chills, Denies fever - Genitourinary (Male) Genitourinary: Denies dysuria, Denies flank pain, Denies hematuria Past Medical History Past Medical History: Hypertension, Musculoskeletal Disorder, Neurologic Disorder, Prostate Disorder, Renal Disease Additional Past Medical History / Comment(s): parkinsons disease, nephrolithiasis, BPH,uti's , fall 2012 with skull fracture and subdural hematoma and L eardrum rupture, sinus problems on occasion.past stress test, lt sprain ankle d/t fall. History of Any Multi-Drug Resistant Organisms: None Reported Past Surgical History: Heart Catheterization, Hernia Repair Additional Past Surgical History / Comment(s): cystoscopy, L inguinal hernia repair., anat cataracts Past Anesthesia/Blood Transfusion Reactions: No Reported Reaction Past Psychological History: No Psychological Hx Reported Smoking Status: Never smoker Past Alcohol Use History: None Reported Past Drug Use History: None Reported - Past Family History Sister(s) Family Medical History: Cancer Mother Family Medical History: CVA/TIA, Diabetes Mellitus, Hypertension, Musculoskeletal Disorder, Neurologic Disorder Additional Family Medical History / Comment(s): Mother had parkinson's dx. Father Family Medical History: CVA/TIA Medications and Allergies Home Medications Medication Instructions Recorded Confirmed Type Carbidopa-Levodopa ER 50-200Mg 2 tab PO BID 03/20/15 11/07/19 History [Sinemet CR 50-200 mg] Ferrous Sulfate [Feosol] 325 mg PO DAILY 03/20/15 11/07/19 History Terazosin HCl [Hytrin] 10 mg PO HS 03/20/15 11/07/19 History amantadine HCL [Symmetrel] 100 mg PO BID 03/20/15 11/07/19 History Tamsulosin HCl [Flomax] 0.4 mg PO DAILY 02/22/17 11/07/19 History Finasteride [Proscar] 5 mg PO HS 11/07/19 11/07/19 History HYDROcodone/APAP 7.5-325MG [[place] 1 tab PO Q6H PRN 11/07/19 11/07/19 History 7.5-325] Metoprolol Tartrate [Lopressor] 25 mg PO DAILY 11/07/19 11/07/19 History Multivitamins, Thera [Multivitamin 1 tab PO DAILY 11/07/19 11/07/19 History (formulary)] Allergies Allergy/AdvReac Type Severity Reaction Status Date / Time adhesive tape Allergy Rash/Hives Verified 11/07/19 16:22 amoxicillin Allergy Dyspnea, Verified 11/07/19 16:22 SWELLING OF THROAT haloperidol [From Haldol] Allergy Unknown Verified 11/07/19 16:22 haloperidol lactate Allergy Unknown Verified 11/07/19 16:22 [From Haldol] lorazepam [From Ativan] Allergy Unknown Verified 11/07/19 16:22 alprazolam [From Xanax] AdvReac Unknown Verified 11/07/19 16:22 Surgical - Exam - General well developed, well nourished, no distress - Respiratory normal respiratory effort, clear to auscultation - Cardiovascular Rhythm: regular Abnormal Heart Sounds: no systolic murmur, no diastolic murmur, no rub, no S3 Gallop, no S4 Gallop, no click, no other - Abdomen Abdomen: soft, non tender, no guarding, no rigid, no rebound - Genitourinary normal penis with no external lesions, testicles non-tender - Psychiatric oriented to time, oriented to person, oriented to place, speech is normal, memory intact Assessment and Plan (1) Retention of urine, unspecified Status: Acute Code(s): R33.9 - RETENTION OF URINE, UNSPECIFIED SNOMED Code(s): 837462135 Plan: The patient comes for cystoscopy, transurethral resection of prostate with the intent of relieving bladder outflow obstruction and improving bladder emptying. The rationale for the procedure has been discussed with the patient. However, given the prior radiation therapy and the fact that he has Parkinson's disease, there is a somewhat higher likelihood of developing postoperative stress urinary incontinence. Other risks include anesthesia, bleeding, infection, and persistent incomplete bladder emptying.
[2019-12-20 14:16] VITALS: BMI 35.2
[~2019-12-21 07:57] MED LIST changes: -ALPRAZolam 0.25 MG TAB PO PRN; -ALPRAZolam 0.5 MG TAB PO PRN; -ASPIRIN 325 MG TAB PO STA; +CLINDAMYCIN 900 MG in DEXTROSE 5% IN WATER 50 ML IVPB ONE; +DEXAMETHASONE SOD PHOSPHATE 10 MG/ML 1 ML VIAL IV ONE; +GENTAMICIN 120 MG in SODIUM CHLORIDE 0.9% 100 ML IVPB ONE; +HYDROmorphone 0.5 MG/0.5 ML SYRINGE IVP PRN; +LACTATED RINGERS 1,000 ML IV SCH; -NITROGLYCERIN SL TABS 0.4 MG TAB SUBLINGUAL PRN; +ONDANSETRON 4 MG/2 ML VIAL IVP ONE; -SODIUM CHLORIDE 0.9% 1,000 ML in EMPTY BAG 1 BAG IV ONE
[2019-12-21 08:28] VITALS: TEMP 97.6
[2019-12-21] MEDS ORDERED: fentaNYL (PF) 50 MCG/ML 2 ML AMP ONE (08:45)
[2019-12-21] MEDS ORDERED: PHENYLEPHRINE-0.9% NACL SYG 1 MG/10 ML SYRINGE ONE (08:45)
[2019-12-21] MEDS ORDERED: LIDOCAINE 1% INJ 10MG/ML (20 ML MDV) ONE (08:45)
[2019-12-21] MEDS ORDERED: ePHEDrine SULFATE/0.9% NACL/PF 50 MG/5 ML SYRINGE IV ONE (08:45)
[2019-12-21] MEDS ORDERED: PROPOFOL 10 MG/ML 20 ML VIAL IV ONE (08:45)
--- NOTE | 2019-12-21 11:14 | P.OP ---
Date of Procedure: 12/21/19 Preoperative Diagnosis: Urinary retention, prostate cancer Postoperative Diagnosis: Same Procedure(s) Performed: Cystoscopy, bipolar transurethral resection of prostate (TURP) Anesthesia: ANKUR Surgeon: Bong Johnson Estimated Blood Loss (ml): 50 IV fluids (ml): 1,000 Pathology: other (Prostate chips) Condition: stable Disposition: PACU Indications for Procedure: The patient is a 69-year-old white male well known to nd. He has a long history of prostatic enlargement with incomplete bladder emptying. A CT scan in December 2017 showed small right renal calculi and bladder calculi, with no evidence of hydronephrosis. The postvoid residual in June 2018 was 456 mL. In June 2018, his PSA level was 7.8. He underwent a prostate ultrasound with biopsies. The prostate volume was measured to be 112 mL. 2 of 12 biopsies showed Yaritza 7 (3+4) adenocarcinoma. He was treated with 6 months of androgen deprivation therapy in conjunction with IMRT. His PSA level last month was undetectable. A Sosa catheter was placed in March 2019 for urinary retention. In April 2019, the postvoid residual was 340 mL. He was taking Terazosin 10 mg daily at bedtime at that time. Ultrasound in April 2019 showed minimal right hydronephrosis, mild left hydronephrosis. The postvoid residual in May 2019 was 354 mL, and he was advised to consider a TURP. He was recently admitted after several falls at home. A Sosa catheter was placed due to incomplete bladder emptying. Recent urodynamic testing shows normal detrusor function. Cystoscopy in February 2019 showed trilobar prostatic enlargement, and he now comes for transurethral resection of the prostate (TURP). Operative Findings: Trilobar prostatic enlargement, complete occlusion. Description of Procedure: The patient was taken in the operating room and placed in the dorsolithotomy position. The external genitalia was prepped and draped sterilely. The 25- [place] ACMI resectoscope sheath was introduced into the bladder. The bladder was inspected. There was evidence of catheter cystitis. The ureteral orifices could not be identified with certainty. No tumors or foreign bodies were seen. Examination of the prostate revealed complete obstruction with a trilobar configuration. Using the bipolar cutting loop, the lateral lobes were resected down to the surgical capsule. The floor of the prostate was then resected, proximal to the verumontanum. Lastly, any remaining anterior tissue was resected. The remaining apical tissue was then carefully resected, though not all of the apical tissue was resected to reduce the likelihood of postoperative incontinence. The prostatic fossa was then carefully examined, and any areas of bleeding were controlled with electrocautery. Excellent hemostasis was attained. The resectoscope was withdrawn into the bulbous urethra. The external urinary sphincter remained intact. The prostatic fossa was open. The nextsocial evacuator was used to remove all prostate chips from the bladder. These were saved and sent for pathologic examination. The resectoscope was removed, and a 20 [place] Sosa catheter was placed. The return was essentially clear. The patient tolerated the procedure well was taken to the recovery room in stable condition.
[2019-12-21 13:39] VITALS: BP 122/74; PULSE 88; RESP 18
== END 2019-12-21 13:40 | disposition home or self-care (01) ==
LOC: OR 07:57
PROVIDERS: ATTEND Urology
DX: C61 Malignant neoplasm of prostate (principal); N40.1 Benign prostatic hyperplasia with lower urinary tract symptoms; R33.8 Other retention of urine; N13.30 Unspecified hydronephrosis; I48.91 Unspecified atrial fibrillation; G20 Parkinson's disease; Z98.890 Other specified postprocedural states; Z79.899 Other long term (current) drug therapy; Z91.048 Other nonmedicinal substance allergy status; Z88.0 Allergy status to penicillin; Z88.8 Allergy status to other drugs, medicaments and biological substances; Z87.440 Personal history of urinary (tract) infections; Z80.9 Family history of malignant neoplasm, unspecified; Z82.3 Family history of stroke; Z83.3 Family history of diabetes mellitus; Z82.49 Family history of ischemic heart disease and other diseases of the circulatory system; Z82.69 Family history of other diseases of the musculoskeletal system and connective tissue
CPT/HCPCS: 88305; 52601; J2001; J3010; J1580; J2370; J2704

== ENCOUNTER 2019-12-23 23:54 | Emergency (ER) | payer MEDICARE, OTHER ==
[2019-12-24] VITALS: RESP 18
--- NOTE | 2019-12-24 00:23 | ED ---
Male Urogenital HPI - General Chief complaint: Urogenital Stated complaint: catheter issue Time Seen by Provider: 12/24/19 00:01 Source: patient, EMS, RN notes reviewed, old records reviewed Mode of arrival: EMS Limitations: no limitations - History of Present Illness Initial comments: This is a 69-year-old male DF for evaluation patient to the ER for evaluation regards to possible malfunctioning urinary catheter. Patient has recently placed urinary catheter secondary to surgical procedure. Catheter was malfunctioning took it out was unable to get catheter working again. At this point patient is not having any symptoms or complaints no pain MD Complaint: other (Malfunctioning urinary catheter) -: hour(s) Radiation: none Improves with: none Worsens with: none recent surgery Reports: denies other symptoms - Related Data Home Medications Medication Instructions Recorded Confirmed Carbidopa-Levodopa ER 50-200Mg 2 tab PO BID 03/20/15 12/20/19 [Sinemet CR 50-200 mg] Ferrous Sulfate [Feosol] 325 mg PO DAILY 03/20/15 12/20/19 Terazosin HCl [Hytrin] 10 mg PO HS 03/20/15 12/20/19 amantadine HCL [Symmetrel] 100 mg PO BID 03/20/15 12/20/19 Tamsulosin HCl [Flomax] 0.4 mg PO DAILY 02/22/17 12/20/19 Finasteride [Proscar] 5 mg PO HS 11/07/19 12/20/19 HYDROcodone/APAP 7.5-325MG [[place] 1 tab PO Q6H PRN 11/07/19 12/21/19 7.5-325] Multivitamins, Thera [Multivitamin 1 tab PO DAILY 11/07/19 12/20/19 (formulary)] Ciprofloxacin HCl [Cipro] 500 mg PO Q12HR 12/20/19 12/20/19 Cyclobenzaprine [Flexeril] 10 mg PO TID PRN 12/20/19 12/20/19 Allergies Allergy/AdvReac Type Severity Reaction Status Date / Time adhesive tape Allergy Rash/Hives Verified 12/21/19 08:05 amoxicillin Allergy Dyspnea, Verified 12/21/19 08:05 SWELLING OF THROAT haloperidol [From Haldol] Allergy Unknown Verified 12/21/19 08:05 haloperidol lactate Allergy Unknown Verified 09/17/20 08:05 [From Haldol] lorazepam [From Ativan] Allergy Unknown Verified 12/21/19 08:05 alprazolam [From Xanax] AdvReac Unknown Verified 12/21/19 08:05 Review of Systems ROS Statement: Those systems with pertinent positive or pertinent negative responses have been documented in the HPI. ROS Other: All systems not noted in ROS Statement are negative. Past Medical History Past Medical History: Hypertension, Musculoskeletal Disorder, Neurologic Disorder, Prostate Disorder, Renal Disease Additional Past Medical History / Comment(s): parkinsons disease, nephrolithiasis, BPH,uti's , fall 2012 with skull fracture and subdural hematoma and L eardrum rupture, sinus problems on occasion.past stress test, lt sprain ankle d/t fall. History of Any Multi-Drug Resistant Organisms: None Reported Past Surgical History: Heart Catheterization, Hernia Repair Additional Past Surgical History / Comment(s): cystoscopy, L inguinal hernia repair., anat cataracts Past Anesthesia/Blood Transfusion Reactions: No Reported Reaction Past Psychological History: No Psychological Hx Reported Smoking Status: Never smoker Past Alcohol Use History: None Reported Past Drug Use History: None Reported - Past Family History Sister(s) Family Medical History: Cancer Mother Family Medical History: CVA/TIA, Diabetes Mellitus, Hypertension, Musculoskeletal Disorder, Neurologic Disorder Additional Family Medical History / Comment(s): Mother had parkinson's dx. Father Family Medical History: CVA/TIA General Exam Limitations: no limitations General appearance: alert, in no apparent distress Head exam: Present: atraumatic, normocephalic, normal inspection Eye exam: Present: normal appearance, PERRL, EOMI. Absent: scleral icterus, conjunctival injection, periorbital swelling ENT exam: Present: normal exam, mucous membranes moist Neck exam: Present: normal inspection. Absent: tenderness, meningismus, lymphadenopathy Respiratory exam: Present: normal lung sounds bilaterally. Absent: respiratory distress, wheezes, rales, rhonchi, stridor Cardiovascular Exam: Present: regular rate, normal rhythm, normal heart sounds. Absent: systolic murmur, diastolic murmur, rubs, gallop, clicks GI/Abdominal exam: Present: soft, normal bowel sounds. Absent: distended, tenderness, guarding, rebound, rigid Extremities exam: Present: normal inspection, full ROM, normal capillary refill. Absent: tenderness, pedal edema, joint swelling, calf tenderness Back exam: Present: normal inspection Neurological exam: Present: alert, oriented X3, CN II-XII intact Psychiatric exam: Present: normal affect, normal mood Skin exam: Present: warm, dry, intact, normal color. Absent: rash Course Vital Signs 12/23/19 23:55 Temperature 98 F Pulse Rate 93 Respiratory 18 Rate Blood Pressure 111/69 O2 Sat by Pulse 96 Oximetry - Reevaluation(s) Reevaluation #1: 12/24/19 00:31 Medical record is reviewed Reevaluation #2: 12/24/19 00:31 Patient has no complaints Reevaluation #3: 12/24/19 00:31 Catheter is placed without difficulty Medical Decision Making - Medical Decision Making 69 male to the ER for evaluation of malfunctioning urinary catheter catheter placed patient to be discharged Disposition Clinical Impression: Urinary retention, Sosa catheter problem Disposition: HOME SELF-CARE Condition: Good Instructions (If sedation given, give patient instructions): Sosa Catheter Placement and Care (ED) Is patient prescribed a controlled substance at d/c from ED?: No Referrals: Nancy Land MD [Primary Care Provider] - 1-2 days
[2019-12-24 02:33] VITALS: BP 118/65; PULSE 91; TEMP 97.8
== END 2019-12-24 05:55 | disposition home or self-care (01) ==
LOC: EC 23:54
DX: R33.9 Retention of urine, unspecified (principal); N40.0 Benign prostatic hyperplasia without lower urinary tract symptoms; I10 Essential (primary) hypertension; G20 Parkinson's disease; Z95.5 Presence of coronary angioplasty implant and graft; Z98.42 Cataract extraction status, left eye; Z98.41 Cataract extraction status, right eye; Z79.899 Other long term (current) drug therapy; Z88.0 Allergy status to penicillin; Z88.8 Allergy status to other drugs, medicaments and biological substances; Z91.048 Other nonmedicinal substance allergy status
CPT/HCPCS: 51702; 99284

== ENCOUNTER 2019-12-26 22:35 | Inpatient (IN) | payer MEDICARE, OTHER ==
--- NOTE | 2019-12-26 23:30 | XR ---
EXAMINATION TYPE: XR chest 1V portable DATE OF EXAM: 12/26/2019 COMPARISON: NONE HISTORY: Weakness TECHNIQUE: 2 views FINDINGS: There are old left-sided rib fractures. There is no heart failure. There is no pelvic conso lidation. There is slight blunting left costophrenic angle. There is coarse increased density over th e lateral aspect left lower lobe. There are no hilar masses. Thoracic aorta is atheromatous. There is old right fifth rib fracture. IMPRESSION: There is some pleural and pulmonary scarring in the left lower lobe that has progressed c ompared to old exam. No heart failure seen. Normal heart. Acute pneumonia in the left lower lobe not entirely excluded.
[2019-12-27] LABS: Basophils % (A) 0 %; Eosinophils # (A) 0.1 k/uL (0-0.7); Eosinophils % (A) 1 %; HCT 41.2 % (39.0-53.0); HGB 13.4 gm/dL (13.0-17.5); Lymphocytes # (A) 0.8 k/uL (1.0-4.8); Lymphocytes % (A) 10 %; MCH 30.1 pg (25.0-35.0); MCHC 32.4 g/dL (31.0-37.0); MCV 92.9 fL (80.0-100.0); Mean Platelet Volume 7.3; Monocytes # (A) 0.6 k/uL (0-1.0); Monocytes % (A) 7 %; Neutrophils # (A) 6.9 k/uL (1.3-7.7); Neutrophils % (A) 82 %; Platelet Count 206 k/uL (150-450); RBC 4.44 m/uL (4.30-5.90); WBC 8.5 k/uL (3.8-10.6)
[2019-12-27 00:10] LABS: Albumin 3.5 g/dL (3.5-5.0); Calcium 8.4 mg/dL (8.4-10.2); Potassium 4.3 mmol/L (3.5-5.1); Total Protein 6.4 g/dL (6.3-8.2)
[2019-12-27 00:14] LABS: INR 1.1 (<1.2); Partial Thromboplastin Time 23.4 sec (22.0-30.0); Prothrombin Time 11.1 sec (9.0-12.0)
[2019-12-27 00:17] LABS: Appearance,Urine Cloudy (Clear); Bacteria,Urine Occasional /hpf; Bilirubin,Urine Negative (Negative); Blood,Urine Large (Negative); Budding Yeast,Urine Few /hpf; Color,Urine Yellow; Glucose,Urine (UA) Negative (Negative); Hyaline Casts,Urine 7 /lpf (0-2); Ketones,Urine 2+ (Negative); Leukocyte Esterase,Urine Large (Negative); Mucus,Urine Many /hpf; Nitrite,Urine Negative (Negative); Protein,Urine 2+ (Negative); RBC,Urine 103 /hpf (0-5); Specific Gravity,Urine 1.025 (1.001-1.035); Urobilinogen,Urine <2.0 mg/dL (<2.0); WBC,Urine >182 /hpf (0-5)
--- NOTE | 2019-12-27 00:23 | ED ---
Weakness HPI - General Chief complaint: Weakness Stated complaint: Weakness Time Seen by Provider: 12/26/19 22:42 Source: EMS Mode of arrival: EMS Limitations: no limitations - History of Present Illness Initial comments: This patient is 69-year-old man with history of Parkinson's disease, who presents by ambulance to be evaluated for generalized weakness and difficulty walking. Patient states this been going on throughout today. It is worse when he attempts to stand and he states he is not getting around the house now. The patient also felt warm at home. When questioned about symptoms of infection, patient states that he does have a little bit of a cough with some white to yellow sputum. No dyspnea, hemoptysis, or chest pain. The patient also felt that his catheter drainage was darker than it had been. MD Complaint: generalized weakness, lack of energy, difficulty walking Onset/Timin -: days(s) Location: generalized Severity: moderate Improves with: none Worsens with: other (Standing) - Related Data Home Medications Medication Instructions Recorded Confirmed Carbidopa-Levodopa ER 50-200Mg 2 tab PO BID 03/20/15 12/27/19 [Sinemet CR 50-200 mg] Ferrous Sulfate [Feosol] 325 mg PO DAILY 03/20/15 12/27/19 Terazosin HCl [Hytrin] 10 mg PO HS 03/20/15 12/27/19 amantadine HCL [Symmetrel] 100 mg PO BID 03/20/15 12/27/19 Tamsulosin HCl [Flomax] 0.4 mg PO DAILY 02/22/17 12/27/19 Finasteride [Proscar] 5 mg PO HS 11/07/19 12/27/19 HYDROcodone/APAP 7.5-325MG [[place] 1 tab PO Q6H PRN 11/07/19 12/27/19 7.5-325] Multivitamins, Thera [Multivitamin 1 tab PO DAILY 11/07/19 12/27/19 (formulary)] Ciprofloxacin HCl [Cipro] 500 mg PO Q12HR 12/20/19 12/27/19 Cyclobenzaprine [Flexeril] 10 mg PO TID PRN 12/20/19 12/27/19 Allergies Allergy/AdvReac Type Severity Reaction Status Date / Time adhesive tape Allergy Rash/Hives Verified 12/27/19 08:56 amoxicillin Allergy Dyspnea, Verified 12/27/19 08:56 SWELLING OF THROAT haloperidol [From Haldol] Allergy Unknown Verified 12/27/19 08:56 haloperidol lactate Allergy Unknown Verified 12/27/19 08:56 [From Haldol] lorazepam [From Ativan] Allergy Unknown Verified 12/27/19 08:56 alprazolam [From Xanax] AdvReac Unknown Verified 12/27/19 08:56 Review of Systems ROS Statement: Those systems with pertinent positive or pertinent negative responses have been documented in the HPI. ROS Other: All systems not noted in ROS Statement are negative. Constitutional: Reports: as per HPI, fever, weakness Eyes: Denies: vision change ENT: Denies: congestion Respiratory: Reports: as per HPI, cough. Denies: dyspnea, wheezes, hemoptysis Cardiovascular: Denies: chest pain, palpitations, orthopnea, syncope Gastrointestinal: Denies: abdominal pain, nausea, vomiting Genitourinary: Reports: as per HPI Musculoskeletal: Denies: back pain Skin: Denies: rash Neurological: Reports: weakness. Denies: headache, numbness Past Medical History Past Medical History: Hypertension, Musculoskeletal Disorder, Neurologic Disorder, Prostate Disorder, Renal Disease Additional Past Medical History / Comment(s): parkinsons disease, nephrolithiasis, BPH,uti's , fall 2012 with skull fracture and subdural hematoma and L eardrum rupture, sinus problems on occasion.past stress test, lt sprain ankle d/t fall. History of Any Multi-Drug Resistant Organisms: None Reported Past Surgical History: Heart Catheterization, Hernia Repair Additional Past Surgical History / Comment(s): cystoscopy, L inguinal hernia repair., anat cataracts Past Anesthesia/Blood Transfusion Reactions: No Reported Reaction Past Psychological History: No Psychological Hx Reported Smoking Status: Never smoker Past Alcohol Use History: None Reported Past Drug Use History: None Reported - Past Family History Sister(s) Family Medical History: Cancer Mother Family Medical History: CVA/TIA, Diabetes Mellitus, Hypertension, Musculoskeletal Disorder, Neurologic Disorder Additional Family Medical History / Comment(s): Mother had parkinson's dx. Father Family Medical History: CVA/TIA General Exam Limitations: no limitations General appearance: alert, in no apparent distress Head exam: Present: atraumatic, normocephalic Eye exam: Present: normal appearance ENT exam: Present: mucous membranes dry Neck exam: Present: full ROM. Absent: meningismus Respiratory exam: Present: rales (Bilateral bases), rhonchi. Absent: respirato ry distress, wheezes, stridor, accessory muscle use Cardiovascular Exam: Present: tachycardia, normal heart sounds. Absent: systolic murmur, diastolic murmur, rubs, gallop GI/Abdominal exam: Present: soft. Absent: distended, tenderness, guarding, r ebound, rigid, mass, pulsatile mass Extremities exam: Present: normal inspection, normal capillary refill. Absent: pedal edema, calf tenderness Back exam: Present: normal inspection. Absent: CVA tenderness (R), CVA tenderness (L) Neurological exam: Present: alert Skin exam: Present: warm, dry, intact, normal color. Absent: rash Course Vital Signs 12/26/19 12/27/19 12/27/19 22:41 00:20 01:42 Temperature 99.3 F 99.4 F Pulse Rate 100 100 96 Pulse Rate [ Pulse Oximetery ] Respiratory 18 17 18 Rate Blood Pressure 117/87 126/90 135/86 Blood Pressure [Right Arm] O2 Sat by Pulse 97 97 98 Oximetry 12/27/19 02:12 Temperature 98.1 F Pulse Rate Pulse Rate [ 98 Pulse Oximetery ] Respiratory Rate Blood Pressure Blood Pressure 141/89 [Right Arm] O2 Sat by Pulse 96 Oximetry EKG Findings - EKG Results: EKG: interpreted by KIRSTEND, sinus rhythm EKG shows: tachycardia (Rate 107 bpm) - Blocks, [place], Hypertrophy, ST Abn: AV and intraventricular conduction: right bundle branch block (fixed/intermittent, complete/incomplete), left anterior fascicular block Medical Decision Making - Lab Data Result diagrams: 12/28/19 06:14 12/28/19 06:14 Lab Results 12/26/19 12/26/19 12/26/19 Range/Units 23:47 23:47 23:47 WBC 8.5 (3.8-10.6) k/uL RBC 4.44 (4.30-5.90) m/uL Hgb 13.4 (13.0-17.5) gm/dL Hct 41.2 (39.0-53.0) % MCV 92.9 (80.0-100.0) fL MCH 30.1 (25.0-35.0) pg MCHC 32.4 (31.0-37.0) g/dL RDW 13.0 (11.5-15.5) % Plt Count 206 (150-450) k/uL Neutrophils % 82 % Lymphocytes % 10 % Monocytes % 7 % Eosinophils % 1 % Basophils % 0 % Neutrophils # 6.9 (1.3-7.7) k/uL Lymphocytes # 0.8 L (1.0-4.8) k/uL Monocytes # 0.6 (0-1.0) k/uL Eosinophils # 0.1 (0-0.7) k/uL Basophils # 0.0 (0-0.2) k/uL PT 11.1 (9.0-12.0) sec INR 1.1 (<1.2) APTT 23.4 (22.0-30.0) sec Sodium (137-145) mmol/L Potassium (3.5-5.1) mmol/L Chloride (98-107) mmol/L Carbon Dioxide (22-30) mmol/L Anion Gap mmol/L BUN (9-20) mg/dL Creatinine (0.66-1.25) mg/dL Est GFR (CKD-EPI)AfAm (>60 ml/min/1.73 sqM) Est GFR (CKD-EPI)NonAf (>60 ml/min/1.73 sqM) Glucose (74-99) mg/dL Plasma Lactic Acid Boni (0.7-2.0) mmol/L Calcium (8.4-10.2) mg/dL Total Bilirubin (0.2-1.3) mg/dL AST (17-59) U/L ALT (4-49) U/L Alkaline Phosphatase (38-126) U/L Lactate Dehydrogenase (313-618) U/L Troponin I (0.000-0.034) ng/mL C-Reactive Protein (<10.0) mg/L Total Protein (6.3-8.2) g/dL Albumin (3.5-5.0) g/dL Procalcitonin (0.02-0.09) ng/mL Urine Color Yellow Urine Appearance Cloudy (Clear) Urine pH 6.0 (5.0-8.0) Ur Specific [place] 1.025 (1.001-1.035) Urine Protein 2+ H (Negative) Urine Glucose (UA) Negative (Negative) Urine Ketones 2+ H (Negative) Urine Blood Large H (Negative) Urine Nitrite Negative (Negative) Urine Bilirubin Negative (Negative) Urine Urobilinogen <2.0 (<2.0) mg/dL Ur Leukocyte Esterase Large H (Negative) Urine RBC 103 H (0-5) /hpf Urine WBC >182 H (0-5) /hpf Urine WBC Clumps Few H (None) /hpf Urine Bacteria Occasional H (None) /hpf Hyaline Casts 7 H (0-2) /lpf Urine Mucus Many H (None) /hpf Urine Yeast (Budding) Few H (None) /hpf 12/26/19 12/26/19 12/26/19 Range/Units 23:47 23:47 23:47 WBC (3.8-10.6) k/uL RBC (4.30-5.90) m/uL Hgb (13.0-17.5) gm/dL Hct (39.0-53.0) % MCV (80.0-100.0) fL MCH (25.0-35.0) pg MCHC (31.0-37.0) g/dL RDW (11.5-15.5) % Plt Count (150-450) k/uL Neutrophils % % Lymphocytes % % Monocytes % % Eosinophils % % Basophils % % Neutrophils # (1.3-7.7) k/uL Lymphocytes # (1.0-4.8) k/uL Monocytes # (0-1.0) k/uL Eosinophils # (0-0.7) k/uL Basophils # (0-0.2) k/uL PT (9.0-12.0) sec INR (<1.2) APTT (22.0-30.0) sec Sodium 138 (137-145) mmol/L Potassium 4.3 (3.5-5.1) mmol/L Chloride 107 (98-107) mmol/L Carbon Dioxide 22 (22-30) mmol/L Anion Gap 9 mmol/L BUN 24 H (9-20) mg/dL Creatinine 1.22 (0.66-1.25) mg/dL Est GFR (CKD-EPI)AfAm 69 (>60 ml/min/1.73 sqM) Est GFR (CKD-EPI)NonAf 60 (>60 ml/min/1.73 sqM) Glucose 131 H (74-99) mg/dL Plasma Lactic Acid Bon[place] 1.2 (0.7-2.0) mmol/L Calcium 8.4 (8.4-10.2) mg/dL Total Bilirubin 1.0 (0.2-1.3) mg/dL AST 172 H (17-59) U/L ALT 32 (4-49) U/L Alkaline Phosphatase 90 (38-126) U/L Lactate Dehydrogenase (313-618) U/L Troponin I 0.012 (0.000-0.034) ng/mL C-Reactive Protein (<10.0) mg/L Total Protein 6.4 (6.3-8.2) g/dL Albumin 3.5 (3.5-5.0) g/dL Procalcitonin (0.02-0.09) ng/mL Urine Color Urine Appearance (Clear) Urine pH (5.0-8.0) Ur Specific [place] (1.001-1.035) Urine Protein (Negative) Urine Glucose (UA) (Negative) Urine Ketones (Negative) Urine Blood (Negative) Urine Nitrite (Negative) Urine Bilirubin (Negative) Urine Urobilinogen (<2.0) mg/dL Ur Leukocyte Esterase (Negative) Urine RBC (0-5) /hpf Urine WBC (0-5) /hpf Urine WBC Clumps (None) /hpf Urine Bacteria (None) /hpf Hyaline Casts (0-2) /lpf Urine Mucus (None) /hpf Urine Yeast (Budding) (None) /hpf 12/26/19 12/26/19 Range/Units 23:47 23:47 WBC (3.8-10.6) k/uL RBC (4.30-5.90) m/uL Hgb (13.0-17.5) gm/dL Hct (39.0-53.0) % MCV (80.0-100.0) fL MCH (25.0-35.0) pg MCHC (31.0-37.0) g/dL RDW (11.5-15.5) % Plt Count (150-450) k/uL Neutrophils % % Lymphocytes % % Monocytes % % Eosinophils % % Basophils % % Neutrophils # (1.3-7.7) k/uL Lymphocytes # (1.0-4.8) k/uL Monocytes # (0-1.0) k/uL Eosinophils # (0-0.7) k/uL Basophils # (0-0.2) k/uL PT (9.0-12.0) sec INR (<1.2) APTT (22.0-30.0) sec Sodium (137-145) mmol/L Potassium (3.5-5.1) mmol/L Chloride (98-107) mmol/L Carbon Dioxide (22-30) mmol/L Anion Gap mmol/L BUN (9-20) mg/dL Creatinine (0.66-1.25) mg/dL Est GFR (CKD-EPI)AfAm (>60 ml/min/1.73 sqM) Est GFR (CKD-EPI)NonAf (>60 ml/min/1.73 sqM) Glucose (74-99) mg/dL Plasma Lactic Acid Bon[place] (0.7-2.0) mmol/L Calcium (8.4-10.2) mg/dL Total Bilirubin (0.2-1.3) mg/dL AST (17-59) U/L ALT (4-49) U/L Alkaline Phosphatase (38-126) U/L Lactate Dehydrogenase 1008 H (313-618) U/L Troponin I (0.000-0.034) ng/mL C-Reactive Protein 225.8 H (<10.0) mg/L Total Protein (6.3-8.2) g/dL Albumin (3.5-5.0) g/dL Procalcitonin 0.17 H (0.02-0.09) ng/mL Urine Color Urine Appearance (Clear) Urine pH (5.0-8.0) Ur Specific [place] (1.001-1.035) Urine Protein (Negative) Urine Glucose (UA) (Negative) Urine Ketones (Negative) Urine Blood (Negative) Urine Nitrite (Negative) Urine Bilirubin (Negative) Urine Urobilinogen (<2.0) mg/dL Ur Leukocyte Esterase (Negative) Urine RBC (0-5) /hpf Urine WBC (0-5) /hpf Urine WBC Clumps (None) /hpf Urine Bacteria (None) /hpf Hyaline Casts (0-2) /lpf Urine Mucus (None) /hpf Urine Yeast (Budding) (None) /hpf Disposition Clinical Impression: Urinary tract infection, Generalized weakness Narrative: possible pneumonia Disposition: ADMITTED IP TO THIS HOSP Condition: Fair
[2019-12-27] MEDS ORDERED: LEVOFLOXACIN 750MG-D5W PMX 750 MG in DEXTROSE/WATER 1 150ML.BAG IVPB STA (01:05)
[2019-12-27] MEDS ORDERED: ACETAMINOPHEN TAB 325 MG TAB PO PRN (01:16)
[2019-12-27] MEDS ORDERED: NALOXONE 0.4 MG/ML 1 ML VIAL IV PRN (01:16)
[2019-12-27] MEDS ORDERED: CYCLOBENZAPRINE 10 MG TAB PO PRN (01:18)
[2019-12-27] MEDS: SODIUM CHLORIDE 0.9% 1,000 ML IV SCH ×2 (01:35→20:53)
[2019-12-27] MEDS: FERROUS SULFATE 325 MG TAB PO SCH (08:16)
[2019-12-27] MEDS: TAMSULOSIN 0.4 MG CAP.ER.24H PO SCH (08:16)
[2019-12-27] MEDS: MULTIVITAMINS, THERA 1 EACH TAB PO SCH (08:16)
[2019-12-27] MEDS: FAMOTIDINE 20 MG TAB PO SCH ×2 (08:16→20:52)
[2019-12-27] MEDS: CARBIDOPA-LEVODOPA ER 50-200MG 1 EACH TABLET.ER PO SCH ×2 (08:17→20:52)
[2019-12-27] MEDS: HYDROcodone/APAP 7.5-325MG 1 EACH TAB PO PRN ×3 (08:31→20:51)
--- NOTE | 2019-12-27 09:11 | P.HPIM ---
History of Present Illness H&P Date: 12/27/19 Caleb Riggins, is a 69 -year-old male who presented to [facility] emergency room, with generalized weakness and difficulty standing and walking, patient stated that he has been getting weaker over the last few days, he was and able to walk around the house on the day of admission, patient stated that he lives in a house in [place] he has a caregiver who lives with him but his condition has worsened due to weakness and inability to walk, patient states that he fell 2 days ago and he is having bilateral knee pain and right elbow pain. Patient has a known history of advanced Parkinson disease. Patient was evaluated in the emergency room his vital exam on admission revealed a temperature of 99.3 pulse 100 respiration 18 blood pressure 117/87 pulse ox 97% on room air, his EKG revealed normal sinus rhythm with bifascicular block, his chest x-ray revealed possible left lower lobe infiltrate, his white blood count was 8.5 he had mild dehydration was elevated BUN at 24 AST was s ignificantly elevated at the 172 with normal ALT and normal alkaline phosphatase. Urine analysis revealed evidence of urinary tract infection with positive leukocyte esterase and more than 180 white blood cells per high power field, patient was started on IV antibiotic Levaquin and was admitted to medical floor. Past medical history is significant for Parkinson disease, history of hypertension, history of benign prostatic hypertrophy, history of kidney stones. On review of systems patient is alert and oriented in no distress, he is complaining of pain in his knees, he is also complaining of occasional cough, otherwise he denies any complaints at this time, there is no fever or chills no headache or dizziness no chest pain no shortness of breath no nausea or vomiting no abdominal pain no diarrhea no blood in the stools no burning with urination no frequency or urgency no hematuria. Past Medical History Past Medical History: Hypertension, Musculoskeletal Disorder, Neurologic Disorder, Prostate Disorder, Renal Disease Additional Past Medical History / Comment(s): parkinsons disease, nephrolithiasis, BPH,uti's , fall 2012 with skull fracture and subdural hematoma and L eardrum rupture, sinus problems on occasion.past stress test, lt sprain ankle d/t fall. History of Any Multi-Drug Resistant Organisms: None Reported Past Surgical History: Heart Catheterization, Hernia Repair Additional Past Surgical History / Comment(s): cystoscopy, L inguinal hernia repair., anat cataracts Past Anesthesia/Blood Transfusion Reactions: No Reported Reaction Past Psychological History: No Psychological Hx Reported Smoking Status: Never smoker Past Alcohol Use History: None Reported Past Drug Use History: None Reported - Past Family History Sister(s) Family Medical History: Cancer Mother Family Medical History: CVA/TIA, Diabetes Mellitus, Hypertension, Musculoskeletal Disorder, Neurologic Disorder Additional Family Medical History / Comment(s): Mother had parkinson's dx. Father Family Medical History: CVA/TIA Medications and Allergies Home Medications Medication Instructions Recorded Confirmed Type Carbidopa-Levodopa ER 50-200Mg 2 tab PO BID 03/20/15 12/20/19 History [Sinemet CR 50-200 mg] Ferrous Sulfate [Feosol] 325 mg PO DAILY 03/20/15 12/20/19 History Terazosin HCl [Hytrin] 10 mg PO HS 03/20/15 12/20/19 History amantadine HCL [Symmetrel] 100 mg PO BID 03/20/15 12/20/19 History Tamsulosin HCl [Flomax] 0.4 mg PO DAILY 02/22/17 12/20/19 History Finasteride [Proscar] 5 mg PO HS 11/07/19 12/20/19 History HYDROcodone/APAP 7.5-325MG [[place] 1 tab PO Q6H PRN 11/07/19 12/21/19 History 7.5-325] Multivitamins, Thera [Multivitamin 1 tab PO DAILY 11/07/19 12/20/19 History (formulary)] Ciprofloxacin HCl [Cipro] 500 mg PO Q12HR 12/20/19 12/20/19 History Cyclobenzaprine [Flexeril] 10 mg PO TID PRN 12/20/19 12/20/19 History Allergies Allergy/AdvReac Type Severity Reaction Status Date / Time adhesive tape Allergy Rash/Hives Verified 12/26/19 22:45 amoxicillin Allergy Dyspnea, Verified 12/26/19 22:45 SWELLING OF THROAT haloperidol [From Haldol] Allergy Unknown Verified 12/26/19 22:45 haloperidol lactate Allergy Unknown Verified 12/26/19 22:45 [From Haldol] lorazepam [From Ativan] Allergy Unknown Verified 12/26/19 22:45 alprazolam [From Xanax] AdvReac Unknown Verified 12/26/19 22:45 Physical Exam Vitals: Vital Signs Temp Pulse Pulse Resp BP BP Pulse Ox 12/27/19 07:00 98.8 F 91 16 122/80 96 12/27/19 02:12 98.1 F 98 141/89 96 12/27/19 01:42 96 18 135/86 98 12/27/19 00:20 99.4 F 100 17 126/90 97 12/26/19 22:41 99.3 F 100 18 117/87 97 Intake and Output 12/26/19 12/27/19 12/27/19 22:59 06:59 14:59 Output Total 400 Balance -400 Output: Urine 400 Other: Voiding Method Indwelling Catheter Indwelling Catheter Weight 117.934 kg 117.934 kg In general patient is alert and oriented 3 HEENT head normocephalic and atraumatic Neck is supple no JVD no goiter no lymphadenopathy Chest exam reveals a few crackles in both bases no wheezing Cardiac exam reveals regular heart sounds S1 and S2 no gallops no murmurs Abdomen is soft nontender no organomegaly was normal bowel sounds Extremity exam reveals no edema no cyanosis or clubbing, there are some skin abrasion on both knees there is a blister on the right upper extremity Neurological examination is compatible was advanced Parkinson disease with rigidity, no focal deficits Results CBC & Chem 7: 12/26/19 23:47 12/26/19 23:47 Labs: Abnormal Lab Results - Last 24 Hours (Table) 12/26/19 12/26/19 12/26/19 Range/Units 23:47 23:47 23:47 Lymphocytes # 0.8 L (1.0-4.8) k/uL BUN 24 H (9-20) mg/dL Glucose 131 H (74-99) mg/dL AST 172 H (17-59) U/L Urine Protein 2+ H (Negative) Urine Ketones 2+ H (Negative) Urine Blood Large H (Negative) Ur Leukocyte Esterase Large H (Negative) Urine RBC 103 H (0-5) /hpf Urine WBC >182 H (0-5) /hpf Urine WBC Clumps Few H (None) /hpf Urine Bacteria Occasional H (None) /hpf Hyaline Casts 7 H (0-2) /lpf Urine Mucus Many H (None) /hpf Urine Yeast (Budding) Few H (None) /hpf Thrombosis Risk Factor Assmnt - Choose All That Apply Each Factor Represents 1 point: Obesity (BMI >25) Each Risk Factor Represents 2 Points: Age 61-74 years Thrombosis Risk Factor Assessment Total Risk Factor Score: 3 Thrombosis Risk Factor Assessment Level: Moderate Risk Assessment and Plan Plan: 1. Urinary tract infection with evidence of sepsis 2. Left lower lobe infiltrate possible pneumonia, will recheck chest x-ray PA and lateral 3. Worsening weakness with physical debility with inability to stand and walk 4. Recurrent fall was last fall 2 days ago with bilateral knee injury 5. Elevated AST at 172 Will monitor 6. Previous history of kidney stones 7. Underlying history of Parkinson disease maintained on Sinemet and amantadine 8. Underlying history of benign prostatic hypertrophy maintained on Proscar and Flomax 9. For DVT prophylaxis we will use Lovenox, for GI prophylaxis continue with famotidine Continue with IV Levaquin continue with gentle hydration Consult neurology to assess if Parkinson disease management need to be adjusted Consult physical therapy and occupational therapy Will follow closely
--- NOTE | 2019-12-27 16:40 | XR ---
EXAMINATION TYPE: XR chest 2V DATE OF EXAM: 12/27/2019 COMPARISON: 12/26/2019 INDICATION: Left lower lobe infiltrate TECHNIQUE: Frontal and lateral views of the chest are obtained. FINDINGS: The heart size is normal. The pulmonary vasculature is normal. There is some streak opacity at the right lung base. Some developing atelectasis may be present. The posterior left lung infiltrate best visualized on the lateral projection is somewhat improved from co mparison.. IMPRESSION: 1. Bibasilar infiltrates. This is developing on the right but may be improved on the left. Atelectasi s is favored within the differential.
[2019-12-27 16:50] LABS: C Reactive Protein 225.8 mg/L (<10.0)
--- NOTE | 2019-12-27 17:10 | P.CNNES ---
History of Present Illness Consult date: 12/27/19 Requesting physician: Rose Fernandez Reason for Consult: Parkinson's disease History of Present Illness: Patient is a 69-year-old male with history of Parkinson's disease, came to the hospital yesterday at 10:30 PM for a fall. Patient states that he was out in the [place], and fell due to tripping on a stick which was not very visible. He bruised his elbows and the knees. Did not pass out. Patient denies any focal symptoms. On arrival blood pressure was 117/87 pulse rate 100, temperature 99.3. Patient's blood test shows normal CBC, PT/PTT. Chem-20 showed elevated AST 172 with normal ALT 32. UA showed large amount of leukocyte esterase, negative nitrite, 182 WBC and few plums. Occasional bacteria. Urine culture so far negative. Patient's TSH 0.650 normal on 10/04/2019. Chest x-ray showed some pleural and pulmonary scarring in the left lower lobe that has progressed compared to old exam. No heart failure. Acute pneumonia in the left lower lobe not entirely excluded. EKG shows sinus tachycardia, right bundle branch block. Patient was recently seen by Dr. Tony Baker on 11/09/2019. Patient at that time was on Sinemet 50/200, 2 tablets twice a day and amantadine 100 mg twice a day. No medication changes were performed at that time. CT head from 11/09/2019 showed no acute intracranial hemorrhage, midline shift or mass effect. Evidence of old encephalomalacia in the left frontal lobe. Patchy white matter hypodensities likely sequela of chronic microvascular ischemic change. Patient has history of Parkinson's disease for 12 years, follows up with Dr. Boles. He had history of a fall in 2013 with skull fracture and subdural hematoma and left eardrum rupture, atrial fibrillation not on anticoagulation (due to frequent falls, as mentioned in discharge summary 11/14/2019), hypertension. Patient denies hypertension, diabetes. Denies tobacco use or alcohol intake. He uses walker sometimes but does not use any cane. Patient states that he recently had undergone surgery for his pancreas a few days ago. Review of Systems Denies headache problem with the vision, hoarseness sore throat dysphagia. Denies any chest pain shortness of breath wheezing or cough. Denies abdominal pain nausea vomiting diarrhea. Past Medical History Past Medical History: Hypertension, Musculoskeletal Disorder, Neurologic Disorder, Prostate Disorder, Renal Disease Additional Past Medical History / Comment(s): parkinsons disease, nephrolithiasis, BPH,uti's , fall 2012 with skull fracture and subdural hematoma and L eardrum rupture, sinus problems on occasion.past stress test, lt sprain ankle d/t fall. History of Any Multi-Drug Resistant Organisms: None Reported Past Surgical History: Heart Catheterization, Hernia Repair Additional Past Surgical History / Comment(s): cystoscopy, L inguinal hernia repair., anat cataracts Past Anesthesia/Blood Transfusion Reactions: No Reported Reaction Past Psychological History: No Psychological Hx Reported Smoking Status: Never smoker Past Alcohol Use History: None Reported Past Drug Use History: None Reported - Past Family History Sister(s) Family Medical History: Cancer Mother Family Medical History: CVA/TIA, Diabetes Mellitus, Hypertension, Musculoskeletal Disorder, Neurologic Disorder Additional Family Medical History / Comment(s): Mother had parkinson's dx. Father Family Medical History: CVA/TIA Medications and Allergies Home Medications Medication Instructions Recorded Confirmed Type Carbidopa-Levodopa ER 50-200Mg 2 tab PO BID 03/20/15 12/27/19 History [Sinemet CR 50-200 mg] Ferrous Sulfate [Feosol] 325 mg PO DAILY 03/20/15 12/27/19 History Terazosin HCl [Hytrin] 10 mg PO HS 03/20/15 12/27/19 History amantadine HCL [Symmetrel] 100 mg PO BID 03/20/15 12/27/19 History Tamsulosin HCl [Flomax] 0.4 mg PO DAILY 02/22/17 12/27/19 History Finasteride [Proscar] 5 mg PO HS 11/07/19 12/27/19 History HYDROcodone/APAP 7.5-325MG [[place] 1 tab PO Q6H PRN 11/07/19 12/27/19 History 7.5-325] Multivitamins, Thera [Multivitamin 1 tab PO DAILY 11/07/19 12/27/19 History (formulary)] Ciprofloxacin HCl [Cipro] 500 mg PO Q12HR 12/20/19 12/27/19 History Cyclobenzaprine [Flexeril] 10 mg PO TID PRN 12/20/19 12/27/19 History Allergies Allergy/AdvReac Type Severity Reaction Status Date / Time adhesive tape Allergy Rash/Hives Verified 12/27/19 08:56 amoxicillin Allergy Dyspnea, Verified 12/27/19 08:56 SWELLING OF THROAT haloperidol [From Haldol] Allergy Unknown Verified 12/27/19 08:56 haloperidol lactate Allergy Unknown Verified 12/27/19 08:56 [From Haldol] lorazepam [From Ativan] Allergy Unknown Verified 12/27/19 08:56 alprazolam [From Xanax] AdvReac Unknown Verified 12/27/19 08:56 Physical Examination - Vital Signs Vital Signs: Vital Signs Temp Pulse Pulse Resp BP BP Pulse Ox 12/27/19 07:00 98.8 F 91 16 122/80 96 12/27/19 02:12 98.1 F 98 141/89 96 12/27/19 01:42 96 18 135/86 98 12/27/19 00:20 99.4 F 100 17 126/90 97 12/26/19 22:41 99.3 F 100 18 117/87 97 Intake and Output 12/26/19 12/27/19 12/27/19 22:59 06:59 14:59 Intake Total 240 Output Total 400 Balance -400 240 Intake: Oral 240 Output: Urine 400 Other: Voiding Method Indwelling Catheter Indwelling Catheter Weight 117.934 kg 117.934 kg On examination patient is a elderly male, in no acute distress. Patient is alert and awake. His speech and language functions are normal. Patient has hypomimia. No aphasia or dysarthria. On cranial nerve examination pupils are round and reactive to light, visual ramos are full on confrontation, extraocular muscles are intact with no nystagmus. Face is symmetric, tongue protrudes the midline. Palatal elevation and sensation normal hearing and shoulder shrug normal on muscle strength testing there is no pronator drift and the strength is normal in arms and legs. Reflexes are symmetric and plantars are downgoing sensory touch is equal. No ataxia for [id number] testing. Patient has mild to moderate intermittent tremors at rest, right more than left. Patient's tone is moderately increased bilaterally. Patient appears bradykinetic. Gait was deferred. There is no carotid bruit, S1 and S2 audible, abdomen soft nontender chest is clear. Mild edema. Results - Laboratory Findings CBC and BMP: 12/26/19 23:47 12/26/19 23:47 Abnormal Lab Findings: Abnormal Labs 12/26/19 12/26/19 12/26/19 23:47 23:47 23:47 Lymphocytes # 0.8 L BUN 24 H Glucose 131 H AST 172 H Urine Protein 2+ H Urine Ketones 2+ H Urine Blood Large H Ur Leukocyte Esterase Large H Urine RBC 103 H Urine WBC >182 H Urine WBC Clumps Few H Urine Bacteria Occasional H Hyaline Casts 7 H Urine Mucus Many H Urine Yeast (Budding) Few H Assessment and Plan Assessment: * Parkinson's disease, at least moderate in degree. Patient presented to the hospital because of fall due to tripping on a stick while walking in the [place]. * Frequent falls * Acute UTI. Plan: * Patient has moderate parkinsonian symptoms at this time. He is on Sinemet 50/200, 2 tablet twice a day. We will increase dose by adding Sinemet 25/100, 1 tablet at midday. He will continue same dose of amantadine 100 mg twice a day. * PT OT, evaluate gait. Patient does not use any assistive device most of the time (uses a walker sometimes). He was strongly recommended to start using a cane or a walker to prevent frequent falls. * Follow up with his neurologist as scheduled. * We will check B12, folate to rule out B12 deficiency. * Treatment of UTI as per IM.
[2019-12-27] MEDS: CARBIDOPA-LEVODOPA 25-100 MG 1 EACH TAB PO SCH (17:54)
[2019-12-27] MEDS: FINASTERIDE 5 MG TAB PO SCH (20:51)
[2019-12-27] MEDS: DOXAZOSIN 4 MG TAB PO SCH (20:52)
--- NOTE | 2019-12-27 21:51 | XR ---
EXAMINATION TYPE: XR knee complete bilateral DATE OF EXAM: 12/27/2019 COMPARISON: None HISTORY: Fall with injury TECHNIQUE: Bilateral knees are examined in 3 views each FINDINGS: No joint effusions are evident. Bilateral posterior superior patellar spurring is noted. Th ere is narrowing of the medial compartment joint space bilaterally. No acute fractures are evident. IMPRESSION: 1. Mild bilateral degenerative changes discussed above. 2. No acute osseous abnormalities bilateral knees
--- NOTE | 2019-12-27 22:43 | P.CONS ---
History of Present Illness - Reason for Consult Consult date: 12/27/19 Pneumonia and urinary tract infection Requesting physician: Rose Fernandez - Chief Complaint Weakness and fever x few days - History of Present Illness Patient is 69 year old male with a past medical history significant for Parkinson's disease patient was brought into the ER at [facility] yesterday for the patient comes in with generalized weakness and difficulty walking his symptom has been getting worse throughout the day and worse when he attempts to stand and isn't getting around the house. The patient did have a fall as well as he tells me and the patient felt warm at home patient also have a indwelling Sosa catheter for urinary retention and was noticed to have more darker urine with the symptoms the patient was evaluated by the ER physician, on arrival to the ER, the patient did have low-grade of 99.3F patient did have a normal white count but developed lymphopenia, also noticed to have a elevated AST of 172 patient did have a positive UA chest x-ray which did shows some left lower lobe infiltrate that apparently has been noticed since last exam patient was started on Levaquin for infection he was considered to because of his a ntibiotic ALLERGIES for UTI and pneumonia patient himself is not a very good historian so most of the information has been obtained from review the chart and talking to the nursing staff Review of Systems Positive points has been mentioned in HPI complete review could not be obtained because of his underlying mental status Past Medical History Past Medical History: Hypertension, Musculoskeletal Disorder, Neurologic Disorder, Prostate Disorder, Renal Disease Additional Past Medical History / Comment(s): parkinsons disease, nephrolithiasis, BPH,uti's , fall 2012 with skull fracture and subdural hematoma and L eardrum rupture, sinus problems on occasion.past stress test, lt sprain ankle d/t fall. History of Any Multi-Drug Resistant Organisms: None Reported Past Surgical History: Heart Catheterization, Hernia Repair Additional Past Surgical History / Comment(s): cystoscopy, L inguinal hernia repair., anat cataracts Past Anesthesia/Blood Transfusion Reactions: No Reported Reaction Past Psychological History: No Psychological Hx Reported Smoking Status: Never smoker Past Alcohol Use History: None Reported Past Drug Use History: None Reported - Past Family History Sister(s) Family Medical History: Cancer Mother Family Medical History: CVA/TIA, Diabetes Mellitus, Hypertension, Musculoskeletal Disorder, Neurologic Disorder Additional Family Medical History / Comment(s): Mother had parkinson's dx. Father Family Medical History: CVA/TIA Medications and Allergies Home Medications Medication Instructions Recorded Confirmed Type Carbidopa-Levodopa ER 50-200Mg 2 tab PO BID 03/20/15 12/27/19 History [Sinemet CR 50-200 mg] Ferrous Sulfate [Feosol] 325 mg PO DAILY 03/20/15 12/27/19 History Terazosin HCl [Hytrin] 10 mg PO HS 03/20/15 12/27/19 History amantadine HCL [Symmetrel] 100 mg PO BID 03/20/15 12/27/19 History Tamsulosin HCl [Flomax] 0.4 mg PO DAILY 02/22/17 12/27/19 History Finasteride [Proscar] 5 mg PO HS 11/07/19 12/27/19 History HYDROcodone/APAP 7.5-325MG [[place] 1 tab PO Q6H PRN 11/07/19 12/27/19 History 7.5-325] Multivitamins, Thera [Multivitamin 1 tab PO DAILY 11/07/19 12/27/19 History (formulary)] Ciprofloxacin HCl [Cipro] 500 mg PO Q12HR 12/20/19 12/27/19 History Cyclobenzaprine [Flexeril] 10 mg PO TID PRN 12/20/19 12/27/19 History Allergies Allergy/AdvReac Type Severity Reaction Status Date / Time adhesive tape Allergy Rash/Hives Verified 12/27/19 08:56 amoxicillin Allergy Dyspnea, Verified 12/27/19 08:56 SWELLING OF THROAT haloperidol [From Haldol] Allergy Unknown Verified 12/27/19 08:56 haloperidol lactate Allergy Unknown Verified 12/27/19 08:56 [From Haldol] lorazepam [From Ativan] Allergy Unknown Verified 12/27/19 08:56 alprazolam [From Xanax] AdvReac Unknown Verified 12/27/19 08:56 Physical Exam Vitals: Vital Signs Temp Pulse Pulse Resp BP BP Pulse Ox 12/27/19 14:12 97.8 F 65 20 115/78 98 12/27/19 07:00 98.8 F 91 16 122/80 96 12/27/19 02:12 98.1 F 98 141/89 96 12/27/19 01:42 96 18 135/86 98 12/27/19 00:20 99.4 F 100 17 126/90 97 12/26/19 22:41 99.3 F 100 18 117/87 97 Intake and Output 12/27/19 12/27/19 12/27/19 06:59 14:59 22:59 Intake Total 720 Output Total 400 400 Balance -400 320 Intake: IV 160 Sodium Chloride 0.9% 1, 160 000 ml @ 20 mls/hr IV . Q24H [facility] [place] Rx#:[id number] Oral 560 Output: Urine 400 400 Other: Voiding Method Indwelling Catheter Indwelling Catheter Weight 117.934 kg GENERAL DESCRIPTION: An elderly male up in the chair, no distress. No tachypnea or accessory muscle of respiration use. HEENT: Shows Pallor , no scleral icterus. Oral mucous membrane is dry. No pharyngeal erythema or thrush NECK: Trachea central, no thyromegaly. LUNGS: Unlabored breathing. Decreased breath sound at the base. No wheeze or crackle. HEART: S1, S2, regular rate and rhythm. No loud murmur ABDOMEN: Soft, no tenderness , guarding or rigidity, no organomegaly EXTREMITIES: No edema of feet. SKIN: No rash, no masses palpable. NEUROLOGICAL: The patient is awake, alert, oriented x2, mood and affect normal. Results CBC & Chem 7: 12/26/19 23:47 12/26/19 23:47 Labs: Abnormal Lab Results - Last 24 Hours (Table) 12/26/19 12/26/19 12/26/19 Range/Units 23:47 23:47 23:47 Lymphocytes # 0.8 L (1.0-4.8) k/uL BUN 24 H (9-20) mg/dL Glucose 131 H (74-99) mg/dL AST 172 H (17-59) U/L Urine Protein 2+ H (Negative) Urine Ketones 2+ H (Negative) Urine Blood Large H (Negative) Ur Leukocyte Esterase Large H (Negative) Urine RBC 103 H (0-5) /hpf Urine WBC >182 H (0-5) /hpf Urine WBC Clumps Few H (None) /hpf Urine Bacteria Occasional H (None) /hpf Hyaline Casts 7 H (0-2) /lpf Urine Mucus Many H (None) /hpf Urine Yeast (Budding) Few H (None) /hpf Microbiology - Last 24 Hours (Table) 12/26/19 23:47 Urine Culture - Preliminary Urine,Clean Catch Assessment and Plan Assessment: 1- patient presented to the hospital with generalized weakness difficulty getting around in this patient who did have a indwelling Sosa cath for urinary retention or dark urine and significant positive UA concerning likely for possible catheter associated infection however the patient did complain of mild cough this patient would not have elevated white count with evidence of lymphopenia mildly elevated AST and pulmonary infiltrate eye clinic suspicious for possible covid 19 infection and less likely community acquired pneumonia 2-patient with penicillin ALLERGY that would limit the number of antibiotic safe to use (1) Pneumonia Current Visit: Yes Status: Acute Code(s): J18.9 - PNEUMONIA, UNSPECIFIED ORGANISM SNOMED Code(s): 713059640 (2) Suspected COVID-19 virus infection Current Visit: Yes Status: Acute Code(s): Z20.828 - CONTACT W AND EXPOSURE TO OTH VIRAL COMMUNICABLE DISEASES SNOMED Code(s): 539324324 (3) Urinary tract infection Current Visit: Yes Status: Acute Code(s): N39.0 - URINARY TRACT INFECTION, SITE NOT SPECIFIED SNOMED Code(s): 56963554 Plan: 1- patient noted persistent drop in isolation 2- check nasopharyngeal swab for Covid 19 3- we will check LDH CRP and Procalcitonin 4- continue with the Levaquin however will add Rocephin 1 g daily We will follow on clinical condition and cultures to further adjust medication if needed Thank you for this consultation will follow this patient with you Time with Patient: Greater than 30
[2019-12-28] MEDS ORDERED: LEVOFLOXACIN 750MG-D5W PMX 750 MG in DEXTROSE/WATER 1 150ML.BAG IVPB SCH (01:00)
[2019-12-28 02:37] LABS: Folate, Serum 13.4 ng/mL
[2019-12-28 06:38] LABS: Basophils % (A) 0 %; Eosinophils # (A) 0.3 k/uL (0-0.7); Eosinophils % (A) 5 %; HCT 37.2 % (39.0-53.0); Lymphocytes # (A) 1.1 k/uL (1.0-4.8); Lymphocytes % (A) 17 %; MCH 30.4 pg (25.0-35.0); MCHC 32.2 g/dL (31.0-37.0); MCV 94.2 fL (80.0-100.0); Mean Platelet Volume 7.9; Monocytes # (A) 0.4 k/uL (0-1.0); Monocytes % (A) 6 %; Neutrophils # (A) 4.4 k/uL (1.3-7.7); Neutrophils % (A) 70 %; Platelet Count 185 k/uL (150-450); RBC 3.95 m/uL (4.30-5.90); RDW 13.6 % (11.5-15.5); WBC 6.3 k/uL (3.8-10.6)
[2019-12-28] MEDS: ENOXAPARIN 40 MG/0.4 ML SYRINGE SQ SCH (07:35)
[2019-12-28] MEDS: FERROUS SULFATE 325 MG TAB PO SCH (07:35)
[2019-12-28] MEDS: TAMSULOSIN 0.4 MG CAP.ER.24H PO SCH (07:35)
[2019-12-28] MEDS: CARBIDOPA-LEVODOPA 25-100 MG 1 EACH TAB PO SCH (07:35)
[2019-12-28] MEDS: FAMOTIDINE 20 MG TAB PO SCH ×2 (07:35→20:43)
[2019-12-28] MEDS: CARBIDOPA-LEVODOPA ER 50-200MG 1 EACH TABLET.ER PO SCH ×2 (07:36→20:43)
[2019-12-28] MEDS: MULTIVITAMINS, THERA 1 EACH TAB PO SCH (07:36)
[2019-12-28 09:39] LABS: ALT <8 U/L (10-49); AST 80 U/L (14-35); African American GFR (CKD) 87.4 (60.0-200.0); Albumin/Globulin Ratio 1.74 (1.60-3.17); Alkaline Phosphatase 76 U/L (41-126); Calcium 8.1 mg/dL (8.7-10.3); Carbon Dioxide 26.4 mmol/L (21.6-31.8); Chloride 104 mmol/L (96-109); Globulin 1.9 g/dL (1.6-3.3); Glucose 102 mg/dL (70-110); Non-African American GFR(CKD) 75.4 (60.0-200.0); Potassium 3.9 mmol/L (3.5-5.5); Sodium 137 mmol/L (135-145); Total Bilirubin 0.6 mg/dL (0.3-1.2); Total Protein 5.2 g/dL (6.2-8.2)
--- NOTE | 2019-12-28 15:08 | P.PN ---
Subjective Progress Note Date: 12/28/19 Patient was seen for a follow-up. Offers no new complaints. No hallucinations. He is laying comfortably in the bed. Objective - Vital Signs Vital signs: Vital Signs Temp 97.7 F 12/28/19 14:38 Pulse 89 12/28/19 14:38 Resp 20 12/28/19 14:38 BP 127/71 12/28/19 14:38 Pulse Ox 96 12/28/19 14:38 Intake & Output 12/27/19 12/28/19 12/28/19 18:59 06:59 18:59 Intake Total 720 860 Output Total 1000 650 400 Balance -280 210 -400 Intake: IV 160 220 Sodium Chloride 0.9% 1, 160 220 000 ml @ 20 mls/hr IV . Q24H [facility] Rx#:[id number] Oral 560 640 Output: Urine 1000 650 400 Other: Voiding Method Indwelling Catheter Indwelling Catheter Indwelling Catheter - Exam Patient's mentation is stable. Speech and language functions are normal. Tone is mild to moderate increase. Appears better than yesterday. - Labs CBC & Chem 7: 12/28/19 06:14 12/28/19 06:14 Labs: Abnormal Lab Results - Last 24 Hours (Table) 12/26/19 12/26/19 12/27/19 Range/Units 23:47 23:47 17:26 RBC (4.30-5.90) m/uL Hgb (13.0-17.5) gm/dL Hct (39.0-53.0) % Calcium (8.7-10.3) mg/dL AST (14-35) U/L ALT (10-49) U/L Lactate Dehydrogenase 1008 H (313-618) U/L Creatine Kinase 4322 H* (35-257) U/L C-Reactive Protein 225.8 H (<10.0) mg/L Total Protein (6.2-8.2) g/dL Albumin (3.80-4.90) g/dL Procalcitonin 0.17 H (0.02-0.09) ng/mL 12/28/19 12/28/19 Range/Units 06:14 06:14 RBC 3.95 L (4.30-5.90) m/uL Hgb 12.0 L (13.0-17.5) gm/dL Hct 37.2 L (39.0-53.0) % Calcium 8.1 L (8.7-10.3) mg/dL AST 80 H (14-35) U/L ALT <8 L (10-49) U/L Lactate Dehydrogenase (313-618) U/L Creatine Kinase (35-257) U/L C-Reactive Protein (<10.0) mg/L Total Protein 5.2 L (6.2-8.2) g/dL Albumin 3.30 L (3.80-4.90) g/dL Procalcitonin (0.02-0.09) ng/mL Microbiology - Last 24 Hours (Table) 12/26/19 23:47 Urine Culture - Preliminary Urine,Clean Catch Yeast species 12/26/19 23:47 Blood Culture - Preliminary Blood No Growth after 24 hours 12/26/19 23:47 Blood Culture - Preliminary Blood No Growth after 24 hours Assessment and Plan Assessment: * Parkinson's disease, at least moderate in degree. Patient presented to the hospital because of fall due to tripping on a stick while walking in the [place]. * Frequent falls * Acute UTI. Plan: * Patient has moderate parkinsonian symptoms at this time. He is on Sinemet 50/200, 2 tablet twice a day. We will increase dose by adding Sinemet 25/100, 1 tablet at midday. He will continue same dose of amantadine 100 mg twice a day. * Patient tolerating slightly higher dose of Sinemet well. * PT OT, evaluate gait. Patient does not use any assistive device most of the time (uses a walker sometimes). He was strongly recommended to start using a cane or a walker to prevent frequent falls. * Follow up with his neurologist as scheduled. * B12 462, folate 13.4 * Treatment of UTI as per IM. * Patient has elevated CK 4322. Need to monitor CK over time. If persistently elevated, may need an EMG testing/muscle biopsy to rule out myopathy.
--- NOTE | 2019-12-28 17:13 | PN ---
PROGRESS NOTE DATE OF SERVICE: 12/28/2019 REASON FOR FOLLOWUP: Pneumonia and UTI. INTERVAL HISTORY: Patient is currently afebrile. The patient is feeling better. He is breathing comfortably. Denies having any chest pain or shortness of breath. No cough. No abdominal pain or diarrhea. PHYSICAL EXAMINATION: Blood pressure 127/70 with a pulse of 89, temperature 97.7. He is 96% on room air. General description is an elderly male, lying in bed in no distress. RESPIRATORY SYSTEM: Unlabored breathing, clear to auscultation anteriorly. HEART: S1, S2. Regular rate and rhythm. ABDOMEN: Soft, no tenderness. EXTREMITIES: No edema of the feet. LABS: [place] PCR came back negative, urine showing yeast. Blood culture so far pending. DIAGNOSTIC IMPRESSION AND PLAN: Patient admitted to the hospital with generalized weakness which is multifactorial, likely component of urinary intact infection. Urine showing a yeast. Sosa to be changed, has not changed with this admission. Diflucan will be added. Continue Rocephin and a question of pneumonia as well and monitor clinical course closely. MMODL / IJN: [id number] /
[2019-12-28] MEDS: SODIUM CHLORIDE 0.9% 1,000 ML IV SCH (20:43)
[2019-12-28] MEDS: FINASTERIDE 5 MG TAB PO SCH (20:43)
[2019-12-28] MEDS: DOXAZOSIN 4 MG TAB PO SCH (20:43)
[2019-12-28] MEDS ORDERED: LEVOFLOXACIN 750 MG TAB PO SCH (21:00)
[2019-12-29 07:30] LABS: Basophils % (A) 0 %; Eosinophils # (A) 0.2 k/uL (0-0.7); Eosinophils % (A) 4 %; HCT 36.9 % (39.0-53.0); HGB 11.5 gm/dL (13.0-17.5); Lymphocytes # (A) 0.8 k/uL (1.0-4.8); Lymphocytes % (A) 15 %; MCH 29.2 pg (25.0-35.0); MCHC 31.1 g/dL (31.0-37.0); MCV 93.8 fL (80.0-100.0); Mean Platelet Volume 7.2; Monocytes # (A) 0.4 k/uL (0-1.0); Monocytes % (A) 7 %; Neutrophils # (A) 4.1 k/uL (1.3-7.7); Neutrophils % (A) 74 %; Platelet Count 178 k/uL (150-450); RBC 3.93 m/uL (4.30-5.90); RDW 13.3 % (11.5-15.5); WBC 5.5 k/uL (3.8-10.6)
[2019-12-29] MEDS: CARBIDOPA-LEVODOPA ER 50-200MG 1 EACH TABLET.ER PO SCH ×2 (07:31→20:37)
[2019-12-29] MEDS: ENOXAPARIN 40 MG/0.4 ML SYRINGE SQ SCH (07:31)
[2019-12-29] MEDS: MULTIVITAMINS, THERA 1 EACH TAB PO SCH (07:31)
[2019-12-29] MEDS: FAMOTIDINE 20 MG TAB PO SCH ×2 (07:31→20:37)
[2019-12-29] MEDS: TAMSULOSIN 0.4 MG CAP.ER.24H PO SCH (07:32)
[2019-12-29] MEDS: FERROUS SULFATE 325 MG TAB PO SCH (07:32)
[2019-12-29] MEDS: CARBIDOPA-LEVODOPA 25-100 MG 1 EACH TAB PO SCH (07:32)
--- NOTE | 2019-12-29 11:02 | XR ---
EXAMINATION TYPE: XR wrist complete RT DATE OF EXAM: 12/29/2019 COMPARISON: None HISTORY: Pain injury TECHNIQUE: 4 view wrist FINDINGS: There is a 0.37 cm space between the scapholunate. If there is clinical concern for scaphol unate disassociation, MRI could be performed. No acute fractures are evident. The soft tissues appear normal. IMPRESSION: 1. If there is clinical concern for scapholunate disassociation, MRI could be performed. 2. No acute osseous abnormalities otherwise radiographically evident.
[2019-12-29 12:01] LABS: ALT <8 U/L (10-49); AST 47 U/L (14-35); African American GFR (CKD) 99.2 (60.0-200.0); Albumin/Globulin Ratio 1.74 (1.60-3.17); Alkaline Phosphatase 80 U/L (41-126); BUN/Creat Ratio 18.89 Ratio (12.00-20.00); Calcium 8.1 mg/dL (8.7-10.3); Carbon Dioxide 24.1 mmol/L (21.6-31.8); Chloride 104 mmol/L (96-109); Globulin 1.9 g/dL (1.6-3.3); Glucose 103 mg/dL (70-110); Non-African American GFR(CKD) 85.6 (60.0-200.0); Potassium 4.1 mmol/L (3.5-5.5); Sodium 135 mmol/L (135-145); Total Bilirubin 0.6 mg/dL (0.3-1.2); Total Protein 5.2 g/dL (6.2-8.2)
[2019-12-29] MEDS: FLUCONAZOLE 100 MG TAB PO SCH (12:22)
--- NOTE | 2019-12-29 13:15 | P.PN ---
Subjective Progress Note Date: 12/28/19 Caleb Riggins, is a 69 -year-old male who presented to [facility] emergency room, with generalized weakness and difficulty standing and walking, patient stated that he has been getting weaker over the last few days, he was and able to walk around the house on the day of admission, patient stated that he lives in a house in [place] he has a caregiver who lives with him but his condition has worsened due to weakness and inability to walk, patient states that he fell 2 days ago and he is having bilateral knee pain and right elbow pain. Patient has a known history of advanced Parkinson disease. Patient was evaluated in the emergency room his vital exam on admission revealed a temperature of 99.3 pulse 100 respiration 18 blood pressure 117/87 pulse ox 97% on room air, his EKG revealed normal sinus rhythm with bifascicular block, his chest x-ray revealed possible left lower lobe infiltrate, his white blood count was 8.5 he had mild dehydration was elevated BUN at 24 AST was signif icantly elevated at the 172 with normal ALT and normal alkaline phosphatase. Urine analysis revealed evidence of urinary tract infection with positive leukocyte esterase and more than 180 white blood cells per high power field, patient was started on IV antibiotic Levaquin and was admitted to medical floor. Past medical history is significant for Parkinson disease, history of hypertension, history of benign prostatic hypertrophy, history of kidney stones. On review of systems patient is alert and oriented in no distress, he is complaining of pain in his knees, he is also complaining of occasional cough, otherwise he denies any complaints at this time, there is no fever or chills no headache or dizziness no chest pain no shortness of breath no nausea or vomiting no abdominal pain no diarrhea no blood in the stools no burning with urination no frequency or urgency no hematuria. On 12/28/2019 patient was seen and examined on the medical floor he is alert and oriented 3 in no apparent distress he is complaining of generalized weakness otherwise he denies any complaints, there is no fever or chills no headache or dizziness no chest pain no shortness of breath no cough no nausea or vomiting no abdominal pain no diarrhea no blood in the stools no burning with urination no frequency or urgency no hematuria Sosa catheter is in Objective - Vital Signs Vital signs: Vital Signs Temp 97.7 F 12/28/19 14:38 Pulse 89 12/28/19 14:38 Resp 20 12/28/19 14:38 BP 127/71 12/28/19 14:38 Pulse Ox 96 12/28/19 14:38 Intake & Output 12/27/19 12/28/19 12/28/19 18:59 06:59 18:59 Intake Total 720 860 Output Total 1000 650 400 Balance -280 210 -400 Intake: IV 160 220 Sodium Chloride 0.9% 1, 160 220 000 ml @ 20 mls/hr IV . Q24H [facility] Rx#:[id number] Oral 560 640 Output: Urine 1000 650 400 Other: Voiding Method Indwelling Catheter Indwelling Catheter Indwelling Catheter - Exam In general patient is alert and oriented 3 HEENT head normocephalic and atraumatic Neck is supple no JVD no goiter no lymphadenopathy Chest exam reveals a few crackles in both bases no wheezing Cardiac exam reveals regular heart sounds S1 and S2 no gallops no murmurs Abdomen is soft nontender no organomegaly was normal bowel sounds Extremity exam reveals no edema no cyanosis or clubbing, there are some skin abrasion on both knees there is a blister on the right upper extremity Neurological examination is compatible was advanced Parkinson disease with rigidity, no focal deficits - Labs CBC & Chem 7: 12/29/19 07:05 12/29/19 07:05 Labs: Abnormal Lab Results - Last 24 Hours (Table) 12/26/19 12/26/19 12/27/19 Range/Units 23:47 23:47 17:26 RBC (4.30-5.90) m/uL Hgb (13.0-17.5) gm/dL Hct (39.0-53.0) % Calcium (8.7-10.3) mg/dL AST (14-35) U/L ALT (10-49) U/L Lactate Dehydrogenase 1008 H (313-618) U/L Creatine Kinase 4322 H* (35-257) U/L C-Reactive Protein 225.8 H (<10.0) mg/L Total Protein (6.2-8.2) g/dL Albumin (3.80-4.90) g/dL Procalcitonin 0.17 H (0.02-0.09) ng/mL 12/28/19 12/28/19 Range/Units 06:14 06:14 RBC 3.95 L (4.30-5.90) m/uL Hgb 12.0 L (13.0-17.5) gm/dL Hct 37.2 L (39.0-53.0) % Calcium 8.1 L (8.7-10.3) mg/dL AST 80 H (14-35) U/L ALT <8 L (10-49) U/L Lactate Dehydrogenase (313-618) U/L Creatine Kinase (35-257) U/L C-Reactive Protein (<10.0) mg/L Total Protein 5.2 L (6.2-8.2) g/dL Albumin 3.30 L (3.80-4.90) g/dL Procalcitonin (0.02-0.09) ng/mL Microbiology - Last 24 Hours (Table) 12/26/19 23:47 Urine Culture - Preliminary Urine,Clean Catch Yeast species 12/26/19 23:47 Blood Culture - Preliminary Blood No Growth after 24 hours 12/26/19 23:47 Blood Culture - Preliminary Blood No Growth after 24 hours Assessment and Plan Plan: 1. Urinary tract infection with evidence of sepsis 2. Left lower lobe infiltrate possible pneumonia, will recheck chest x-ray PA and lateral 3. Worsening weakness with physical debility with inability to stand and walk 4. Recurrent fall was last fall 2 days ago with bilateral knee injury 5. Elevated AST at 172 Will monitor 6. Previous history of kidney stones 7. Underlying history of Parkinson disease maintained on Sinemet and amantadine 8. Underlying history of benign prostatic hypertrophy maintained on Proscar and Flomax 9. For DVT prophylaxis we will use Lovenox, for GI prophylaxis continue with fa motidine. 10. Rhabdomyolysis, continue IV fluid Will monitor kidney function closely Continue with IV Levaquin continue with gentle hydration Consult neurology to assess if Parkinson disease management need to be adjusted Consult physical therapy and occupational therapy Will follow closely
--- NOTE | 2019-12-29 13:16 | P.PN ---
Subjective Progress Note Date: 12/29/19 Caleb Riggins, is a 69 -year-old male who presented to [facility] emergency room, with generalized weakness and difficulty standing and walking, patient stated that he has been getting weaker over the last few days, he was and able to walk around the house on the day of admission, patient stated that he lives in a house in [place] he has a caregiver who lives with him but his condition has worsened due to weakness and inability to walk, patient states that he fell 2 days ago and he is having bilateral knee pain and right elbow pain. Patient has a known history of advanced Parkinson disease. Patient was evaluated in the emergency room his vital exam on admission revealed a temperature of 99.3 pulse 100 respiration 18 blood pressure 117/87 pulse ox 97% on room air, his EKG revealed normal sinus rhythm with bifascicular block, his chest x-ray revealed possible left lower lobe infiltrate, his white blood count was 8.5 he had mild dehydration was elevated BUN at 24 AST was signif icantly elevated at the 172 with normal ALT and normal alkaline phosphatase. Urine analysis revealed evidence of urinary tract infection with positive leukocyte esterase and more than 180 white blood cells per high power field, patient was started on IV antibiotic Levaquin and was admitted to medical floor. Past medical history is significant for Parkinson disease, history of hypertension, history of benign prostatic hypertrophy, history of kidney stones. On review of systems patient is alert and oriented in no distress, he is complaining of pain in his knees, he is also complaining of occasional cough, otherwise he denies any complaints at this time, there is no fever or chills no headache or dizziness no chest pain no shortness of breath no nausea or vomiting no abdominal pain no diarrhea no blood in the stools no burning with urination no frequency or urgency no hematuria. On 12/28/2019 patient was seen and examined on the medical floor he is alert and oriented 3 in no apparent distress he is complaining of generalized weakness otherwise he denies any complaints, there is no fever or chills no headache or dizziness no chest pain no shortness of breath no cough no nausea or vomiting no abdominal pain no diarrhea no blood in the stools no burning with urination no frequency or urgency no hematuria Sosa catheter is in On 12/29/2019 patient was seen and examined on the medical floor he is feeling better, he is complaining of right wrist pain otherwise no complaints there is no fever or chills no headache or dizziness no chest pain no shortness of breath no cough no nausea or vomiting no abdominal pain no diarrhea no blood in the stools no urinary symptoms Sosa catheter is in place. Objective - Vital Signs Vital signs: Vital Signs Temp 98.0 F 12/29/19 07:00 Pulse 85 12/29/19 07:00 Resp 20 12/29/19 07:00 BP 119/66 12/29/19 07:00 Pulse Ox 94 L 12/29/19 08:22 Intake & Output 12/28/19 12/29/19 12/29/19 18:59 06:59 18:59 Intake Total 860 Output Total 400 775 600 Balance -400 85 -600 Intake: IV 660 Sodium Chloride 0.9% 1, 660 000 ml @ 20 mls/hr IV . Q24H [facility] Rx#:[id number] Oral 200 Output: Urine 400 775 600 Other: Voiding Method Indwelling Catheter Indwelling Catheter - Exam In general patient is alert and oriented 3 HEENT head normocephalic and atraumatic Neck is supple no JVD no goiter no lymphadenopathy Chest exam reveals a few crackles in both bases no wheezing Cardiac exam reveals regular heart sounds S1 and S2 no gallops no murmurs Abdomen is soft nontender no organomegaly was normal bowel sounds Extremity exam reveals no edema no cyanosis or clubbing, there are some skin abrasion on both knees there is a blister on the right upper extremity Neurological examination is compatible was advanced Parkinson disease with rigidity, no focal deficits - Labs CBC & Chem 7: 12/29/19 07:05 12/29/19 07:05 Labs: Abnormal Lab Results - Last 24 Hours (Table) 12/29/19 12/29/19 Range/Units 07:05 07:05 RBC 3.93 L (4.30-5.90) m/uL Hgb 11.5 L (13.0-17.5) gm/dL Hct 36.9 L (39.0-53.0) % Lymphocytes # 0.8 L (1.0-4.8) k/uL Calcium 8.1 L (8.7-10.3) mg/dL AST 47 H (14-35) U/L ALT <8 L (10-49) U/L Total Protein 5.2 L (6.2-8.2) g/dL Albumin 3.30 L (3.80-4.90) g/dL Microbiology - Last 24 Hours (Table) 12/26/19 23:47 Urine Culture - Final Urine,Clean Catch Milena sp,not albicans/galbr 12/26/19 23:47 Blood Culture - Preliminary Blood No Growth after 48 hours 12/26/19 23:47 Blood Culture - Preliminary Blood No Growth after 48 hours Assessment and Plan Plan: 1. Urinary tract infection with evidence of sepsis 2. Left lower lobe infiltrate possible pneumonia, will recheck chest x-ray PA and lateral 3. Worsening weakness with physical debility with inability to stand and walk 4. Recurrent fall was last fall 2 days ago with bilateral knee injury 5. Elevated AST at 172 Will monitor 6. Previous history of kidney stones 7. Underlying history of Parkinson disease maintained on Sinemet and amantadine 8. Underlying history of benign prostatic hypertrophy maintained on Proscar and Flomax 9. For DVT prophylaxis we will use Lovenox, for GI prophylaxis continue with famotidine. 10. Rhabdomyolysis, continue IV fluid Will monitor kidney function closely Continue with IV Levaquin continue with gentle hydration Consult neurology to assess if Parkinson disease management need to be adjusted Consult physical therapy and occupational therapy Will follow closely
[2019-12-29 14:10] LABS: Creatine Kinase 949 U/L (35-257)
--- NOTE | 2019-12-29 15:56 | PN ---
PROGRESS NOTE DATE OF SERVICE: 12/29/2019 REASON FOR FOLLOWUP: 1. Catheter-associated urinary tract infection. 2. Pneumonia. INTERVAL HISTORY: The patient is currently afebrile. The patient is feeling better, breathing comfortably. No chest pain or cough. No abdominal pain and no diarrhea has been reported. The patient's Sosa catheter has not been changed on admission. PHYSICAL EXAMINATION: Blood pressure 119/66, pulse of 85, temperature 98. He is 92% on room air. General description is an elderly male lying in bed in no distress. RESPIRATORY SYSTEM: Unlabored breathing. Clear to auscultation anteriorly. HEART: S1, S2. Regular rate and rhythm. ABDOMEN: Soft. No tenderness. LABS: Hemoglobin 11.5, white count 5.5, BUN of 17, creatinine 0.9. Urine is showing joseluis species, not albicans. Blood cultures have been negative. DIAGNOSTIC IMPRESSION AND PLAN: 1. Patient admitted to hospital with generalized weakness and low-grade fever with concern for possible pneumonia and urinary tract infection with a positive urinalysis, likely from the catheter, which has been changed today. Repeat UA will be obtained. Continue with Diflucan. If repeat UA is negative, Diflucan may be discontinued. 2. Patient with possible pneumonia. He has responded to the Rocephin. Finish therapy with a short course of oral Ceftin. MMODL / IJN: [id number] /
[2019-12-29 16:30] LABS: Appearance,Urine Clear (Clear); Bacteria,Urine Rare /hpf; Bilirubin,Urine Negative (Negative); Blood,Urine Large (Negative); Color,Urine Yellow; Glucose,Urine (UA) Negative (Negative); Ketones,Urine Negative (Negative); Leukocyte Esterase,Urine Large (Negative); Mucus,Urine Rare /hpf; Nitrite,Urine Negative (Negative); PH, Urine 6.5 (5.0-8.0); Protein,Urine Trace (Negative); RBC,Urine 121 /hpf (0-5); Specific Gravity,Urine 1.018 (1.001-1.035); Squamous Epithelial Cell,Urine <1 /hpf (0-4); Urobilinogen,Urine <2.0 mg/dL (<2.0); WBC,Urine 28 /hpf (0-5)
--- NOTE | 2019-12-29 19:55 | P.PN ---
Subjective Progress Note Date: 12/29/19 Patient was seen for a follow-up. Offers no new complaints. No hallucinations. He is laying comfortably in the bed. Objective - Vital Signs Vital signs: Vital Signs Temp 96.8 F L 12/29/19 15:00 Pulse 82 12/29/19 15:00 Resp 16 12/29/19 15:00 BP 136/84 12/29/19 15:00 Pulse Ox 96 12/29/19 15:00 Intake & Output 12/29/19 12/29/19 12/30/19 06:59 18:59 06:59 Intake Total 860 1080 Output Total 775 1200 Balance 85 -120 Intake: IV 660 Sodium Chloride 0.9% 1, 660 000 ml @ 20 mls/hr IV . Q24H [facility] Rx#:[id number] Oral 200 1080 Output: Urine 775 1200 Other: Voiding Method Indwelling Catheter - Exam Patient's mentation is stable. Speech and language functions are normal. Tone is mildly increases. Appears even more better than yesterday. - Labs CBC & Chem 7: 12/29/19 07:05 12/29/19 07:05 Labs: Abnormal Lab Results - Last 24 Hours (Table) 12/29/19 12/29/19 12/29/19 Range/Units 07:05 07:05 16:19 RBC 3.93 L (4.30-5.90) m/uL Hgb 11.5 L (13.0-17.5) gm/dL Hct 36.9 L (39.0-53.0) % Lymphocytes # 0.8 L (1.0-4.8) k/uL Calcium 8.1 L (8.7-10.3) mg/dL AST 47 H (14-35) U/L ALT <8 L (10-49) U/L Creatine Kinase 949 H (35-257) U/L Total Protein 5.2 L (6.2-8.2) g/dL Albumin 3.30 L (3.80-4.90) g/dL Urine Protein Trace H (Negative) Urine Blood Large H (Negative) Ur Leukocyte Esterase Large H (Negative) Urine RBC 121 H (0-5) /hpf Urine WBC 28 H (0-5) /hpf Urine Bacteria Rare H (None) /hpf Urine Mucus Rare H (None) /hpf Microbiology - Last 24 Hours (Table) 12/26/19 23:47 Urine Culture - Final Urine,Clean Catch Milena sp,not albicans/galbr 12/26/19 23:47 Blood Culture - Preliminary Blood No Growth after 48 hours 12/26/19 23:47 Blood Culture - Preliminary Blood No Growth after 48 hours Assessment and Plan Assessment: * Parkinson's disease, at least moderate in degree. Patient presented to the hospital because of fall due to tripping on a stick while walking in the [place]. * Frequent falls * Acute UTI. * possible pneumonia Plan: * Patient has moderate parkinsonian symptoms at this time. He is on Sinemet 50/200, 2 tablet twice a day. We will increase dose by adding Sinemet 25/100, 1 tablet at midday. He will continue same dose of amantadine 100 mg twice a day. * Patient tolerating slightly higher dose of Sinemet well. Patient's examination appears better than the initial visit. * PT OT, evaluate gait. Patient does not use any assistive device most of the time (uses a walker sometimes). He was strongly recommended to start using a cane or a walker to prevent frequent falls. * Follow up with his neurologist as scheduled. * B12 462, folate 13.4 * Treatment of UTI as per IM. * Repeat CK much improved 949. * ID on case for UTI and pneumonia. * Neurology will sign off. Please reconsult neurology if any concerns.
[2019-12-29] MEDS: FINASTERIDE 5 MG TAB PO SCH (20:37)
[2019-12-29] MEDS: DOXAZOSIN 4 MG TAB PO SCH (20:37)
[2019-12-29] MEDS: SODIUM CHLORIDE 0.9% 1,000 ML IV SCH (20:38)
[2019-12-30 06:38] LABS: Basophils % (A) 0 %; Eosinophils # (A) 0.1 k/uL (0-0.7); Eosinophils % (A) 2 %; HCT 34.9 % (39.0-53.0); HGB 11.7 gm/dL (13.0-17.5); Lymphocytes % (A) 15 %; MCH 30.7 pg (25.0-35.0); MCHC 33.5 g/dL (31.0-37.0); MCV 91.5 fL (80.0-100.0); Mean Platelet Volume 7.4; Monocytes # (A) 0.5 k/uL (0-1.0); Monocytes % (A) 8 %; Neutrophils # (A) 4.7 k/uL (1.3-7.7); Neutrophils % (A) 74 %; Platelet Count 200 k/uL (150-450); RBC 3.81 m/uL (4.30-5.90); RDW 13.3 % (11.5-15.5); WBC 6.4 k/uL (3.8-10.6)
[2019-12-30] MEDS: ENOXAPARIN 40 MG/0.4 ML SYRINGE SQ SCH (09:01)
[2019-12-30] MEDS: FAMOTIDINE 20 MG TAB PO SCH ×2 (09:01→21:31)
[2019-12-30] MEDS: CARBIDOPA-LEVODOPA ER 50-200MG 1 EACH TABLET.ER PO SCH ×2 (09:02→21:30)
[2019-12-30] MEDS: MULTIVITAMINS, THERA 1 EACH TAB PO SCH (09:02)
[2019-12-30] MEDS: FERROUS SULFATE 325 MG TAB PO SCH (09:02)
[2019-12-30] MEDS: TAMSULOSIN 0.4 MG CAP.ER.24H PO SCH (09:02)
[2019-12-30] MEDS: FLUCONAZOLE 100 MG TAB PO SCH (09:02)
[2019-12-30] MEDS: CARBIDOPA-LEVODOPA 25-100 MG 1 EACH TAB PO SCH (09:02)
[2019-12-30] MEDS: HYDROcodone/APAP 7.5-325MG 1 EACH TAB PO PRN (09:29)
[2019-12-30 09:48] LABS: ALT <8 U/L (10-49); AST 40 U/L (14-35); African American GFR (CKD) 99.2 (60.0-200.0); Albumin/Globulin Ratio 1.83 (1.60-3.17); Alkaline Phosphatase 82 U/L (41-126); BUN/Creat Ratio 17.78 Ratio (12.00-20.00); Calcium 8.1 mg/dL (8.7-10.3); Carbon Dioxide 24.8 mmol/L (21.6-31.8); Chloride 102 mmol/L (96-109); Globulin 1.8 g/dL (1.6-3.3); Glucose 108 mg/dL (70-110); Non-African American GFR(CKD) 85.6 (60.0-200.0); Potassium 4.2 mmol/L (3.5-5.5); Sodium 134 mmol/L (135-145); Total Bilirubin 0.6 mg/dL (0.2-1.2); Total Protein 5.1 g/dL (6.2-8.2)
--- NOTE | 2019-12-30 14:18 | PN ---
PROGRESS NOTE DATE OF SERVICE: 12/30/2019 REASON FOR FOLLOWUP: Catheter-associated urinary tract infection and pneumonia. INTERVAL HISTORY: Patient is currently afebrile. Patient is breathing comfortably. Denies having any chest pain. No shortness of breath. No nausea, vomiting. No abdominal pain. No diarrhea. PHYSICAL EXAMINATION: Blood pressure 121/72 with a pulse of 80, temperature 98.3. He is 94% on room air. General description is an elderly male lying in bed in no distress. Respiratory system: Unlabored breathing, decreased breath sounds at the bases. Heart with S1, S2. Regular rate and rhythm. Abdomen is soft, no tenderness. LABS: Hemoglobin 11.7, white count 6.4, creatinine 0.9. Repeat urine is positive. DIAGNOSTIC IMPRESSION AND PLAN: 1. Patient with catheter-associated urinary tract infection on admission. Urine with Milena, not albicans. Repeat urine is positive. On oral Diflucan. To continue. 2. Patient with possible lower lobe pneumonia on Rocephin. Finish therapy with oral Ceftin and close outpatient followup. MMODL / IJN: [id number] /
--- NOTE | 2019-12-30 16:00 | P.PN ---
Subjective Progress Note Date: 12/30/19 Caleb Riggins, is a 69 -year-old male who presented to [facility] emergency room, with generalized weakness and difficulty standing and walking, patient stated that he has been getting weaker over the last few days, he was and able to walk around the house on the day of admission, patient stated that he lives in a house in [place] he has a caregiver who lives with him but his condition has worsened due to weakness and inability to walk, patient states that he fell 2 days ago and he is having bilateral knee pain and right elbow pain. Patient has a known history of advanced Parkinson disease. Patient was evaluated in the emergency room his vital exam on admission revealed a temperature of 99.3 pulse 100 respiration 18 blood pressure 117/87 pulse ox 97% on room air, his EKG revealed normal sinus rhythm with bifascicular block, his chest x-ray revealed possible left lower lobe infiltrate, his white blood count was 8.5 he had mild dehydration was elevated BUN at 24 AST was signif icantly elevated at the 172 with normal ALT and normal alkaline phosphatase. Urine analysis revealed evidence of urinary tract infection with positive leukocyte esterase and more than 180 white blood cells per high power field, patient was started on IV antibiotic Levaquin and was admitted to medical floor. Past medical history is significant for Parkinson disease, history of hypertension, history of benign prostatic hypertrophy, history of kidney stones. On review of systems patient is alert and oriented in no distress, he is complaining of pain in his knees, he is also complaining of occasional cough, otherwise he denies any complaints at this time, there is no fever or chills no headache or dizziness no chest pain no shortness of breath no nausea or vomiting no abdominal pain no diarrhea no blood in the stools no burning with urination no frequency or urgency no hematuria. On 12/28/2019 patient was seen and examined on the medical floor he is alert and oriented 3 in no apparent distress he is complaining of generalized weakness otherwise he denies any complaints, there is no fever or chills no headache or dizziness no chest pain no shortness of breath no cough no nausea or vomiting no abdominal pain no diarrhea no blood in the stools no burning with urination no frequency or urgency no hematuria Sosa catheter is in On 12/29/2019 patient was seen and examined on the medical floor he is feeling better, he is complaining of right wrist pain otherwise no complaints there is no fever or chills no headache or dizziness no chest pain no shortness of breath no cough no nausea or vomiting no abdominal pain no diarrhea no blood in the stools no urinary symptoms Sosa catheter is in place. On 12/30/2019 patient was seen and examined on the medical floor alert and oriented 3 in no distress, there is no fever or chills no headache or dizziness no chest pain no shortness of breath no cough no nausea or vomiting no abdominal pain no diarrhea no blood in the stools, Sosa catheter was replaced yesterday and is draining well. Objective - Vital Signs Vital signs: Vital Signs Temp 98.3 F 12/30/19 07:00 Pulse 80 12/30/19 09:19 Resp 20 12/30/19 09:19 BP 121/72 12/30/19 07:00 Pulse Ox 94 L 12/30/19 07:00 Intake & Output 12/29/19 12/30/19 12/30/19 18:59 06:59 18:59 Intake Total 1080 1780 Output Total 1200 625 Balance -120 1155 Intake: IV 240 Sodium Chloride 0.9% 1, 240 000 ml @ 20 mls/hr IV . Q24H [facility] Rx#:[id number] Intake, IV Titration 60 Amount Sodium Chloride 0.9% 1, 60 000 ml @ 20 mls/hr IV . Q24H [facility] Rx#:[id number] Oral 1080 1480 Output: Urine 1200 625 Other: Voiding Method Indwelling Catheter Indwelling Catheter - Exam In general patient is alert and oriented 3 HEENT head normocephalic and atraumatic Neck is supple no JVD no goiter no lymphadenopathy Chest exam reveals a few crackles in both bases no wheezing Cardiac exam reveals regular heart sounds S1 and S2 no gallops no murmurs Abdomen is soft nontender no organomegaly was normal bowel sounds Extremity exam reveals no edema no cyanosis or clubbing, there are some skin abrasion on both knees there is a blister on the right upper extremity Neurological examination is compatible was advanced Parkinson disease with rigidity, no focal deficits - Labs CBC & Chem 7: 12/30/19 06:16 12/30/19 06:16 Labs: Abnormal Lab Results - Last 24 Hours (Table) 12/29/19 12/29/19 12/30/19 Range/Units 07:05 16:19 06:16 RBC 3.81 L (4.30-5.90) m/uL Hgb 11.7 L (13.0-17.5) gm/dL Hct 34.9 L (39.0-53.0) % Sodium (135-145) mmol/L Calcium (8.7-10.3) mg/dL AST (14-35) U/L ALT (10-49) U/L Creatine Kinase 949 H (35-257) U/L Total Protein (6.2-8.2) g/dL Albumin (3.80-4.90) g/dL Urine Protein Trace H (Negative) Urine Blood Large H (Negative) Ur Leukocyte Esterase Large H (Negative) Urine RBC 121 H (0-5) /hpf Urine WBC 28 H (0-5) /hpf Urine Bacteria Rare H (None) /hpf Urine Mucus Rare H (None) /hpf 12/30/19 Range/Units 06:16 RBC (4.30-5.90) m/uL Hgb (13.0-17.5) gm/dL Hct (39.0-53.0) % Sodium 134 L (135-145) mmol/L Calcium 8.1 L (8.7-10.3) mg/dL AST 40 H (14-35) U/L ALT <8 L (10-49) U/L Creatine Kinase (35-257) U/L Total Protein 5.1 L (6.2-8.2) g/dL Albumin 3.30 L (3.80-4.90) g/dL Urine Protein (Negative) Urine Blood (Negative) Ur Leukocyte Esterase (Negative) Urine RBC (0-5) /hpf Urine WBC (0-5) /hpf Urine Bacteria (None) /hpf Urine Mucus (None) /hpf Microbiology - Last 24 Hours (Table) 12/26/19 23:47 Blood Culture - Preliminary Blood No Growth after 72 hours 12/26/19 23:47 Blood Culture - Preliminary Blood No Growth after 72 hours 12/29/19 16:19 Urine Culture - Preliminary Urine,Voided 12/26/19 23:47 Urine Culture - Final Urine,Clean Catch Milena sp,not albicans/galbr Assessment and Plan Plan: 1. Urinary tract infection with evidence of sepsis 2. Left lower lobe infiltrate possible pneumonia, will recheck chest x-ray PA and lateral 3. Worsening weakness with physical debility with inability to stand and walk 4. Recurrent fall was last fall 2 days ago with bilateral knee injury 5. Elevated AST at 172 Will monitor 6. Previous history of kidney stones 7. Underlying history of Parkinson disease maintained on Sinemet and amantadine 8. Underlying history of benign prostatic hypertrophy maintained on Proscar and Flomax 9. For DVT prophylaxis we will use Lovenox, for GI prophylaxis continue with famotidine. 10. Rhabdomyolysis, continue IV fluid Will monitor kidney function closely Continue with IV Levaquin continue with gentle hydration Consult neurology to assess if Parkinson disease management need to be adjusted Consult physical therapy and occupational therapy Will follow closely
[2019-12-30] MEDS: FINASTERIDE 5 MG TAB PO SCH (21:31)
[2019-12-30] MEDS: DOXAZOSIN 4 MG TAB PO SCH (21:31)
[2019-12-30] MEDS: SODIUM CHLORIDE 0.9% 1,000 ML IV SCH (21:31)
[2019-12-31 07:45] LABS: Basophils % (A) 0 %; Eosinophils # (A) 0.2 k/uL (0-0.7); Eosinophils % (A) 4 %; HCT 37.1 % (39.0-53.0); HGB 12.1 gm/dL (13.0-17.5); Lymphocytes # (A) 0.9 k/uL (1.0-4.8); Lymphocytes % (A) 15 %; MCH 30.3 pg (25.0-35.0); MCHC 32.6 g/dL (31.0-37.0); Mean Platelet Volume 7.3; Monocytes # (A) 0.3 k/uL (0-1.0); Monocytes % (A) 5 %; Neutrophils # (A) 4.8 k/uL (1.3-7.7); Neutrophils % (A) 75 %; Platelet Count 220 k/uL (150-450); RBC 3.99 m/uL (4.30-5.90); RDW 13.5 % (11.5-15.5); WBC 6.3 k/uL (3.8-10.6)
[2019-12-31 08:05] LABS: ALT 6 U/L (4-49); AST 79 U/L (17-59); African American GFR (CKD) >90 (>60 ml/min/1.73 sqM); Albumin 2.9 g/dL (3.5-5.0); Alkaline Phosphatase 78 U/L (38-126); Anion Gap 6 mmol/L; Blood Urea Nitrogen 18 mg/dL (9-20); Calcium 8.2 mg/dL (8.4-10.2); Carbon Dioxide 25 mmol/L (22-30); Chloride 103 mmol/L (98-107); Globulin 2.8 g/dL; Glucose 106 mg/dL (74-99); Non-African American GFR(CKD) 87 (>60 ml/min/1.73 sqM); Potassium 4.2 mmol/L (3.5-5.1); Sodium 134 mmol/L (137-145); Total Bilirubin 0.7 mg/dL (0.2-1.3); Total Protein 5.7 g/dL (6.3-8.2)
[2019-12-31] MEDS: FLUCONAZOLE 100 MG TAB PO SCH (08:36)
[2019-12-31] MEDS: FAMOTIDINE 20 MG TAB PO SCH ×2 (08:36→22:28)
[2019-12-31] MEDS: TAMSULOSIN 0.4 MG CAP.ER.24H PO SCH (08:36)
[2019-12-31] MEDS: CARBIDOPA-LEVODOPA 25-100 MG 1 EACH TAB PO SCH (08:36)
[2019-12-31] MEDS: MULTIVITAMINS, THERA 1 EACH TAB PO SCH (08:36)
[2019-12-31] MEDS: CARBIDOPA-LEVODOPA ER 50-200MG 1 EACH TABLET.ER PO SCH ×2 (08:36→22:28)
[2019-12-31] MEDS: FERROUS SULFATE 325 MG TAB PO SCH (08:36)
[2019-12-31] MEDS: ENOXAPARIN 40 MG/0.4 ML SYRINGE SQ SCH (08:36)
--- NOTE | 2019-12-31 11:26 | P.PN ---
Subjective Progress Note Date: 12/31/19 Caleb Riggins, is a 69 -year-old male who presented to [facility] emergency room, with generalized weakness and difficulty standing and walking, patient stated that he has been getting weaker over the last few days, he was and able to walk around the house on the day of admission, patient stated that he lives in a house in [place] he has a caregiver who lives with him but his condition has worsened due to weakness and inability to walk, patient states that he fell 2 days ago and he is having bilateral knee pain and right elbow pain. Patient has a known history of advanced Parkinson disease. Patient was evaluated in the emergency room his vital exam on admission revealed a temperature of 99.3 pulse 100 respiration 18 blood pressure 117/87 pulse ox 97% on room air, his EKG revealed normal sinus rhythm with bifascicular block, his chest x-ray revealed possible left lower lobe infiltrate, his white blood count was 8.5 he had mild dehydration was elevated BUN at 24 AST was signif icantly elevated at the 172 with normal ALT and normal alkaline phosphatase. Urine analysis revealed evidence of urinary tract infection with positive leukocyte esterase and more than 180 white blood cells per high power field, patient was started on IV antibiotic Levaquin and was admitted to medical floor. Past medical history is significant for Parkinson disease, history of hypertension, history of benign prostatic hypertrophy, history of kidney stones. On review of systems patient is alert and oriented in no distress, he is complaining of pain in his knees, he is also complaining of occasional cough, otherwise he denies any complaints at this time, there is no fever or chills no headache or dizziness no chest pain no shortness of breath no nausea or vomiting no abdominal pain no diarrhea no blood in the stools no burning with urination no frequency or urgency no hematuria. On 12/28/2019 patient was seen and examined on the medical floor he is alert and oriented 3 in no apparent distress he is complaining of generalized weakness otherwise he denies any complaints, there is no fever or chills no headache or dizziness no chest pain no shortness of breath no cough no nausea or vomiting no abdominal pain no diarrhea no blood in the stools no burning with urination no frequency or urgency no hematuria Ssoa catheter is in On 12/29/2019 patient was seen and examined on the medical floor he is feeling better, he is complaining of right wrist pain otherwise no complaints there is no fever or chills no headache or dizziness no chest pain no shortness of breath no cough no nausea or vomiting no abdominal pain no diarrhea no blood in the stools no urinary symptoms Sosa catheter is in place. On 12/30/2019 patient was seen and examined on the medical floor alert and oriented 3 in no distress, there is no fever or chills no headache or dizziness no chest pain no shortness of breath no cough no nausea or vomiting no abdominal pain no diarrhea no blood in the stools, Sosa catheter was replaced yesterday and is draining well. On 12/31/2019 patient was seen and examined on the medical floor he is feeling better there is no fever or chills no headache or dizziness no chest pain no shortness of breath no cough no nausea or vomiting no abdominal pain no diarrhea no blood in the stools, Sosa catheter is in place. Repeat urine analysis and urine culture reviewed will discuss further treatment with infectious disease, possible transfer to correction tomorrow. Objective - Vital Signs Vital signs: Vital Signs Temp 98.3 F 12/31/19 07:00 Pulse 80 12/31/19 08:37 Resp 16 12/31/19 08:37 BP 135/72 12/31/19 07:00 Pulse Ox 97 12/31/19 07:00 Intake & Output 12/30/19 12/31/19 12/31/19 18:59 06:59 18:59 Intake Total 800 Output Total 1100 1974 Balance -1100 -1175 Intake: IV 300 Sodium Chloride 0.9% 1, 300 000 ml @ 20 mls/hr IV . Q24H [facility] Rx#:[id number] Oral 500 Output: Urine 1100 1974 Other: Voiding Method Indwelling Catheter Indwelling Catheter Indwelling Catheter - Exam In general patient is alert and oriented 3 HEENT head normocephalic and atraumatic Neck is supple no JVD no goiter no lymphadenopathy Chest exam reveals a few crackles in both bases no wheezing Cardiac exam reveals regular heart sounds S1 and S2 no gallops no murmurs Abdomen is soft nontender no organomegaly was normal bowel sounds Extremity exam reveals no edema no cyanosis or clubbing, there are some skin abrasion on both knees there is a blister on the right upper extremity Neurological examination is compatible was advanced Parkinson disease with rigidity, no focal deficits - Labs CBC & Chem 7: 12/31/19 06:51 12/31/19 06:51 Labs: Abnormal Lab Results - Last 24 Hours (Table) 12/31/19 12/31/19 Range/Units 06:51 06:51 RBC 3.99 L (4.30-5.90) m/uL Hgb 12.1 L (13.0-17.5) gm/dL Hct 37.1 L (39.0-53.0) % Lymphocytes # 0.9 L (1.0-4.8) k/uL Sodium 134 L (137-145) mmol/L Glucose 106 H (74-99) mg/dL Calcium 8.2 L (8.4-10.2) mg/dL AST 79 H (17-59) U/L Total Protein 5.7 L (6.3-8.2) g/dL Albumin 2.9 L (3.5-5.0) g/dL Microbiology - Last 24 Hours (Table) 12/26/19 23:47 Blood Culture - Preliminary Blood No Growth after 96 hours 12/26/19 23:47 Blood Culture - Preliminary Blood No Growth after 96 hours 12/29/19 16:19 Urine Culture - Final Urine,Voided Bacillus species Not Anthracis Assessment and Plan Plan: 1. Urinary tract infection with evidence of sepsis 2. Left lower lobe infiltrate possible pneumonia, will recheck chest x-ray PA and lateral 3. Worsening weakness with physical debility with inability to stand and walk 4. Recurrent fall was last fall 2 days ago with bilateral knee injury 5. Elevated AST at 172 Will monitor 6. Previous history of kidney stones 7. Underlying history of Parkinson disease maintained on Sinemet and amantadine 8. Underlying history of benign prostatic hypertrophy maintained on Proscar and Flomax 9. For DVT prophylaxis we will use Lovenox, for GI prophylaxis continue with famotidine. 10. Rhabdomyolysis, continue IV fluid Will monitor kidney function closely Continue with IV Levaquin continue with gentle hydration Consult neurology to assess if Parkinson disease management need to be adjusted Consult physical therapy and occupational therapy Will follow closely
[2019-12-31] MEDS: DOXAZOSIN 4 MG TAB PO SCH (22:28)
[2019-12-31] MEDS: FINASTERIDE 5 MG TAB PO SCH (22:28)
[2020-01-01 02:21] VITALS: RESP 18
[2020-01-01] MEDS: SODIUM CHLORIDE 0.9% 1,000 ML IV SCH (03:01)
--- NOTE | 2020-01-01 03:12 | PN ---
PROGRESS NOTE DATE OF SERVICE: 12/31/2019 REASON FOR FOLLOWUP: Catheter-associated urinary tract infection and pneumonia. INTERVAL HISTORY: The patient is currently afebrile. He is breathing comfortably. The patient denies having any chest pain. No shortness of breath. Occasional cough. No nausea, vomiting. No abdominal pain or diarrhea. PHYSICAL EXAMINATION: Blood pressure 129/82 with a pulse of 79, temperature 98.3. He is 93% on room air. General description is an elderly male lying in bed in no distress. RESPIRATORY SYSTEM: Unlabored breathing, decreased breath sounds at the bases. No wheeze. HEART: S1, S2. Regular rate and rhythm. ABDOMEN: Soft, no tenderness. LABS: Hemoglobin is 12.1, white count 6.3, BUN of 18, creatinine 0.67. Repeat urine showing Bacillus species, not anthracis. DIAGNOSTIC IMPRESSION AND PLAN: Patient with catheter-associated urinary tract infection, initially was Milena and not albicans, repeat now showing Bacillus species, possible contaminant. Patient is covered with Rocephin and Diflucan to cover for the pneumonia to continue. Hopefully to finish therapy with oral antibiotic. Will repeat a chest x-ray in the morning. Continue with supportive care. MMODL / IJN: [id number] /
[2020-01-01 06:42] LABS: Basophils % (A) 0 %; Eosinophils # (A) 0.2 k/uL (0-0.7); Eosinophils % (A) 3 %; HCT 35.4 % (39.0-53.0); HGB 11.7 gm/dL (13.0-17.5); Lymphocytes % (A) 16 %; MCH 30.4 pg (25.0-35.0); MCHC 33.1 g/dL (31.0-37.0); MCV 91.9 fL (80.0-100.0); Mean Platelet Volume 7.3; Monocytes # (A) 0.5 k/uL (0-1.0); Monocytes % (A) 8 %; Neutrophils # (A) 4.5 k/uL (1.3-7.7); Neutrophils % (A) 72 %; Platelet Count 223 k/uL (150-450); RBC 3.86 m/uL (4.30-5.90); RDW 13.4 % (11.5-15.5); WBC 6.2 k/uL (3.8-10.6)
[2020-01-01 08:26] VITALS: BP 133/78; PULSE 70; TEMP 97.6
[2020-01-01] MEDS: CARBIDOPA-LEVODOPA 25-100 MG 1 EACH TAB PO SCH (08:48)
[2020-01-01] MEDS: TAMSULOSIN 0.4 MG CAP.ER.24H PO SCH (08:48)
[2020-01-01] MEDS: CARBIDOPA-LEVODOPA ER 50-200MG 1 EACH TABLET.ER PO SCH (08:48)
[2020-01-01] MEDS: MULTIVITAMINS, THERA 1 EACH TAB PO SCH (08:49)
[2020-01-01] MEDS: FAMOTIDINE 20 MG TAB PO SCH (08:49)
[2020-01-01] MEDS: FLUCONAZOLE 100 MG TAB PO SCH (08:49)
[2020-01-01] MEDS: FERROUS SULFATE 325 MG TAB PO SCH (08:49)
[2020-01-01] MEDS: ENOXAPARIN 40 MG/0.4 ML SYRINGE SQ SCH (08:49)
[2020-01-01 09:30] LABS: ALT <8 U/L (10-49); AST 53 U/L (14-35); African American GFR (CKD) 99.2 (60.0-200.0); Albumin/Globulin Ratio 1.62 (1.60-3.17); Alkaline Phosphatase 83 U/L (41-126); BUN/Creat Ratio 18.89 Ratio (12.00-20.00); C Reactive Protein 12.5 mg/dL (0.0-0.8); Calcium 8.3 mg/dL (8.7-10.3); Carbon Dioxide 26.2 mmol/L (21.6-31.8); Chloride 102 mmol/L (96-109); Globulin 2.1 g/dL (1.6-3.3); Glucose 101 mg/dL (70-110); Non-African American GFR(CKD) 85.6 (60.0-200.0); Potassium 4.1 mmol/L (3.5-5.5); Sodium 134 mmol/L (135-145); Total Bilirubin 0.5 mg/dL (0.3-1.2); Total Protein 5.5 g/dL (6.2-8.2)
--- NOTE | 2020-01-01 11:44 | XR ---
EXAMINATION TYPE: XR chest 2V DATE OF EXAM: 01/01/2020 COMPARISON: 12/27/2019 INDICATION: Pneumonia TECHNIQUE: Frontal and lateral views of the chest are obtained. FINDINGS: The heart size is normal. The pulmonary vasculature is normal. Patchy infiltrates are present within the right midlung and at the left base. Findings are nonspecifi c. Consider pneumonia. Consider atypical forms of pneumonia. IMPRESSION: 1. Mild patchy infiltrates right midlung and left lower lobe. Follow-up is recommended
--- NOTE | 2020-01-01 14:12 | P.DS ---
Providers Date of admission: 12/27/19 01:16 Expected date of discharge: 01/01/20 Attending physician: Rose Fernandez Consults: 12/27/19 09:12 Consult Physician Routine Consulting Provider: Scarlet Angela Consult Reason/Comments: UTI, Pneumonia Do you want consulting provider notified?: Yes 12/27/19 09:13 Consult Physician Routine Consulting Provider: Phyllis Duron Consult Reason/Comments: parkinson disease Do you want consulting provider notified?: Yes Primary care physician: Nancy Land [facility] Course: Diagnosis on discharge: 1. Urinary tract infection with evidence of sepsis 2. Left lower lobe infiltrate possible pneumonia, will recheck chest x-ray PA and lateral 3. Worsening weakness with physical debility with inability to stand and walk 4. Recurrent fall was last fall 2 days ago with bilateral knee injury 5. Elevated AST at 172 Will monitor 6. Previous history of kidney stones 7. Underlying history of Parkinson disease maintained on Sinemet and amantadine 8. Underlying history of benign prostatic hypertrophy maintained on Proscar and Flomax 9. For DVT prophylaxis we will use Lovenox, for GI prophylaxis continue with famotidine. 10. Rhabdomyolysis, continue IV fluid Will monitor kidney function closely Hospital course: Caleb Riggins, is a 69 -year-old male who presented to [facility] emergency room, with generalized weakness and difficulty standing and walking, patient stated that he has been getting weaker over the last few days, he was and able to walk around the house on the day of admission, patient stated that he lives in a house in [place] he has a caregiver who lives with him but his condition has worsened due to weakness and inability to walk, patient states that he fell 2 days ago and he is having bilateral knee pain and right elbow pain. Patient has a known history of advanced Parkinson disease. Patient was evaluated in the emergency room his vital exam on admission revealed a temperature of 99.3 pulse 100 respiration 18 blood pressure 117/87 pulse ox 97% on room air, his EKG revealed normal sinus rhythm with bifascicular block, his chest x-ray revealed possible left lower lobe infiltrate, his white blood count was 8.5 he had mild dehydration was elevated BUN at 24 AST was significantly elevated at the 172 with normal ALT and normal alkaline phosphatase. Urine analysis revealed evidence of urinary tract infection with positive leukocyte esterase and more than 180 white blood cells per high power field, patient was started on IV antibiotic Levaquin and was admitted to medical floor. Past medical history is significant for Parkinson disease, history of hypertension, history of benign prostatic hypertrophy, history of kidney stones. On review of systems patient is alert and oriented in no distress, he is complaining of pain in his knees, he is also complaining of occasional cough, otherwise he denies any complaints at this time, there is no fever or chills no headache or dizziness no chest pain no shortness of breath no nausea or vomiting no abdominal pain no diarrhea no blood in the stools no burning with urination no frequency or urgency no hematuria. On 12/28/2019 patient was seen and examined on the medical floor he is alert and oriented 3 in no apparent distress he is complaining of generalized weakness otherwise he denies any complaints, there is no fever or chills no headache or dizziness no chest pain no shortness of breath no cough no nausea or vomiting no abdominal pain no diarrhea no blood in the stools no burning with urination no frequency or urgency no hematuria Sosa catheter is in On 12/29/2019 patient was seen and examined on the medical floor he is feeling better, he is complaining of right wrist pain otherwise no complaints there is no fever or chills no headache or dizziness no chest pain no shortness of breath no cough no nausea or vomiting no abdominal pain no diarrhea no blood in the stools no urinary symptoms Sosa catheter is in place. On 12/30/2019 patient was seen and examined on the medical floor alert and oriented 3 in no distress, there is no fever or chills no headache or dizziness no chest pain no shortness of breath no cough no nausea or vomiting no abdominal pain no diarrhea no blood in the stools, Sosa catheter was replaced yesterday and is draining well. On 12/31/2019 patient was seen and examined on the medical floor he is feeling better there is no fever or chills no headache or dizziness no chest pain no shortness of breath no cough no nausea or vomiting no abdominal pain no diarrhea no blood in the stools, Sosa catheter is in place. Repeat urine analysis and urine culture reviewed will discuss further treatment with infectious disease, possible transfer to long term tomorrow. On 01/01/2020 patient was seen and examined on the medical floor he is feeling better there is no fever or chills no headache or dizziness no chest pain no shortness of breath no cough no nausea or vomiting no abdominal pain no diarrhea no blood in the stools no burning with urination no frequency or urgency and no hematuria, evaluated by infectious disease Dr. Angela and was cleared for discharge to long term for rehabilitation, recommendation for antibiotic on discharge were Ceftin 500 mg twice daily for 1 week and Diflucan 100 mg once daily for 1 week, prescription for Huslia was provided for bridging care until provided by the long term. Patient Condition at Discharge: Fair Plan - Discharge Summary Discharge Rx Participant: Yes New Discharge Prescriptions: New Cefuroxime Axetil [Ceftin] 500 mg PO BID 7 Days #14 tab Fluconazole [Diflucan] 100 mg PO DAILY 7 Days #7 tab Famotidine [Pepcid] 20 mg PO BID tab Carbidopa-Levodopa 25-100 mg [Sinemet 25-100 mg] 1 each PO DAILY tab Acetaminophen Tab [Tylenol] 650 mg PO Q6HR PRN tab PRN Reason: Mild Pain Or Fever > 100.5 Continue amantadine HCL [Symmetrel] 100 mg PO BID Carbidopa-Levodopa ER 50-200Mg [Sinemet CR 50-200 mg] 2 tab PO BID Terazosin HCl [Hytrin] 10 mg PO HS Ferrous Sulfate [Feosol] 325 mg PO DAILY Tamsulosin HCl [Flomax] 0.4 mg PO DAILY Finasteride [Proscar] 5 mg PO HS HYDROcodone/APAP 7.5-325MG [Huslia 7.5-325] 1 tab PO Q6H PRN PRN Reason: Pain Multivitamins, Thera [Multivitamin (formulary)] 1 tab PO DAILY Cyclobenzaprine [Flexeril] 10 mg PO TID PRN PRN Reason: Pain Discontinued Ciprofloxacin HCl [Cipro] 500 mg PO Q12HR Discharge Medication List Carbidopa-Levodopa ER 50-200Mg [Sinemet CR 50-200 mg] 2 tab PO BID 03/20/15 [ History] Ferrous Sulfate [Feosol] 325 mg PO DAILY 03/20/15 [History] Terazosin HCl [Hytrin] 10 mg PO HS 03/20/15 [History] amantadine HCL [Symmetrel] 100 mg PO BID 03/20/15 [History] Tamsulosin HCl [Flomax] 0.4 mg PO DAILY 02/22/17 [History] Finasteride [Proscar] 5 mg PO HS 11/07/19 [History] HYDROcodone/APAP 7.5-325MG [Huslia 7.5-325] 1 tab PO Q6H PRN 11/07/19 [History] Multivitamins, Thera [Multivitamin (formulary)] 1 tab PO DAILY 11/07/19 [History] Cyclobenzaprine [Flexeril] 10 mg PO TID PRN 12/20/19 [History] Acetaminophen Tab [Tylenol] 650 mg PO Q6HR PRN tab 01/01/20 [Rx] Carbidopa-Levodopa 25-100 mg [Sinemet 25-100 mg] 1 each PO DAILY tab 01/01/20 [Rx] Cefuroxime Axetil [Ceftin] 500 mg PO BID 7 Days #14 tab 01/01/20 [Rx] Famotidine [Pepcid] 20 mg PO BID tab 01/01/20 [Rx] Fluconazole [Diflucan] 100 mg PO DAILY 7 Days #7 tab 01/01/20 [Rx] Follow up Appointment(s)/Referral(s): Nancy Land MD [Primary Care Provider] - 1-2 days [facility] [NON-STAFF] - As Needed
--- NOTE | 2020-01-01 16:36 | P.PN ---
Progress Note - Text Progress Note Date: 01/01/20 REASON FOR FOLLOWUP: Catheter-associated urinary tract infection and pneumonia. INTERVAL HISTORY: The patient remains to be afebrile. The patient is breathing comfortably. The patient denies having any chest pain. No shortness of breath. Occasional cough. No nausea, vomiting. No abdominal pain or diarrhea. PHYSICAL EXAMINATION: Blood pressure 119/80 with a pulse of 79, temperature 98.3. He is 93% on room air. General description is an elderly male lying in bed in no distress. RESPIRATORY SYSTEM: Unlabored breathing, decreased breath sounds at the bases. No wheeze. HEART: S1, S2. Regular rate and rhythm. ABDOMEN: Soft, no tenderness. LABS: Chest x-ray with mild right-sided infiltrate. Repeat urine showing Bacillus species, not anthracis. DIAGNOSTIC IMPRESSION AND PLAN: Patient with catheter-associated urinary tract infection, initially was Milena and not albicans, repeat now showing Bacillus species, possible contaminant. Patient seemed to have shown clinical response to Rocephin will finish therapy with oral Ceftin 500 mg twice a day for 7 days prescription sent to pharmacy
== END 2020-01-01 16:05 | DRG 698 ==
LOC: EC 22:35 → 4SSUR 12-27 01:16
PROVIDERS: ADMIT Internal Medicine; ATTEND Internal Medicine
DX: T83.518A Infection and inflammatory reaction due to other urinary catheter, initial encounter (principal); A41.9 Sepsis, unspecified organism; J18.9 Pneumonia, unspecified organism; I45.2 Bifascicular block; M62.82 Rhabdomyolysis; B37.49 Other urogenital candidiasis; D72.810 Lymphocytopenia; E86.0 Dehydration; G20 Parkinson's disease; I10 Essential (primary) hypertension; I45.10 Unspecified right bundle-branch block; I48.91 Unspecified atrial fibrillation; N40.0 Benign prostatic hyperplasia without lower urinary tract symptoms; R29.6 Repeated falls; W01.0XXA Fall on same level from slipping, tripping and stumbling without subsequent striking against object, initial encounter; Y84.6 Urinary catheterization as the cause of abnormal reaction of the patient, or of later complication, without mention of misadventure at the time of the procedure; Z20.828 Contact with and (suspected) exposure to other viral communicable diseases; R74.0 Nonspecific elevation of levels of transaminase and lactic acid dehydrogenase [LDH]; R53.81 Other malaise; Z79.899 Other long term (current) drug therapy; Z82.0 Family history of epilepsy and other diseases of the nervous system; Z82.49 Family history of ischemic heart disease and other diseases of the circulatory system; Z83.3 Family history of diabetes mellitus; Z87.442 Personal history of urinary calculi; Z88.1 Allergy status to other antibiotic agents; Z91.81 History of falling; Z88.0 Allergy status to penicillin; Z88.8 Allergy status to other drugs, medicaments and biological substances; Z98.42 Cataract extraction status, left eye; Z98.41 Cataract extraction status, right eye; Z80.9 Family history of malignant neoplasm, unspecified
CPT/HCPCS: 36415; 71045; 71046; 80053; 81001; 82550; 82607; 82746; 83605; 83615; 84145; 84484; 85025; 85610; 85730; 86140; 87040; 87086; 93005; 94760; 96365; 99285

== ENCOUNTER 2020-04-05 20:40 | Emergency (ER) | payer MEDICARE, OTHER ==
[2020-04-05 21:04] VITALS: TEMP 98.4
[2020-04-05 21:52] LABS: Amorphous Sediment,Urine Rare /hpf; Appearance,Urine Turbid (Clear); Bacteria,Urine Many /hpf; Bilirubin,Urine Negative (Negative); Blood,Urine Small (Negative); Color,Urine Yellow; Glucose,Urine (UA) Negative (Negative); Ketones,Urine Negative (Negative); Leukocyte Esterase,Urine Large (Negative); Mucus,Urine Occasional /hpf; Nitrite,Urine Negative (Negative); Protein,Urine 2+ (Negative); RBC,Urine 16 /hpf (0-5); Specific Gravity,Urine 1.017 (1.001-1.035); Squamous Epithelial Cell,Urine 2 /hpf (0-4); Urobilinogen,Urine <2.0 mg/dL (<2.0); WBC,Urine >182 /hpf (0-5)
--- NOTE | 2020-04-05 22:13 | ED ---
Male Urogenital HPI - General Chief complaint: Urogenital Stated complaint: Problems urinating Time Seen by Provider: 04/05/20 21:08 Source: patient, family Mode of arrival: wheelchair Limitations: no limitations - History of Present Illness Initial comments: 69-year-old male patient presents to the emergency department today for evaluation of urinary retention. Patient states he has been having decreased urine output for the last 2-3 days. He states that he has not urinated at all today. She is having some suprapubic abdominal pain and pressure. Denies fever or chills. Denies nausea or vomiting. States he has had this in the past. Did have prostate surgery with Dr. Johnson one month ago. Patient denies any recent rash, cough, shortness of breath, chest pain, diarrhea, constipation, back pain, numbness, tingling, dizziness, weakness, headache, visual changes, or any other complaints. - Related Data Home Medications Medication Instructions Recorded Confirmed Carbidopa-Levodopa ER 50-200Mg 2 tab PO BID 03/20/15 12/27/19 [Sinemet CR 50-200 mg] Ferrous Sulfate [Feosol] 325 mg PO DAILY 03/20/15 12/27/19 Terazosin HCl [Hytrin] 10 mg PO HS 03/20/15 12/27/19 amantadine HCL [Symmetrel] 100 mg PO BID 03/20/15 12/27/19 Tamsulosin HCl [Flomax] 0.4 mg PO DAILY 02/22/17 12/27/19 Finasteride [Proscar] 5 mg PO HS 11/07/19 12/27/19 HYDROcodone/APAP 7.5-325MG [[place] 1 tab PO Q6H PRN 11/07/19 12/27/19 7.5-325] Multivitamins, Thera [Multivitamin 1 tab PO DAILY 11/07/19 12/27/19 (formulary)] Cyclobenzaprine [Flexeril] 10 mg PO TID PRN 12/20/19 12/27/19 Previous Rx's Medication Instructions Recorded Acetaminophen Tab [Tylenol] 650 mg PO Q6HR PRN tab 01/01/20 Carbidopa-Levodopa 25-100 mg 1 each PO DAILY tab 01/01/20 [Sinemet 25-100 mg] Cefuroxime Axetil [Ceftin] 500 mg PO BID 7 Days #14 tab 01/01/20 Famotidine [Pepcid] 20 mg PO BID tab 01/01/20 Fluconazole [Diflucan] 100 mg PO DAILY 7 Days #7 tab 01/01/20 Levofloxacin [Levaquin] 750 mg PO DAILY 1 Days #7 tab 04/05/20 Allergies Allergy/AdvReac Type Severity Reaction Status Date / Time adhesive tape Allergy Rash/Hives Verified 04/05/20 21:04 amoxicillin Allergy Dyspnea, Verified 04/05/20 21:04 SWELLING OF THROAT haloperidol [From Haldol] Allergy Unknown Verified 04/05/20 21:04 haloperidol lactate Allergy Unknown Verified 04/05/20 21:04 [From Haldol] lorazepam [From Ativan] Allergy Unknown Verified 04/05/20 21:04 alprazolam [From Xanax] AdvReac Unknown Verified 04/05/20 21:04 Review of Systems ROS Statement: Those systems with pertinent positive or pertinent negative responses have been documented in the HPI. ROS Other: All systems not noted in ROS Statement are negative. Past Medical History Past Medical History: Hypertension, Musculoskeletal Disorder, Neurologic Disorder, Prostate Disorder, Renal Disease Additional Past Medical History / Comment(s): parkinsons disease, nephrolithiasis, BPH,uti's , fall 2012 with skull fracture and subdural hematoma and L eardrum rupture, sinus problems on occasion.past stress test, lt sprain ankle d/t fall. History of Any Multi-Drug Resistant Organisms: None Reported Past Surgical History: Heart Catheterization, Hernia Repair Additional Past Surgical History / Comment(s): cystoscopy, L inguinal hernia repair., anat cataracts Past Anesthesia/Blood Transfusion Reactions: No Reported Reaction Past Psychological History: No Psychological Hx Reported Smoking Status: Never smoker Past Alcohol Use History: None Reported Past Drug Use History: None Reported - Past Family History Sister(s) Family Medical History: Cancer Mother Family Medical History: CVA/TIA, Diabetes Mellitus, Hypertension, Musculoskeletal Disorder, Neurologic Disorder Additional Family Medical History / Comment(s): Mother had parkinson's dx. Father Family Medical History: CVA/TIA General Exam Limitations: no limitations General appearance: alert, in no apparent distress, other (Physical well- developed, well-nourished elderly male patient in no acute distress. Vital signs upon presentation temperature 98.4F, pulse 90, respirations 18, blood pressure 139/81, pulse ox 95% on room air.) ENT exam: Present: normal exam, normal oropharynx, mucous membranes moist Respiratory exam: Present: normal lung sounds bilaterally. Absent: respiratory distress, wheezes, rales, rhonchi, stridor Cardiovascular Exam: Present: regular rate, normal rhythm, normal heart sounds. Absent: systolic murmur, diastolic murmur, rubs, gallop, clicks GI/Abdominal exam: Present: soft, normal bowel sounds. Absent: distended, tenderness, guarding, rebound, rigid Back exam: Present: normal inspection. Absent: CVA tenderness (R), CVA tenderness (L) Neurological exam: Present: alert, oriented X3, CN II-XII intact Psychiatric exam: Present: normal affect, normal mood Skin exam: Present: warm, dry, intact, normal color. Absent: rash Course Vital Signs 04/05/20 21:00 Temperature 98.4 F Pulse Rate 90 Respiratory 18 Rate Blood Pressure 139/81 O2 Sat by Pulse 95 Oximetry Medical Decision Making - Medical Decision Making 69-year-old male patient presented to the emergency department today for evaluation of urinary retention. Physical examination did reveal superpubic tenderness. No CVA tenderness. Is afebrile. Bladder scan showed around 530 mL of urine. We did insert a Sosa catheter and he had 800 mL of output. We sent a urinalysis has obvious signs of infection. This was sent for culture. Did review previous culture and sensitivity I will start Levaquin. To be discharged follow-up with his urologist Dr. Johnson as soon as possible. Instructed to follow-up with his primary care physician for recheck in 1-2 days. Return parameters were discussed in detail. He verbalizes understanding and agrees with this plan. - Lab Data Lab Results 04/05/20 Range/Units 21:35 Urine Color Yellow Urine Appearance Turbid (Clear) Urine pH 8.0 (5.0-8.0) Ur Specific Swain 1.017 (1.001-1.035) Urine Protein 2+ H (Negative) Urine Glucose (UA) Negative (Negative) Urine Ketones Negative (Negative) Urine Blood Small H (Negative) Urine Nitrite Negative (Negative) Urine Bilirubin Negative (Negative) Urine Urobilinogen <2.0 (<2.0) mg/dL Ur Leukocyte Esterase Large H (Negative) Urine RBC 16 H (0-5) /hpf Urine WBC >182 H (0-5) /hpf Urine WBC Clumps Many H (None) /hpf Ur Squamous Epith Cells 2 (0-4) /hpf Amorphous Sediment Rare H (None) /hpf Urine Bacteria Many H (None) /hpf Urine Mucus Occasional H (None) /hpf Disposition Clinical Impression: Urinary retention, UTI (urinary tract infection) Disposition: HOME SELF-CARE Condition: Good Instructions (If sedation given, give patient instructions): Urinary Tract Infection in Men (ED) Additional Instructions: The antibiotic prescription in full. Follow-up through primary care physician and urologist for further evaluation as soon as possible. Return to the emergency department immediately for any new, worsening, or concerning symptoms. Prescriptions: Levofloxacin [Levaquin] 750 mg PO DAILY 1 Days #7 tab Is patient prescribed a controlled substance at d/c from ED?: No Referrals: Nancy Land MD [Primary Care Provider] - 1-2 days Time of Disposition: 22:13
[2020-04-05] MEDS: LEVOFLOXACIN 750 MG TAB PO STA (22:26)
[2020-04-05 22:52] VITALS: BP 120/75; PULSE 83; RESP 16
== END 2020-04-05 22:52 | disposition home or self-care (01) ==
LOC: EC 20:40
DX: N39.0 Urinary tract infection, site not specified (principal); I10 Essential (primary) hypertension; N40.0 Benign prostatic hyperplasia without lower urinary tract symptoms; G20 Parkinson's disease; Z88.8 Allergy status to other drugs, medicaments and biological substances; Z95.5 Presence of coronary angioplasty implant and graft; Z79.899 Other long term (current) drug therapy
CPT/HCPCS: 51702; 51798; 81001; 87086; 99284

== ENCOUNTER 2020-06-05 22:08 | Emergency (ER) | payer MEDICARE, OTHER ==
[2020-06-05 22:17] VITALS: RESP 18; TEMP 98
--- NOTE | 2020-06-05 22:24 | ED ---
General Adult HPI - General Chief complaint: Syncope Stated complaint: Fall Time Seen by Provider: 06/05/20 22:13 Source: EMS Mode of arrival: EMS Limitations: no limitations - History of Present Illness Initial comments: This patient is a 69-year-old man presenting to be evaluated after he had a fall at home. The patient states that he had stood up and felt lightheaded and then fell down. He states that he was told that he passed out, but states she is not certain. He states that he has this happen quite frequently, where he stands feels lightheaded and falls. He has long standing history of Parkinson's disease. The patient denies head or neck pain. He does have some low back pain, but states that this was going on for a couple of weeks, coming on well before he had this fall area he states that it does not hurt when he is at rest but is worse when he stands. He denies any weakness or numbness of the lower extremities. No saddle anesthesia. No change in bladder or bowel function, he states that he has urinary incontinence at baseline. Onset/Timin -: hour(s) Location: back Radiation: non-radiation Severity scale (1-10): 0 (Unless standing) Quality: dull Consistency: constant Improves with: none Worsens with: none Associated Symptoms: syncope (Possible syncope) Treatments Prior to Arrival: none - Related Data Home Medications Medication Instructions Recorded Confirmed Carbidopa-Levodopa ER 50-200Mg 2 tab PO BID 03/20/15 06/05/20 [Sinemet CR 50-200 mg] Terazosin HCl [Hytrin] 10 mg PO HS 03/20/15 06/05/20 amantadine HCL [Symmetrel] 100 mg PO BID 03/20/15 06/05/20 Tamsulosin HCl [Flomax] 0.4 mg PO DAILY 02/22/17 06/05/20 Cyclobenzaprine [Flexeril] 10 mg PO TID PRN 12/20/19 06/05/20 Metoprolol Tartrate [Lopressor] 25 mg PO DAILY 06/05/20 06/05/20 Previous Rx's Medication Instructions Recorded Ciprofloxacin HCl [Cipro] 500 mg PO Q12HR #14 tablet 06/06/20 Allergies Allergy/AdvReac Type Severity Reaction Status Date / Time adhesive tape Allergy Rash/Hives Verified 06/05/20 23:21 amoxicillin Allergy Dyspnea, Verified 06/05/20 23:21 SWELLING OF THROAT haloperidol [From Haldol] Allergy Unknown Verified 06/05/20 23:21 haloperidol lactate Allergy Unknown Verified 06/05/20 23:21 [From Haldol] lorazepam [From Ativan] Allergy Unknown Verified 06/05/20 23:21 alprazolam [From Xanax] AdvReac Unknown Verified 06/05/20 23:21 Review of Systems ROS Statement: Those systems with pertinent positive or pertinent negative responses have been documented in the HPI. ROS Other: All systems not noted in ROS Statement are negative. Constitutional: Denies: fever, chills, weakness Eyes: Denies: vision change Respiratory: Denies: cough, dyspnea, wheezes Cardiovascular: Reports: syncope (Possible syncope). Denies: chest pain, pa lpitations, orthopnea, edema Gastrointestinal: Denies: abdominal pain, nausea, vomiting, diarrhea Genitourinary: Reports: other (Incontinence). Denies: dysuria, hematuria Musculoskeletal: Reports: as per HPI, back pain Skin: Denies: rash Neurological: Denies: headache, weakness, numbness Past Medical History Past Medical History: Hypertension, Musculoskeletal Disorder, Neurologic Disorder, Prostate Disorder, Renal Disease Additional Past Medical History / Comment(s): parkinsons disease, nephrolithiasis, BPH,uti's , fall 2012 with skull fracture and subdural hematoma and L eardrum rupture, sinus problems on occasion.past stress test, lt sprain ankle d/t fall. History of Any Multi-Drug Resistant Organisms: None Reported Past Surgical History: Heart Catheterization, Hernia Repair Additional Past Surgical History / Comment(s): cystoscopy, L inguinal hernia repair., anat cataracts Past Anesthesia/Blood Transfusion Reactions: No Reported Reaction Past Psychological History: No Psychological Hx Reported Smoking Status: Never smoker Past Alcohol Use History: None Reported Past Drug Use History: None Reported - Past Family History Sister(s) Family Medical History: Cancer Mother Family Medical History: CVA/TIA, Diabetes Mellitus, Hypertension, Musculoskeletal Disorder, Neurologic Disorder Additional Family Medical History / Comment(s): Mother had parkinson's dx. Father Family Medical History: CVA/TIA General Exam Limitations: no limitations General appearance: alert, in no apparent distress Head exam: Present: atraumatic, normocephalic Eye exam: Present: normal appearance. Absent: scleral icterus, conjunctival injection Neck exam: Present: normal inspection, full ROM. Absent: tenderness Respiratory exam: Present: normal lung sounds bilaterally. Absent: respiratory distress, wheezes, rales, rhonchi, stridor, chest wall tenderness Cardiovascular Exam: Present: regular rate, normal rhythm, normal heart sounds. Absent: systolic murmur, diastolic murmur, rubs, gallop GI/Abdominal exam: Present: soft. Absent: distended, tenderness, guarding, rebound, rigid, mass Extremities exam: Present: normal inspection, normal capillary refill. Absent: pedal edema, calf tenderness Back exam: Present: normal inspection. Absent: CVA tenderness (R), CVA tenderness (L) Neurological exam: Present: alert, oriented X3, other (Cogwheel rigidity consistent with Parkinson's). Absent: motor sensory deficit Skin exam: Present: warm, dry, intact, normal color. Absent: rash Course Vital Signs 06/05/20 06/05/20 06/06/20 22:11 22:24 00:00 Temperature 98 F Pulse Rate 80 Respiratory 18 18 Rate Blood Pressure 125/72 150/88 Blood Pressure 106/74 [Sitting] Blood Pressure 70/52 [Standing] Blood Pressure 114/72 [Supine] O2 Sat by Pulse 98 Oximetry EKG Findings - EKG Comments: EKG Findings:: Similar to comparison ECG from December 2019. - EKG Results: EKG: interpreted by SHARON, sinus rhythm (Rate 64 bpm), normal ST/T - Blocks, [place], Hypertrophy, ST Abn: AV and intraventricular conduction: right bundle branch block (fixed/intermittent, complete/incomplete), left anterior fascicular block Medical Decision Making - Medical Decision Making 's patient is a 69-year-old man seen here for a fall with possible syncope. Patient's found to have urinary tract infection. Started antibiotics here and I discussed admission with him but he is refusing stating he'll go home and take the antibiotics and increase fluid intake. Discussed appropriate follow-up as well as return parameters. - Lab Data Result diagrams: 06/05/20 23:02 06/05/20 23:02 Lab Results 06/05/20 06/05/20 06/05/20 Range/Units 23:02 23:02 23:02 WBC 7.1 (3.8-10.6) k/uL RBC 4.55 (4.30-5.90) m/uL Hgb 13.1 (13.0-17.5) gm/dL Hct 40.2 (39.0-53.0) % MCV 88.2 (80.0-100.0) fL MCH 28.7 (25.0-35.0) pg MCHC 32.5 (31.0-37.0) g/dL RDW 16.2 H (11.5-15.5) % Plt Count 164 (150-450) k/uL MPV 7.8 Neutrophils % 80 % Lymphocytes % 12 % Monocytes % 5 % Eosinophils % 2 % Basophils % 0 % Neutrophils # 5.7 (1.3-7.7) k/uL Lymphocytes # 0.9 L (1.0-4.8) k/uL Monocytes # 0.4 (0-1.0) k/uL Eosinophils # 0.1 (0-0.7) k/uL Basophils # 0.0 (0-0.2) k/uL Anisocytosis Slight PT 10.6 (9.0-12.0) sec INR 1.0 (<1.2) APTT 22.9 (22.0-30.0) sec Sodium (137-145) mmol/L Potassium (3.5-5.1) mmol/L Chloride (98-107) mmol/L Carbon Dioxide (22-30) mmol/L Anion Gap mmol/L BUN (9-20) mg/dL Creatinine (0.66-1.25) mg/dL Est GFR (CKD-EPI)AfAm (>60 ml/min/1.73 sqM) Est GFR (CKD-EPI)NonAf (>60 ml/min/1.73 sqM) Glucose (74-99) mg/dL Calcium (8.4-10.2) mg/dL Magnesium (1.6-2.3) mg/dL Total Bilirubin (0.2-1.3) mg/dL AST (17-59) U/L ALT (4-49) U/L Alkaline Phosphatase (38-126) U/L Troponin I (0.000-0.034) ng/mL Total Protein (6.3-8.2) g/dL Albumin (3.5-5.0) g/dL Urine Color Yellow Urine Appearance Turbid (Clear) Urine pH 6.5 (5.0-8.0) Ur Specific [place] >1.050 H (1.001-1.035) Urine Protein 2+ H (Negative) Urine Glucose (UA) Negative (Negative) Urine Ketones Trace H (Negative) Urine Blood Moderate H (Negative) Urine Nitrite Negative (Negative) Urine Bilirubin Negative (Negative) Urine Urobilinogen <2.0 (<2.0) mg/dL Ur Leukocyte Esterase Large H (Negative) Urine RBC 158 H (0-5) /hpf Urine WBC >182 H (0-5) /hpf Urine WBC Clumps Many H (None) /hpf Hyaline Casts 55 H (0-2) /lpf Urine Mucus Few H (None) /hpf 06/05/20 06/05/20 Range/Units 23:02 23:02 WBC (3.8-10.6) k/uL RBC (4.30-5.90) m/uL Hgb (13.0-17.5) gm/dL Hct (39.0-53.0) % MCV (80.0-100.0) fL MCH (25.0-35.0) pg MCHC (31.0-37.0) g/dL RDW (11.5-15.5) % Plt Count (150-450) k/uL MPV Neutrophils % % Lymphocytes % % Monocytes % % Eosinophils % % Basophils % % Neutrophils # (1.3-7.7) k/uL Lymphocytes # (1.0-4.8) k/uL Monocytes # (0-1.0) k/uL Eosinophils # (0-0.7) k/uL Basophils # (0-0.2) k/uL Anisocytosis PT (9.0-12.0) sec INR (<1.2) APTT (22.0-30.0) sec Sodium 141 (137-145) mmol/L Potassium 4.5 (3.5-5.1) mmol/L Chloride 106 (98-107) mmol/L Carbon Dioxide 27 (22-30) mmol/L Anion Gap 8 mmol/L BUN 24 H (9-20) mg/dL Creatinine 1.35 H (0.66-1.25) mg/dL Est GFR (CKD-EPI)AfAm 61 (>60 ml/min/1.73 sqM) Est GFR (CKD-EPI)NonAf 52 (>60 ml/min/1.73 sqM) Glucose 106 H (74-99) mg/dL Calcium 9.2 (8.4-10.2) mg/dL Magnesium 2.1 (1.6-2.3) mg/dL Total Bilirubin 0.7 (0.2-1.3) mg/dL AST 16 L (17-59) U/L ALT 6 (4-49) U/L Alkaline Phosphatase 81 (38-126) U/L Troponin I <0.012 (0.000-0.034) ng/mL Total Protein 6.8 (6.3-8.2) g/dL Albumin 3.9 (3.5-5.0) g/dL Urine Color Urine Appearance (Clear) Urine pH (5.0-8.0) Ur Specific [place] (1.001-1.035) Urine Protein (Negative) Urine Glucose (UA) (Negative) Urine Ketones (Negative) Urine Blood (Negative) Urine Nitrite (Negative) Urine Bilirubin (Negative) Urine Urobilinogen (<2.0) mg/dL Ur Leukocyte Esterase (Negative) Urine RBC (0-5) /hpf Urine WBC (0-5) /hpf Urine WBC Clumps (None) /hpf Hyaline Casts (0-2) /lpf Urine Mucus (None) /hpf Disposition Clinical Impression: Urinary tract infection, Fall, Orthostatic hypotension Disposition: HOME SELF-CARE Condition: Good Instructions (If sedation given, give patient instructions): Urinary Tract Infection in Men (ED) Prescriptions: Ciprofloxacin HCl [Cipro] 500 mg PO Q12HR #14 tablet Is patient prescribed a controlled substance at d/c from ED?: No Referrals: Nancy Land MD [Primary Care Provider] - 1-2 days
--- NOTE | 2020-06-05 23:24 | XR ---
EXAMINATION TYPE: XR chest 1V portable DATE OF EXAM: 06/05/2020 COMPARISON: 01/01/2020 HISTORY: Syncope TECHNIQUE: FINDINGS: Heart and mediastinum are within normal limits. There are multiple old left-sided healed ri b fractures. There are no hilar masses. There is no pleural effusion. There is minimal blunting left costophrenic angle. IMPRESSION: There is mild pleural scarring on the left lateral chest wall and left lung base not lemon ged compared to old exam. No acute lung disease. Normal heart.
--- NOTE | 2020-06-05 23:47 | XR ---
EXAMINATION TYPE: XR lumbar spine 2 or 3V DATE OF EXAM: 06/05/2020 COMPARISON: NONE HISTORY: Fall. Pain. TECHNIQUE: 3 views FINDINGS: The lumbar vertebra have normal alignment. Posterior elements are intact. There is anterior spurring in the lumbar spine. There is no compression fracture. Sacroiliac joints are intact. IMPRESSION: Spondylotic multilevel changes. No fracture.
[2020-06-06 00:01] LABS: Anisocytosis Slight; Basophils % (A) 0 %; Eosinophils # (A) 0.1 k/uL (0-0.7); Eosinophils % (A) 2 %; HCT 40.2 % (39.0-53.0); HGB 13.1 gm/dL (13.0-17.5); Lymphocytes # (A) 0.9 k/uL (1.0-4.8); Lymphocytes % (A) 12 %; MCH 28.7 pg (25.0-35.0); MCHC 32.5 g/dL (31.0-37.0); MCV 88.2 fL (80.0-100.0); Mean Platelet Volume 7.8; Monocytes # (A) 0.4 k/uL (0-1.0); Monocytes % (A) 5 %; Neutrophils # (A) 5.7 k/uL (1.3-7.7); Neutrophils % (A) 80 %; Platelet Count 164 k/uL (150-450); RBC 4.55 m/uL (4.30-5.90); RDW 16.2 % (11.5-15.5); WBC 7.1 k/uL (3.8-10.6)
[2020-06-06 00:06] LABS: Appearance,Urine Turbid (Clear); Bilirubin,Urine Negative (Negative); Blood,Urine Moderate (Negative); Color,Urine Yellow; Glucose,Urine (UA) Negative (Negative); Hyaline Casts,Urine 55 /lpf (0-2); Ketones,Urine Trace (Negative); Leukocyte Esterase,Urine Large (Negative); Mucus,Urine Few /hpf; Nitrite,Urine Negative (Negative); PH, Urine 6.5 (5.0-8.0); Protein,Urine 2+ (Negative); RBC,Urine 158 /hpf (0-5); Urobilinogen,Urine <2.0 mg/dL (<2.0); WBC,Urine >182 /hpf (0-5)
[2020-06-06 00:07] LABS: Specific Gravity,Urine >1.050 (1.001-1.035)
[2020-06-06 00:10] LABS: Partial Thromboplastin Time 22.9 sec (22.0-30.0); Prothrombin Time 10.6 sec (9.0-12.0)
[2020-06-06] MEDS ORDERED: LEVOFLOXACIN 750 MG TAB PO STA (00:30)
[2020-06-06 00:39] LABS: Albumin 3.9 g/dL (3.5-5.0); Calcium 9.2 mg/dL (8.4-10.2); Magnesium 2.1 mg/dL (1.6-2.3); Potassium 4.5 mmol/L (3.5-5.1); Total Bilirubin 0.7 mg/dL (0.2-1.3); Total Protein 6.8 g/dL (6.3-8.2)
[2020-06-06 01:27] VITALS: BP 134/93; PULSE 76
== END 2020-06-06 01:45 | disposition home or self-care (01) ==
LOC: EC 22:08
DX: I95.1 Orthostatic hypotension (principal); N39.0 Urinary tract infection, site not specified; N40.0 Benign prostatic hyperplasia without lower urinary tract symptoms; I10 Essential (primary) hypertension; Z79.899 Other long term (current) drug therapy; Z88.0 Allergy status to penicillin; Z88.8 Allergy status to other drugs, medicaments and biological substances; Z91.048 Other nonmedicinal substance allergy status; Z95.5 Presence of coronary angioplasty implant and graft; Z98.42 Cataract extraction status, left eye; Z98.41 Cataract extraction status, right eye; W18.30XA Fall on same level, unspecified, initial encounter
CPT/HCPCS: 36415; 71045; 72100; 80053; 81001; 83735; 84484; 85025; 85610; 85730; 93005; 99284

== ENCOUNTER 2021-03-11 22:36 | Observation (INO) | payer MEDICARE, OTHER ==
[2021-03-11] MEDS ORDERED: NALOXONE 0.4 MG/ML 1 ML VIAL IV PRN (22:44)
[2021-03-11] MEDS ORDERED: ONDANSETRON 4 MG/2 ML VIAL IVP PRN (22:44)
[2021-03-11] MEDS ORDERED: SODIUM CHLORIDE 0.9% 1,000 ML IV STA (22:44)
[2021-03-11] MEDS ORDERED: MORPHINE SULFATE 4 MG/ML SYRINGE IV PRN (22:44)
--- NOTE | 2021-03-11 22:47 | ED ---
Syncope HPI - General Stated Complaint: Syncope Time Seen by Provider: 03/11/21 22:44 Source: RN notes reviewed, old records reviewed, Caregiver Mode of arrival: EMS Limitations: no limitations - History of Present Illness Initial Comments: This is a 70-year-old male who complains of being weak. Patient presents today feeling weak here in the emergency department. Patient did have a syncopal syncopal episode prior to arrival. Patient also complaining of some mild abdominal pain. No chest pain no headache no recent travel history sick contacts no fevers. No recent change in medications MD Complaint: loss of consciousness, collapsed -: minutes(s) Prodromal Symptoms: palpitations -: second(s) Witnessed: yes - by bystander Injuries Sustained Associated with Event: None Current Symptoms: lightheaded, weakness History: previous syncopal episode Context: at rest Treatments Prior to Arrival: none - Related Data Home Medications Medication Instructions Recorded Confirmed Carbidopa-Levodopa ER 50-200Mg 2 tab PO BID 03/20/15 03/11/21 [Sinemet CR 50-200 mg] amantadine HCL [Symmetrel] 100 mg PO BID 03/20/15 03/11/21 Tamsulosin HCl [Flomax] 0.4 mg PO DAILY 02/22/17 03/11/21 Ferrous Sulfate [Iron (65 MG 325 mg PO DAILY 03/11/21 03/11/21 Elemental)] Finasteride [Proscar] 5 mg PO HS 03/11/21 03/11/21 Previous Rx's Medication Instructions Recorded Aspirin 81 mg PO DAILY tab 03/13/21 Cefuroxime Axetil [Ceftin] 500 mg PO BID 14 Days #7 tab 03/13/21 Allergies Allergy/AdvReac Type Severity Reaction Status Date / Time adhesive tape Allergy Rash/Hives Verified 03/11/21 22:55 amoxicillin Allergy Dyspnea, Verified 03/11/21 22:55 SWELLING OF THROAT haloperidol [From Haldol] Allergy Unknown Verified 03/11/21 22:55 haloperidol lactate Allergy Unknown Verified 03/11/21 22:55 [From Haldol] lorazepam [From Ativan] Allergy Unknown Verified 03/11/21 22:55 alprazolam [From Xanax] AdvReac Unknown Verified 03/11/21 22:55 Review of Systems ROS Statement: Those systems with pertinent positive or pertinent negative responses have been documented in the HPI. ROS Other: All systems not noted in ROS Statement are negative. Past Medical History Past Medical History: Hypertension, Musculoskeletal Disorder, Neurologic Disorder, Prostate Disorder, Renal Disease Additional Past Medical History / Comment(s): parkinsons disease, nephrolith iasis, BPH,uti's , fall 2013 with skull fracture and subdural hematoma and L eardrum rupture, sinus problems on occasion.past stress test, lt sprain ankle d/t fall. History of Any Multi-Drug Resistant Organisms: None Reported Past Surgical History: Heart Catheterization, Hernia Repair Additional Past Surgical History / Comment(s): cystoscopy, L inguinal hernia repair., anat cataracts Past Anesthesia/Blood Transfusion Reactions: No Reported Reaction Past Psychological History: No Psychological Hx Reported Smoking Status: Never smoker Past Alcohol Use History: None Reported Past Drug Use History: None Reported - Past Family History Sister(s) Family Medical History: Cancer Mother Family Medical History: CVA/TIA, Diabetes Mellitus, Hypertension, Musculoskeletal Disorder, Neurologic Disorder Additional Family Medical History / Comment(s): Mother had parkinson's dx. Father Family Medical History: CVA/TIA General Exam General appearance: alert, in no apparent distress Head exam: Present: atraumatic, normocephalic, normal inspection Eye exam: Present: normal appearance, PERRL, EOMI. Absent: scleral icterus, conjunctival injection, periorbital swelling ENT exam: Present: normal exam, mucous membranes moist Neck exam: Present: normal inspection. Absent: tenderness, meningismus, lymphadenopathy Respiratory exam: Present: normal lung sounds bilaterally. Absent: respiratory distress, wheezes, rales, rhonchi, stridor Cardiovascular Exam: Present: regular rate, normal rhythm, normal heart sounds. Absent: systolic murmur, diastolic murmur, rubs, gallop, clicks GI/Abdominal exam: Present: soft, normal bowel sounds. Absent: distended, tenderness, guarding, rebound, rigid Extremities exam: Present: normal inspection, full ROM, normal capillary refill. Absent: tenderness, pedal edema, joint swelling, calf tenderness Back exam: Present: normal inspection Neurological exam: Present: alert, oriented X3, CN II-XII intact Psychiatric exam: Present: normal affect, normal mood Skin exam: Present: warm, dry, intact, normal color. Absent: rash Course Vital Signs 12/10/2303/12/21 03/12/21 22:42 04:21 06:28 Temperature 97.6 F 98.9 F Pulse Rate 87 72 67 Respiratory 18 18 18 Rate Blood Pressure 115/72 99/50 111/62 O2 Sat by Pulse 96 96 95 Oximetry 03/12/21 11:00 Temperature Pulse Rate 71 Respiratory 18 Rate Blood Pressure 110/72 O2 Sat by Pulse 97 Oximetry - Reevaluation(s) Reevaluation #1: Medical record is reviewed Patient symptoms are significantly improved here in the ER Patient informed results and questions answered Medical Decision Making - Medical Decision Making 70 male D to the emergency department F for evaluation of weakness found of urinary tract infection, syncopal event with fall. Imaging is negative. Patient will be admitted for monitoring of syncope and treatment of UTI - Lab Data Result diagrams: 03/12/21 03:23 03/13/21 06:37 - Radiology Data Radiology results: report reviewed (CT brain C-spine, chest and pelvis x-ray are negative for traumatic injury), image reviewed Disposition Clinical Impression: Weakness, Syncope, Urinary tract infection Disposition: ADMITTED IP TO THIS HOSP Condition: Stable Is patient prescribed a controlled substance at d/c from ED?: No
[2021-03-11] MEDS: SODIUM CHLORIDE 0.9% 1,000 ML IV SCH (23:07)
[2021-03-12] MEDS ORDERED: SODIUM CHLORIDE 0.9% 1,000 ML IV ONE (03:22)
[2021-03-12] MEDS ORDERED: SODIUM CHLORIDE 0.9% 500 ML 500 ML IV ONE (03:22)
[2021-03-12] MEDS ORDERED: AZITHROMYCIN 500 MG TAB PO ONE (03:30)
[2021-03-12 03:37] LABS: Basophils % (A) 0 %; Eosinophils # (A) 0.1 k/uL (0-0.7); Eosinophils % (A) 2 %; HCT 39.6 % (39.0-53.0); HGB 13.1 gm/dL (13.0-17.5); Lymphocytes % (A) 17 %; MCH 31.8 pg (25.0-35.0); MCV 96.3 fL (80.0-100.0); Mean Platelet Volume 8.1; Monocytes # (A) 0.5 k/uL (0-1.0); Monocytes % (A) 8 %; Neutrophils # (A) 4.2 k/uL (1.3-7.7); Neutrophils % (A) 72 %; Platelet Count 141 k/uL (150-450); RBC 4.11 m/uL (4.30-5.90); RDW 13.1 % (11.5-15.5); WBC 5.9 k/uL (3.8-10.6)
[2021-03-12 03:52] LABS: Albumin 3.4 g/dL (3.5-5.0); Calcium 8.5 mg/dL (8.4-10.2); Magnesium 2.1 mg/dL (1.6-2.3); Phosphorus 3.2 mg/dL (2.5-4.5); Potassium 4.5 mmol/L (3.5-5.1); Total Bilirubin 0.7 mg/dL (0.2-1.3); Total Protein 6.1 g/dL (6.3-8.2)
[2021-03-12 03:56] LABS: ALT <6 U/L (4-49); AST 15 U/L (17-59); African American GFR (CKD) 65 (>60 ml/min/1.73 sqM); Albumin 3.1 g/dL (3.5-5.0); Alkaline Phosphatase 69 U/L (38-126); Anion Gap 7 mmol/L; Blood Urea Nitrogen 24 mg/dL (9-20); Calcium 8.3 mg/dL (8.4-10.2); Carbon Dioxide 24 mmol/L (22-30); Chloride 108 mmol/L (98-107); Glucose 136 mg/dL (74-99); Magnesium 2.2 mg/dL (1.6-2.3); Non-African American GFR(CKD) 56 (>60 ml/min/1.73 sqM); Phosphorus 3.4 mg/dL (2.5-4.5); Potassium 4.3 mmol/L (3.5-5.1); Sodium 139 mmol/L (137-145); Total Bilirubin 0.7 mg/dL (0.2-1.3); Total Protein 5.9 g/dL (6.3-8.2)
[2021-03-12 04:08] LABS: Partial Thromboplastin Time 25.1 sec (22.0-30.0); Prothrombin Time 10.6 sec (9.0-12.0)
[2021-03-12 04:16] LABS: Appearance,Urine Turbid (Clear); Bacteria,Urine Moderate /hpf; Bilirubin,Urine Negative (Negative); Blood,Urine Moderate (Negative); Color,Urine Yellow; Glucose,Urine (UA) Negative (Negative); Ketones,Urine Negative (Negative); Leukocyte Esterase,Urine Large (Negative); Nitrite,Urine Negative (Negative); Protein,Urine 2+ (Negative); RBC,Urine 14 /hpf (0-5); Specific Gravity,Urine 1.018 (1.001-1.035); Urobilinogen,Urine <2.0 mg/dL (<2.0); WBC,Urine >182 /hpf (0-5)
[2021-03-12] MEDS: SODIUM CHLORIDE 0.9% 1,000 ML IV SCH ×7 (04:19→20:54)
[2021-03-12 04:31] LABS: Basophils % (A) 0 %; Eosinophils # (A) 0.1 k/uL (0-0.7); Eosinophils % (A) 1 %; HCT 42.3 % (39.0-53.0); HGB 13.6 gm/dL (13.0-17.5); Lymphocytes # (A) 0.8 k/uL (1.0-4.8); Lymphocytes % (A) 10 %; MCHC 32.2 g/dL (31.0-37.0); MCV 96.3 fL (80.0-100.0); Mean Platelet Volume 7.8; Monocytes # (A) 0.3 k/uL (0-1.0); Monocytes % (A) 5 %; Neutrophils # (A) 6.3 k/uL (1.3-7.7); Neutrophils % (A) 83 %; Platelet Count 160 k/uL (150-450); RBC 4.39 m/uL (4.30-5.90); RDW 13.6 % (11.5-15.5); WBC 7.6 k/uL (3.8-10.6)
--- NOTE | 2021-03-12 07:09 | CT ---
EXAMINATION TYPE: CT cervical spine wo con DATE OF EXAM: 03/12/2021 COMPARISON: 01/21/2019 HISTORY: Fall CT DLP: 434.9 mGycm Automated exposure control for dose reduction was used. Images obtained from the skull base to T1 vertebra without contrast. Cervical vertebra have normal alignment. There is degenerative spurring throughout the cervical spine . There is some mild disc space narrowing at C3-4 C5-6 and C6-7 and C7-T1. There is multilevel mild h ypertrophic facet arthropathy. There is no compression fracture. There is no subluxation. Prevertebra l soft tissues are intact. Skull base is intact. There is normal aeration of the mastoid sinuses. IMPRESSION: Mild multilevel cervical spondylotic changes. No fracture. No change.
--- NOTE | 2021-03-12 09:56 | CT ---
EXAM: XR Chest, 1 View CLINICAL HISTORY: Fall TECHNIQUE: Frontal view of the chest. COMPARISON: No relevant prior studies available. FINDINGS: Lungs: Question mild prominence interstitium which may represent early interstitial edema versus infection. Pleural space: No pleural effusion or pneumothorax. Heart: Unremarkable. Mediastinum: Unremarkable. Bones/joints: Suspected remote rib fractures. No definite acute fracture identified. If there is clinical concern consider repeat imaging with BB-marker. IMPRESSION: Question mild prominence interstitium which may represent early interstitial edema versus infection.
--- NOTE | 2021-03-12 11:15 | P.CRDCN ---
History of Present Illness History of present illness: HISTORY OF PRESENTING ILLNESS This is a pleasant 70-year-old male past medical history significant for Parkinson's,mild nonobstructive coronary artery disease nonischemic cardiomyopathy with recovered EF, history of syncope, BPH, incontinence, UTIs, previous fall with skull fracture and subdural hematoma. He used to follow with Dr. Kenny last seen in 2018, does not follow with a supportability engineer currently. We have been asked to see in consultation for syncope. Patient presents to the emergency department 03/11/2021 with a syncopal episode yesterday. Yesterday evening around 7PM he was feeding his dog, he felt as if he was bending over too long, he states he stood up and then fell to the ground. Unknown specific downtime, he thinks it was only a couple minutes. He did have associated nausea and diaphoresis. He denies chest pain, shortness of breath, palpitations, abdominal pain, nausea, vomiting, fever, chills, cough, orthopnea or PND. Patient with recent medication changes, he started Terazosin 10mg nightly 2 days ago DIAGNOSTICS EKG reveals sinus rhythm HR 83, Right bundle branch block and left anterior fasicular block, Prior EKG with similar findings. In 2017 he had an abnormal Lexiscan stress test which revealed small apical ischemia. Cardiac catheterization in 2017 revealed Distal left main with mild non- obstructive disease, mildly impaired LV function with an EF 45% Repeat Echocardiogram 12/2017- EF 55-60%, trace mitral regurgitation, trace tricuspid regurgitation Chest xray- questionable prominence interstitium interstitial edema vs infection CT cervical spine, mild multilevel cervical spondylitic changes. No fracture. No change. Laboratory reviewed, troponin negative 3, sodium 139, potassium 4.3, P1 24, serum creatinine 1.27, d-dimer negative, WBC 5.9, hemoglobin 13.1, platelets 141, albumin 3.1 Current home medications include Terazosin 10mg nightly, Ferrous sulfate, Sinemet, Amantadine, Proscar, Flomax REVIEW OF SYSTEMS At the time of my exam: CONSTITUTIONAL: Denies fever or chills. +syncope CARDIOVASCULAR: Denies chest pain, shortness of breath, orthopnea, PND or palpitations. RESPIRATORY: Denies cough. GASTROINTESTINAL: Denies abdominal pain, diarrhea, constipation, nausea or vomiting. MUSCULOSKELETAL: Denies myalgias. NEUROLOGIC: Denies numbness, tingling, headache or weakness. ENDOCRINE: Denies fatigue, weight change, polydipsia or polyurina. GENITOURINARY: Denies burning, hematuria or urgency with micturation. HEMATOLOGIC: Denies history of anemia or bleeding. PHYSICAL EXAMINATION Blood pressure 111/62 HR 67, afebrile spO2 95% on 2 L nasal cannula CONSTITUTIONAL: No apparent distress. HEENT: Head is normocephalic. Pupils are equal, round. Sclerae anicteric. Mucous membranes of the mouth are dry on exam. No JVD. No carotid bruit. CHEST EXAMINATION: Lungs are clear bilaterally to auscultation. No chest wall tenderness is noted on palpation or with deep breathing. HEART EXAMINATION: Regular rate and rhythm. S1, S2 heard. No gallops or rub. ABDOMEN: Soft, nontender. Positive bowel sounds. EXTREMITIES: 2+ peripheral pulses, no lower extremity edema and no calf tenderness. tremors noted SKIN: warm, dry NEUROLOGIC EXAMINATION: Patient is awake, alert and oriented x3. ASSESSMENT Syncopal episode, likely vasovagal, and likely Terazosin medication started 2 days ago could be contributing History of Parkinsons Mild non-obstructive coronary artery disease History of nonischemic cardiomyopathy BPH Hypotension Acute on chronic kidney disease PLAN -Hold Terazosin medication at this time -Obtain 2D echocardiogram -IV fluids -Aspirin 81mg daily -Further recommendations based on clinical course Thank you kindly for this consultation. Nurse Practitioner note has been reviewed, I agree with a documented findings and plan of care. Patient was seen and examined. Past Medical History Past Medical History: Hypertension, Musculoskeletal Disorder, Neurologic Dis order, Prostate Disorder, Renal Disease Additional Past Medical History / Comment(s): parkinsons disease, nephrolithiasis, BPH,uti's , fall 2012 with skull fracture and subdural hematoma and L eardrum rupture, sinus problems on occasion.past stress test, lt sprain ankle d/t fall. History of Any Multi-Drug Resistant Organisms: None Reported Past Surgical History: Heart Catheterization, Hernia Repair Additional Past Surgical History / Comment(s): cystoscopy, L inguinal hernia repair., anat cataracts Past Anesthesia/Blood Transfusion Reactions: No Reported Reaction Past Psychological History: No Psychological Hx Reported Smoking Status: Never smoker Past Alcohol Use History: None Reported Past Drug Use History: None Reported - Past Family History Sister(s) Family Medical History: Cancer Mother Family Medical History: CVA/TIA, Diabetes Mellitus, Hypertension, Musculoskeletal Disorder, Neurologic Disorder Additional Family Medical History / Comment(s): Mother had parkinson's dx. Father Family Medical History: CVA/TIA Medications and Allergies Home Medications Medication Instructions Recorded Confirmed Type Carbidopa-Levodopa ER 50-200Mg 2 tab PO BID 03/20/15 03/11/21 History [Sinemet CR 50-200 mg] Terazosin HCl [Hytrin] 10 mg PO HS 03/20/15 03/11/21 History amantadine HCL [Symmetrel] 100 mg PO BID 03/20/15 03/11/21 History Tamsulosin HCl [Flomax] 0.4 mg PO DAILY 02/22/17 03/11/21 History Ferrous Sulfate [Feosol] 325 mg PO DAILY 03/11/21 03/11/21 History Finasteride [Proscar] 5 mg PO HS 03/11/21 03/11/21 History Allergies Allergy/AdvReac Type Severity Reaction Status Date / Time adhesive tape Allergy Rash/Hives Verified 03/11/21 22:55 amoxicillin Allergy Dyspnea, Verified 03/11/21 22:55 SWELLING OF THROAT haloperidol [From Haldol] Allergy Unknown Verified 03/11/21 22:55 haloperidol lactate Allergy Unknown Verified 03/11/21 22:55 [From Haldol] lorazepam [From Ativan] Allergy Unknown Verified 03/11/21 22:55 alprazolam [From Xanax] AdvReac Unknown Verified 03/11/21 22:55 Physical Exam Vitals: Vital Signs Temp Pulse Resp BP Pulse Ox 03/12/21 06:28 98.9 F 67 18 111/62 95 03/12/21 04:21 72 18 99/50 96 03/11/21 22:42 97.6 F 87 18 115/72 96 Intake and Output 03/11/21 03/12/21 03/12/21 22:59 06:59 14:59 Other: Weight 106.594 kg Results 03/12/21 03:23 03/12/21 03:23 Cardiac Enzymes 03/11/21 03/11/21 03/12/21 Range/Units 22:44 22:44 00:13 AST 17 (17-59) U/L Troponin I <0.012 <0.012 (0.000-0.034) ng/mL 03/12/21 03/12/21 Range/Units 03:23 03:23 AST 15 L (17-59) U/L Troponin I <0.012 (0.000-0.034) ng/mL Coagulation 03/11/21 Range/Units 23:38 PT 10.6 (9.0-12.0) sec APTT 25.1 (22.0-30.0) sec CBC 03/11/21 03/12/21 Range/Units 23:35 03:23 WBC 7.6 5.9 (3.8-10.6) k/uL RBC 4.39 4.11 L (4.30-5.90) m/uL Hgb 13.6 13.1 (13.0-17.5) gm/dL Hct 42.3 39.6 (39.0-53.0) % Plt Count 160 141 L (150-450) k/uL Comprehensive Metabolic Panel 03/11/21 03/12/21 Range/Units 22:44 03:23 Sodium 139 139 (137-145) mmol/L Potassium 4.5 4.3 (3.5-5.1) mmol/L Chloride 107 108 H (98-107) mmol/L Carbon Dioxide 23 24 (22-30) mmol/L BUN 25 H 24 H (9-20) mg/dL Creatinine 1.34 H 1.27 H (0.66-1.25) mg/dL Glucose 180 H 136 H (74-99) mg/dL Calcium 8.5 8.3 L (8.4-10.2) mg/dL AST 17 15 L (17-59) U/L ALT 7 <6 (4-49) U/L Alkaline Phosphatase 76 69 (38-126) U/L Total Protein 6.1 L 5.9 L (6.3-8.2) g/dL Albumin 3.4 L 3.1 L (3.5-5.0) g/dL Current Medications Generic Name Dose Route Start Last Admin Trade Name Freq PRN Reason Stop Dose Admin Sodium Chloride 1,000 mls @ 130 mls/hr 03/11/21 22:45 03/12/21 06:28 Saline 0.9% IV Not Given .Q7H42M ASHLYN Sodium Chloride 1,000 mls @ 150 mls/hr 03/12/21 03:30 03/12/21 04:19 Saline 0.9% IV 150 mls/hr .Q6H40M ASHLYN Administration Ceftriaxone Sodium 1 gm/ 50 mls @ 100 mls/hr 03/12/21 18:00 Sodium Chloride IVPB Q12H ASHLYN Morphine Sulfate 4 mg 03/11/21 22:44 Morphine Sulfate 4 Mg/Ml Syringe IV Q4HR PRN Severe Pain Naloxone HCl 0.2 mg 03/11/21 22:44 Naloxone 0.4 Mg/Ml 1 Ml Vial IV Q2M PRN Opioid Reversal Ondansetron HCl 4 mg 03/11/21 22:44 Ondansetron 4 Mg/2 Ml Vial IVP Q8HR PRN Nausea And Vomiting Intake and Output 03/11/21 03/12/21 03/12/21 22:59 06:59 14:59 Other: Weight 106.594 kg 03/12/21 03:23 03/12/21 03:23
[2021-03-12] MEDS: ASPIRIN 81 MG PO SCH (12:05)
--- NOTE | 2021-03-12 12:38 | P.HPIM ---
History of Present Illness H&P Date: 03/12/21 Chief Complaint: Syncope, UTI This is a 70-year-old male patient of Dr. Land. Patient presented to the ER with concerns of syncopal episode. Patient reports around 7 PM yesterday he was bending over to feed his dogs and stood up and passed out. Patient denies any recent illness. Patient denies any associated chest pain nausea or vomiting. Patient reports that he recently had medication change and was started on Terazozin 10 mg nightly 2 days ago. Patient does have a past medical history of Parkinson's disease, coronary artery disease with nonischemic cardiomyopathy, BPH, UTIs and previous fall with skull fracture and subdural hematoma. CT of the cervical spine completed showing mild multilevel cervical spondylitic changes no fracture no change. CT of head, pelvic x-ray and chest x-ray appear to be pending. Patient was found to have urinary tract infection. Patient also has acute kidney injury creatinine slightly elevated at 1.34 and bun 25. COVID-19 negative. At this time cardiology services have been consulted. Patient started on IV Rocephin. 2-D echo ordered. Carotid Doppler will be ordered. Patient's home medication of Terzosin held Review of Systems Please refer to HPI otherwise unremarkable Past Medical History Past Medical History: Hypertension, Musculoskeletal Disorder, Neurologic Disorder, Prostate Disorder, Renal Disease Additional Past Medical History / Comment(s): parkinsons disease, nephrolithiasis, BPH,uti's , fall 2012 with skull fracture and subdural hematoma and L eardrum rupture, sinus problems on occasion.past stress test, lt sprain ankle d/t fall. History of Any Multi-Drug Resistant Organisms: None Reported Past Surgical History: Heart Catheterization, Hernia Repair Additional Past Surgical History / Comment(s): cystoscopy, L inguinal hernia repair., anat cataracts Past Anesthesia/Blood Transfusion Reactions: No Reported Reaction Past Psychological History: No Psychological Hx Reported Smoking Status: Never smoker Past Alcohol Use History: None Reported Past Drug Use History: None Reported - Past Family History Sister(s) Family Medical History: Cancer Mother Family Medical History: CVA/TIA, Diabetes Mellitus, Hypertension, Musculoskeletal Disorder, Neurologic Disorder Additional Family Medical History / Comment(s): Mother had parkinson's dx. Father Family Medical History: CVA/TIA Medications and Allergies Home Medications Medication Instructions Recorded Confirmed Type Carbidopa-Levodopa ER 50-200Mg 2 tab PO BID 03/20/15 03/11/21 History [Sinemet CR 50-200 mg] Terazosin HCl [Hytrin] 10 mg PO HS 03/20/15 03/11/21 History amantadine HCL [Symmetrel] 100 mg PO BID 03/20/15 03/11/21 History Tamsulosin HCl [Flomax] 0.4 mg PO DAILY 02/22/17 03/11/21 History Ferrous Sulfate [Feosol] 325 mg PO DAILY 03/11/21 03/11/21 History Finasteride [Proscar] 5 mg PO HS 03/11/21 03/11/21 History Allergies Allergy/AdvReac Type Severity Reaction Status Date / Time adhesive tape Allergy Rash/Hives Verified 03/11/21 22:55 amoxicillin Allergy Dyspnea, Verified 03/11/21 22:55 SWELLING OF THROAT haloperidol [From Haldol] Allergy Unknown Verified 03/11/21 22:55 haloperidol lactate Allergy Unknown Verified 03/11/21 22:55 [From Haldol] lorazepam [From Ativan] Allergy Unknown Verified 03/11/21 22:55 alprazolam [From Xanax] AdvReac Unknown Verified 03/11/21 22:55 Physical Exam Vitals: Vital Signs Temp Pulse Resp BP Pulse Ox 03/12/21 11:00 71 18 110/72 97 03/12/21 06:28 98.9 F 67 18 111/62 95 03/12/21 04:21 72 18 99/50 96 03/11/21 22:42 97.6 F 87 18 115/72 96 Intake and Output 03/11/21 03/12/21 03/12/21 22:59 06:59 14:59 Other: Weight 106.594 kg Head normocephalic Neck supple Lungs clear to auscultation bilaterally no wheezing or crackles Heart regular rate and rhythm S1-S2, no rub or gallop Abdomen is soft nontender nondistended positive bowel sounds no hepatosplenomegaly Extremities no edema Neuro alert and orientated to 3 Results CBC & Chem 7: 03/12/21 03:23 03/12/21 03:23 Labs: Abnormal Lab Results - Last 24 Hours (Table) 03/11/21 03/11/21 03/12/21 Range/Units 22:44 23:35 02:27 RBC (4.30-5.90) m/uL Plt Count (150-450) k/uL Lymphocytes # 0.8 L (1.0-4.8) k/uL Chloride (98-107) mmol/L BUN 25 H (9-20) mg/dL Creatinine 1.34 H (0.66-1.25) mg/dL Glucose 180 H (74-99) mg/dL Calcium (8.4-10.2) mg/dL AST (17-59) U/L Total Protein 6.1 L (6.3-8.2) g/dL Albumin 3.4 L (3.5-5.0) g/dL Urine Protein 2+ H (Negative) Urine Blood Moderate H (Negative) Ur Leukocyte Esterase Large H (Negative) Urine RBC 14 H (0-5) /hpf Urine WBC >182 H (0-5) /hpf Urine WBC Clumps Many H (None) /hpf Urine Bacteria Moderate H (None) /hpf 03/12/21 03/12/21 Range/Units 03:23 03:23 RBC 4.11 L (4.30-5.90) m/uL Plt Count 141 L (150-450) k/uL Lymphocytes # (1.0-4.8) k/uL Chloride 108 H (98-107) mmol/L BUN 24 H (9-20) mg/dL Creatinine 1.27 H (0.66-1.25) mg/dL Glucose 136 H (74-99) mg/dL Calcium 8.3 L (8.4-10.2) mg/dL AST 15 L (17-59) U/L Total Protein 5.9 L (6.3-8.2) g/dL Albumin 3.1 L (3.5-5.0) g/dL Urine Protein (Negative) Urine Blood (Negative) Ur Leukocyte Esterase (Negative) Urine RBC (0-5) /hpf Urine WBC (0-5) /hpf Urine WBC Clumps (None) /hpf Urine Bacteria (None) /hpf Microbiology - Last 24 Hours (Table) 03/12/21 02:27 Urine Culture - Preliminary Urine,Voided Assessment and Plan Assessment: 1. Syncopal episode 2. Urinary tract infection 3. Acute kidney injury 4. History of Parkinson's disease 5. History of BPH. Patient recently started on Terazosin. This medication currently on hold DVT prophylaxis Lovenox. GI prophylaxis Protonix Cardiology service is consulted Patient maintained on IV antibiotic for urinary tract infection Continue IV fluid for acute kidney injury Carotid Doppler and 2-D echo ordered Chest x-ray and pelvic ultrasound pending Repeat labs in a.m. Time with Patient: Greater than 30 (Greater than 60% of the total time spent in counseling and coordination of care)
--- NOTE | 2021-03-12 14:32 | US ---
EXAMINATION TYPE: US carotid duplex BILAT DATE OF EXAM: 03/12/2021 COMPARISON: CLINICAL HISTORY: syncopal episode. Poor historian EXAM MEASUREMENTS: RIGHT: Peak Systolic Velocity (PSV) cm/sec ----- Right CCA: 87.1 ----- Right ICA: 85.3 ----- Right ECA: 127.9 ICA/CCA ratio: 1.0 RIGHT: End Diastole cm/sec ----- Right CCA: 27.3 ----- Right ICA: 19.3 ----- Right ECA: 17.5 LEFT: Peak Systolic Velocity (PSV) cm/sec ----- Left CCA: 90.5 ----- Left ICA: 112.9 ----- Left ECA: 100.4 ICA/CCA ratio: 1.2 LEFT: End Diastole cm/sec ----- Left CCA: 19.3 ----- Left ICA: 17.6 ----- Left ECA: 16.3 VERTEBRALS (direction of flow): Right Vertebral: Antegrade Left Vertebral: Antegrade Rhythm: Normal Bilateral wall thickening. Plaque in bilateral bulbs. Slightly elevated left proximal CCA. No sign ificant stenosis. IMPRESSION: Atheromatous plaquing bilateral carotid bifurcation appears worse on the left. However, no velocity elevation is evidence suggest significant flow-limiting stenosis. Criteria for Assigning % of Stenosis / Diameter reduction (Estimation based on the indirect measurements of the internal carotid artery velocities (ICA PSV). 1. Normal (no stenosis)=ICA PSV < 125 cm/s: ratio < 2.0: ICA EDV<40 cm/s. 2. Less than 50% stenosis=ICA PSV < 125 cm/s: ratio < 2.0: ICA EDV<40 cm/s. 3. 50 to 69% stenosis=ICA PSV of 125 to 230 cm/s: ration 2.0 ? 4.0: ICA EDV 40-100 cm/s. 4. Greater than 70% stenosis to near occlusion= ICA PSV > 230 cm/s: ratio > 4.0: ICA EDV > 100 cm/s. 5. Near occlusion= ICA PSV velocities may be low or undetectable: variable ratio and ICA EDV. 6. Total occlusion=unable to detect flow.
[2021-03-12] MEDS: CARBIDOPA-LEVODOPA ER 50-200MG 1 EACH TABLET.ER PO SCH (20:52)
[2021-03-12] MEDS ORDERED: FINASTERIDE 5 MG TAB PO SCH (21:00)
[2021-03-13] MEDS: SODIUM CHLORIDE 0.9% 1,000 ML IV SCH ×2 (02:27→06:01)
[2021-03-13] MEDS ORDERED: PANTOPRAZOLE 40 MG TABLET PO SCH (07:30)
[2021-03-13] MEDS: ASPIRIN 81 MG PO SCH (08:16)
[2021-03-13] MEDS: CARBIDOPA-LEVODOPA ER 50-200MG 1 EACH TABLET.ER PO SCH (08:16)
[2021-03-13] MEDS ORDERED: ENOXAPARIN 40 MG/0.4 ML SYRINGE SQ SCH (09:00)
[2021-03-13] MEDS ORDERED: TAMSULOSIN 0.4 MG CAP.ER.24H PO SCH (09:00)
[2021-03-13] MEDS ORDERED: FERROUS SULFATE 325 MG TAB PO SCH (12:00)
[2021-03-13 12:28] LABS: Chol/HDL Ratio 4.98 Ratio; LDL Cholesterol,Calculated 84.5 mg/dL (0.0-131.0)
--- NOTE | 2021-03-13 12:42 | XR ---
EXAM: XR Pelvis, 1 or 2 Views CLINICAL HISTORY: Fall TECHNIQUE: Frontal view of the pelvis. COMPARISON: No relevant prior studies available. FINDINGS: Bones/joints: No acute fracture or traumatic malalignment. Degenerative changes of the spine and both hips. Soft tissues: Unremarkable. Vasculature: Phleboliths within the pelvis. IMPRESSION: No acute findings in the pelvis.
[2021-03-13 12:59] LABS: ALT <5 U/L (10-49); AST 17 U/L (14-35); African American GFR (CKD) 91.6 (60.0-200.0); Albumin 3.2 g/dL (3.8-4.9); Albumin/Globulin Ratio 1.45 (1.60-3.17); Alkaline Phosphatase 73 U/L (41-126); BUN/Creat Ratio 14.85 Ratio (12.00-20.00); Blood Urea Nitrogen 14.2 mg/dL (9.0-27.0); Carbon Dioxide 20.3 mmol/L (20.0-27.5); Chloride 109 mmol/L (96-109); Globulin 2.2 g/dL (1.6-3.3); Glucose 96 mg/dL (70-110); Potassium 4.5 mmol/L (3.5-5.5); Sodium 139 mmol/L (135-145); Total Protein 5.5 g/dL (6.2-8.2)
--- NOTE | 2021-03-13 13:09 | ECHOF ---
Referral Reason:LV function MEASUREMENTS -------- HEIGHT: 182.9 cm WEIGHT: 106.6 kg BP: IVSd: 1.0 cm (0.6 - 1.1) LVIDd: 4.5 cm (3.9 - 5.3) LVPWd: 1.1 cm (0.6 - 1.1) EDV(Teich): 91 ml IVSs: 1.6 cm LVIDs: 3.2 cm LVPWs: 1.5 cm %IVS Thck: 58 % ESV(Teich): 41 ml EF(Teich): 55 % %FS: 29 % SV(Teich): 51 ml LA Diam: 3.7 cm (2.7 - 3.8) RVIDd: 4.0 cm (< 3.3) Ao Diam: 3.8 cm (2.0 - 3.7) MV E Velasquez: 0.64 m/s MV DecT: 267 ms MV Dec Schley: 2.4 m/s MV A Velasquez: 0.80 m/s MV E/A Ratio: 0.81 MV PHT: 77 ms FINDINGS -------- Sinus rhythm. This was a technically adequate study. The left ventricular size is normal. Overall left ventricular systolic function is low-normal with, an EF between 50 - 55 %. The right ventricle is mildly enlarged. The left atrial size is normal. The right atrial size is normal. There is mild aortic valve sclerosis. Mild mitral regurgitation is present. Mild tricuspid regurgitation present. Right ventricular systolic pressure is normal at < 35 mmHg. The pulmonic valve was not well visualized. Echo free space represents a pericardial fat pad. CONCLUSIONS -------- 1. The left ventricular size is normal. 2. Overall left ventricular systolic function is low-normal with, an EF between 50 - 55 %. 3. The right ventricle is mildly enlarged. 4. The left atrial size is normal. 5. The right atrial size is normal. 6. There is mild aortic valve sclerosis. 7. Mild mitral regurgitation is present. 8. Mild tricuspid regurgitation present. 9. The pulmonic valve was not well visualized. 10. Echo free space represents a pericardial fat pad. SECURITY SYSTEM SALES CONSULTANT: Hanna Barnett RDCS
[2021-03-13 13:12] VITALS: BMI 31.8
--- NOTE | 2021-03-13 14:00 | P.PN ---
Subjective HISTORY OF PRESENTING ILLNESS This is a pleasant 70-year-old male past medical history significant for Parkinson's,mild nonobstructive coronary artery disease nonischemic cardiomyopathy with recovered EF, history of syncope, BPH, incontinence, UTIs, previous fall with skull fracture and subdural hematoma. He used to follow with Dr. Kenny last seen in 2018, does not follow with a receiving worker currently. We have been asked to see in consultation for syncope. Patient presents to the emergency department 03/11/2021 with a syncopal episode yesterday. Yesterday evening around 7PM he was feeding his dog, he felt as if he was bending over too long, he states he stood up and then fell to the ground. Unknown specific downtime, he thinks it was only a couple minutes. He did have associated nausea and diaphoresis. He denies chest pain, shortness of breath, palpitations, abdominal pain, nausea, vomiting, fever, chills, cough, orthopnea or PND. Patie nt with recent medication changes, he started Terazosin 10mg nightly 2 days ago DIAGNOSTICS EKG reveals sinus rhythm HR 83, Right bundle branch block and left anterior fasicular block, Prior EKG with similar findings. In 2017 he had an abnormal Lexiscan stress test which revealed small apical isc hemia. Cardiac catheterization in 2017 revealed Distal left main with mild non- obstructive disease, mildly impaired LV function with an EF 45% Repeat Echocardiogram 12/2017- EF 55-60%, trace mitral regurgitation, trace tricuspid regurgitation Chest xray- questionable prominence interstitium interstitial edema vs infection CT cervical spine, mild multilevel cervical spondylitic changes. No fracture. No change. Current home medications include Terazosin 10mg nightly, Ferrous sulfate, Sinemet, Amantadine, Proscar, Flomax 03/13/2021: Patient seen at bedside, no acute distress. Denies any chest pain, shortness of breath, lightheadedness or dizziness. Telemetry reviewed patient sinus mechanism, heart rate 70s80s. Laboratory data reviewed. He's currently mainta ined on aspirin 81 mg daily, amantadine, Sinemet. Echocardiogram obtained and reviewed. PHYSICAL EXAMINATION Vitals reviewed CONSTITUTIONAL: No apparent distress. HEENT: Neck Supple. No JVD CHEST EXAMINATION: Lungs are clear bilaterally to auscultation. HEART EXAMINATION: Regular rate and rhythm. S1, S2 heard. No gallops or rub. ABDOMEN: Soft, nontender. Positive bowel sounds. EXTREMITIES: 2+ peripheral pulses, no lower extremity edema and no calf tenderness. tremors noted NEUROLOGIC EXAMINATION: Patient is awake, alert and oriented x3. ASSESSMENT Syncopal episode, likely vasovagal, and likely Terazosin medication started 2 days ago could be contributing History of Parkinsons Mild non-obstructive coronary artery disease History of nonischemic cardiomyopathy BPH Hypotension Acute on chronic kidney disease PLAN -Recommend to continue holding Terazosin medication at this time -Echocardiogram completed reveals ejection fraction of 5055 percent, mild mitral regurgitation, mild tricuspid rotation, no significant wall motion abnormalities. -Continue Aspirin 81mg daily -From cardiology perspective, patient is stable. Recommend follow up with Dr. Kenny as an outpatient to monitor blood pressure further and start medication if needed due to patient having hypotension on admission. -We will follow the patient as needed. Please reach out with any further questions or concerns. Nurse Practitioner note has been reviewed, I agree with a documented findings and plan of care. Patient was seen and examined. Objective - Vital Signs Vital signs: Vital Signs Temp 97.8 F 03/13/21 07:00 Pulse 68 03/13/21 07:00 Resp 18 03/13/21 08:00 BP 158/82 03/13/21 07:00 Pulse Ox 95 03/13/21 07:00 Intake & Output 03/12/21 03/13/21 03/13/21 18:59 06:59 18:59 Intake Total 180 400 118 Balance 180 400 118 Weight 106.594 kg 106.594 kg Intake: Oral 180 400 118 Other: Voiding Method Toilet Urinal # Voids 2 - Labs CBC & Chem 7: 03/12/21 03:23 03/13/21 06:37 Labs: Abnormal Lab Results - Last 24 Hours (Table) 03/13/21 Range/Units 06:37 Anion Gap 9.60 L (10.00-18.00) mmol/L Calcium 8.0 L (8.7-10.3) mg/dL ALT <5 L (10-49) U/L Total Protein 5.5 L (6.2-8.2) g/dL Albumin 3.2 L (3.8-4.9) g/dL Albumin/Globulin Ratio 1.45 L (1.60-3.17) g/dL HDL Cholesterol 26.30 L (40.00-60.00) mg/dL Microbiology - Last 24 Hours (Table) 03/12/21 02:27 Urine Culture - Preliminary Urine,Voided
[2021-03-13 15:48] VITALS: BP 172/95; PULSE 75; RESP 20; TEMP 97.5
[2021-03-14 16:52] LABS: C. trachomatis,PCR Equivocal (Neg,Equiv); Chlamydia trachomatis Source Urine; N. gonorrhoeae,PCR Equivocal (Neg,Equiv); Neisseria Source Urine
--- NOTE | 2021-03-19 12:34 | P.DS ---
Providers Date of admission: 03/11/21 22:44 Expected date of discharge: 03/13/21 Attending physician: Rose Fernandez Consults: 03/11/21 22:45 Consult Physician Routine Consulting Provider: Manjula Farrar Consult Reason/Comments: syncope Do you want consulting provider notified?: Yes Primary care physician: Nancy Land Hospital Course: Diagnosis on discharge: 1. Syncopal episode 2. Urinary tract infection 3. Acute kidney injury 4. History of Parkinson's disease 5. History of BPH. Patient recently started on Terazosin. This medication currently on hold Hospital course: This is a 70-year-old male patient of Dr. Land. Patient presented to the ER with concerns of syncopal episode. Patient reports around 7 PM yesterday he was bending over to feed his dogs and stood up and passed out. Patient denies any recent illness. Patient denies any associated chest pain nausea or vomiting. Patient reports that he recently had medication change and was started on Terazozin 10 mg nightly 2 days ago. Patient does have a past medical history of Parkinson's disease, coronary artery disease with nonischemic cardiomyopathy, BPH, UTIs and previous fall with skull fracture and subdural hematoma. CT of the cervical spine completed showing mild multilevel cervical spondylitic changes no fracture no change. CT of head, pelvic x-ray and chest x-ray appear to be pending. Patient was found to have urinary tract infection. Patient also has acute kidney injury creatinine slightly elevated at 1.34 and bun 25. COVID- 19 negative. At this time cardiology services have been consulted. Patient started on IV Rocephin. 2-D echo ordered. Carotid Doppler will be ordered. Patient's home medication of Terzosin held On 03/13/2021 patient has been cleared for discharge from cardiology standpoint. 2-D echo was completed showing EF of 50-55% reticulocyte medications continue aspirin and follow up with cardiology services for further monitoring of blood pressure. Patient lost be DC'd on Ceftin for urinary tract infection. Patient to follow-up with PCP and cardiology services for further management Patient Condition at Discharge: Stable Plan - Discharge Summary New Discharge Prescriptions: New Aspirin 81 mg PO DAILY tab Cefuroxime Axetil [Ceftin] 500 mg PO BID 14 Days #7 tab Continue amantadine HCL [Symmetrel] 100 mg PO BID Carbidopa-Levodopa ER 50-200Mg [Sinemet CR 50-200 mg] 2 tab PO BID Tamsulosin HCl [Flomax] 0.4 mg PO DAILY Finasteride [Proscar] 5 mg PO HS Ferrous Sulfate [Iron (65 MG Elemental)] 325 mg PO DAILY Discontinued Terazosin HCl [Hytrin] 10 mg PO HS Discharge Medication List Carbidopa-Levodopa ER 50-200Mg [Sinemet CR 50-200 mg] 2 tab PO BID 03/20/15 [History] amantadine HCL [Symmetrel] 100 mg PO BID 03/20/15 [History] Tamsulosin HCl [Flomax] 0.4 mg PO DAILY 02/22/17 [History] Ferrous Sulfate [Iron (65 MG Elemental)] 325 mg PO DAILY 03/11/21 [History] Finasteride [Proscar] 5 mg PO HS 03/11/21 [History] Aspirin 81 mg PO DAILY tab 03/13/21 [Rx] Cefuroxime Axetil [Ceftin] 500 mg PO BID 14 Days #7 tab 03/13/21 [Rx] Follow up Appointment(s)/Referral(s): Nancy Land MD [Primary Care Provider] - 1-2 days Michael Kenny MD [STAFF PHYSICIAN] - 03/18/21 10:15 am Patient Instructions/Handouts: Urinary Tract Infection in Men (GEN), Syncope (GEN), Weakness (GEN) Discharge Disposition: HOME SELF-CARE
== END 2021-03-13 15:57 | disposition home or self-care (01) ==
LOC: EC 22:36 → 6NMEDSUR 22:44
PROVIDERS: ADMIT Internal Medicine; ATTEND Internal Medicine
DX: R55 Syncope and collapse (principal); N39.0 Urinary tract infection, site not specified; N17.9 Acute kidney failure, unspecified; I12.9 Hypertensive chronic kidney disease with stage 1 through stage 4 chronic kidney disease, or unspecified chronic kidney disease; N18.9 Chronic kidney disease, unspecified; I25.10 Atherosclerotic heart disease of native coronary artery without angina pectoris; I95.9 Hypotension, unspecified; N40.0 Benign prostatic hyperplasia without lower urinary tract symptoms; G20 Parkinson's disease; I45.10 Unspecified right bundle-branch block; I42.8 Other cardiomyopathies; I34.0 Nonrheumatic mitral (valve) insufficiency; M47.812 Spondylosis without myelopathy or radiculopathy, cervical region; R53.1 Weakness; R11.0 Nausea; R61 Generalized hyperhidrosis; I67.2 Cerebral atherosclerosis; Z20.822 Contact with and (suspected) exposure to COVID-19; Z79.82 Long term (current) use of aspirin; Z79.899 Other long term (current) drug therapy; Z88.0 Allergy status to penicillin; Z88.8 Allergy status to other drugs, medicaments and biological substances; Z91.048 Other nonmedicinal substance allergy status; Z87.442 Personal history of urinary calculi; Z87.81 Personal history of (healed) traumatic fracture; Z98.42 Cataract extraction status, left eye; Z98.41 Cataract extraction status, right eye; Z87.820 Personal history of traumatic brain injury; Z87.828 Personal history of other (healed) physical injury and trauma; Z98.890 Other specified postprocedural states; Z83.3 Family history of diabetes mellitus; Z82.49 Family history of ischemic heart disease and other diseases of the circulatory system; Z82.3 Family history of stroke; Z82.0 Family history of epilepsy and other diseases of the nervous system
CPT/HCPCS: 96361 ×3; 96365; 96372; 99285; 93005; 93306; 85379; 83880; 80061; 80053 ×3; 83605; 83735 ×2; 84100 ×2; 84484 ×2; 85025 ×2; 85610; 85730; 81001; 87491; 87591; 87086; 87077; 87186; 87635; 72170; 71045; 93880; 72125; 70450; G0378 ×3; S0138; J0696 ×3; J1650

== ENCOUNTER 2021-10-29 13:11 | Inpatient (IN) | payer MEDICARE, OTHER ==
--- NOTE | 2021-10-29 13:26 | ED ---
Fall HPI - General Chief Complaint: Fall Stated Complaint: fall Time Seen by Provider: 10/29/21 13:11 Source: patient, EMS, RN notes reviewed Mode of arrival: EMS - History of Present Illness Initial Comments: 70-year-old male with a history of Parkinson's disease history of prostate cancer who apparently thought someone was in bed with her last night around 5:00 AM when he try to get a bed he did fall he landed floor on his left side until prior to EMS arrival. He was found have a temperature 101 orally he's had a cough unclear what type of phlegm he's been coughing up per paramedics she had crepitus and congestion and his lung exam. He initially had 80% plus on room a ir saturation. 4 L was 98%. He denies any head neck or back pain is only complaints is that of left shoulder pain. MD Complaint: fall - Related Data Home Medications Medication Instructions Recorded Confirmed Carbidopa-Levodopa ER 50-200Mg 2 tab PO BID 03/20/15 10/29/21 [Sinemet CR 50-200 mg] amantadine HCL [Symmetrel] 100 mg PO BID 03/20/15 10/29/21 Tamsulosin HCl [Flomax] 0.4 mg PO DAILY 02/22/17 10/29/21 Finasteride [Proscar] 5 mg PO HS 03/11/21 10/29/21 Cyclobenzaprine [Flexeril] 10 mg PO TID PRN 10/29/21 10/29/21 Ferrous Sulfate [Feosol] 325 mg PO DAILY 10/29/21 10/29/21 HYDROcodone/APAP 7.5-325MG [[place] 1 tab PO Q6HR PRN 10/29/21 10/29/21 7.5-325] Previous Rx's Medication Instructions Recorded Aspirin 81 mg PO DAILY tab 03/13/21 Allergies Allergy/AdvReac Type Severity Reaction Status Date / Time adhesive tape Allergy Rash/Hives Verified 10/29/21 13:59 amoxicillin Allergy Dyspnea, Verified 10/29/21 13:59 SWELLING OF THROAT haloperidol [From Haldol] Allergy Unknown Verified 10/29/21 13:59 haloperidol lactate Allergy Unknown Verified 10/29/21 13:59 [From Haldol] lorazepam [From Ativan] Allergy Unknown Verified 10/29/21 13:59 alprazolam [From Xanax] AdvReac Unknown Verified 10/29/21 13:59 Review of Systems ROS Statement: Those systems with pertinent positive or pertinent negative responses have been documented in the HPI. ROS Other: All systems not noted in ROS Statement are negative. Past Medical History Past Medical History: Hypertension, Musculoskeletal Disorder, Neurologic Disorder, Prostate Disorder, Renal Disease Additional Past Medical History / Comment(s): parkinsons disease, nephrolithiasis, BPH,uti's , fall 2012 with skull fracture and subdural hematoma and L eardrum rupture, sinus problems on occasion.past stress test, lt sprain ankle d/t fall. History of Any Multi-Drug Resistant Organisms: None Reported Past Surgical History: Heart Catheterization, Hernia Repair Additional Past Surgical History / Comment(s): cystoscopy, L inguinal hernia repair., anat cataracts Past Anesthesia/Blood Transfusion Reactions: No Reported Reaction Past Psychological History: No Psychological Hx Reported Smoking Status: Never smoker Past Alcohol Use History: None Reported Past Drug Use History: None Reported - Past Family History Sister(s) Family Medical History: Cancer Mother Family Medical History: CVA/TIA, Diabetes Mellitus, Hypertension, Musculoskeletal Disorder, Neurologic Disorder Additional Family Medical History / Comment(s): Mother had parkinson's dx. Father Family Medical History: CVA/TIA General Exam - General Exam Comments Initial Comments: This is a well-developed well-nourished awake alert oriented 2 male with a G [place] Coma Scale of 15 General appearance: alert, anxious Head exam: Present: other (Erythema seen to the left side of the face with the patient laid on the floor for many hours) Eye exam: Present: normal appearance, PERRL, EOMI. Absent: scleral icterus, conjunctival injection, periorbital swelling ENT exam: Present: mucous membranes dry Neck exam: Present: normal inspection, full ROM, other. Absent: tenderness, meningismus, lymphadenopathy Respiratory exam: Present: rhonchi, decreased breath sounds (No stridor JVD or bruits) Cardiovascular Exam: Present: regular rate, tachycardia GI/Abdominal exam: Present: soft, normal bowel sounds. Absent: distended, tenderness, guarding, rebound, rigid, bruit, pulsatile mass Rectal exam: Present: deferred Extremities exam: Present: full ROM, normal capillary refill, other (Tremor noted consistent with Parkinson's disease). Absent: normal inspection Back exam: Present: normal inspection Neurological exam: Present: alert, oriented X3, CN II-XII intact Psychiatric exam: Present: normal affect, normal mood Skin exam: Present: warm, dry, erythema (Erythema seen to the left face left shoulder left arm left chest wall no step-off or crepitation). Absent: normal color Course Vital Signs 10/29/21 10/29/21 10/29/21 13:15 13:50 14:58 Temperature 100.5 F H Pulse Rate 103 H 101 H 98 Respiratory 20 Rate Blood Pressure 174/108 154/98 173/97 O2 Sat by Pulse 100 97 97 Oximetry Medical Decision Making - Medical Decision Making Patient is demonstrated evidence of COVID-19 as well as rhabdomyolysis no fractures identified on x-rays no infiltrates. Additionally patient does have a elevated troponin. Patient will be admitted for inpatient evaluation treatment Dr. Fernandez - Lab Data Result diagrams: 10/29/21 13:27 10/29/21 13:27 Lab Results 10/29/21 10/29/21 10/29/21 Range/Units 13:27 13:27 13:27 WBC 7.0 (3.8-10.6) k/uL RBC 4.88 (4.30-5.90) m/uL Hgb 15.4 (13.0-17.5) gm/dL Hct 45.8 (39.0-53.0) % MCV 93.9 (80.0-100.0) fL MCH 31.6 (25.0-35.0) pg MCHC 33.6 (31.0-37.0) g/dL RDW 13.7 (11.5-15.5) % Plt Count 125 L (150-450) k/uL MPV 7.9 Neutrophils % 80 % Lymphocytes % 8 % Monocytes % 10 % Eosinophils % 0 % Basophils % 0 % Neutrophils # 5.6 (1.3-7.7) k/uL Lymphocytes # 0.5 L (1.0-4.8) k/uL Monocytes # 0.7 (0-1.0) k/uL Eosinophils # 0.0 (0-0.7) k/uL Basophils # 0.0 (0-0.2) k/uL Sodium 137 (137-145) mmol/L Potassium 4.5 (3.5-5.1) mmol/L Chloride 104 (98-107) mmol/L Carbon Dioxide 25 (22-30) mmol/L Anion Gap 8 mmol/L BUN 27 H (9-20) mg/dL Creatinine 1.77 H (0.66-1.25) mg/dL Est GFR (CKD-EPI)AfAm 44 (>60 ml/min/1.73 sqM) Est GFR (CKD-EPI)NonAf 38 (>60 ml/min/1.73 sqM) Glucose 102 H (74-99) mg/dL POC Glucose (mg/dL) (70-110) mg/dL POC Glu Biophysics Teacher ID Plasma Lactic Acid Boni 1.4 (0.7-2.0) mmol/L Calcium 8.1 L (8.4-10.2) mg/dL Magnesium 1.8 (1.6-2.3) mg/dL Total Bilirubin 0.9 (0.2-1.3) mg/dL AST 50 (17-59) U/L ALT 15 (4-49) U/L Alkaline Phosphatase 81 (38-126) U/L Ammonia <9 (<30) umol/L Creatine Kinase 1265 H* (55-170) U/L Troponin I (0.000-0.034) ng/mL NT-Pro-B Natriuret Pep pg/mL Total Protein 6.6 (6.3-8.2) g/dL Albumin 3.7 (3.5-5.0) g/dL Coronavirus (PCR) (Not Detectd) Influenza Type A RNA (Not Detectd) Influenza Type B (PCR) (Not Detectd) 10/29/21 10/29/21 10/29/21 Range/Units 13:27 13:27 13:47 WBC (3.8-10.6) k/uL RBC (4.30-5.90) m/uL Hgb (13.0-17.5) gm/dL Hct (39.0-53.0) % MCV (80.0-100.0) fL MCH (25.0-35.0) pg MCHC (31.0-37.0) g/dL RDW (11.5-15.5) % Plt Count (150-450) k/uL MPV Neutrophils % % Lymphocytes % % Monocytes % % Eosinophils % % Basophils % % Neutrophils # (1.3-7.7) k/uL Lymphocytes # (1.0-4.8) k/uL Monocytes # (0-1.0) k/uL Eosinophils # (0-0.7) k/uL Basophils # (0-0.2) k/uL Sodium (137-145) mmol/L Potassium (3.5-5.1) mmol/L Chloride (98-107) mmol/L Carbon Dioxide (22-30) mmol/L Anion Gap mmol/L BUN (9-20) mg/dL Creatinine (0.66-1.25) mg/dL Est GFR (CKD-EPI)AfAm (>60 ml/min/1.73 sqM) Est GFR (CKD-EPI)NonAf (>60 ml/min/1.73 sqM) Glucose (74-99) mg/dL POC Glucose (mg/dL) (70-110) mg/dL POC Glu Biophysics Teacher ID Plasma Lactic Acid Boni (0.7-2.0) mmol/L Calcium (8.4-10.2) mg/dL Magnesium (1.6-2.3) mg/dL Total Bilirubin (0.2-1.3) mg/dL AST (17-59) U/L ALT (4-49) U/L Alkaline Phosphatase (38-126) U/L Ammonia (<30) umol/L Creatine Kinase (55-170) U/L Troponin I 0.053 H* (0.000-0.034) ng/mL NT-Pro-B Natriuret Pep 2360 pg/mL Total Protein (6.3-8.2) g/dL Albumin (3.5-5.0) g/dL Coronavirus (PCR) (Not Detectd) Influenza Type A RNA Not Detected (Not Detectd) Influenza Type B (PCR) Not Detected (Not Detectd) 10/29/21 10/29/21 Range/Units 13:47 15:00 WBC (3.8-10.6) k/uL RBC (4.30-5.90) m/uL Hgb (13.0-17.5) gm/dL Hct (39.0-53.0) % MCV (80.0-100.0) fL MCH (25.0-35.0) pg MCHC (31.0-37.0) g/dL RDW (11.5-15.5) % Plt Count (150-450) k/uL MPV Neutrophils % % Lymphocytes % % Monocytes % % Eosinophils % % Basophils % % Neutrophils # (1.3-7.7) k/uL Lymphocytes # (1.0-4.8) k/uL Monocytes # (0-1.0) k/uL Eosinophils # (0-0.7) k/uL Basophils # (0-0.2) k/uL Sodium (137-145) mmol/L Potassium (3.5-5.1) mmol/L Chloride (98-107) mmol/L Carbon Dioxide (22-30) mmol/L Anion Gap mmol/L BUN (9-20) mg/dL Creatinine (0.66-1.25) mg/dL Est GFR (CKD-EPI)AfAm (>60 ml/min/1.73 sqM) Est GFR (CKD-EPI)NonAf (>60 ml/min/1.73 sqM) Glucose (74-99) mg/dL POC Glucose (mg/dL) 105 (70-110) mg/dL POC Glu Biophysics Teacher ID Joyce Colon Plasma Lactic Acid Boni (0.7-2.0) mmol/L Calcium (8.4-10.2) mg/dL Magnesium (1.6-2.3) mg/dL Total Bilirubin (0.2-1.3) mg/dL AST (17-59) U/L ALT (4-49) U/L Alkaline Phosphatase (38-126) U/L Ammonia (<30) umol/L Creatine Kinase (55-170) U/L Troponin I (0.000-0.034) ng/mL NT-Pro-B Natriuret Pep pg/mL Total Protein (6.3-8.2) g/dL Albumin (3.5-5.0) g/dL Coronavirus (PCR) Detected A (Not Detectd) Influenza Type A RNA (Not Detectd) Influenza Type B (PCR) (Not Detectd) - EKG Data -: EKG Interpreted by Sd EKG Comments: Sinus tachycardia rate of 100. Interval 175 QRS duration 142 QT since QTC 329/386 red bundle-branch block pattern with anterior fascicular block. - Radiology Data Radiology results: report reviewed (Imaging reviewed as well as report no evidence of acute infiltrates), image reviewed Disposition Clinical Impression: COVID-19, Febrile illness, acute, Rhabdomyolysis, Dehydration, Fall Disposition: ADMITTED IP TO THIS [facility] Condition: Fair Referrals: Nancy Land MD [Primary Care Provider] - 1-2 days Decision Date: 10/29/21 Decision Time: 15:00
[2021-10-29 13:52] LABS: Basophils % (A) 0 %; Eosinophils % (A) 0 %; HCT 45.8 % (39.0-53.0); HGB 15.4 gm/dL (13.0-17.5); Lymphocytes # (A) 0.5 k/uL (1.0-4.8); Lymphocytes % (A) 8 %; MCH 31.6 pg (25.0-35.0); MCHC 33.6 g/dL (31.0-37.0); MCV 93.9 fL (80.0-100.0); Mean Platelet Volume 7.9; Monocytes # (A) 0.7 k/uL (0-1.0); Monocytes % (A) 10 %; Neutrophils # (A) 5.6 k/uL (1.3-7.7); Neutrophils % (A) 80 %; Platelet Count 125 k/uL (150-450); RBC 4.88 m/uL (4.30-5.90); RDW 13.7 % (11.5-15.5)
[2021-10-29 13:59] LABS: Lactic Acid, Venous 1.4 mmol/L (0.7-2.0)
[2021-10-29 14:01] LABS: Albumin 3.7 g/dL (3.5-5.0); Calcium 8.1 mg/dL (8.4-10.2); Magnesium 1.8 mg/dL (1.6-2.3); Total Bilirubin 0.9 mg/dL (0.2-1.3); Total Protein 6.6 g/dL (6.3-8.2)
[2021-10-29 14:10] LABS: Potassium 4.5 mmol/L (3.5-5.1)
--- NOTE | 2021-10-29 14:26 | XR ---
EXAMINATION TYPE: XR shoulder complete LT DATE OF EXAM: 10/29/2021 COMPARISON: NONE chest x-ray 03/12/2021, shoulder 12/17/2017 HISTORY: Pain TECHNIQUE: Shoulder examined in 3 FINDINGS: The humeral head articulates with the glenoid. There is narrowing of the joint space compatible with osteoarthritic degenerative change. Acromioclavicular joint is hypertrophied and both superiorly and inferiorly. No acute fractures or dislocations are evident. Known scapular tip fracture is evident A follow up study can be performed 7-10 days from acute trauma for continued pain. IMPRESSION: 1. No acute osseous abnormality left shoulder 2. Degenerative osteoarthritic change left shoulder
--- NOTE | 2021-10-29 14:28 | XR ---
EXAMINATION TYPE: XR chest 2V DATE OF EXAM: 10/29/2021 COMPARISON: 03/12/2021 INDICATION: Cough with fever TECHNIQUE: Single frontal view of the chest is obtained. FINDINGS: The heart size is normal. The pulmonary vasculature is normal. The lungs are clear. Old left rib fractures are evident IMPRESSION: 1. No acute pulmonary process.
[2021-10-29 15:01] LABS: Glucose,Whole Blood 105 mg/dL (70-110)
[2021-10-29] MEDS ORDERED: ONDANSETRON 4 MG/2 ML VIAL IVP PRN (15:14)
[2021-10-29] MEDS ORDERED: NALOXONE 0.4 MG/ML 1 ML VIAL IV PRN (15:14)
[2021-10-29] MEDS ORDERED: HYDROcodone/APAP 7.5-325MG 1 EACH TAB PO PRN (15:17)
[2021-10-29] MEDS ORDERED: CYCLOBENZAPRINE 10 MG TAB PO PRN (15:17)
[2021-10-29] MEDS: SODIUM CHLORIDE 0.9% 1,000 ML IV SCH ×2 (16:18→22:50)
[2021-10-29] MEDS ORDERED: hydrALAZINE HCL 20 MG/ML 1 ML VIAL IVP PRN (18:00)
[2021-10-29] MEDS: ACETAMINOPHEN TAB 325 MG TAB PO PRN (20:03)
--- NOTE | 2021-10-29 20:24 | US ---
EXAMINATION TYPE: US kidneys/renal and bladder DATE OF EXAM: 10/29/2021 COMPARISON: CT & US 2019 CLINICAL HISTORY: Acute kidney injury, history of kidney stones. EXAM MEASUREMENTS: Right Kidney: 13.8 x 7.5 x 7.1 cm Left Kidney: 11.9 x 6.5 x 5.4 cm Difficult and limited study due to patient body habitus and shaking during exam Right Kidney: hydronephrosis /dilation similar appearance from 05/03/2019. Left Kidney: wnl Bladder: not fully distended, appears wnl as seen IMPRESSION: Mild right hydronephrosis not significantly changed from 05/03/2019.
[2021-10-29] MEDS: FINASTERIDE 5 MG TAB PO SCH (20:29)
[2021-10-29] MEDS: CARBIDOPA-LEVODOPA ER 50-200MG 1 EACH TABLET.ER PO SCH (20:30)
[2021-10-30 04:44] LABS: Appearance,Urine Cloudy (Clear); Bacteria,Urine Few /hpf; Bilirubin,Urine Negative (Negative); Blood,Urine Moderate (Negative); Color,Urine Yellow; Glucose,Urine (UA) Negative (Negative); Hyaline Casts,Urine 1 /lpf (0-2); Ketones,Urine Trace (Negative); Leukocyte Esterase,Urine Large (Negative); Nitrite,Urine Positive (Negative); Protein,Urine 1+ (Negative); RBC,Urine 6 /hpf (0-5); Specific Gravity,Urine 1.019 (1.001-1.035); Urobilinogen,Urine <2.0 mg/dL (<2.0); WBC,Urine >182 /hpf (0-5)
[2021-10-30] MEDS: SODIUM CHLORIDE 0.9% 1,000 ML IV SCH ×2 (06:28→23:15)
[2021-10-30] MEDS: ASPIRIN 81 MG PO SCH (07:41)
[2021-10-30] MEDS: FERROUS SULFATE 325 MG TAB PO SCH (07:41)
[2021-10-30] MEDS: TAMSULOSIN 0.4 MG CAP.ER.24H PO SCH (07:41)
[2021-10-30] MEDS: CARBIDOPA-LEVODOPA ER 50-200MG 1 EACH TABLET.ER PO SCH ×2 (07:41→21:32)
[2021-10-30 09:26] LABS: African American GFR (CKD) 42.6 (60.0-200.0); Albumin 3.1 g/dL (3.8-4.9); Albumin/Globulin Ratio 1.29 (1.60-3.17); BUN/Creat Ratio 14.39 Ratio (12.00-20.00); Blood Urea Nitrogen 25.9 mg/dL (9.0-27.0); Calcium 7.8 mg/dL (8.7-10.3); Globulin 2.4 g/dL (1.6-3.3); Non-African American GFR(CKD) 36.8 (60.0-200.0); Potassium 4.1 mmol/L (3.5-5.5); Total Bilirubin 0.4 mg/dL (0.30-1.20); Total Protein 5.5 g/dL (6.2-8.2)
--- NOTE | 2021-10-30 09:32 | P.CRDCN ---
History of Present Illness Consult date: 10/30/21 History of present illness: CHIEF COMPLAINT: Abnormal troponins HISTORY OF PRESENT ILLNESS: This is a 70-year-old male with a past medical history significant for Parkinson's disease. Patient follows in the office with Dr. Kenny. We have been asked to see the patient in consultation for abnormal troponins. Patient examined at the bedside. Patient apparently presented to the hospital after sustaining a fall at home. Patient was found to be positive for Covid. Patient was also febrile on admission. Patient was noted to be hypoxic on admission with an oxygen saturation in the 80s. Patient denies any chest pain or pressure. Denies shortness of breath. Vital signs are stable. * EKG reveals sinus tachycardia. Left anterior fascicular block. Right bundle branch block. * Chest xray negative for acute process * Laboratory data: WBC 7.0. Hemoglobin 15.4. Pleasant, 125. Sodium 137. Potassium 4.5. BUN 27. Creatinine 1.77. Magnesium 1.8. Creatinine kinase 1265. Troponin 0.053. 0.054. 0.056. * Current home cardiac medications include aspirin 81 mg daily * Most recent echocardiogram obtained in March 2021 revealed ejection fraction 50-55%, mild MR, mild TR REVIEW OF SYSTEMS: Thorough review of systems not completed secondary to limited evaluation/examination due to Covid19 PHYSICAL EXAM: Thorough physical exam not completed secondary to limited evaluation/examination due to Covid19 ASSESSMENT: S/P Fall Acute hypoxic respiratory failure Acute Covid 19 Mild rhabdomyolysis Acute kidney injury Fever Abnormal troponins, not suggestive of acute coronary syndrome, likely secondary to acute kidney injury and infectious process History of Parkinson's disease PLAN: Troponin levels are not indicative of ACS. Patient with no complaints of chest pain or pressure. Will defer echo at this time. May be completed after his recovery from Covid No further inpatient recommendations from a cardiac standpoint Patient may follow up outpatient with Dr. Kenny We will sign off. Please reconsult if needed. Nurse practitioner note has been reviewed by physician. Signing provider agrees with the documented findings, assessment, and plan of care. Past Medical History Past Medical History: Hypertension, Musculoskeletal Disorder, Neurologic Disorder, Prostate Disorder, Renal Disease Additional Past Medical History / Comment(s): parkinsons disease, nephrolithiasis, BPH,uti's , fall 2013 with skull fracture and subdural hematoma and L eardrum rupture, sinus problems on occasion.past stress test, lt sprain ankle d/t fall. History of Any Multi-Drug Resistant Organisms: None Reported Past Surgical History: Heart Catheterization, Hernia Repair Additional Past Surgical History / Comment(s): cystoscopy, L inguinal hernia repair., anat cataracts Past Anesthesia/Blood Transfusion Reactions: No Reported Reaction Past Psychological History: No Psychological Hx Reported Smoking Status: Never smoker Past Alcohol Use History: None Reported Past Drug Use History: None Reported - Past Family History Sister(s) Family Medical History: Cancer Mother Family Medical History: CVA/TIA, Diabetes Mellitus, Hypertension, Musculoskeletal Disorder, Neurologic Disorder Additional Family Medical History / Comment(s): Mother had parkinson's dx. Father Family Medical History: CVA/TIA Medications and Allergies Home Medications Medication Instructions Recorded Confirmed Type Carbidopa-Levodopa ER 50-200Mg 2 tab PO BID 03/20/15 10/29/21 History [Sinemet CR 50-200 mg] amantadine HCL [Symmetrel] 100 mg PO BID 03/20/15 10/29/21 History Tamsulosin HCl [Flomax] 0.4 mg PO DAILY 02/22/17 10/29/21 History Finasteride [Proscar] 5 mg PO HS 03/11/21 10/29/21 History Aspirin 81 mg PO DAILY tab 03/13/21 10/29/21 Rx Cyclobenzaprine [Flexeril] 10 mg PO TID PRN 10/29/21 10/29/21 History Ferrous Sulfate [Feosol] 325 mg PO DAILY 10/29/21 10/29/21 History HYDROcodone/APAP 7.5-325MG [[place] 1 tab PO Q6HR PRN 10/29/21 10/29/21 History 7.5-325] Allergies Allergy/AdvReac Type Severity Reaction Status Date / Time adhesive tape Allergy Rash/Hives Verified 10/29/21 13:59 amoxicillin Allergy Dyspnea, Verified 10/29/21 13:59 SWELLING OF THROAT haloperidol [From Haldol] Allergy Unknown Verified 10/29/21 13:59 haloperidol lactate Allergy Unknown Verified 10/29/21 13:59 [From Haldol] lorazepam [From Ativan] Allergy Unknown Verified 10/29/21 13:59 alprazolam [From Xanax] AdvReac Unknown Verified 10/29/21 13:59 Physical Exam Vitals: Vital Signs Temp Pulse Pulse Resp BP BP Pulse Ox 10/30/21 05:30 98.5 F 78 19 134/78 93 L 10/30/21 01:15 98.7 F 89 19 116/67 94 L 10/29/21 21:43 99.8 F H 10/29/21 21:15 98.0 F 17 121/74 94 L 10/29/21 21:00 24 10/29/21 20:32 100.7 F H 96 20 136/80 97 10/29/21 20:15 144/91 10/29/21 20:10 145/91 10/29/21 20:00 101.5 F H 94 22 138/100 97 10/29/21 19:34 99.5 F 172/104 95 10/29/21 19:00 98.9 F 92 20 173/112 97 10/29/21 18:28 98.8 F 92 22 164/107 96 10/29/21 17:43 99.9 F H 96 20 141/109 98 10/29/21 16:00 99.3 F 21 10/29/21 15:45 97 20 170/104 98 10/29/21 14:58 98 22 173/97 97 10/29/21 13:50 101 H 22 154/98 97 10/29/21 13:15 100.5 F H 103 H 20 174/108 100 Intake and Output 10/29/21 10/30/21 10/30/21 22:59 06:59 14:59 Other: Voiding Method External Catheter External Catheter # Voids 1 Weight 108.862 kg Results 10/29/21 13:27 10/29/21 13:27 Cardiac Enzymes 10/29/21 10/29/21 10/29/21 Range/Units 13:27 13:27 17:43 AST 50 (17-59) U/L Troponin I 0.053 H* 0.054 H* (0.000-0.034) ng/mL 10/29/21 Range/Units 20:55 AST (17-59) U/L Troponin I 0.056 H* (0.000-0.034) ng/mL CBC 10/29/21 Range/Units 13:27 WBC 7.0 (3.8-10.6) k/uL RBC 4.88 (4.30-5.90) m/uL Hgb 15.4 (13.0-17.5) gm/dL Hct 45.8 (39.0-53.0) % Plt Count 125 L (150-450) k/uL Comprehensive Metabolic Panel 10/29/21 Range/Units 13:27 Sodium 137 (137-145) mmol/L Potassium 4.5 (3.5-5.1) mmol/L Chloride 104 (98-107) mmol/L Carbon Dioxide 25 (22-30) mmol/L BUN 27 H (9-20) mg/dL Creatinine 1.77 H (0.66-1.25) mg/dL Glucose 102 H (74-99) mg/dL Calcium 8.1 L (8.4-10.2) mg/dL AST 50 (17-59) U/L ALT 15 (4-49) U/L Alkaline Phosphatase 81 (38-126) U/L Total Protein 6.6 (6.3-8.2) g/dL Albumin 3.7 (3.5-5.0) g/dL Current Medications Generic Name Dose Route Start Last Admin Trade Name Freq PRN Reason Stop Dose Admin Acetaminophen 650 mg 10/29/21 15:14 10/29/21 20:03 Acetaminophen Tab 325 Mg Tab PO 650 mg Q6HR PRN Administration Mild Pain or Fever > 100.5 Hydrocodone Bitart/Acetaminophen 1 each 10/29/21 15:17 Hydrocodone/Apap 7.5-325mg 1 Each Tab PO Q6HR PRN Pain Amantadine HCl 100 mg 10/29/21 21:00 10/30/21 07:41 Amantadine Hcl 100 Mg Cap PO 100 mg BID ASHLYN Administration Aspirin 81 mg 10/30/21 09:00 10/30/21 07:41 Aspirin 81 Mg PO 81 mg DAILY ASHLYN Administration Carbidopa/Levodopa 2 each 10/29/21 21:00 10/30/21 07:41 Carbidopa-Levodopa Er 50-200mg 1 Each Tablet.Er PO 2 each BID ASHLYN Administration Cyclobenzaprine HCl 10 mg 10/29/21 15:17 Cyclobenzaprine 10 Mg Tab PO TID PRN Muscle Spasm Ferrous Sulfate 325 mg 10/30/21 07:30 10/30/21 07:41 Ferrous Sulfate 325 Mg Tab PO 325 mg [id number] ASHLYN Administration Finasteride 5 mg 10/29/21 21:00 10/29/21 20:29 Finasteride 5 Mg Tab PO 5 mg HS ASHLYN Administration Sodium Chloride 1,000 mls @ 130 mls/hr 10/29/21 15:15 10/30/21 06:28 Saline 0.9% IV 130 mls/hr .Q7H42M ASHLYN Administration Naloxone HCl 0.2 mg 10/29/21 15:14 Naloxone 0.4 Mg/Ml 1 Ml Vial IV Q2M PRN Opioid Reversal Ondansetron HCl 4 mg 10/29/21 15:14 Ondansetron 4 Mg/2 Ml Vial IVP Q8HR PRN Nausea And Vomiting Tamsulosin HCl 0.4 mg 10/30/21 09:00 10/30/21 07:41 Tamsulosin 0.4 Mg Cap.Er.24h PO 0.4 mg DAILY ASHLYN Administration Intake and Output 10/29/21 10/30/21 10/30/21 22:59 06:59 14:59 Other: Voiding Method External Catheter External Catheter # Voids 1 Weight 108.862 kg 10/29/21 13:27 10/29/21 13:27
[2021-10-30 10:58] LABS: Basophils # (A) 0.01 X 10*3/uL (0.00-0.10); Basophils % (A) 0.2 %; Eosinophils # (A) 0 X 10*3/uL (0.04-0.35); Eosinophils % (A) 0 %; HGB 13.9 g/dL (13.0-17.0); Immature Grans, Automated 0.2 %; Lymphocytes # (A) 0.98 X 10*3/uL (0.90-5.00); Lymphocytes % (A) 19.7 %; MCH 29.6 pg (27.0-32.0); MCHC 31.6 g/dL (32.0-37.0); MCV 93.8 fL (80.0-97.0); Mean Platelet Volume 11.1 fL (9.5-12.2); Monocytes # (A) 0.96 X 10*3/uL (0.20-1.00); Monocytes % (A) 19.3 %; NRBC Per 100 WBC 0 /100 WBCS (0.0-0.0); Neutrophils # (A) 3.02 X 10*3/uL (1.80-7.70); Neutrophils % (A) 60.6 %; Platelet Count 110 X 10*3/uL (140-440); RBC 4.69 X 10*6/uL (4.40-5.60); RDW 13.9 % (11.5-14.5); WBC 4.98 X 10*3/uL (4.50-10.00)
[2021-10-30 10:59] LABS: RBC Morphology NORMAL
--- NOTE | 2021-10-30 10:59 | P.NPCON ---
History of Present Illness - Reason for Consult acute renal failure - History of Present Illness Reason for consultation: Acute kidney injury History of present illness: Patient is a 70-year-old male seen in renal consultation for acute kidney injury. Patient's creatinine in March 2021 was as low as 1.0. Retina and was elevated at 1.77 this admission yesterday and is stable at 1.8 today. Patient presented to the hospital after he sustained a fall. Patient states he was done about 5 hours when his roommate found him and called EMS. Patient's CK level was elevated at 1265. He did receive normal saline at 1 30 mL an hour overnight. He has an external catheter and is nonoliguric. Denies hematuria or dysuria. Denies use of nonsteroidals. No history of diabetes. No history of coronary artery disease. He denies fever. Does admit to a productive cough with brownish phlegm. He did test positive for coronavirus. He did have a fever of 100.5F this admission and as high as 101.5F as of yesterday evening. Currently on room air. Denies chest pain or shortness of breath. Vital signs are stable. General: Awake and alert. No acute distress. HEENT: Head exam is unremarkable. LUNGS: Breath sounds decreased. HEART: Rate and Rhythm are regular. ABDOMEN: Soft, no distention. EXTREMITITES: No edema. Past Medical History Past Medical History: Hypertension, Musculoskeletal Disorder, Neurologic Disorder, Prostate Disorder, Renal Disease Additional Past Medical History / Comment(s): parkinsons disease, nephrolithiasis, BPH,uti's , fall 2012 with skull fracture and subdural hematoma and L eardrum rupture, sinus problems on occasion.past stress test, lt sprain ankle d/t fall. History of Any Multi-Drug Resistant Organisms: None Reported Past Surgical History: Heart Catheterization, Hernia Repair Additional Past Surgical History / Comment(s): cystoscopy, L inguinal hernia repair., anat cataracts Past Anesthesia/Blood Transfusion Reactions: No Reported Reaction Past Psychological History: No Psychological Hx Reported Smoking Status: Never smoker Past Alcohol Use History: None Reported Past Drug Use History: None Reported - Past Family History Sister(s) Family Medical History: Cancer Mother Family Medical History: CVA/TIA, Diabetes Mellitus, Hypertension, Musculoskeletal Disorder, Neurologic Disorder Additional Family Medical History / Comment(s): Mother had parkinson's dx. Father Family Medical History: CVA/TIA Medications and Allergies Home Medications Medication Instructions Recorded Confirmed Type Carbidopa-Levodopa ER 50-200Mg 2 tab PO BID 03/20/15 10/29/21 History [Sinemet CR 50-200 mg] amantadine HCL [Symmetrel] 100 mg PO BID 03/20/15 10/29/21 History Tamsulosin HCl [Flomax] 0.4 mg PO DAILY 02/22/17 10/29/21 History Finasteride [Proscar] 5 mg PO HS 03/11/21 10/29/21 History Aspirin 81 mg PO DAILY tab 03/13/21 10/29/21 Rx Cyclobenzaprine [Flexeril] 10 mg PO TID PRN 10/29/21 10/29/21 History Ferrous Sulfate [Feosol] 325 mg PO DAILY 10/29/21 10/29/21 History HYDROcodone/APAP 7.5-325MG [[place] 1 tab PO Q6HR PRN 10/29/21 10/29/21 History 7.5-325] Allergies Allergy/AdvReac Type Severity Reaction Status Date / Time adhesive tape Allergy Rash/Hives Verified 10/29/21 13:59 amoxicillin Allergy Dyspnea, Verified 10/29/21 13:59 SWELLING OF THROAT haloperidol [From Haldol] Allergy Unknown Verified 10/29/21 13:59 haloperidol lactate Allergy Unknown Verified 10/29/21 13:59 [From Haldol] lorazepam [From Ativan] Allergy Unknown Verified 10/29/21 13:59 alprazolam [From Xanax] AdvReac Unknown Verified 10/29/21 13:59 Physical Exam Vitals: Vital Signs Temp Pulse Pulse Resp BP BP Pulse Ox 10/30/21 08:00 99.0 F 81 17 96/52 92 L 10/30/21 05:30 98.5 F 78 19 134/78 93 L 10/30/21 01:15 98.7 F 89 19 116/67 94 L 10/29/21 21:43 99.8 F H 10/29/21 21:15 98.0 F 17 121/74 94 L 10/29/21 21:00 24 10/29/21 20:32 100.7 F H 96 20 136/80 97 10/29/21 20:15 144/91 10/29/21 20:10 145/91 10/29/21 20:00 101.5 F H 94 22 138/100 97 10/29/21 19:34 99.5 F 172/104 95 10/29/21 19:00 98.9 F 92 20 173/112 97 10/29/21 18:28 98.8 F 92 22 164/107 96 10/29/21 17:43 99.9 F H 96 20 141/109 98 10/29/21 16:00 99.3 F 21 10/29/21 15:45 97 20 170/104 98 10/29/21 14:58 98 22 173/97 97 10/29/21 13:50 101 H 22 154/98 97 10/29/21 13:15 100.5 F H 103 H 20 174/108 100 Intake and Output 10/29/21 10/30/21 10/30/21 22:59 06:59 14:59 Output Total 100 Balance -100 Output: Urine 100 Other: Voiding Method External Catheter External Catheter # Voids 1 Weight 108.862 kg Results - Lab Results Most recent lab results Calcium 7.8 mg/dL (8.7-10.3) L 10/30/21 03:31 Magnesium 2.0 mg/dL (1.5-2.4) 10/30/21 03:31 10/29/21 13:27 10/30/21 03:31 Assessment and Plan Plan: Assessment: 1. Acute kidney injury secondary to ATN secondary to COVID-19 infection. Creatinine stable at 1.8. Creatinine in March 2021 was as low as 1.0. Rule out obstructive uropathy. 2. Mild rhabdomyolysis secondary to fall. 3. UTI. Culture pending. 4. Acute hypoxic respiratory failure. Plan: Decreased rate of normal saline to 50 mL an hour. Encourage oral intake. Check renal ultrasound. Strict is and os. Bladder scan to make sure no urinary retention. Follow-up urine culture. Add doxycycline. Thank you for the consultation. I will continue to follow the patient with you during his hospital stay.
--- NOTE | 2021-10-30 11:25 | P.CNPUL ---
History of Present Illness Consult date: 10/30/21 Requesting physician: Rose Fernandez Reason for consult: dyspnea, hypoxemia Chief complaint: Status post fall History of present illness: This is a 70-year-old male patient who follows with Dr. sanches as his primary care provider. He has a history of Parkinson's disease, hypertension, nephrolithiasis, BPH, previous fracture and subdermal hematoma in 2012. He is lifelong nonsmoker. He was brought into the emergency room yesterday after sustaining a fall and landing on the floor on his left side. He is found to be febrile with a temperature of 101. He is hypoxemic with initial O2 saturation 80% on room air. He was brought in for the same. He is found to be COVID-19 positive. Left shoulder x-ray revealed no fracture. Chest x-ray reveals no acute pulmonary process. EKG revealed sinus rhythm with a right bundle-branch block. Ultrasound of the bladder revealed mild right hydronephrosis. Urine culture is pending. White count 4.9. Hemoglobin 13.9. Platelets 110. Sodium 138. Potassium 4.1. BUN 26. Creatinine 1.8. Creatinine kinase 1265. Troponin 0.05. ProBNP 2360. Current virus by PCR positive. Influenza screen negative. He was initiated on antibiotics in form of Vibramycin. Review of Systems REVIEW OF SYSTEMS: CONSTITUTIONAL: Generalized weakness. Status post fall. Denies any recent significant weight loss or weight gain. EYES: Denies change in vision. EARS, NOSE, MOUTH, THROAT: Denies headaches, denies sore throat. CARDIOVASCULAR: Denies chest pain, palpitations or syncopal episodes. RESPIRATORY: Denies shortness of breath, cough, congestion or hemoptysis. GASTROINTESTINAL: Denies change in appetite, denies abdominal pain GENITOURINARY: Denies hematuria, denies infections. MUSKULOSKELETAL: Denies pain, denies swelling. INTEGUMENTARY: Denies rash, denies eczema. NEUROLOGICAL: Denies recent memory loss, no recent seizure activity. PSYCHIATRIC: Denies anxiety, denies depression. HEMATOLOGIC/LYMPHATIC: Denies anemia, denies enlarged lymph nodes. Past Medical History Past Medical History: Hypertension, Musculoskeletal Disorder, Neurologic Disorder, Prostate Disorder, Renal Disease Additional Past Medical History / Comment(s): parkinsons disease, neph rolithiasis, BPH,uti's , fall 2012 with skull fracture and subdural hematoma and L eardrum rupture, sinus problems on occasion.past stress test, lt sprain ankle d/t fall. History of Any Multi-Drug Resistant Organisms: None Reported Past Surgical History: Heart Catheterization, Hernia Repair Additional Past Surgical History / Comment(s): cystoscopy, L inguinal hernia repair., anat cataracts Past Anesthesia/Blood Transfusion Reactions: No Reported Reaction Past Psychological History: No Psychological Hx Reported Smoking Status: Never smoker Past Alcohol Use History: None Reported Past Drug Use History: None Reported - Past Family History Sister(s) Family Medical History: Cancer Mother Family Medical History: CVA/TIA, Diabetes Mellitus, Hypertension, Musculoskeletal Disorder, Neurologic Disorder Additional Family Medical History / Comment(s): Mother had parkinson's dx. Father Family Medical History: CVA/TIA Medications and Allergies Home Medications Medication Instructions Recorded Confirmed Type Carbidopa-Levodopa ER 50-200Mg 2 tab PO BID 03/20/15 10/29/21 History [Sinemet CR 50-200 mg] amantadine HCL [Symmetrel] 100 mg PO BID 03/20/15 10/29/21 History Tamsulosin HCl [Flomax] 0.4 mg PO DAILY 02/22/17 10/29/21 History Finasteride [Proscar] 5 mg PO HS 03/11/21 10/29/21 History Aspirin 81 mg PO DAILY tab 03/13/21 10/29/21 Rx Cyclobenzaprine [Flexeril] 10 mg PO TID PRN 10/29/21 10/29/21 History Ferrous Sulfate [Feosol] 325 mg PO DAILY 10/29/21 10/29/21 History HYDROcodone/APAP 7.5-325MG [[place] 1 tab PO Q6HR PRN 10/29/21 10/29/21 History 7.5-325] Allergies Allergy/AdvReac Type Severity Reaction Status Date / Time adhesive tape Allergy Rash/Hives Verified 10/29/21 13:59 amoxicillin Allergy Dyspnea, Verified 10/29/21 13:59 SWELLING OF THROAT haloperidol [From Haldol] Allergy Unknown Verified 10/29/21 13:59 haloperidol lactate Allergy Unknown Verified 10/29/21 13:59 [From Haldol] lorazepam [From Ativan] Allergy Unknown Verified 10/29/21 13:59 alprazolam [From Xanax] AdvReac Unknown Verified 10/29/21 13:59 Physical Exam Vitals: Vital Signs Temp Pulse Pulse Resp BP BP Pulse Ox 10/30/21 08:00 99.0 F 81 17 96/52 92 L 10/30/21 05:30 98.5 F 78 19 134/78 93 L 10/30/21 01:15 98.7 F 89 19 116/67 94 L 10/29/21 21:43 99.8 F H 10/29/21 21:15 98.0 F 17 121/74 94 L 10/29/21 21:00 24 10/29/21 20:32 100.7 F H 96 20 136/80 97 10/29/21 20:15 144/91 10/29/21 20:10 145/91 10/29/21 20:00 101.5 F H 94 22 138/100 97 10/29/21 19:34 99.5 F 172/104 95 10/29/21 19:00 98.9 F 92 20 173/112 97 10/29/21 18:28 98.8 F 92 22 164/107 96 10/29/21 17:43 99.9 F H 96 20 141/109 98 10/29/21 16:00 99.3 F 21 10/29/21 15:45 97 20 170/104 98 10/29/21 14:58 98 22 173/97 97 10/29/21 13:50 101 H 22 154/98 97 10/29/21 13:15 100.5 F H 103 H 20 174/108 100 Intake and Output 10/29/21 10/30/21 10/30/21 22:59 06:59 14:59 Output Total 100 Balance -100 Output: Urine 100 Other: Voiding Method External Catheter External Catheter # Voids 1 Weight 108.862 kg GENERAL EXAM: Alert, pleasant 70-year-old male patient, on room air, comfortable in no apparent distress. HEAD: Normocephalic. EYES: Normal reaction of pupils, equal size. NOSE: Clear with pink turbinates. THROAT: No erythema or exudates. NECK: No masses, no JVD. CHEST: No chest wall deformity. LUNGS: Equal air entry with no crackles, wheeze, rhonchi or dullness. CVS: S1 and S2 normal with no audible murmur, regular rhythm. ABDOMEN: No hepatosplenomegaly, normal bowel sounds, no guarding or rigidity. SPINE: No scoliosis or deformity SKIN: No rashes CENTRAL NERVOUS SYSTEM: No focal deficits, tone is normal in all 4 extremities. EXTREMITIES: There is no peripheral edema. No clubbing, no cyanosis. Peripheral pulses are intact. Results - Laboratory Findings CBC and BMP: 10/30/21 03:31 10/30/21 03:31 Abnormal lab findings: Abnormal Labs 10/29/21 10/29/21 10/29/21 13:27 13:27 13:27 MCHC Plt Count 125 L Plt Count Comment Lymphocytes # 0.5 L Eosinophils # BUN 27 H Creatinine 1.77 H Est GFR (CKD-EPI)AfAm Est GFR (CKD-EPI)NonAf Glucose 102 H Calcium 8.1 L AST ALT Creatine Kinase 1265 H* Troponin I 0.053 H* Total Protein Albumin Albumin/Globulin Ratio Urine Protein Urine Ketones Urine Blood Ur Leukocyte Esterase Urine RBC Urine WBC Urine Bacteria Coronavirus (PCR) 10/29/21 10/29/21 10/29/21 13:47 17:43 20:55 MCHC Plt Count Plt Count Comment Lymphocytes # Eosinophils # BUN Creatinine Est GFR (CKD-EPI)AfAm Est GFR (CKD-EPI)NonAf Glucose Calcium AST ALT Creatine Kinase Troponin I 0.054 H* 0.056 H* Total Protein Albumin Albumin/Globulin Ratio Urine Protein Urine Ketones Urine Blood Ur Leukocyte Esterase Urine RBC Urine WBC Urine Bacteria Coronavirus (PCR) Detected A 10/30/21 10/30/21 10/30/21 03:31 03:31 04:15 MCHC 31.6 L Plt Count 110 L Plt Count Comment DECREASED A Lymphocytes # Eosinophils # 0 L BUN Creatinine 1.8 H Est GFR (CKD-EPI)AfAm 42.6 L Est GFR (CKD-EPI)NonAf 36.8 L Glucose Calcium 7.8 L AST 61 H ALT 7 L Creatine Kinase Troponin I Total Protein 5.5 L Albumin 3.1 L Albumin/Globulin Ratio 1.29 L Urine Protein 1+ H Urine Ketones Trace H Urine Blood Moderate H Ur Leukocyte Esterase Large H Urine RBC 6 H Urine WBC >182 H Urine Bacteria Few H Coronavirus (PCR) - Diagnostic Findings Chest x-ray: image reviewed Assessment and Plan Assessment: 1 Status post fall suspect secondary to generalized weakness and Parkinson's disease. 2 COVID-19 infection with no evidence of COVID-19 pneumonia. On room air. Not vaccinated 3 Febrile illness secondary to COVID-19 infection and urinary tract infection 4 Rhabdomyolysis secondary to fall 5 Mild troponin leak 6 Thrombocytopenia 7 History of Parkinson's disease 8 History of hypertension 9 History of BPH 10 History of fall with subdural hematoma in 2012 Plan: The patient was seen and evaluated Chest x-ray and labs reviewed No evidence of COVID-19 pneumonia Add vitamin supplements Continue doxycycline, urine culture pending We will continue to follow and make further recommendations based on his clinical status I have personally seen and examined the patient, performed the documentation and the assessment and plan as written. Number of minutes spent on the visit: 20.
[2021-10-30] MEDS: ASCORBIC ACID 500 MG TAB PO SCH ×2 (11:29→21:33)
[2021-10-30] MEDS: ZINC SULFATE 220 MG CAP PO SCH (11:29)
[2021-10-30] MEDS: CHOLECALCIFEROL 125 MCG (5000 IU) TABLET PO SCH (11:30)
[2021-10-30] MEDS: DOXYCYCLINE 100 MG CAP PO SCH ×2 (11:30→21:33)
--- NOTE | 2021-10-30 16:24 | P.HPIM ---
History of Present Illness H&P Date: 10/29/21 Caleb Riggins, he is a 70-year-old male who presented to [facility] emergency room with a chief complaint of back pain, patient had a fall at home he was down on the floor for about 5 hours He was evaluated in the emergency room vital examination on presentation revealed a temperature of 100.5 pulse 103 respiration 20 blood pressure 174/108 pulse ox 100% on room air Laboratory data revealed a white blood count of 7.0 hemoglobin 15.4 platelet count 125 sodium 137 potassium 4.5 chloride 104 CO2 25 BUN 27 creatinine 1.77, COVID-19 PCR was positive, troponin level was slightly elevated Testing in the emergency room revealed chest x-ray done in the emergency room revealed no acute pulmonary process Patient was admitted to medical floor for further evaluation and treatment Past Medical History Past Medical History: Hypertension, Musculoskeletal Disorder, Neurologic Disorder, Prostate Disorder, Renal Disease Additional Past Medical History / Comment(s): parkinsons disease, nephrolithiasis, BPH,uti's , fall 2012 with skull fracture and subdural hematoma and L eardrum rupture, sinus problems on occasion.past stress test, lt sprain ankle d/t fall. History of Any Multi-Drug Resistant Organisms: None Reported Past Surgical History: Heart Catheterization, Hernia Repair Additional Past Surgical History / Comment(s): cystoscopy, L inguinal hernia repair., anat cataracts Past Anesthesia/Blood Transfusion Reactions: No Reported Reaction Past Psychological History: No Psychological Hx Reported Smoking Status: Never smoker Past Alcohol Use History: None Reported Past Drug Use History: None Reported - Past Family History Sister(s) Family Medical History: Cancer Mother Family Medical History: CVA/TIA, Diabetes Mellitus, Hypertension, Musculoskeletal Disorder, Neurologic Disorder Additional Family Medical History / Comment(s): Mother had parkinson's dx. Father Family Medical History: CVA/TIA Medications and Allergies Home Medications Medication Instructions Recorded Confirmed Type Carbidopa-Levodopa ER 50-200Mg 2 tab PO BID 03/20/15 10/29/21 History [Sinemet CR 50-200 mg] amantadine HCL [Symmetrel] 100 mg PO BID 03/20/15 10/29/21 History Tamsulosin HCl [Flomax] 0.4 mg PO DAILY 02/22/17 10/29/21 History Finasteride [Proscar] 5 mg PO HS 03/11/21 10/29/21 History Aspirin 81 mg PO DAILY tab 03/13/21 10/29/21 Rx Cyclobenzaprine [Flexeril] 10 mg PO TID PRN 10/29/21 10/29/21 History Ferrous Sulfate [Feosol] 325 mg PO DAILY 10/29/21 10/29/21 History HYDROcodone/APAP 7.5-325MG [[place] 1 tab PO Q6HR PRN 10/29/21 10/29/21 History 7.5-325] Allergies Allergy/AdvReac Type Severity Reaction Status Date / Time adhesive tape Allergy Rash/Hives Verified 10/29/21 13:59 amoxicillin Allergy Dyspnea, Verified 10/29/21 13:59 SWELLING OF THROAT haloperidol [From Haldol] Allergy Unknown Verified 10/29/21 13:59 haloperidol lactate Allergy Unknown Verified 10/29/21 13:59 [From Haldol] lorazepam [From Ativan] Allergy Unknown Verified 10/29/21 13:59 alprazolam [From Xanax] AdvReac Unknown Verified 10/29/21 13:59 Physical Exam Vitals: Vital Signs Temp Pulse Resp BP Pulse Ox 10/29/21 17:43 99.9 F H 96 20 141/109 98 10/29/21 15:45 97 20 170/104 98 10/29/21 14:58 98 22 173/97 97 10/29/21 13:50 101 H 22 154/98 97 10/29/21 13:15 100.5 F H 103 H 20 174/108 100 Intake and Output 10/29/21 10/29/21 10/29/21 06:59 14:59 22:59 Other: Weight 108.862 kg In general patient is alert and oriented x 3 in no distress HEENT head normocephalic and atraumatic Neck is supple no JVD no goiter no lymphadenopathy no carotid bruit Chest examination is clear to auscultation no crackles no wheezing Cardiac exam reveals regular heart sounds S1 and S2 no gallops no murmurs Abdomen is soft nontender no organomegaly with normal bowel sounds Extremity exam reveals no edema no cyanosis or clubbing Neurological examination reveals no gross focal deficits Results CBC & Chem 7: 10/30/21 03:31 10/30/21 03:31 Labs: Abnormal Lab Results - Last 24 Hours (Table) 10/29/21 10/29/21 10/29/21 Range/Units 13:27 13:27 13:27 Plt Count 125 L (150-450) k/uL Lymphocytes # 0.5 L (1.0-4.8) k/uL BUN 27 H (9-20) mg/dL Creatinine 1.77 H (0.66-1.25) mg/dL Glucose 102 H (74-99) mg/dL Calcium 8.1 L (8.4-10.2) mg/dL Creatine Kinase 1265 H* (55-170) U/L Troponin I 0.053 H* (0.000-0.034) ng/mL Coronavirus (PCR) (Not Detectd) 10/29/21 Range/Units 13:47 Plt Count (150-450) k/uL Lymphocytes # (1.0-4.8) k/uL BUN (9-20) mg/dL Creatinine (0.66-1.25) mg/dL Glucose (74-99) mg/dL Calcium (8.4-10.2) mg/dL Creatine Kinase (55-170) U/L Troponin I (0.000-0.034) ng/mL Coronavirus (PCR) Detected A (Not Detectd) Assessment and Plan Plan: Fall at home with prolonged down to stay on the floor until EMS arrival Acute kidney injury Rhabdomyolysis Acute COVID-19 infection without evidence of pneumonia Hypertension with hypertensive urgency on presentation Febrile illness likely related to acute COVID-19 infection Underlying history of Parkinson disease Underlying history of nephrolithiasis Underlying history of benign prostatic hypertrophy Underlying history of subdural hematoma At this time patient will be admitted to telemetry floor Will obtain ultrasound of the kidneys IV fluid and blood pressure management Consultation for nephrology and pulmonary were initiated in the emergency room Will recheck labs in the
--- NOTE | 2021-10-30 16:26 | P.PN ---
Subjective Progress Note Date: 10/30/21 Caleb Riggins, he is a 70-year-old male who presented to [facility] emergency room with a chief complaint of back pain, patient had a fall at home he was down on the floor for about 5 hours He was evaluated in the emergency room vital examination on presentation revealed a temperature of 100.5 pulse 103 respiration 20 blood pressure 174/108 pulse ox 100% on room air Laboratory data revealed a white blood count of 7.0 hemoglobin 15.4 platelet count 125 sodium 137 potassium 4.5 chloride 104 CO2 25 BUN 27 creatinine 1.77, COVID-19 PCR was positive, troponin level was slightly elevated Testing in the emergency room revealed chest x-ray done in the emergency room revealed no acute pulmonary process Patient was admitted to medical floor for further evaluation and treatment On 10/30/2021 patient was seen and examined on the medical floor he is alert and oriented 3 in no apparent distress there is no fever or chills no headache or dizziness no chest pain no shortness of breath no cough no nausea or vomiting no abdominal pain no diarrhea no blood in the stools no burning with urination no frequency or urgency and no hematuria Objective - Vital Signs Vital signs: Vital Signs Temp 98.7 F 10/30/21 14:00 Pulse 78 10/30/21 14:00 Resp 17 10/30/21 14:00 BP 118/69 10/30/21 14:00 Pulse Ox 93 L 10/30/21 14:00 FiO2 Intake & Output 10/29/21 10/30/21 10/30/21 18:59 06:59 18:59 Output Total 100 Balance -100 Weight 108.862 kg Output: Urine 100 Other: Voiding Method External Catheter # Voids 1 - Exam In general patient is alert and oriented x 3 in no distress HEENT head normocephalic and atraumatic Neck is supple no JVD no goiter no lymphadenopathy no carotid bruit Chest examination is clear to auscultation no crackles no wheezing Cardiac exam reveals regular heart sounds S1 and S2 no gallops no murmurs Abdomen is soft nontender no organomegaly with normal bowel sounds Extremity exam reveals no edema no cyanosis or clubbing Neurological examination reveals no gross focal deficits - Labs CBC & Chem 7: 10/30/21 03:31 10/30/21 03:31 Labs: Abnormal Lab Results - Last 24 Hours (Table) 10/29/21 10/29/21 10/30/21 Range/Units 17:43 20:55 03:31 MCHC 31.6 L (32.0-37.0) g/dL Plt Count 110 L (140-440) X 10*3/uL Plt Count Comment DECREASED A Eosinophils # 0 L (0.04-0.35) X 10*3/uL D-Dimer (<0.60) mg/L FEU Creatinine (0.6-1.5) mg/dL Est GFR (CKD-EPI)AfAm (60.0-200.0) Est GFR (CKD-EPI)NonAf (60.0-200.0) Calcium (8.7-10.3) mg/dL AST (14-35) U/L ALT (10-49) U/L Troponin I 0.054 H* 0.056 H* (0.000-0.034) ng/mL Total Protein (6.2-8.2) g/dL Albumin (3.8-4.9) g/dL Albumin/Globulin Ratio (1.60-3.17) g/dL Procalcitonin (0.02-0.09) ng/mL Urine Protein (Negative) Urine Ketones (Negative) Urine Blood (Negative) Ur Leukocyte Esterase (Negative) Urine RBC (0-5) /hpf Urine WBC (0-5) /hpf Urine Bacteria (None) /hpf 10/30/21 10/30/21 10/30/21 Range/Units 03:31 04:15 09:50 MCHC (32.0-37.0) g/dL Plt Count (140-440) X 10*3/uL Plt Count Comment Eosinophils # (0.04-0.35) X 10*3/uL D-Dimer 2.20 H (<0.60) mg/L FEU Creatinine 1.8 H (0.6-1.5) mg/dL Est GFR (CKD-EPI)AfAm 42.6 L (60.0-200.0) Est GFR (CKD-EPI)NonAf 36.8 L (60.0-200.0) Calcium 7.8 L (8.7-10.3) mg/dL AST 61 H (14-35) U/L ALT 7 L (10-49) U/L Troponin I (0.000-0.034) ng/mL Total Protein 5.5 L (6.2-8.2) g/dL Albumin 3.1 L (3.8-4.9) g/dL Albumin/Globulin Ratio 1.29 L (1.60-3.17) g/dL Procalcitonin (0.02-0.09) ng/mL Urine Protein 1+ H (Negative) Urine Ketones Trace H (Negative) Urine Blood Moderate H (Negative) Ur Leukocyte Esterase Large H (Negative) Urine RBC 6 H (0-5) /hpf Urine WBC >182 H (0-5) /hpf Urine Bacteria Few H (None) /hpf 10/30/21 Range/Units 10:05 MCHC (32.0-37.0) g/dL Plt Count (140-440) X 10*3/uL Plt Count Comment Eosinophils # (0.04-0.35) X 10*3/uL D-Dimer (<0.60) mg/L FEU Creatinine (0.6-1.5) mg/dL Est GFR (CKD-EPI)AfAm (60.0-200.0) Est GFR (CKD-EPI)NonAf (60.0-200.0) Calcium (8.7-10.3) mg/dL AST (14-35) U/L ALT (10-49) U/L Troponin I (0.000-0.034) ng/mL Total Protein (6.2-8.2) g/dL Albumin (3.8-4.9) g/dL Albumin/Globulin Ratio (1.60-3.17) g/dL Procalcitonin 0.11 H (0.02-0.09) ng/mL Urine Protein (Negative) Urine Ketones (Negative) Urine Blood (Negative) Ur Leukocyte Esterase (Negative) Urine RBC (0-5) /hpf Urine WBC (0-5) /hpf Urine Bacteria (None) /hpf Microbiology - Last 24 Hours (Table) 10/30/21 04:15 Urine Culture - Preliminary Urine,Voided Assessment and Plan Plan: Fall at home with prolonged down to stay on the floor until EMS arrival Acute kidney injury Rhabdomyolysis Acute COVID-19 infection without evidence of pneumonia Hypertension with hypertensive urgency on presentation Febrile illness likely related to acute COVID-19 infection Underlying history of Parkinson disease Underlying history of nephrolithiasis Underlying history of benign prostatic hypertrophy Underlying history of subdural hematoma At this time patient will be admitted to telemetry floor Will obtain ultrasound of the kidneys IV fluid and blood pressure management Consultation for nephrology and pulmonary were initiated in the emergency room Will recheck labs in the am
[2021-10-30] MEDS: FINASTERIDE 5 MG TAB PO SCH (21:33)
--- NOTE | 2021-10-31 08:13 | P.CONS ---
History of Present Illness - Reason for Consult Consult date: 10/30/21 Covid and fever Requesting physician: Nedra Badillo - Chief Complaint weakness and fell out of bed x 1 day - History of Present Illness Patient is a 70-year-old male with a past medical history significant for Parkinson's disease prostate cancer presented to the hospital yesterday afternoon after apparently the patient did fell out of the bed and the patient was on the floor until EMS arrival on arrival of the emergency patient was noticed to be febrile with a temperature of 101 F, patient was also hypoxic with O2 sats of 80% subsequent improved to 98% on 4 L patient apparently did have a cough that has been going on for about a week, and is mostly dry in nature not bringing up any sputum, the patient denies having any shortness of breath, patient denies having any nausea or vomiting denies any abdominal pain or any diarrhea, patient fever has resolved last temperature has been last night at 8:00 no fever since then and the patient is currently 9625% on room air patient did have a normal white count D-dimer was mildly elevated creatinine is 1.8 troponins were mildly elevated as well as liver enzymes patient did have a positive UA with large leukocyte esterase more than 1-2 WBC patient did have positive COVID test influenza testing was negative chest x-ray negative for pneumonia infectious disease was consulted for further management Review of Systems Positive point has been mentioned in the HPI rest of the systems are negative Past Medical History Past Medical History: Hypertension, Musculoskeletal Disorder, Neurologic Disorder, Prostate Disorder, Renal Disease Additional Past Medical History / Comment(s): parkinsons disease, nephrolit hiasis, BPH,uti's , fall 2012 with skull fracture and subdural hematoma and L eardrum rupture, sinus problems on occasion.past stress test, lt sprain ankle d/t fall. History of Any Multi-Drug Resistant Organisms: None Reported Past Surgical History: Heart Catheterization, Hernia Repair Additional Past Surgical History / Comment(s): cystoscopy, L inguinal hernia repair., anat cataracts Past Anesthesia/Blood Transfusion Reactions: No Reported Reaction Past Psychological History: No Psychological Hx Reported Smoking Status: Never smoker Past Alcohol Use History: None Reported Past Drug Use History: None Reported - Past Family History Sister(s) Family Medical History: Cancer Mother Family Medical History: CVA/TIA, Diabetes Mellitus, Hypertension, Musculoskeletal Disorder, Neurologic Disorder Additional Family Medical History / Comment(s): Mother had parkinson's dx. Father Family Medical History: CVA/TIA Medications and Allergies Home Medications Medication Instructions Recorded Confirmed Type Carbidopa-Levodopa ER 50-200Mg 2 tab PO BID 03/20/15 10/29/21 History [Sinemet CR 50-200 mg] amantadine HCL [Symmetrel] 100 mg PO BID 03/20/15 10/29/21 History Tamsulosin HCl [Flomax] 0.4 mg PO DAILY 02/22/17 10/29/21 History Finasteride [Proscar] 5 mg PO HS 03/11/21 10/29/21 History Aspirin 81 mg PO DAILY tab 03/13/21 10/29/21 Rx Cyclobenzaprine [Flexeril] 10 mg PO TID PRN 10/29/21 10/29/21 History Ferrous Sulfate [Feosol] 325 mg PO DAILY 10/29/21 10/29/21 History HYDROcodone/APAP 7.5-325MG [[place] 1 tab PO Q6HR PRN 10/29/21 10/29/21 History 7.5-325] Allergies Allergy/AdvReac Type Severity Reaction Status Date / Time adhesive tape Allergy Rash/Hives Verified 10/29/21 13:59 amoxicillin Allergy Dyspnea, Verified 10/29/21 13:59 SWELLING OF THROAT haloperidol [From Haldol] Allergy Unknown Verified 10/29/21 13:59 haloperidol lactate Allergy Unknown Verified 10/29/21 13:59 [From Haldol] lorazepam [From Ativan] Allergy Unknown Verified 10/29/21 13:59 alprazolam [From Xanax] AdvReac Unknown Verified 10/29/21 13:59 Physical Exam Vitals: Vital Signs Temp Pulse Pulse Resp BP BP Pulse Ox 10/30/21 08:00 99.0 F 81 17 96/52 92 L 10/30/21 05:30 98.5 F 78 19 134/78 93 L 10/30/21 01:15 98.7 F 89 19 116/67 94 L 10/29/21 21:43 99.8 F H 10/29/21 21:15 98.0 F 17 121/74 94 L 10/29/21 21:00 24 10/29/21 20:32 100.7 F H 96 20 136/80 97 10/29/21 20:15 144/91 10/29/21 20:10 145/91 10/29/21 20:00 101.5 F H 94 22 138/100 97 10/29/21 19:34 99.5 F 172/104 95 10/29/21 19:00 98.9 F 92 20 173/112 97 10/29/21 18:28 98.8 F 92 22 164/107 96 10/29/21 17:43 99.9 F H 96 20 141/109 98 10/29/21 16:00 99.3 F 21 10/29/21 15:45 97 20 170/104 98 10/29/21 14:58 98 22 173/97 97 10/29/21 13:50 101 H 22 154/98 97 10/29/21 13:15 100.5 F H 103 H 20 174/108 100 Intake and Output 10/29/21 10/30/21 10/30/21 22:59 06:59 14:59 Output Total 100 Balance -100 Output: Urine 100 Other: Voiding Method External Catheter External Catheter # Voids 1 Weight 108.862 kg GENERAL DESCRIPTION: Elderly male lying in bed, no distress. No tachypnea or accessory muscle of respiration use. HEENT: Shows Pallor , no scleral icterus. Oral mucous membrane is dry. No pharyngeal erythema or thrush NECK: Trachea central, no thyromegaly. LUNGS: Unlabored breathing. Decreased intensity of breath sounds No wheeze or crackle. HEART: S1, S2, regular rate and rhythm. No loud murmur ABDOMEN: Soft, no tenderness , guarding or rigidity, no organomegaly EXTREMITIES: No edema of feet. SKIN: No rash, no masses palpable. NEUROLOGICAL: The patient is awake, alert, oriented x3, mood and affect normal. Results CBC & Chem 7: 10/30/21 03:31 10/30/21 03:31 Labs: Abnormal Lab Results - Last 24 Hours (Table) 10/29/21 10/29/21 10/29/21 Range/Units 13:27 13:27 13:27 MCHC (32.0-37.0) g/dL Plt Count 125 L (150-450) k/uL Plt Count Comment Lymphocytes # 0.5 L (1.0-4.8) k/uL Eosinophils # (0.04-0.35) X 10*3/uL BUN 27 H (9-20) mg/dL Creatinine 1.77 H (0.66-1.25) mg/dL Est GFR (CKD-EPI)AfAm (60.0-200.0) Est GFR (CKD-EPI)NonAf (60.0-200.0) Glucose 102 H (74-99) mg/dL Calcium 8.1 L (8.4-10.2) mg/dL AST (14-35) U/L ALT (10-49) U/L Creatine Kinase 1265 H* (55-170) U/L Troponin I 0.053 H* (0.000-0.034) ng/mL Total Protein (6.2-8.2) g/dL Albumin (3.8-4.9) g/dL Albumin/Globulin Ratio (1.60-3.17) g/dL Urine Protein (Negative) Urine Ketones (Negative) Urine Blood (Negative) Ur Leukocyte Esterase (Negative) Urine RBC (0-5) /hpf Urine WBC (0-5) /hpf Urine Bacteria (None) /hpf Coronavirus (PCR) (Not Detectd) 10/29/21 10/29/21 10/29/21 Range/Units 13:47 17:43 20:55 MCHC (32.0-37.0) g/dL Plt Count (150-450) k/uL Plt Count Comment Lymphocytes # (1.0-4.8) k/uL Eosinophils # (0.04-0.35) X 10*3/uL BUN (9-20) mg/dL Creatinine (0.66-1.25) mg/dL Est GFR (CKD-EPI)AfAm (60.0-200.0) Est GFR (CKD-EPI)NonAf (60.0-200.0) Glucose (74-99) mg/dL Calcium (8.4-10.2) mg/dL AST (14-35) U/L ALT (10-49) U/L Creatine Kinase (55-170) U/L Troponin I 0.054 H* 0.056 H* (0.000-0.034) ng/mL Total Protein (6.2-8.2) g/dL Albumin (3.8-4.9) g/dL Albumin/Globulin Ratio (1.60-3.17) g/dL Urine Protein (Negative) Urine Ketones (Negative) Urine Blood (Negative) Ur Leukocyte Esterase (Negative) Urine RBC (0-5) /hpf Urine WBC (0-5) /hpf Urine Bacteria (None) /hpf Coronavirus (PCR) Detected A (Not Detectd) 10/30/21 10/30/21 10/30/21 Range/Units 03:31 03:31 04:15 MCHC 31.6 L (32.0-37.0) g/dL Plt Count 110 L (150-450) k/uL Plt Count Comment DECREASED A Lymphocytes # (1.0-4.8) k/uL Eosinophils # 0 L (0.04-0.35) X 10*3/uL BUN (9-20) mg/dL Creatinine 1.8 H (0.66-1.25) mg/dL Est GFR (CKD-EPI)AfAm 42.6 L (60.0-200.0) Est GFR (CKD-EPI)NonAf 36.8 L (60.0-200.0) Glucose (74-99) mg/dL Calcium 7.8 L (8.4-10.2) mg/dL AST 61 H (14-35) U/L ALT 7 L (10-49) U/L Creatine Kinase (55-170) U/L Troponin I (0.000-0.034) ng/mL Total Protein 5.5 L (6.2-8.2) g/dL Albumin 3.1 L (3.8-4.9) g/dL Albumin/Globulin Ratio 1.29 L (1.60-3.17) g/dL Urine Protein 1+ H (Negative) Urine Ketones Trace H (Negative) Urine Blood Moderate H (Negative) Ur Leukocyte Esterase Large H (Negative) Urine RBC 6 H (0-5) /hpf Urine WBC >182 H (0-5) /hpf Urine Bacteria Few H (None) /hpf Coronavirus (PCR) (Not Detectd) Microbiology - Last 24 Hours (Table) 10/30/21 04:15 Urine Culture - Preliminary Urine,Voided Assessment and Plan (1) COVID-19 Current Visit: Yes Status: Acute Code(s): U07.1 - COVID-19 SNOMED Code(s): 368699297 (2) Urinary tract infection Current Visit: No Status: Acute Code(s): N39.0 - URINARY TRACT INFECTION, SITE NOT SPECIFIED SNOMED Code(s): 62342598 Plan: 1patient presented to hospital with a fall in this patient and subsequent noticed to have a fever patient did have a mild cough symptom going on for about a week did have a positive COVID test however not hypoxic currently and chest x- ray was negative for pneumonia treatment is mostly supportive with zinc ascorbic acid no need for remdesivir at this point. 2patient did have significantly positive UA likely component of symptomatic UTI from enteric gram-negative. 3we will add Rocephin 1 g daily while waiting for the culture to finalize 4droplet isolation and respiratory support. We will follow on clinical condition and cultures to further adjust medication if needed Thank you for this consultation will follow this patient along with you Time with Patient: Greater than 30
[2021-10-31] MEDS: ASCORBIC ACID 500 MG TAB PO SCH ×2 (08:53→20:54)
[2021-10-31] MEDS: ASPIRIN 81 MG PO SCH (08:53)
[2021-10-31] MEDS: CHOLECALCIFEROL 125 MCG (5000 IU) TABLET PO SCH (08:53)
[2021-10-31] MEDS: ZINC SULFATE 220 MG CAP PO SCH (08:54)
[2021-10-31] MEDS: TAMSULOSIN 0.4 MG CAP.ER.24H PO SCH (08:54)
[2021-10-31] MEDS: FERROUS SULFATE 325 MG TAB PO SCH (08:54)
[2021-10-31] MEDS: CARBIDOPA-LEVODOPA ER 50-200MG 1 EACH TABLET.ER PO SCH ×2 (08:54→20:55)
[2021-10-31] MEDS: DOXYCYCLINE 100 MG CAP PO SCH ×2 (08:54→20:55)
[2021-10-31 10:18] LABS: African American GFR (CKD) 53.1 (60.0-200.0); Anion Gap 4.8 mmol/L (10.00-18.00); BUN/Creat Ratio 16.73 Ratio (12.00-20.00); Blood Urea Nitrogen 25.1 mg/dL (9.0-27.0); Calcium 7.7 mg/dL (8.7-10.3); Carbon Dioxide 27.2 mmol/L (20.0-27.5); Magnesium 2.1 mg/dL (1.5-2.4); Non-African American GFR(CKD) 45.9 (60.0-200.0); Potassium 4.4 mmol/L (3.5-5.5)
--- NOTE | 2021-10-31 10:43 | P.PN ---
Subjective Patient is seen for follow-up for acute kidney injury. He was admitted to the hospital with a history of fall. He has had a fever and tested positive for COVID-19 Currently maintained on IV fluids which were decreased yesterday Serum creatinine improved to 1.5 mg/dL today from 1.7 on initial admission. Good urine output No nausea or vomiting or abdominal pain O2 sats 95% on room air Objective - Vital Signs Vital signs: Vital Signs Temp 97.9 F 10/31/21 06:25 Pulse 65 10/31/21 06:25 Resp 16 10/31/21 06:25 BP 111/72 10/31/21 06:25 Pulse Ox 95 10/31/21 06:25 FiO2 Intake & Output 10/30/21 10/31/21 10/31/21 18:59 06:59 18:59 Intake Total 540 480 Output Total 900 350 Balance -360 130 Intake: Oral 540 480 Output: Urine 900 350 Other: Voiding Method External Catheter Incontinent External Catheter # Voids 1 - Exam Awake, comfortable, not in any acute distress Examination of the heart S1 and S2 Examination of the lungs bilateral breath sounds are heard [place] abdomen is soft nontender Examination of the lower extremities shows no evidence of edema [employer] exam grossly intact - Labs CBC & Chem 7: 10/30/21 03:31 10/31/21 03:17 Labs: Abnormal Lab Results - Last 24 Hours (Table) 10/30/21 10/30/21 10/30/21 Range/Units 03:31 09:50 10:05 MCHC 31.6 L (32.0-37.0) g/dL Plt Count 110 L (140-440) X 10*3/uL Plt Count Comment DECREASED A Eosinophils # 0 L (0.04-0.35) X 10*3/uL D-Dimer 2.20 H (<0.60) mg/L FEU Anion Gap (10.00-18.00) mmol/L Est GFR (CKD-EPI)AfAm (60.0-200.0) Est GFR (CKD-EPI)NonAf (60.0-200.0) Calcium (8.7-10.3) mg/dL Procalcitonin 0.11 H (0.02-0.09) ng/mL 10/31/21 Range/Units 03:17 MCHC (32.0-37.0) g/dL Plt Count (140-440) X 10*3/uL Plt Count Comment Eosinophils # (0.04-0.35) X 10*3/uL D-Dimer (<0.60) mg/L FEU Anion Gap 4.80 L (10.00-18.00) mmol/L Est GFR (CKD-EPI)AfAm 53.1 L (60.0-200.0) Est GFR (CKD-EPI)NonAf 45.9 L (60.0-200.0) Calcium 7.7 L (8.7-10.3) mg/dL Procalcitonin (0.02-0.09) ng/mL Microbiology - Last 24 Hours (Table) 10/30/21 04:15 Urine Culture - Preliminary Urine,Voided Assessment and Plan Assessment: 1. Acute kidney injury associated with underlying COVID-19 infection, mostly nonoliguric ATN currently improving. Serum creatinine was 1.0 in March 2021. UA is suggestive of UTI. Ultrasound of the kidneys is unremarkable with no evidence of hydronephrosis. 2. Mild rhabdo my lysis secondary to fall 3. UTI with urine culture currently pending, maintained on antibiotics 4. COVID-19 infection with unremarkable chest x-ray Plan: Continue to encourage increase oral intake Repeat labs in a.m. Avoid nephrotoxic agents Continue current antibiotics Continue with Flomax
--- NOTE | 2021-10-31 12:26 | P.PN ---
Subjective Progress Note Date: 10/31/21 This is a 70-year-old male patient who follows with Dr. sanches as his primary care provider. He has a history of Parkinson's disease, hypertension, nephrolithiasis, BPH, previous fracture and subdermal hematoma in 2012. He is lifelong nonsmoker. He was brought into the emergency room yesterday after s ustaining a fall and landing on the floor on his left side. He is found to be febrile with a temperature of 101. He is hypoxemic with initial O2 saturation 80% on room air. He was brought in for the same. He is found to be COVID-19 positive. Left shoulder x-ray revealed no fracture. Chest x-ray reveals no acute pulmonary process. EKG revealed sinus rhythm with a right bundle-branch block. Ultrasound of the bladder revealed mild right hydronephrosis. Urine culture is pending. White count 4.9. Hemoglobin 13.9. Platelets 110. Sodium 138. Potassium 4.1. BUN 26. Creatinine 1.8. Creatinine kinase 1265. Troponin 0.05. ProBNP 2360. Current virus by PCR positive. Influenza screen negative. He was initiated on antibiotics in form of Vibramycin. The patient is seen today 10/31/2021 in follow-up on the regular medical floor. He is currently sitting up in bed. Awake and alert in no acute distress. He is maintaining O2 saturations in the 90s on room air. He's been afebrile. Hemodynamically stable. Urine culture pending. Sodium 137. Potassium 4.4. BUN 25. Creatinine 1.5. Pro calcitonin 0.11. He is continued on doxycycline and ceftriaxone. ID services and nephrology on the case. Objective - Vital Signs Vital signs: Vital Signs Temp 97.9 F 10/31/21 06:25 Pulse 65 10/31/21 06:25 Resp 16 10/31/21 06:25 BP 111/72 10/31/21 06:25 Pulse Ox 95 10/31/21 06:25 FiO2 Intake & Output 10/30/21 10/31/21 10/31/21 18:59 06:59 18:59 Intake Total 540 480 Output Total 900 350 Balance -360 130 Intake: Oral 540 480 Output: Urine 900 350 Other: Voiding Method External Catheter Incontinent External Catheter # Voids 1 - Exam GENERAL EXAM: Alert, pleasant 70-year-old male patient, on room air, comfortable in no apparent distress. HEAD: Normocephalic. EYES: Normal reaction of pupils, equal size. NOSE: Clear with pink turbinates. THROAT: No erythema or exudates. NECK: No masses, no JVD. CHEST: No chest wall deformity. LUNGS: Equal air entry with no crackles, wheeze, rhonchi or dullness. CVS: S1 and S2 normal with no audible murmur, regular rhythm. ABDOMEN: No hepatosplenomegaly, normal bowel sounds, no guarding or rigidity. SPINE: No scoliosis or deformity SKIN: No rashes CENTRAL NERVOUS SYSTEM: No focal deficits, tone is normal in all 4 extremities. EXTREMITIES: There is no peripheral edema. No clubbing, no cyanosis. Peripheral pulses are intact. - Labs CBC & Chem 7: 10/30/21 03:31 10/31/21 03:17 Labs: Abnormal Lab Results - Last 24 Hours (Table) 10/30/21 10/31/21 Range/Units 10:05 03:17 Anion Gap 4.80 L (10.00-18.00) mmol/L Est GFR (CKD-EPI)AfAm 53.1 L (60.0-200.0) Est GFR (CKD-EPI)NonAf 45.9 L (60.0-200.0) Calcium 7.7 L (8.7-10.3) mg/dL Procalcitonin 0.11 H (0.02-0.09) ng/mL Microbiology - Last 24 Hours (Table) 10/30/21 04:15 Urine Culture - Preliminary Urine,Voided Assessment and Plan Assessment: 1 Status post fall suspect secondary to generalized weakness and Parkinson's disease. 2 COVID-19 infection with no evidence of COVID-19 pneumonia. On room air. Not vaccinated 3 Febrile illness secondary to COVID-19 infection and urinary tract infection 4 Rhabdomyolysis secondary to fall 5 Mild troponin leak 6 Thrombocytopenia 7 History of Parkinson's disease 8 History of hypertension 9 History of BPH 10 History of fall with subdural hematoma in 2012 Plan: The patient was seen and evaluated Labs and medications reviewed Stable for discharge from the pulmonary standpoint We will follow as needed I have personally seen and examined the patient, performed the documentation and the assessment and plan as written. Number of minutes spent on the visit: 10.
--- NOTE | 2021-10-31 19:00 | P.PN ---
Subjective This is a pleasant 70 years old male with past medical history of hypertension, subdural hematoma, Parkinson disease. Presents with fall. Patient was found to have febrile illness suspected secondary to acute urinary tract infection and his been treated accordingly with ceftriaxone also he has evidence of comedo infection with no pneumonia. He is also on multiple vitamins, CD and zinc. Also is on doxycycline. His acute kidney injury present on admission his improvement with creatinine down to 1.8 down to 1.5. Baseline 0.9-1.1. Acid Bleacher on the case. Urine culture has grown a gram-negative bacilli. Pulmonary team already signed off the case Objective - Vital Signs Vital signs: Vital Signs Temp 97.9 F 10/31/21 06:25 Pulse 65 10/31/21 06:25 Resp 16 10/31/21 06:25 BP 111/72 10/31/21 06:25 Pulse Ox 95 10/31/21 06:25 FiO2 Intake & Output 10/30/21 10/31/21 10/31/21 18:59 06:59 18:59 Intake Total 540 480 Output Total 900 350 Balance -360 130 Intake: Oral 540 480 Output: Urine 900 350 Other: Voiding Method External Catheter Incontinent External Catheter # Voids 1 - Exam GENERAL: The patient is alert and oriented x3, not in any acute distress. Well developed, well nourished. HEENT: Pupils are round and equally reacting to light. EOMI. No scleral icterus. No conjunctival pallor. Normocephalic, atraumatic. No pharyngeal erythema. No thyromegaly. CARDIOVASCULAR: S1 and S2 present. No murmurs, rubs, or gallops. PULMONARY: Chest is clear to auscultation, no wheezing or crackles. ABDOMEN: Soft, nontender, nondistended, normoactive bowel sounds. No palpable organomegaly. MUSCULOSKELETAL: No joint swelling or deformity. EXTREMITIES: No cyanosis, clubbing, or pedal edema. NEUROLOGICAL: Gross neurological examination did not reveal any focal deficits. SKIN: No rashes. no petechiae. - Labs CBC & Chem 7: 10/30/21 03:31 10/31/21 03:17 Labs: Abnormal Lab Results - Last 24 Hours (Table) 10/30/21 10/31/21 Range/Units 10:05 03:17 Anion Gap 4.80 L (10.00-18.00) mmol/L Est GFR (CKD-EPI)AfAm 53.1 L (60.0-200.0) Est GFR (CKD-EPI)NonAf 45.9 L (60.0-200.0) Calcium 7.7 L (8.7-10.3) mg/dL Procalcitonin 0.11 H (0.02-0.09) ng/mL Microbiology - Last 24 Hours (Table) 10/30/21 04:15 Urine Culture - Preliminary Urine,Voided Assessment and Plan Assessment: Acute urinary tract infection secondary to gram-negative bacteria Sepsis secondary to above Acute kidney injury, improving Mild right hydronephrosis Troponin leak most likely type II myocardial infarction Covid infection with no pneumonia or hypoxia Plan: This is a pleasant 71 years old male who presents with UTI and CHARITO and high troponin Continue with ceftriaxone follow-up urine culture Continue with doxycycline Continue with normal saline Continue with vitamin C, vitamin D and zinc Social consultants on the case including infectious disease, air analyst [employer] Clerk and pulmonary team sign off the case Labs and medication were reviewed.. Continue same treatment. Continue with symptomatic treatment. Resume home medication. Monitor lytes and vitals. DVT and GI prophylaxis. Further recommendations as per clinical course of the patient DVT prophylaxis: Subcutaneous heparin GI Prophylaxis: Pepcid PT/OT: Recommended subacute rehab, social welfare administrator consult Prognosis is guarded
[2021-10-31] MEDS: FAMOTIDINE 20 MG/2 ML VIAL IV SCH (20:53)
[2021-10-31] MEDS: ACETAMINOPHEN TAB 325 MG TAB PO PRN (20:54)
[2021-10-31] MEDS: FINASTERIDE 5 MG TAB PO SCH (20:54)
[2021-10-31] MEDS: HEPARIN SODIUM,PORCINE/PF 5,000 UNIT/0.5 ML SYRINGE SQ SCH (20:56)
--- NOTE | 2021-10-31 21:57 | P.PN ---
Subjective Progress Note Date: 10/31/21 Principal diagnosis: Covid 19 and UTI Patient is a 70-year-old male with a past medical history Parkinson disease prostate cancer presenting to the hospital after pending patient fell out of the bed patient was noticed to be febrile did have a positive cover test and a positive UA. On today's evaluation that is 10/31/2021, the patient is afebrile, the patient is currently breathing comfortably on room air, the patient denies having any chest pain or shortness with occasional cough no abdominal pain and no diarrhea Objective - Vital Signs Vital signs: Vital Signs Temp 97.9 F 10/31/21 06:25 Pulse 65 10/31/21 06:25 Resp 16 10/31/21 06:25 BP 111/72 10/31/21 06:25 Pulse Ox 95 10/31/21 06:25 FiO2 Intake & Output 10/30/21 10/31/21 10/31/21 18:59 06:59 18:59 Intake Total 540 480 Output Total 900 350 Balance -360 130 Intake: Oral 540 480 Output: Urine 900 350 Other: Voiding Method External Catheter Incontinent External Catheter # Voids 1 - Exam GENERAL DESCRIPTION: An elderly male up in the chair in no distress RESPIRATORY SYSTEM: Unlabored breathing , decreased breath sounds at bases HEART: S1 S2 regular rate and rhythm , ABDOMEN: Soft , no tenderness EXTREMITIES: No edema feet - Labs CBC & Chem 7: 10/30/21 03:31 10/31/21 03:17 Labs: Abnormal Lab Results - Last 24 Hours (Table) 10/30/21 10/31/21 Range/Units 10:05 03:17 Anion Gap 4.80 L (10.00-18.00) mmol/L Est GFR (CKD-EPI)AfAm 53.1 L (60.0-200.0) Est GFR (CKD-EPI)NonAf 45.9 L (60.0-200.0) Calcium 7.7 L (8.7-10.3) mg/dL Procalcitonin 0.11 H (0.02-0.09) ng/mL Microbiology - Last 24 Hours (Table) 10/30/21 04:15 Urine Culture - Preliminary Urine,Voided Assessment and Plan (1) COVID-19 Current Visit: Yes Status: Acute Code(s): U07.1 - COVID-19 SNOMED Code(s): 361707157 (2) Urinary tract infection Current Visit: No Status: Acute Code(s): N39.0 - URINARY TRACT INFECTION, SITE NOT SPECIFIED SNOMED Code(s): 77533567 Plan: 1patient presented to hospital with a fall in this patient and subsequent noticed to have a fever patient did have a mild cough symptom going on for about a week did have a positive COVID test however not hypoxic currently and chest x- ray was negative for pneumonia treatment is mostly supportive with zinc ascorbic acid no need for remdesivir at this point and the patient seemed on clinical improvement. 2patient did have significantly positive UA likely component of symptomatic UTI from enteric gram-negative. 3patient will continue with Rocephin 1 g daily while waiting for the culture to finalize 4droplet isolation and respiratory support. Time with Patient: Less than 30
[2021-11-01] MEDS: DOXYCYCLINE 100 MG CAP PO SCH ×2 (08:05→20:17)
[2021-11-01] MEDS: CARBIDOPA-LEVODOPA ER 50-200MG 1 EACH TABLET.ER PO SCH ×2 (08:05→20:17)
[2021-11-01] MEDS: ASPIRIN 81 MG PO SCH (08:05)
[2021-11-01] MEDS: FERROUS SULFATE 325 MG TAB PO SCH (08:05)
[2021-11-01] MEDS: CHOLECALCIFEROL 125 MCG (5000 IU) TABLET PO SCH (08:05)
[2021-11-01] MEDS: FAMOTIDINE 20 MG/2 ML VIAL IV SCH ×2 (08:06→22:02)
[2021-11-01] MEDS: ASCORBIC ACID 500 MG TAB PO SCH ×2 (08:06→20:17)
[2021-11-01] MEDS: TAMSULOSIN 0.4 MG CAP.ER.24H PO SCH (08:06)
[2021-11-01] MEDS: HEPARIN SODIUM,PORCINE/PF 5,000 UNIT/0.5 ML SYRINGE SQ SCH ×2 (08:06→20:17)
[2021-11-01] MEDS: ZINC SULFATE 220 MG CAP PO SCH (08:06)
[2021-11-01 11:19] LABS: HCT 40.5 % (39.6-50.0); HGB 12.6 g/dL (13.0-17.0); MCH 28.9 pg (27.0-32.0); MCHC 31.1 g/dL (32.0-37.0); MCV 92.9 fL (80.0-97.0); Mean Platelet Volume 11.2 fL (9.5-12.2); NRBC Per 100 WBC 0 /100 WBCS (0.0-0.0); Platelet Count 114 X 10*3/uL (140-440); RBC 4.36 X 10*6/uL (4.40-5.60); RDW 13.7 % (11.5-14.5); WBC 2.38 X 10*3/uL (4.50-10.00)
[2021-11-01 11:29] LABS: African American GFR (CKD) 86.8 (60.0-200.0); Anion Gap 6.3 mmol/L (10.00-18.00); BUN/Creat Ratio 19.8 Ratio (12.00-20.00); Blood Urea Nitrogen 19.8 mg/dL (9.0-27.0); Calcium 7.8 mg/dL (8.7-10.3); Carbon Dioxide 25.7 mmol/L (20.0-27.5); Magnesium 1.8 mg/dL (1.5-2.4); Non-African American GFR(CKD) 74.9 (60.0-200.0); Potassium 4.1 mmol/L (3.5-5.5)
[2021-11-01 11:53] LABS: Basophils # (M) 0 X 10*3/uL (0.00-0.10); Eosinophils # (M) 0.02 X 10*3/uL (0.04-0.35); Lymphocytes # (M) 0.64 X 10*3/uL (0.90-5.00); Monocytes # (M) 0.17 X 10*3/uL (0.20-1.00); Neutrophils # (M) 1.55 X 10*3/uL (2.00-8.90); Neutrophils % (M) 65 %; RBC Morphology NORMAL
--- NOTE | 2021-11-01 14:27 | P.PN ---
Subjective Progress Note Date: 11/01/21 Principal diagnosis: Covid 19 and UTI Patient is a 70-year-old male with a past medical history Parkinson disease prostate cancer presenting to the hospital after pending patient fell out of the bed patient was noticed to be febrile did have a positive cover test and a positive UA. On today's evaluation that is 11/01/2021, the patient remains to be afebrile, the patient is breathing comfortably on room air and is satting 96%, the patient denies having any chest pain or shortness with occasional cough no abdominal pain and no diarrhea has been reported Objective - Vital Signs Vital signs: Vital Signs Temp 97.5 F L 11/01/21 06:43 Pulse 64 11/01/21 06:43 Resp 15 11/01/21 06:43 BP 166/97 11/01/21 06:43 Pulse Ox 96 11/01/21 06:43 FiO2 Intake & Output 10/31/21 11/01/21 11/01/21 18:59 06:59 18:59 Intake Total 1080 240 Output Total 800 300 Balance 280 -60 Intake: Oral 1080 240 Output: Urine 800 300 Other: Voiding Method Incontinent External Catheter # Voids 3 1 - Exam GENERAL DESCRIPTION: An elderly male up in the chair in no distress RESPIRATORY SYSTEM: Unlabored breathing , decreased breath sounds at bases HEART: S1 S2 regular rate and rhythm , ABDOMEN: Soft , no tenderness EXTREMITIES: No edema feet - Labs CBC & Chem 7: 11/01/21 06:10 11/01/21 06:10 Labs: Abnormal Lab Results - Last 24 Hours (Table) 11/01/21 11/01/21 Range/Units 06:10 06:10 WBC 2.38 L (4.50-10.00) X 10*3/uL RBC 4.36 L (4.40-5.60) X 10*6/uL Hgb 12.6 L (13.0-17.0) g/dL MCHC 31.1 L (32.0-37.0) g/dL Plt Count 114 L (140-440) X 10*3/uL Plt Count Comment DECREASED A Neutrophils # (Manual) 1.55 L (2.00-8.90) X 10*3/uL Lymphocytes # (Manual) 0.64 L (0.90-5.00) X 10*3/uL Monocytes # (Manual) 0.17 L (0.20-1.00) X 10*3/uL Eosinophils # (Manual) 0.02 L (0.04-0.35) X 10*3/uL Anion Gap 6.30 L (10.00-18.00) mmol/L Calcium 7.8 L (8.7-10.3) mg/dL Microbiology - Last 24 Hours (Table) 10/30/21 04:15 Urine Culture - Final Urine,Voided Escherichia coli Assessment and Plan (1) COVID-19 Current Visit: Yes Status: Acute Code(s): U07.1 - COVID-19 SNOMED Code(s): 201592314 (2) Urinary tract infection Current Visit: No Status: Acute Code(s): N39.0 - URINARY TRACT INFECTION, SITE NOT SPECIFIED SNOMED Code(s): 54039419 Plan: 1patient presented to hospital with a fall in this patient and subsequent noticed to have a fever patient did have a mild cough symptom going on for about a week did have a positive COVID test however not hypoxic currently and chest x- ray was negative for pneumonia treatment is mostly supportive with zinc ascorbic acid no need for remdesivir at this point and the patient seemed on clinical improvement. 2patient did have significantly positive UA likely component of symptomatic UTI from enteric gram-negative urine has been finalized with E. coli that is a sensitive pathogen. 3patient will continue with Rocephin 1 g daily while inpatient and will transition to oral antibiotics on discharge 4droplet isolation and respiratory support. Time with Patient: Less than 30
[2021-11-01] MEDS: hydrALAZINE HCL 20 MG/ML 1 ML VIAL IVP PRN ×2 (17:21→22:02)
[2021-11-01] MEDS: FINASTERIDE 5 MG TAB PO SCH (20:17)
--- NOTE | 2021-11-01 20:40 | P.PN ---
Subjective This is a pleasant 70 years old male with past medical history of hypertension, subdural hematoma, Parkinson disease. Presents with fall. Patient was found to have febrile illness suspected secondary to acute urinary tract infection and his been treated accordingly with ceftriaxone also he has evidence of comedo infection with no pneumonia. He is also on multiple vitamins, CD and zinc. Also is on doxycycline. His acute kidney injury present on admission his improvement with creatinine down to 1.8 down to 1.5. Baseline 0.9-1.1. Computer Science Teacher on the case. Urine culture has grown a gram-negative bacilli. Pulmonary team already signed off the case 11/01/2021 Patient awake and alert, she still feels very weak and tired and lethargic altho ugh she is slowly and gradually improving. Her UTI is responding to therapy with ceftriaxone, her urine culture is growing sensitive E. coli. Her creatinine improved to 1.0. IV fluids stopped. She is on ceftriaxone and doxycycline and multiple vitamins. She will benefit from an ECF rehab upon discharge Objective - Vital Signs Vital signs: Vital Signs Temp 97.7 F 11/01/21 18:00 Pulse 82 11/01/21 18:00 Resp 18 11/01/21 18:00 BP 144/89 11/01/21 18:00 Pulse Ox 97 11/01/21 18:00 FiO2 Intake & Output 11/01/21 11/01/21 11/02/21 06:59 18:59 06:59 Intake Total 240 Output Total 300 Balance -60 Intake: Oral 240 Output: Urine 300 Other: Voiding Method Incontinent External Catheter # Voids 1 2 - Exam GENERAL: The patient is alert and oriented x3, not in any acute distress. Well developed, well nourished. HEENT: Pupils are round and equally reacting to light. EOMI. No scleral icterus. No conjunctival pallor. Normocephalic, atraumatic. No pharyngeal erythema. No thyromegaly. CARDIOVASCULAR: S1 and S2 present. No murmurs, rubs, or gallops. PULMONARY: Chest is clear to auscultation, no wheezing or crackles. ABDOMEN: Soft, nontender, nondistended, normoactive bowel sounds. No palpable o rganomegaly. MUSCULOSKELETAL: No joint swelling or deformity. EXTREMITIES: No cyanosis, clubbing, or pedal edema. NEUROLOGICAL: Gross neurological examination did not reveal any focal deficits. SKIN: No rashes. no petechiae. - Labs CBC & Chem 7: 11/01/21 06:10 11/01/21 06:10 Labs: Abnormal Lab Results - Last 24 Hours (Table) 11/01/21 11/01/21 Range/Units 06:10 06:10 WBC 2.38 L (4.50-10.00) X 10*3/uL RBC 4.36 L (4.40-5.60) X 10*6/uL Hgb 12.6 L (13.0-17.0) g/dL MCHC 31.1 L (32.0-37.0) g/dL Plt Count 114 L (140-440) X 10*3/uL Plt Count Comment DECREASED A Neutrophils # (Manual) 1.55 L (2.00-8.90) X 10*3/uL Lymphocytes # (Manual) 0.64 L (0.90-5.00) X 10*3/uL Monocytes # (Manual) 0.17 L (0.20-1.00) X 10*3/uL Eosinophils # (Manual) 0.02 L (0.04-0.35) X 10*3/uL Anion Gap 6.30 L (10.00-18.00) mmol/L Calcium 7.8 L (8.7-10.3) mg/dL Microbiology - Last 24 Hours (Table) 10/30/21 04:15 Urine Culture - Final Urine,Voided Escherichia coli Assessment and Plan Assessment: Acute urinary tract infection secondary to gram-negative bacteria Sepsis secondary to above Acute kidney injury, improving Mild right hydronephrosis Troponin leak most likely type II myocardial infarction Covid infection with no pneumonia or hypoxia Plan: This is a pleasant 71 years old male who presents with UTI and CHARITO and high troponin Continue with ceftriaxone follow-up urine culture Continue with doxycycline No IV fluids Continue with vitamin C, vitamin D and zinc Social consultants on the case including infectious disease, automatic vulcanizing operator Registered Pharmacist and pulmonary team sign off the case Labs and medication were reviewed.. Continue same treatment. Continue with symptomatic treatment. Resume home medication. Monitor lytes and vitals. DVT and GI prophylaxis. Further recommendations as per clinical course of the patient DVT prophylaxis: Subcutaneous heparin GI Prophylaxis: Pepcid PT/OT: Recommended subacute rehab, social work administrator consult Prognosis is guarded
[2021-11-02] MEDS: HEPARIN SODIUM,PORCINE/PF 5,000 UNIT/0.5 ML SYRINGE SQ SCH ×2 (08:42→21:04)
[2021-11-02] MEDS: FAMOTIDINE 20 MG/2 ML VIAL IV SCH ×2 (08:42→22:21)
[2021-11-02] MEDS: DOXYCYCLINE 100 MG CAP PO SCH (08:42)
[2021-11-02] MEDS: CARBIDOPA-LEVODOPA ER 50-200MG 1 EACH TABLET.ER PO SCH ×2 (08:42→21:04)
[2021-11-02] MEDS: CHOLECALCIFEROL 125 MCG (5000 IU) TABLET PO SCH (08:43)
[2021-11-02] MEDS: ASCORBIC ACID 500 MG TAB PO SCH ×2 (08:43→21:04)
[2021-11-02] MEDS: FERROUS SULFATE 325 MG TAB PO SCH (08:43)
[2021-11-02] MEDS: TAMSULOSIN 0.4 MG CAP.ER.24H PO SCH (08:43)
[2021-11-02] MEDS: ASPIRIN 81 MG PO SCH (08:43)
[2021-11-02] MEDS: ZINC SULFATE 220 MG CAP PO SCH (08:43)
--- NOTE | 2021-11-02 19:16 | P.PN ---
Subjective This is a pleasant 70 years old male with past medical history of hypertension, subdural hematoma, Parkinson disease. Presents with fall. Patient was found to have febrile illness suspected secondary to acute urinary tract infection and his been treated accordingly with ceftriaxone also he has evidence of comedo infection with no pneumonia. He is also on multiple vitamins, CD and zinc. Also is on doxycycline. His acute kidney injury present on admission his improvement with creatinine down to 1.8 down to 1.5. Baseline 0.9-1.1. Account Manager Employee Benefits on the case. Urine culture has grown a gram-negative bacilli. Pulmonary team already signed off the case 11/01/2021 Patient awake and alert, she still feels very weak and tired and lethargic altho ugh she is slowly and gradually improving. Her UTI is responding to therapy with ceftriaxone, her urine culture is growing sensitive E. coli. Her creatinine improved to 1.0. IV fluids stopped. She is on ceftriaxone and doxycycline and multiple vitamins. She will benefit from an ECF rehab upon discharge 11/02/2021 Patient awake and alert and denies specific symptoms today. Patient feels generally weak and he would benefit from subacute rehab for physical therapy evaluation, drug abuse social worker consulted and is pending. His UTI is responding to therapy with Rocephin with cultures growing sensitive E. coli area also he is on doxycycline and multiple vitamins for Covid without infection and infectious disease team on the case. Lining Strap Closer already signed off. Creatinine improved. Platelets 114. Check labs in the morning Objective - Vital Signs Vital signs: Vital Signs Temp 98.2 F 11/02/21 10:00 Pulse 75 11/02/21 10:00 Resp 18 11/02/21 10:00 BP 142/88 11/02/21 10:00 Pulse Ox 94 L 11/02/21 10:00 FiO2 Intake & Output 11/01/21 11/02/21 11/02/21 18:59 06:59 18:59 Intake Total 240 Output Total 1600 Balance -1360 Intake: Oral 240 Output: Urine 1600 Other: Voiding Method Incontinent External Catheter External Catheter # Voids 2 - Exam GENERAL: The patient is alert and oriented x3, not in any acute distress. Well developed, well nourished. HEENT: Pupils are round and equally reacting to light. EOMI. No scleral icterus. No conjunctival pallor. Normocephalic, atraumatic. No pharyngeal erythema. No thyromegaly. CARDIOVASCULAR: S1 and S2 present. No murmurs, rubs, or gallops. PULMONARY: Chest is clear to auscultation, no wheezing or crackles. ABDOMEN: Soft, nontender, nondistended, normoactive bowel sounds. No palpable organomegaly. MUSCULOSKELETAL: No joint swelling or deformity. EXTREMITIES: No cyanosis, clubbing, or pedal edema. NEUROLOGICAL: Gross neurological examination did not reveal any focal deficits. SKIN: No rashes. no petechiae. - Labs CBC & Chem 7: 11/01/21 06:10 11/01/21 06:10 Labs: Microbiology - Last 24 Hours (Table) 10/30/21 04:15 Urine Culture - Final Urine,Voided Escherichia coli Assessment and Plan Assessment: Acute urinary tract infection secondary to E. coli Sepsis secondary to above, resolved Acute kidney injury, improving Mild right hydronephrosis Troponin leak most likely type II myocardial infarction Covid infection with no pneumonia or hypoxia Plan: This is a pleasant 71 years old male who presents with UTI and CHARITO and high troponin Continue with ceftriaxone Continue with doxycycline No IV fluids Continue with vitamin C, vitamin D and zinc Several consultants on the case including infectious disease, crisis mental health therapist [employer] and pulmonary team sign off the case Labs and medication were reviewed.. Continue same treatment. Continue with symptomatic treatment. Resume home medication. Monitor lytes and vitals. DVT and GI prophylaxis. Further recommendations as per clinical course of the patient DVT prophylaxis: Subcutaneous heparin GI Prophylaxis: Pepcid PT/OT: Recommended subacute rehab, drug abuse social worker consult Prognosis is guarded
[2021-11-02] MEDS: FINASTERIDE 5 MG TAB PO SCH (21:04)
[2021-11-03] MEDS: ASPIRIN 81 MG PO SCH (08:03)
[2021-11-03] MEDS: ASCORBIC ACID 500 MG TAB PO SCH ×2 (08:03→22:17)
[2021-11-03] MEDS: FAMOTIDINE 20 MG/2 ML VIAL IV SCH ×2 (08:03→22:18)
[2021-11-03] MEDS: CHOLECALCIFEROL 125 MCG (5000 IU) TABLET PO SCH (08:03)
[2021-11-03] MEDS: HEPARIN SODIUM,PORCINE/PF 5,000 UNIT/0.5 ML SYRINGE SQ SCH ×3 (08:03→22:38)
[2021-11-03] MEDS: FERROUS SULFATE 325 MG TAB PO SCH (08:03)
[2021-11-03] MEDS: ZINC SULFATE 220 MG CAP PO SCH (08:03)
[2021-11-03] MEDS: TAMSULOSIN 0.4 MG CAP.ER.24H PO SCH (08:03)
[2021-11-03] MEDS: CARBIDOPA-LEVODOPA ER 50-200MG 1 EACH TABLET.ER PO SCH ×2 (08:04→22:17)
[2021-11-03 09:20] LABS: Basophils # (A) 0.01 X 10*3/uL (0.00-0.10); Basophils % (A) 0.3 %; Eosinophils # (A) 0.04 X 10*3/uL (0.04-0.35); Eosinophils % (A) 1.2 %; HCT 40.7 % (39.6-50.0); Immature Grans, Automated 0 %; Lymphocytes # (A) 1.17 X 10*3/uL (0.90-5.00); Lymphocytes % (A) 34.7 %; MCH 29.5 pg (27.0-32.0); MCHC 31.9 g/dL (32.0-37.0); MCV 92.3 fL (80.0-97.0); Mean Platelet Volume 11.1 fL (9.5-12.2); Monocytes # (A) 0.37 X 10*3/uL (0.20-1.00); NRBC Per 100 WBC 0 /100 WBCS (0.0-0.0); Neutrophils # (A) 1.78 X 10*3/uL (1.80-7.70); Neutrophils % (A) 52.8 %; Platelet Count 115 X 10*3/uL (140-440); RBC 4.41 X 10*6/uL (4.40-5.60); RDW 13.3 % (11.5-14.5); WBC 3.37 X 10*3/uL (4.50-10.00)
[2021-11-03 09:35] LABS: African American GFR (CKD) 86.8 (60.0-200.0); Anion Gap 6.3 mmol/L (10.00-18.00); BUN/Creat Ratio 14.4 Ratio (12.00-20.00); Blood Urea Nitrogen 14.4 mg/dL (9.0-27.0); Calcium 7.9 mg/dL (8.7-10.3); Carbon Dioxide 24.7 mmol/L (20.0-27.5); Magnesium 1.7 mg/dL (1.5-2.4); Non-African American GFR(CKD) 74.9 (60.0-200.0); Potassium 4.1 mmol/L (3.5-5.5)
[2021-11-03] MEDS: FINASTERIDE 5 MG TAB PO SCH (22:18)
[2021-11-03] MEDS: hydrALAZINE HCL 20 MG/ML 1 ML VIAL IVP PRN (22:19)
--- NOTE | 2021-11-03 23:56 | P.PN ---
Subjective Progress Note Date: 11/02/21 Principal diagnosis: Covid 19 and UTI Patient is a 70-year-old male with a past medical history Parkinson disease prostate cancer presenting to the hospital after pending patient fell out of the bed patient was noticed to be febrile did have a positive cover test and a positive UA. On today's evaluation that is 11/02/2021, the patient continues to be afebrile, the patient is breathing comfortably on room air the patient denies having any chest pain or shortness of breath, the patient did have occasional cough no abdominal pain and no diarrhea has been reported Objective - Vital Signs Vital signs: Vital Signs Temp 98.2 F 11/02/21 10:00 Pulse 75 11/02/21 10:00 Resp 18 11/02/21 10:00 BP 142/88 11/02/21 10:00 Pulse Ox 94 L 11/02/21 10:00 FiO2 Intake & Output 11/01/21 11/02/21 11/02/21 18:59 06:59 18:59 Intake Total 240 Output Total 1600 Balance -1360 Intake: Oral 240 Output: Urine 1600 Other: Voiding Method Incontinent External Catheter Incontinent External Catheter External Catheter # Voids 2 - Exam GENERAL DESCRIPTION: An elderly male up in the chair in no distress RESPIRATORY SYSTEM: Unlabored breathing , decreased breath sounds at bases HEART: S1 S2 regular rate and rhythm , ABDOMEN: Soft , no tenderness EXTREMITIES: No edema feet - Labs CBC & Chem 7: 11/03/21 06:03 11/03/21 06:03 Assessment and Plan (1) COVID-19 Current Visit: Yes Status: Acute Code(s): U07.1 - COVID-19 SNOMED Code(s): 596880832 (2) Urinary tract infection Current Visit: No Status: Acute Code(s): N39.0 - URINARY TRACT INFECTION, SITE NOT SPECIFIED SNOMED Code(s): 90869660 Plan: 1patient presented to hospital with a fall in this patient and subsequent noticed to have a fever patient did have a mild cough symptom going on for about a week did have a positive COVID test however not hypoxic currently and chest x- ray was negative for pneumonia treatment is mostly supportive with zinc ascorbic acid no need for remdesivir at this point and the patient has shown clinical improvement currently breathing comfortably on room air 2patient did have significantly positive UA likely component of symptomatic UTI from enteric gram-negative urine has been finalized with E. coli that is a sensitive pathogen. 3patient will continue with Rocephin 1 g daily while inpatient and will transition to oral antibiotics on discharge Time with Patient: Less than 30
--- NOTE | 2021-11-03 23:58 | P.PN ---
Subjective Progress Note Date: 11/03/21 Principal diagnosis: Covid 19 and UTI Patient is a 70-year-old male with a past medical history Parkinson disease prostate cancer presenting to the hospital after pending patient fell out of the bed patient was noticed to be febrile did have a positive cover test and a positive UA. On today's evaluation that is 11/03/2021, the patient denies any fever or any chills, the patient is breathing comfortably on room air, the patient denies having any chest pain or shortness of breath, the patient did have occasional dry cough, the patient denies abdominal pain and no diarrhea Objective - Vital Signs Vital signs: Vital Signs Temp 98.7 F 11/03/21 09:25 Pulse 70 11/03/21 09:25 Resp 20 11/03/21 09:25 BP 163/91 11/03/21 09:25 Pulse Ox 93 L 11/03/21 09:25 FiO2 Intake & Output 11/02/21 11/03/21 11/03/21 18:59 06:59 18:59 Intake Total 200 Output Total 800 800 900 Balance -800 -600 -900 Intake: Oral 200 Output: Urine 800 800 900 Other: Voiding Method Incontinent Incontinent External Catheter External Catheter # Voids 2 - Exam GENERAL DESCRIPTION: An elderly male up in the chair in no distress RESPIRATORY SYSTEM: Unlabored breathing , decreased breath sounds at bases HEART: S1 S2 regular rate and rhythm , ABDOMEN: Soft , no tenderness EXTREMITIES: No edema feet - Labs CBC & Chem 7: 11/03/21 06:03 11/03/21 06:03 Labs: Abnormal Lab Results - Last 24 Hours (Table) 11/03/21 11/03/21 Range/Units 06:03 06:03 WBC 3.37 L (4.50-10.00) X 10*3/uL MCHC 31.9 L (32.0-37.0) g/dL Plt Count 115 L (140-440) X 10*3/uL Neutrophils # 1.78 L (1.80-7.70) X 10*3/uL Anion Gap 6.30 L (10.00-18.00) mmol/L Calcium 7.9 L (8.7-10.3) mg/dL Assessment and Plan (1) COVID-19 Current Visit: Yes Status: Acute Code(s): U07.1 - COVID-19 SNOMED Code(s): 159181040 (2) Urinary tract infection Current Visit: No Status: Acute Code(s): N39.0 - URINARY TRACT INFECTION, SITE NOT SPECIFIED SNOMED Code(s): 46472958 Plan: 1patient presented to hospital with a fall in this patient and subsequent noticed to have a fever patient did have a mild cough symptom going on for about a week did have a positive COVID test however not hypoxic currently and chest x- ray was negative for pneumonia treatment is mostly supportive with zinc ascorbic acid no need for remdesivir at this point and the patient has shown clinical improvement currently breathing comfortably on room air 2patient did have a possible component of UTI and urine has been finalized with E. coli that is a sensitive pathogen for the patient is covered with Rocephin 1 g daily patient be continued while inpatient and will transition to oral Ceftin on discharge Time with Patient: Less than 30
[2021-11-04] MEDS: CHOLECALCIFEROL 125 MCG (5000 IU) TABLET PO SCH (08:20)
[2021-11-04] MEDS: FAMOTIDINE 20 MG/2 ML VIAL IV SCH ×2 (08:21→21:36)
[2021-11-04] MEDS: HEPARIN SODIUM,PORCINE/PF 5,000 UNIT/0.5 ML SYRINGE SQ SCH ×2 (08:21→21:01)
[2021-11-04] MEDS: FERROUS SULFATE 325 MG TAB PO SCH (08:21)
[2021-11-04] MEDS: ASPIRIN 81 MG PO SCH (08:21)
[2021-11-04] MEDS: ASCORBIC ACID 500 MG TAB PO SCH ×2 (08:21→21:01)
[2021-11-04] MEDS: ZINC SULFATE 220 MG CAP PO SCH (08:21)
[2021-11-04] MEDS: CARBIDOPA-LEVODOPA ER 50-200MG 1 EACH TABLET.ER PO SCH ×2 (08:21→21:01)
[2021-11-04] MEDS: TAMSULOSIN 0.4 MG CAP.ER.24H PO SCH (08:21)
[2021-11-04 09:01] LABS: African American GFR (CKD) 98.5 (60.0-200.0); Albumin 3.5 g/dL (3.8-4.9); Albumin/Globulin Ratio 1.46 (1.60-3.17); Anion Gap 7.8 mmol/L (10.00-18.00); BUN/Creat Ratio 14.67 Ratio (12.00-20.00); Blood Urea Nitrogen 13.2 mg/dL (9.0-27.0); Carbon Dioxide 26.2 mmol/L (20.0-27.5); Globulin 2.4 g/dL (1.6-3.3); Potassium 4.1 mmol/L (3.5-5.5); Total Bilirubin 0.4 mg/dL (0.30-1.20); Total Protein 5.9 g/dL (6.2-8.2)
[2021-11-04 10:57] LABS: Basophils # (A) 0.01 X 10*3/uL (0.00-0.10); Basophils % (A) 0.2 %; Eosinophils # (A) 0.06 X 10*3/uL (0.04-0.35); Eosinophils % (A) 1.5 %; HCT 43.7 % (39.6-50.0); HGB 13.8 g/dL (13.0-17.0); Immature Grans, Automated 0.2 %; Lymphocytes # (A) 0.89 X 10*3/uL (0.90-5.00); MCH 29.4 pg (27.0-32.0); MCHC 31.6 g/dL (32.0-37.0); Mean Platelet Volume 10.9 fL (9.5-12.2); Monocytes # (A) 0.43 X 10*3/uL (0.20-1.00); Monocytes % (A) 10.6 %; NRBC Per 100 WBC 0 /100 WBCS (0.0-0.0); Neutrophils # (A) 2.64 X 10*3/uL (1.80-7.70); Neutrophils % (A) 65.5 %; Platelet Count 138 X 10*3/uL (140-440); RDW 13.4 % (11.5-14.5); WBC 4.04 X 10*3/uL (4.50-10.00)
[2021-11-04 10:58] LABS: RBC Morphology NORMAL
[2021-11-04 12:20] VITALS: BMI 32.5
--- NOTE | 2021-11-04 16:27 | P.PN ---
Subjective Progress Note Date: 11/03/21 Caleb Riggins, he is a 70-year-old male who presented to [facility] emergency room with a chief complaint of back pain, patient had a fall at home he was down on the floor for about 5 hours He was evaluated in the emergency room vital examination on presentation revealed a temperature of 100.5 pulse 103 respiration 20 blood pressure 174/108 pulse ox 100% on room air Laboratory data revealed a white blood count of 7.0 hemoglobin 15.4 platelet count 125 sodium 137 potassium 4.5 chloride 104 CO2 25 BUN 27 creatinine 1.77, COVID-19 PCR was positive, troponin level was slightly elevated Testing in the emergency room revealed chest x-ray done in the emergency room revealed no acute pulmonary process Patient was admitted to medical floor for further evaluation and treatment On 10/30/2021 patient was seen and examined on the medical floor he is alert and oriented 3 in no apparent distress there is no fever or chills no headache or dizziness no chest pain no shortness of breath no cough no nausea or vomiting no abdominal pain no diarrhea no blood in the stools no burning with urination no frequency or urgency and no hematuria Patient was covered by Dr. Holman on 10/31/2021 11/01/2021 and 11/02/2021, I am resuming care for patient on 11/03/2021 On 11/03/2021 patient was seen and examined on the medical floor he is alert and oriented 3 in no apparent distress there is no fever or chills no headache or dizziness no chest pain no shortness of breath no cough no nausea or vomiting no abdominal pain no diarrhea and no urinary symptoms oxygen saturation is low on room air he is maintained on oxygen at 4 L nasal cannula Objective - Vital Signs Vital signs: Vital Signs Temp 98.2 F 11/03/21 17:58 Pulse 86 11/03/21 17:58 Resp 20 11/03/21 17:58 BP 138/86 11/03/21 17:58 Pulse Ox 96 11/03/21 17:58 FiO2 Intake & Output 11/02/21 11/03/21 11/03/21 18:59 06:59 18:59 Intake Total 200 1080 Output Total 147 983 4944 Balance -800 -600 -520 Intake: Oral 200 1080 Output: Urine 540 631 [id number] Other: Voiding Method Incontinent Incontinent External Catheter External Catheter # Voids 2 - Exam In general patient is alert and oriented x 3 in no distress HEENT head normocephalic and atraumatic Neck is supple no JVD no goiter no lymphadenopathy no carotid bruit Chest examination is clear to auscultation no crackles no wheezing Cardiac exam reveals regular heart sounds S1 and S2 no gallops no murmurs Abdomen is soft nontender no organomegaly with normal bowel sounds Extremity exam reveals no edema no cyanosis or clubbing Neurological examination reveals no gross focal deficits - Labs CBC & Chem 7: 11/03/21 06:03 11/03/21 06:03 Labs: Abnormal Lab Results - Last 24 Hours (Table) 11/03/21 11/03/21 Range/Units 06:03 06:03 WBC 3.37 L (4.50-10.00) X 10*3/uL MCHC 31.9 L (32.0-37.0) g/dL Plt Count 115 L (140-440) X 10*3/uL Neutrophils # 1.78 L (1.80-7.70) X 10*3/uL Anion Gap 6.30 L (10.00-18.00) mmol/L Calcium 7.9 L (8.7-10.3) mg/dL Assessment and Plan Plan: Fall at home with prolonged down to stay on the floor until EMS arrival Acute kidney injury Rhabdomyolysis Acute COVID-19 infection without evidence of pneumonia Hypertension with hypertensive urgency on presentation Febrile illness likely related to acute COVID-19 infection Underlying history of Parkinson disease Underlying history of nephrolithiasis Underlying history of benign prostatic hypertrophy Underlying history of subdural hematoma At this time patient will be admitted to telemetry floor Will obtain ultrasound of the kidneys IV fluid and blood pressure management Consultation for nephrology and pulmonary were initiated in the emergency room Will recheck labs in the am
--- NOTE | 2021-11-04 16:28 | P.PN ---
Subjective Progress Note Date: 11/04/21 Caleb Riggins, he is a 70-year-old male who presented to [facility] emergency room with a chief complaint of back pain, patient had a fall at home he was down on the floor for about 5 hours He was evaluated in the emergency room vital examination on presentation revealed a temperature of 100.5 pulse 103 respiration 20 blood pressure 174/108 pulse ox 100% on room air Laboratory data revealed a white blood count of 7.0 hemoglobin 15.4 platelet count 125 sodium 137 potassium 4.5 chloride 104 CO2 25 BUN 27 creatinine 1.77, COVID-19 PCR was positive, troponin level was slightly elevated Testing in the emergency room revealed chest x-ray done in the emergency room revealed no acute pulmonary process Patient was admitted to medical floor for further evaluation and treatment On 10/30/2021 patient was seen and examined on the medical floor he is alert and oriented 3 in no apparent distress there is no fever or chills no headache or dizziness no chest pain no shortness of breath no cough no nausea or vomiting no abdominal pain no diarrhea no blood in the stools no burning with urination no frequency or urgency and no hematuria Patient was covered by Dr. Holman on 10/31/2021 11/01/2021 and 11/02/2021, I am resuming care for patient on 11/03/2021 On 11/03/2021 patient was seen and examined on the medical floor he is alert and oriented 3 in no apparent distress there is no fever or chills no headache or dizziness no chest pain no shortness of breath no cough no nausea or vomiting no abdominal pain no diarrhea and no urinary symptoms oxygen saturation is low on room air he is maintained on oxygen at 4 L nasal cannula On 11/04/2021 patient was seen and examined on the medical floor he is alert and oriented in no distress there is no fever or chills no headache or dizziness no chest pain no shortness of breath no cough no nausea or vomiting no abdominal pain no diarrhea and no urinary symptoms oxygen saturation is low on room air he is maintained on oxygen at 4 L nasal cannula Objective - Vital Signs Vital signs: Vital Signs Temp 97.5 F L 11/04/21 14:00 Pulse 79 11/04/21 14:00 Resp 18 11/04/21 06:19 BP 100/58 11/04/21 14:00 Pulse Ox 95 11/04/21 14:00 FiO2 Intake & Output 11/03/21 11/04/21 11/04/21 18:59 06:59 18:59 Intake Total 1080 Output Total 1600 Balance -520 Weight 108.862 kg Intake: Oral 1080 Output: Urine 1600 Other: Voiding Method Incontinent Diaper External Catheter Incontinent External Catheter # Voids 1 # Bowel Movements 1 - Exam In general patient is alert and oriented x 3 in no distress HEENT head normocephalic and atraumatic Neck is supple no JVD no goiter no lymphadenopathy no carotid bruit Chest examination is clear to auscultation no crackles no wheezing Cardiac exam reveals regular heart sounds S1 and S2 no gallops no murmurs Abdomen is soft nontender no organomegaly with normal bowel sounds Extremity exam reveals no edema no cyanosis or clubbing Neurological examination reveals no gross focal deficits - Labs CBC & Chem 7: 11/04/21 06:09 11/04/21 06:09 Labs: Abnormal Lab Results - Last 24 Hours (Table) 11/04/21 11/04/21 Range/Units 06:09 06:09 WBC 4.04 L (4.50-10.00) X 10*3/uL MCHC 31.6 L (32.0-37.0) g/dL Plt Count 138 L (140-440) X 10*3/uL Plt Count Comment DECREASED A Lymphocytes # 0.89 L (0.90-5.00) X 10*3/uL Anion Gap 7.80 L (10.00-18.00) mmol/L Calcium 8.0 L (8.7-10.3) mg/dL AST 76 H (14-35) U/L Total Protein 5.9 L (6.2-8.2) g/dL Albumin 3.5 L (3.8-4.9) g/dL Albumin/Globulin Ratio 1.46 L (1.60-3.17) g/dL Assessment and Plan Plan: Fall at home with prolonged down to stay on the floor until EMS arrival Acute kidney injury Rhabdomyolysis Acute COVID-19 infection without evidence of pneumonia Hypertension with hypertensive urgency on presentation Febrile illness likely related to acute COVID-19 infection Underlying history of Parkinson disease Underlying history of nephrolithiasis Underlying history of benign prostatic hypertrophy Underlying history of subdural hematoma At this time patient will be admitted to telemetry floor Will obtain ultrasound of the kidneys IV fluid and blood pressure management Consultation for nephrology and pulmonary were initiated in the emergency room Will recheck labs in the am
[2021-11-04] MEDS: FINASTERIDE 5 MG TAB PO SCH (21:01)
[2021-11-05] MEDS: ASPIRIN 81 MG PO SCH (08:03)
[2021-11-05] MEDS: CHOLECALCIFEROL 125 MCG (5000 IU) TABLET PO SCH (08:03)
[2021-11-05] MEDS: ZINC SULFATE 220 MG CAP PO SCH (08:03)
[2021-11-05] MEDS: ASCORBIC ACID 500 MG TAB PO SCH ×2 (08:03→20:50)
[2021-11-05] MEDS: HEPARIN SODIUM,PORCINE/PF 5,000 UNIT/0.5 ML SYRINGE SQ SCH ×2 (08:03→20:50)
[2021-11-05] MEDS: FAMOTIDINE 20 MG/2 ML VIAL IV SCH ×2 (08:03→20:50)
[2021-11-05] MEDS: FERROUS SULFATE 325 MG TAB PO SCH ×2 (08:03→08:05)
[2021-11-05] MEDS: CARBIDOPA-LEVODOPA ER 50-200MG 1 EACH TABLET.ER PO SCH ×2 (08:03→20:50)
[2021-11-05] MEDS: TAMSULOSIN 0.4 MG CAP.ER.24H PO SCH (08:03)
[2021-11-05 09:11] LABS: Basophils # (A) 0.01 X 10*3/uL (0.00-0.10); Basophils % (A) 0.3 %; Eosinophils # (A) 0.07 X 10*3/uL (0.04-0.35); Eosinophils % (A) 2.2 %; HCT 39.6 % (39.6-50.0); HGB 12.6 g/dL (13.0-17.0); Immature Grans, Automated 0.6 %; Lymphocytes # (A) 1.02 X 10*3/uL (0.90-5.00); Lymphocytes % (A) 32.6 %; MCH 29.4 pg (27.0-32.0); MCHC 31.8 g/dL (32.0-37.0); MCV 92.3 fL (80.0-97.0); Mean Platelet Volume 10.7 fL (9.5-12.2); Monocytes # (A) 0.39 X 10*3/uL (0.20-1.00); Monocytes % (A) 12.5 %; NRBC Per 100 WBC 0 /100 WBCS (0.0-0.0); Neutrophils # (A) 1.62 X 10*3/uL (1.80-7.70); Neutrophils % (A) 51.8 %; Platelet Count 146 X 10*3/uL (140-440); RBC 4.29 X 10*6/uL (4.40-5.60); RDW 13.6 % (11.5-14.5); WBC 3.13 X 10*3/uL (4.50-10.00)
--- NOTE | 2021-11-05 10:49 | CDI ---
Documentation Clarification Form Date: 11/05/2021 10:27:58 AM From: Roshni Alexander RN CCDS Admit Date: 10/29/2021 03:15:00 PM Patient Name: Caleb Riggins Visit Number: [id number] Discharge Date: ATTENTION: The Clinical Documentation Specialists (CDI) and [facility] Coding Staff appreciate your assistance in clarifying documentation. Please respond to the clarification below the line at the bottom and electronically sign. The CDI & [facility] Coding staff will review the response and follow-up if needed. Please note: Queries are made part of the Legal Health Record. If you have any questions, please contact the author of this message via ITS. Dr. Rose Fernandez Sepsis is documented 10/31, 11/01,11/02, Medicine progress notes. For each diagnosis, documentation must be clear to determine if the condition was present at the time of the patients inpatient admission or developed during the hospital stay. Additional clarification regarding the Sepsis is requested. History/Risk Factors: 70-year-old male presents to the ED after a fall at home on the floor for five hours. Medical history: HTN; Parkinsons disease and renal disease. HP, 10/29. Clinical Indicators: VSS, 10/29: B/P 174/108; HR 103; Temp 100.5 F Axillary; RR 20; SpO2 room air. LABS, 10/29: Wbc 7.0; Lymphocytes 0.5; BUN 27; CR 1.77; Cr Kinase 1265. COVID 19 Detected. Urine Culture, 10/29: Escherichia coli CXR, 10/29: No acute process. Medicine Progress note, 10/31: Sepsis secondary to Acute urinary tract infection secondary to gram negative bacteria. Treatment: 10/29 Tylenol 650mg PO Q6HR PRN discontinued 10/31; 10/30 Vitamin D3 125mcg PO Daily; 10/30 Zinc 220mg PO Daily; 10/30 11/02 Vibramycin 100mg PO BID; 10/30 Ceftriaxone 1gm IVPB Q24H. Definition of Present on Admission (POA): A diagnosis present at the time the order for admission to inpatient status was written. Please clarify if the Sepsis was POA [ xxxx ] Y = Yes, the condition was present at the time of the order for inpatient admission. [ ] N = No, the condition was not present at the time of the order for inpatient admission. [ ] W = Clinically undetermined if the condition was present at the time of the order for inpatient admission. (Template Last Revised: June 2020) ONEL
--- NOTE | 2021-11-05 12:02 | P.PN ---
Subjective Progress Note Date: 11/04/21 Principal diagnosis: Covid 19 and UTI Patient is a 70-year-old male with a past medical history Parkinson disease prostate cancer presenting to the hospital after pending patient fell out of the bed patient was noticed to be febrile did have a positive cover test and a positive UA. On today's visit That is 11/05/2021 the patient remains to be afebrile, the patient is breathing comfortably on room air, the patient denies having any chest pain or shortness with occasional cough no abdominal pain or diarrhea Objective - Vital Signs Vital signs: Vital Signs Temp 97.5 F L 11/04/21 07:56 Pulse 79 11/04/21 07:56 Resp 18 11/04/21 06:19 BP 107/64 11/04/21 07:56 Pulse Ox 95 11/04/21 07:56 FiO2 Intake & Output 11/03/21 11/04/21 11/04/21 18:59 06:59 18:59 Intake Total 1080 Output Total 1600 Balance -520 Intake: Oral 1080 Output: Urine 1600 Other: Voiding Method Incontinent Diaper External Catheter Incontinent External Catheter # Voids 1 # Bowel Movements 1 - Exam GENERAL DESCRIPTION: An elderly male up in the chair in no distress RESPIRATORY SYSTEM: Unlabored breathing , decreased breath sounds at bases HEART: S1 S2 regular rate and rhythm , ABDOMEN: Soft , no tenderness EXTREMITIES: No edema feet - Labs CBC & Chem 7: 11/05/21 06:20 11/04/21 06:09 Labs: Abnormal Lab Results - Last 24 Hours (Table) 11/04/21 11/04/21 Range/Units 06:09 06:09 WBC 4.04 L (4.50-10.00) X 10*3/uL MCHC 31.6 L (32.0-37.0) g/dL Plt Count 138 L (140-440) X 10*3/uL Plt Count Comment DECREASED A Lymphocytes # 0.89 L (0.90-5.00) X 10*3/uL Anion Gap 7.80 L (10.00-18.00) mmol/L Calcium 8.0 L (8.7-10.3) mg/dL AST 76 H (14-35) U/L Total Protein 5.9 L (6.2-8.2) g/dL Albumin 3.5 L (3.8-4.9) g/dL Albumin/Globulin Ratio 1.46 L (1.60-3.17) g/dL Assessment and Plan (1) COVID-19 Current Visit: Yes Status: Acute Code(s): U07.1 - COVID-19 SNOMED Code(s): 267479209 (2) Urinary tract infection Current Visit: No Status: Acute Code(s): N39.0 - URINARY TRACT INFECTION, SITE NOT SPECIFIED SNOMED Code(s): 67131778 Plan: 1patient presented to hospital with a fall in this patient and subsequent noticed to have a fever patient did have a mild cough symptom going on for about a week did have a positive COVID test however not hypoxic currently and chest x-ray was negative for pneumonia treatment is mostly supportive with zinc ascorbic acid no need for remdesivir at this point and the patient has shown clinical improvement currently breathing comfortably on room air 2patient with E. coli that is a sensitive pathogen for the patient is covered with Rocephin 1 g daily which will be continued while inpatient and finish therapy with oral Ceftin on discharge Time with Patient: Less than 30
--- NOTE | 2021-11-05 18:06 | P.PN ---
Subjective Progress Note Date: 11/05/21 Caleb Riggins, he is a 70-year-old male who presented to [facility] emergency room with a chief complaint of back pain, patient had a fall at home he was down on the floor for about 5 hours He was evaluated in the emergency room vital examination on presentation revealed a temperature of 100.5 pulse 103 respiration 20 blood pressure 174/108 pulse ox 100% on room air Laboratory data revealed a white blood count of 7.0 hemoglobin 15.4 platelet count 125 sodium 137 potassium 4.5 chloride 104 CO2 25 BUN 27 creatinine 1.77, COVID-19 PCR was positive, troponin level was slightly elevated Testing in the emergency room revealed chest x-ray done in the emergency room revealed no acute pulmonary process Patient was admitted to medical floor for further evaluation and treatment On 10/30/2021 patient was seen and examined on the medical floor he is alert and oriented 3 in no apparent distress there is no fever or chills no headache or dizziness no chest pain no shortness of breath no cough no nausea or vomiting no abdominal pain no diarrhea no blood in the stools no burning with urination no frequency or urgency and no hematuria Patient was covered by Dr. Holman on 10/31/2021 11/01/2021 and 11/02/2021, I am resuming care for patient on 11/03/2021 On 11/03/2021 patient was seen and examined on the medical floor he is alert and oriented 3 in no apparent distress there is no fever or chills no headache or dizziness no chest pain no shortness of breath no cough no nausea or vomiting no abdominal pain no diarrhea and no urinary symptoms oxygen saturation is low on room air he is maintained on oxygen at 4 L nasal cannula On 11/04/2021 patient was seen and examined on the medical floor he is alert and oriented in no distress there is no fever or chills no headache or dizziness no chest pain no shortness of breath no cough no nausea or vomiting no abdominal pain no diarrhea and no urinary symptoms oxygen saturation is low on room air he is maintained on oxygen at 4 L nasal cannula. On 11/05/2021 patient was seen and examined on the medical floor he is alert and oriented 3 in no distress there is no fever or chills no headache or dizziness no chest pain no shortness of breath no cough no nausea or vomiting no abdominal pain no diarrhea no blood in the stools no burning with urination no frequency or urgency and no hematuria patient is still requiring oxygen 2-4 L/m Will monitor closely patient wants to go home will assess possibility of discharging patient to home tomorrow Objective - Vital Signs Vital signs: Vital Signs Temp 98.5 F 11/05/21 14:00 Pulse 81 11/05/21 14:00 Resp 18 11/04/21 06:19 BP 123/80 11/05/21 14:00 Pulse Ox 96 11/05/21 14:00 FiO2 Intake & Output 11/04/21 11/05/21 11/05/21 18:59 06:59 18:59 Output Total 600 600 Balance -600 -600 Weight 108.862 kg Output: Urine 600 600 Other: Voiding Method Diaper Diaper Incontinent Incontinent Incontinent External Catheter External Catheter # Bowel Movements 1 - Exam In general patient is alert and oriented x 3 in no distress HEENT head normocephalic and atraumatic Neck is supple no JVD no goiter no lymphadenopathy no carotid bruit Chest examination is clear to auscultation no crackles no wheezing Cardiac exam reveals regular heart sounds S1 and S2 no gallops no murmurs Abdomen is soft nontender no organomegaly with normal bowel sounds Extremity exam reveals no edema no cyanosis or clubbing Neurological examination reveals no gross focal deficits - Labs CBC & Chem 7: 11/05/21 06:20 11/04/21 06:09 Labs: Abnormal Lab Results - Last 24 Hours (Table) 11/05/21 Range/Units 06:20 WBC 3.13 L (4.50-10.00) X 10*3/uL RBC 4.29 L (4.40-5.60) X 10*6/uL Hgb 12.6 L (13.0-17.0) g/dL MCHC 31.8 L (32.0-37.0) g/dL Neutrophils # 1.62 L (1.80-7.70) X 10*3/uL Assessment and Plan Plan: Fall at home with prolonged down to stay on the floor until EMS arrival Acute kidney injury Rhabdomyolysis Acute COVID-19 infection without evidence of pneumonia Hypertension with hypertensive urgency on presentation Febrile illness likely related to acute COVID-19 infection Underlying history of Parkinson disease Underlying history of nephrolithiasis Underlying history of benign prostatic hypertrophy Underlying history of subdural hematoma At this time patient will be admitted to telemetry floor Will obtain ultrasound of the kidneys IV fluid and blood pressure management Consultation for nephrology and pulmonary were initiated in the emergency room Will recheck labs in the am
[2021-11-05] MEDS: FINASTERIDE 5 MG TAB PO SCH (20:50)
[2021-11-06 08:00] VITALS: PULSE 76
[2021-11-06] MEDS: ASPIRIN 81 MG PO SCH (08:43)
[2021-11-06] MEDS: ASCORBIC ACID 500 MG TAB PO SCH (08:43)
[2021-11-06] MEDS: ZINC SULFATE 220 MG CAP PO SCH (08:43)
[2021-11-06] MEDS: FAMOTIDINE 20 MG/2 ML VIAL IV SCH (08:43)
[2021-11-06] MEDS: HEPARIN SODIUM,PORCINE/PF 5,000 UNIT/0.5 ML SYRINGE SQ SCH (08:43)
[2021-11-06] MEDS: CHOLECALCIFEROL 125 MCG (5000 IU) TABLET PO SCH (08:43)
[2021-11-06] MEDS: CARBIDOPA-LEVODOPA ER 50-200MG 1 EACH TABLET.ER PO SCH (08:43)
[2021-11-06] MEDS: FERROUS SULFATE 325 MG TAB PO SCH ×2 (08:43→08:45)
[2021-11-06] MEDS: TAMSULOSIN 0.4 MG CAP.ER.24H PO SCH (08:43)
--- NOTE | 2021-11-06 13:08 | P.DS ---
Providers Date of admission: 10/29/21 15:15 Expected date of discharge: 11/06/21 Attending physician: Rose Fernandez Consults: 10/29/21 17:58 Consult Physician Routine Consulting Provider: Mary Kearns Consult Reason/Comments: Acute kidney injury, rhabdomyolysis Do you want consulting provider notified?: Yes 10/29/21 17:59 Consult Physician Routine Consulting Provider: Ophelia Brown Consult Reason/Comments: Acute COVID-19 infection without pneumonia Do you want consulting provider notified?: Yes 10/30/21 08:56 Consult Physician Routine Consulting Provider: Scarlet Angela Consult Reason/Comments: per dr bee, covid and fever Do you want consulting provider notified?: Yes Primary care physician: Nancy Land Hospital Course: Diagnosis on discharge: Fall at home with prolonged down to stay on the floor until EMS arrival Acute kidney injury Rhabdomyolysis Urinary tract infection with sepsis, received IV Rocephin during the hospital stay, and switched to oral Ceftin at the time of discharge Acute COVID-19 infection without evidence of pneumonia Hypertension with hypertensive urgency on presentation Febrile illness likely related to acute COVID-19 infection Underlying history of Parkinson disease Underlying history of nephrolithiasis Underlying history of benign prostatic hypertrophy Underlying history of subdural hematoma Hospital course: Caleb Riggins, he is a 70-year-old male who presented to [facility] emergency room with a chief complaint of back pain, patient had a fall at home he was down on the floor for about 5 hours He was evaluated in the emergency room vital examination on presentation revealed a temperature of 100.5 pulse 103 respiration 20 blood pressure 174/108 pulse ox 100% on room air Laboratory data revealed a white blood count of 7.0 hemoglobin 15.4 platelet count 125 sodium 137 potassium 4.5 chloride 104 CO2 25 BUN 27 creatinine 1.77, COVID-19 PCR was positive, troponin level was slightly elevated Testing in the emergency room revealed chest x-ray done in the emergency room revealed no acute pulmonary process Patient was admitted to medical floor for further evaluation and treatment On 10/30/2021 patient was seen and examined on the medical floor he is alert and oriented 3 in no apparent distress there is no fever or chills no headache or dizziness no chest pain no shortness of breath no cough no nausea or vomiting no abdominal pain no diarrhea no blood in the stools no burning with urination no frequency or urgency and no hematuria Patient was covered by Dr. Holman on 10/31/2021 11/01/2021 and 11/02/2021, I am resuming care for patient on 11/03/2021 On 11/03/2021 patient was seen and examined on the medical floor he is alert and oriented 3 in no apparent distress there is no fever or chills no headache or dizziness no chest pain no shortness of breath no cough no nausea or vomiting no abdominal pain no diarrhea and no urinary symptoms oxygen saturation is low on room air he is maintained on oxygen at 4 L nasal cannula On 11/04/2021 patient was seen and examined on the medical floor he is alert and oriented in no distress there is no fever or chills no headache or dizziness no chest pain no shortness of breath no cough no nausea or vomiting no abdominal pain no diarrhea and no urinary symptoms oxygen saturation is low on room air he is maintained on oxygen at 4 L nasal cannula. On 11/05/2021 patient was seen and examined on the medical floor he is alert and oriented 3 in no distress there is no fever or chills no headache or dizziness no chest pain no shortness of breath no cough no nausea or vomiting no abdominal pain no diarrhea no blood in the stools no burning with urination no frequency or urgency and no hematuria patient is still requiring oxygen 2-4 L/m Will monitor closely patient wants to go home will assess possibility of discharging patient to home tomorrow On 11/06/2021 patient was seen and examined on the medical floor he is alert and oriented 3 in no apparent distress there is no fever or chills no headache or dizziness no chest pain no shortness of breath no cough no nausea or vomiting no abdominal pain no diarrhea and no urinary symptoms, is feeling well he is asking to be discharged home at this time will discontinue IV ceftriaxone and start patient on oral Ceftin for 7 more days, he will have visiting nurse at home for follow-up. Patient Condition at Discharge: Fair Plan - Discharge Summary New Discharge Prescriptions: New cefUROXime axetiL [Cefuroxime] 500 mg PO BID 7 Days #14 tab Ascorbic Acid [Vitamin C] 500 mg PO BID tab Cholecalciferol [Vitamin D3 (125 Mcg = 5000 Iu)] 125 mcg PO DAILY tab Continue amantadine HCL [Symmetrel] 100 mg PO BID Carbidopa-Levodopa ER 50-200Mg [Sinemet CR 50-200 mg] 2 tab PO BID Tamsulosin HCl [Flomax] 0.4 mg PO DAILY Finasteride [Proscar] 5 mg PO HS Aspirin 81 mg PO DAILY tab HYDROcodone/APAP 7.5-325MG [Edison 7.5-325] 1 tab PO Q6HR PRN PRN Reason: Pain Cyclobenzaprine [Flexeril] 10 mg PO TID PRN PRN Reason: Muscle Spasm Ferrous Sulfate [Feosol] 325 mg PO DAILY Discharge Medication List Carbidopa-Levodopa ER 50-200Mg [Sinemet CR 50-200 mg] 2 tab PO BID 03/20/15 [History] amantadine HCL [Symmetrel] 100 mg PO BID 03/20/15 [History] Tamsulosin HCl [Flomax] 0.4 mg PO DAILY 02/22/17 [History] Finasteride [Proscar] 5 mg PO HS 03/11/21 [History] Aspirin 81 mg PO DAILY tab 03/13/21 [Rx] Cyclobenzaprine [Flexeril] 10 mg PO TID PRN 10/29/21 [History] Ferrous Sulfate [Feosol] 325 mg PO DAILY 10/29/21 [History] HYDROcodone/APAP 7.5-325MG [Edison 7.5-325] 1 tab PO Q6HR PRN 10/29/21 [History] Ascorbic Acid [Vitamin C] 500 mg PO BID tab 11/06/21 [Rx] Cholecalciferol [Vitamin D3 (125 Mcg = 5000 Iu)] 125 mcg PO DAILY tab 11/06/21 [Rx] cefUROXime axetiL [Cefuroxime] 500 mg PO BID 7 Days #14 tab 11/06/21 [Rx] Follow up Appointment(s)/Referral(s): Nancy Land MD [Primary Care Provider] - 1-2 days Nurse,[facility] [NON-STAFF] - As Needed
[2021-11-06 15:31] VITALS: BP 149/72; RESP 18; TEMP 98.3
== END 2021-11-06 19:48 | disposition home or self-care (01) | DRG 871 ==
LOC: EC 13:11 → 3SCARD 15:15 → 4SSUR 19:11
PROVIDERS: ADMIT Internal Medicine; ATTEND Internal Medicine
DX: A41.51 Sepsis due to Escherichia coli [E. coli] (principal); I21.A1 Myocardial infarction type 2; U07.1 COVID-19; J96.01 Acute respiratory failure with hypoxia; N17.0 Acute kidney failure with tubular necrosis; N39.0 Urinary tract infection, site not specified; I45.2 Bifascicular block; M62.82 Rhabdomyolysis; N13.6 Pyonephrosis; R65.20 Severe sepsis without septic shock; Z28.310 Unvaccinated for COVID-19; D69.6 Thrombocytopenia, unspecified; E86.0 Dehydration; G20 Parkinson's disease; I10 Essential (primary) hypertension; I16.0 Hypertensive urgency; N40.0 Benign prostatic hyperplasia without lower urinary tract symptoms; R29.6 Repeated falls; Z91.81 History of falling; Z87.820 Personal history of traumatic brain injury; Z79.82 Long term (current) use of aspirin; Z79.899 Other long term (current) drug therapy; Z82.0 Family history of epilepsy and other diseases of the nervous system; Z82.3 Family history of stroke; Z82.49 Family history of ischemic heart disease and other diseases of the circulatory system; Z83.3 Family history of diabetes mellitus; Z85.46 Personal history of malignant neoplasm of prostate; Z87.442 Personal history of urinary calculi; Z87.440 Personal history of urinary (tract) infections; Z28.21 Immunization not carried out because of patient refusal
CPT/HCPCS: 36415; 71046; 76770; 80048; 80053; 81001; 82140; 82550; 83605; 83735; 83880; 84145; 84484; 85025; 85379; 87077; 87086; 87186; 87502; 87635; 93005; 96361; 96374; 99285

== ENCOUNTER → 2022-11-20 | Outpatient (CLI) | payer MEDICARE, OTHER ==
--- NOTE | 2022-11-20 15:48 | US ---
EXAMINATION TYPE: US arterial LE multi level DATE OF EXAM: 11/20/2022 3:21 PM CLINICAL INDICATION: Male, 72 years old with history of I73.9 PERIPHERAL VASCULAR DISEASE, UNSPECIFIE D; PAD History of: Smoker: n Hypertension: n Diabetic: n Hyperlipidemia: n TIA/CVA: n Previous Vascular Surgery: n CAD: n NM: n Vascular Ulcers: n Claudication: n Gangrene: n Doppler Waveforms: Right: Multiphasic Left: Multiphasic Right Brachial Pressure: 165 Left Brachial Pressure: 167 Ankle-Brachial Indices: Right: 1.2 Left: 1.2 Toe Brachial Indices: Right: 0.6 Left: unable to obtain due to non-discernable waveform and excessive patient movement IMPRESSION: No evidence for hemodynamically significant stenosis. Normal ankle-brachial indices.
== END | disposition home or self-care (01) ==
LOC: RADUSWWP 14:26
PROVIDERS: ATTEND Family Medicine
DX: I73.9 Peripheral vascular disease, unspecified (principal)
CPT/HCPCS: 93923

== ENCOUNTER 2023-01-27 21:53 | Emergency (ER) | payer MEDICARE, OTHER ==
--- NOTE | 2023-01-27 22:23 | ED ---
General Adult HPI - General Source: patient, EMS, RN notes reviewed Mode of arrival: EMS <Saida Justin - Last Filed: 01/28/23 00:31> <Javan Pino - Last Filed: 01/28/23 02:43> - General Stated complaint: UTI Time Seen by Provider: 01/27/23 21:57 - History of Present Illness Initial comments: 72-year-old male brought in by ambulance with PMH of parkinson's disease presents to the emergency department for urinary tract infection. He states that he was seen at his primary care provider's office on Wednesday and was prescribed antibiotics for a UTI/STI. He is unsure what medication he is currently on. EMS states patient has increased confusion. Patient states that his neighbors called EMS. He also admits to shortness of breath that has been going on for one month. States that this is worse with "running " He states that this was not addressed at his primary care appointment visit on Wednesday. (Saida Justin) - Related Data Home Medications Medication Instructions Recorded Confirmed Carbidopa-Levodopa ER 50-200Mg 2 tab PO BID 03/20/15 10/29/21 [Sinemet CR 50-200 mg] amantadine HCL [Symmetrel] 100 mg PO BID 03/20/15 10/29/21 Tamsulosin HCl [Flomax] 0.4 mg PO DAILY 02/22/17 10/29/21 Finasteride [Proscar] 5 mg PO HS 03/11/21 10/29/21 Cyclobenzaprine [Flexeril] 10 mg PO TID PRN 10/29/21 10/29/21 Ferrous Sulfate [Feosol] 325 mg PO DAILY 10/29/21 10/29/21 HYDROcodone/APAP 7.5-325MG [[place] 1 tab PO Q6HR PRN 10/29/21 10/29/21 7.5-325] Previous Rx's Medication Instructions Recorded Aspirin 81 mg PO DAILY tab 03/13/21 Ascorbic Acid [Vitamin C] 500 mg PO BID tab 11/06/21 Cholecalciferol [Vitamin D3 (125 125 mcg PO DAILY tab 11/06/21 Mcg = 5000 Iu)] cefUROXime axetiL [Cefuroxime] 500 mg PO BID 7 Days #14 tab 11/06/21 Cephalexin [Keflex] 500 mg PO TID 7 Days #21 cap 01/28/23 Allergies Allergy/AdvReac Type Severity Reaction Status Date / Time adhesive tape Allergy Rash/Hives Verified 01/27/23 22:22 amoxicillin Allergy Dyspnea, Verified 01/27/23 22:22 SWELLING OF THROAT haloperidol [From Haldol] Allergy Unknown Verified 01/27/23 22:22 haloperidol lactate Allergy Unknown Verified 01/27/23 22:22 [From Haldol] lorazepam [From Ativan] Allergy Unknown Verified 01/27/23 22:22 alprazolam [From Xanax] AdvReac Unknown Verified 01/27/23 22:22 Review of Systems ROS Other: All systems not noted in ROS Statement are negative. <Saida Justin - Last Filed: 01/28/23 00:31> ROS Other: All systems not noted in ROS Statement are negative. <Javan Pino - Last Filed: 01/28/23 02:43> ROS Statement: Those systems with pertinent positive or pertinent negative responses have been documented in the HPI. Past Medical History Past Medical History: Hypertension, Musculoskeletal Disorder, Neurologic Disorder, Prostate Disorder, Renal Disease Additional Past Medical History / Comment(s): parkinsons disease, nephrolithiasis, BPH,uti's , fall 2012 with skull fracture and subdural hematoma and L eardrum rupture, sinus problems on occasion.past stress test, lt sprain ankle d/t fall. History of Any Multi-Drug Resistant Organisms: None Reported Past Surgical History: Heart Catheterization, Hernia Repair Additional Past Surgical History / Comment(s): cystoscopy, L inguinal hernia repair., anat cataracts Past Anesthesia/Blood Transfusion Reactions: No Reported Reaction Past Psychological History: No Psychological Hx Reported Smoking Status: Never smoker Past Alcohol Use History: None Reported Past Drug Use History: None Reported - Past Family History Sister(s) Family Medical History: Cancer Mother Family Medical History: CVA/TIA, Diabetes Mellitus, Hypertension, Musculoske letal Disorder, Neurologic Disorder Additional Family Medical History / Comment(s): Mother had parkinson's dx. Father Family Medical History: CVA/TIA <Saida Justin - Last Filed: 01/28/23 00:31> General Exam Limitations: no limitations General appearance: alert, in no apparent distress Head exam: Present: atraumatic, normocephalic, normal inspection Eye exam: Present: normal appearance, PERRL, EOMI. Absent: scleral icterus, conjunctival injection, periorbital swelling ENT exam: Present: normal exam, mucous membranes moist Neck exam: Present: normal inspection. Absent: tenderness, meningismus, lymphadenopathy Respiratory exam: Present: normal lung sounds bilaterally. Absent: respiratory distress, wheezes, rales, rhonchi, stridor Cardiovascular Exam: Present: regular rate, normal rhythm, normal heart sounds. Absent: systolic murmur, diastolic murmur, rubs, gallop, clicks GI/Abdominal exam: Present: soft, normal bowel sounds. Absent: distended, tenderness, guarding, rebound, rigid Extremities exam: Present: normal inspection, full ROM, normal capillary refill. Absent: tenderness, pedal edema, joint swelling, calf tenderness Neurological exam: Present: alert, oriented X3 Psychiatric exam: Present: normal affect, normal mood Skin exam: Present: warm, dry, intact, normal color. Absent: rash <Saida Justin - Last Filed: 01/28/23 00:31> Course Vital Signs 01/27/23 01/28/23 22:24 01:45 Temperature 98.8 F 98.1 F Pulse Rate 77 88 Respiratory 18 18 Rate Blood Pressure 119/73 172/87 O2 Sat by Pulse 95 100 Oximetry Medical Decision Making - Lab Data Result diagrams: 01/27/23 22:31 01/27/23 22:31 <Saida Justin - Last Filed: 01/28/23 00:31> - Lab Data Result diagrams: 01/27/23 22:31 01/27/23 22:31 <Javan Pino - Last Filed: 01/28/23 02:43> - Medical Decision Making Was pt. sent in by a medical professional or institution (, PA, COPPING MACHINE OPERATOR, urgent care, hospital, or care home...) When possible be specific @ -[No] Did you speak to anyone other than the patient for history (EMS, parent, family, police, friend...)? What history was obtained from this source @ -[No] Did you review nursing and triage notes (agree or disagree)? Why? @ -[I reviewed and agree with nursing and triage notes] Were old charts reviewed (outside hosp., previous admission, EMS record, old EKG, old radiological studies, urgent care reports/EKG's, care home records)? Report findings @ -[No old charts were reviewed] Differential Diagnosis (chest pain, altered mental status, abdominal pain women, abdominal pain men, vaginal bleeding, weakness, fever, dyspnea, syncope, headache, dizziness, GI bleed, back pain, seizure, CVA, palpatations, mental health, musculoskeletal)? @ -[Differential Altered Mental Status: Hypoglycemia, DKA, hypercapnia, ETOH, overdose, CO poisoning, trauma, myxedema coma, HTN encephalopathy, infection, encephalitis, psychosis, intercranial hemorrhage, hepatic encephalopathy, meningitis, CVA, this is not meant to be an all-inclusive list] EKG interpreted by me (3pts min.). @ -[EKG at] X-rays interpreted by me (1pt min.). @ -[None done] CT interpreted by me (1pt min.). @ -[None done] U/S interpreted by me (1pt. min.). @ -[None done] What testing was considered but not performed or refused? (CT, X-rays, U/S, labs)? Why? @ -[None] What meds were considered but not given or refused? Why? @ -[None] Did you discuss the management of the patient with other professionals (professionals i.e. , PA, COPPING MACHINE OPERATOR, lab, RT, psych nurse, social media editor, crawler crane operator, teacher, airfield engineer officer, hospice case manager)? Give summary @ -[No] Was smoking cessation discussed for >3mins.? @ -[No] Was critical care preformed (if so, how long)? @ -[No] Were there social determinants of health that impacted care today? How? (Homelessness, low income, unemployed, alcoholism, drug addiction, transportation, low edu. Level, literacy, decrease access to med. care, [facility], rehab)? @ -[No] Was there de-escalation of care discussed even if they declined (Discuss DNR or withdrawal of care, Hospice)? DNR status @ -[No] What co-morbidities impacted this encounter? (DM, HTN, Smoking, COPD, CAD, Cancer, CVA, ARF, Chemo, Hep., AIDS, mental health diagnosis, sleep apnea, morbid obesity)? @ -[None] Was patient admitted / discharged? Hospital course, mention meds given and route, prescriptions, significant lab abnormalities, going to OR and other pertinent info. @ -[Patient presented to emergency department chief complaint of shortness of breath 1 month worse today. His friends in the room states that he walked from his chair to the kitchen and noticed that he was very short of breath and got red in the face. Patient denies any chest pain. Laboratory studies obtained which showed CBC: WBC 6.4, hemoglobin 13.1; PT, PTT WNL; CMP shows sodium 139, potassium 4.6 and creatinine 1.07; negative troponin, BNP 440; UA shows >182 WBC, WBC clumps, >182 RBCs. Patient given dose of rocephin. Patient signed out to Dr Pino pending ddimer ] Undiagnosed new problem with uncertain prognosis? @ -[No] Drug Therapy requiring intensive monitoring for toxicity (Heparin, Nitro, Insulin, Cardizem)? @ -[No] Were any procedures done? @ -[No] Diagnosis/symptom? @ -[default] Acute, or Chronic, or Acute on Chronic? @ -[default] Uncomplicated (without systemic symptoms) or Complicated (systemic symptoms)? @ -[default] Side effects of treatment? @ -[No] Exacerbation, Progression, or Severe Exacerbation? @ -[No] Poses a threat to life or bodily function? How? (Chest pain, [place], NC, pneumonia, PE, COPD, DKA, ARF, appy, cholecystitis, CVA, Diverticulitis, Homicidal, Suicidal, threat to staff... and all critical care pts) @ -[No] (Saida Justin) EKG: Sinus rhythm right bundle branch block, rate of 67, [place] interval 192, QRS duration 154, QTC 4:[address] segment elevation. (Jvaan Pino) - Lab Data Lab Results 01/27/23 01/27/23 01/27/23 Range/Units 22:31 22:31 22:31 WBC 6.4 (3.8-10.6) k/uL RBC 4.22 L (4.30-5.90) m/uL Hgb 13.1 (13.0-17.5) gm/dL Hct 38.7 L (39.0-53.0) % MCV 91.7 (80.0-100.0) fL MCH 30.9 (25.0-35.0) pg MCHC 33.7 (31.0-37.0) g/dL RDW 14.0 (11.5-15.5) % Plt Count 201 (150-450) k/uL MPV 7.9 Neutrophils % 64 % Lymphocytes % 24 % Monocytes % 7 % Eosinophils % 4 % Basophils % 0 % Neutrophils # 4.1 (1.3-7.7) k/uL Lymphocytes # 1.5 (1.0-4.8) k/uL Monocytes # 0.4 (0-1.0) k/uL Eosinophils # 0.2 (0-0.7) k/uL Basophils # 0.0 (0-0.2) k/uL PT 10.9 (10.0-12.5) sec INR 1.0 (<1.2) APTT 24.4 (22.0-30.0) sec D-Dimer (<0.60) mg/L FEU Sodium (137-145) mmol/L Potassium (3.5-5.1) mmol/L Chloride (98-107) mmol/L Carbon Dioxide (22-30) mmol/L Anion Gap mmol/L BUN (9-20) mg/dL Creatinine (0.66-1.25) mg/dL Est GFR (CKD-EPI)AfAm (>60 ml/min/1.73 sqM) Est GFR (CKD-EPI)NonAf (>60 ml/min/1.73 sqM) Glucose (74-99) mg/dL Plasma Lactic Acid Boni (0.7-2.0) mmol/L Calcium (8.4-10.2) mg/dL Total Bilirubin (0.2-1.3) mg/dL AST (17-59) U/L ALT (4-49) U/L Alkaline Phosphatase (38-126) U/L Troponin I (0.000-0.034) ng/mL NT-Pro-B Natriuret Pep pg/mL Total Protein (6.3-8.2) g/dL Albumin (3.5-5.0) g/dL Urine Color Dark [place] Urine Appearance Cloudy (Clear) Urine pH 6.5 (5.0-8.0) Ur Specific [place] >1.030 (1.001-1.035) Urine Protein 2+ H (Negative) Urine Glucose (UA) Negative (Negative) Urine Ketones Trace (Negative) Urine Blood Moderate (Negative) Urine Nitrite Negative (Negative) Urine Bilirubin Negative (Negative) Urine Urobilinogen <2.0 (<2.0) mg/dL Ur Leukocyte Esterase Large (Negative) Urine RBC >182 H (0-5) /hpf Urine WBC >182 H (0-5) /hpf Urine WBC Clumps Few H (None) /hpf Ur Squamous Epith Cells 1 (0-4) /hpf Urine Bacteria Rare H (None) /hpf Urine Mucus Rare H (None) /hpf 01/27/23 01/27/23 01/27/23 Range/Units 22:31 22:31 22:31 WBC (3.8-10.6) k/uL RBC (4.30-5.90) m/uL Hgb (13.0-17.5) gm/dL Hct (39.0-53.0) % MCV (80.0-100.0) fL MCH (25.0-35.0) pg MCHC (31.0-37.0) g/dL RDW (11.5-15.5) % Plt Count (150-450) k/uL MPV Neutrophils % % Lymphocytes % % Monocytes % % Eosinophils % % Basophils % % Neutrophils # (1.3-7.7) k/uL Lymphocytes # (1.0-4.8) k/uL Monocytes # (0-1.0) k/uL Eosinophils # (0-0.7) k/uL Basophils # (0-0.2) k/uL PT (10.0-12.5) sec INR (<1.2) APTT (22.0-30.0) sec D-Dimer (<0.60) mg/L FEU Sodium 139 (137-145) mmol/L Potassium 4.6 (3.5-5.1) mmol/L Chloride 106 (98-107) mmol/L Carbon Dioxide 28 (22-30) mmol/L Anion Gap 5 mmol/L BUN 24 H (9-20) mg/dL Creatinine 1.07 (0.66-1.25) mg/dL Est GFR (CKD-EPI)AfAm 79 (>60 ml/min/1.73 sqM) Est GFR (CKD-EPI)NonAf 69 (>60 ml/min/1.73 sqM) Glucose 103 H (74-99) mg/dL Plasma Lactic Acid [place] 1.1 (0.7-2.0) mmol/L Calcium 8.8 (8.4-10.2) mg/dL Total Bilirubin 0.4 (0.2-1.3) mg/dL AST 16 L (17-59) U/L ALT 6 (4-49) U/L Alkaline Phosphatase 84 (38-126) U/L Troponin I <0.012 (0.000-0.034) ng/mL NT-Pro-B Natriuret Pep 440 pg/mL Total Protein 6.1 L (6.3-8.2) g/dL Albumin 3.4 L (3.5-5.0) g/dL Urine Color Urine Appearance (Clear) Urine pH (5.0-8.0) Ur Specific [place] (1.001-1.035) Urine Protein (Negative) Urine Glucose (UA) (Negative) Urine Ketones (Negative) Urine Blood (Negative) Urine Nitrite (Negative) Urine Bilirubin (Negative) Urine Urobilinogen (<2.0) mg/dL Ur Leukocyte Esterase (Negative) Urine RBC (0-5) /hpf Urine WBC (0-5) /hpf Urine WBC Clumps (None) /hpf Ur Squamous Epith Cells (0-4) /hpf Urine Bacteria (None) /hpf Urine Mucus (None) /hpf 01/27/ Range/Units 22:31 WBC (3.8-10.6) k/uL RBC (4.30-5.90) m/uL Hgb (13.0-17.5) gm/dL Hct (39.0-53.0) % MCV (80.0-100.0) fL MCH (25.0-35.0) pg MCHC (31.0-37.0) g/dL RDW (11.5-15.5) % Plt Count (150-450) k/uL MPV Neutrophils % % Lymphocytes % % Monocytes % % Eosinophils % % Basophils % % Neutrophils # (1.3-7.7) k/uL Lymphocytes # (1.0-4.8) k/uL Monocytes # (0-1.0) k/uL Eosinophils # (0-0.7) k/uL Basophils # (0-0.2) k/uL PT (10.0-12.5) sec INR (<1.2) APTT (22.0-30.0) sec D-Dimer 1.17 H (<0.60) mg/L FEU Sodium (137-145) mmol/L Potassium (3.5-5.1) mmol/L Chloride (98-107) mmol/L Carbon Dioxide (22-30) mmol/L Anion Gap mmol/L BUN (9-20) mg/dL Creatinine (0.66-1.25) mg/dL Est GFR (CKD-EPI)AfAm (>60 ml/min/1.73 sqM) Est GFR (CKD-EPI)NonAf (>60 ml/min/1.73 sqM) Glucose (74-99) mg/dL Plasma Lactic Acid [place] (0.7-2.0) mmol/L Calcium (8.4-10.2) mg/dL Total Bilirubin (0.2-1.3) mg/dL AST (17-59) U/L ALT (4-49) U/L Alkaline Phosphatase (38-126) U/L Troponin I (0.000-0.034) ng/mL NT-Pro-B Natriuret Pep pg/mL Total Protein (6.3-8.2) g/dL Albumin (3.5-5.0) g/dL Urine Color Urine Appearance (Clear) Urine pH (5.0-8.0) Ur Specific [place] (1.001-1.035) Urine Protein (Negative) Urine Glucose (UA) (Negative) Urine Ketones (Negative) Urine Blood (Negative) Urine Nitrite (Negative) Urine Bilirubin (Negative) Urine Urobilinogen (<2.0) mg/dL Ur Leukocyte Esterase (Negative) Urine RBC (0-5) /hpf Urine WBC (0-5) /hpf Urine WBC Clumps (None) /hpf Ur Squamous Epith Cells (0-4) /hpf Urine Bacteria (None) /hpf Urine Mucus (None) /hpf Disposition <Saida Justin - Last Filed: 01/28/23 00:31> Is patient prescribed a controlled substance at d/c from ED?: No Time of Disposition: 02:42 <Javan Pino - Last Filed: 01/28/23 02:43> Clinical Impression: Urinary tract infection Disposition: HOME SELF-CARE Condition: Fair Instructions (If sedation given, give patient instructions): Urinary Tract Infection in Men (ED) Prescriptions: Cephalexin [Keflex] 500 mg PO TID 7 Days #21 cap Referrals: Nancy Land MD [Primary Care Provider] - 1-2 days
[2023-01-27 22:31] VITALS: RESP 18
[2023-01-27 23:19] LABS: Basophils % (A) 0 %; Eosinophils # (A) 0.2 k/uL (0-0.7); Eosinophils % (A) 4 %; HCT 38.7 % (39.0-53.0); HGB 13.1 gm/dL (13.0-17.5); Lymphocytes # (A) 1.5 k/uL (1.0-4.8); Lymphocytes % (A) 24 %; MCH 30.9 pg (25.0-35.0); MCHC 33.7 g/dL (31.0-37.0); MCV 91.7 fL (80.0-100.0); Mean Platelet Volume 7.9; Monocytes # (A) 0.4 k/uL (0-1.0); Monocytes % (A) 7 %; Neutrophils # (A) 4.1 k/uL (1.3-7.7); Neutrophils % (A) 64 %; Platelet Count 201 k/uL (150-450); RBC 4.22 m/uL (4.30-5.90); WBC 6.4 k/uL (3.8-10.6)
[2023-01-27 23:35] LABS: AST 16 U/L (17-59); African American GFR (CKD) 79 (>60 ml/min/1.73 sqM); Albumin 3.4 g/dL (3.5-5.0); Alkaline Phosphatase 84 U/L (38-126); Anion Gap 5 mmol/L; Blood Urea Nitrogen 24 mg/dL (9-20); Calcium 8.8 mg/dL (8.4-10.2); Carbon Dioxide 28 mmol/L (22-30); Chloride 106 mmol/L (98-107); Glucose 103 mg/dL (74-99); Non-African American GFR(CKD) 69 (>60 ml/min/1.73 sqM); Potassium 4.6 mmol/L (3.5-5.1); Sodium 139 mmol/L (137-145); Total Bilirubin 0.4 mg/dL (0.2-1.3); Total Protein 6.1 g/dL (6.3-8.2)
[2023-01-27 23:37] LABS: Appearance,Urine Cloudy (Clear); Color,Urine Dark Orange; Glucose,Urine (UA) Negative (Negative); PH, Urine 6.5 (5.0-8.0); Protein,Urine 2+ (Negative); Specific Gravity,Urine >1.030 (1.001-1.035)
[2023-01-27 23:38] LABS: Bilirubin,Urine Negative (Negative); Blood,Urine Moderate (Negative); Ketones,Urine Trace (Negative); Leukocyte Esterase,Urine Large (Negative); Nitrite,Urine Negative (Negative); Urobilinogen,Urine <2.0 mg/dL (<2.0)
[2023-01-27 23:39] LABS: Partial Thromboplastin Time 24.4 sec (22.0-30.0); Prothrombin Time 10.9 sec (10.0-12.5)
[2023-01-27 23:41] LABS: NT-Pro-B-Type Natriuretic Pept 440 pg/mL
[2023-01-27 23:46] LABS: Bacteria,Urine Rare /hpf; Mucus,Urine Rare /hpf; RBC,Urine >182 /hpf (0-5); Squamous Epithelial Cell,Urine 1 /hpf (0-4); WBC,Urine >182 /hpf (0-5)
[2023-01-27 23:50] LABS: ALT 6 U/L (4-49)
[2023-01-28] MEDS ORDERED: cefTRIAXone IN SWFI 1,000 MG/10 ML SYRINGE IVP STA (00:10)
--- NOTE | 2023-01-28 00:17 | XR ---
EXAM: XR Chest, 2 Views CLINICAL HISTORY: ITS.REASON XR Reason: difficulty breathing TECHNIQUE: Frontal and lateral views of the chest. COMPARISON: XR Chest dated 10/29/2021 FINDINGS: Lungs: Mild left basilar atelectasis or scarring. No focal consolidation. Pleural space: Unremarkable. No pneumothorax. Heart: Unremarkable. No cardiomegaly. Mediastinum: Unremarkable. Bones/joints: Old left rib fractures as on the prior. Degenerative changes of the spine. IMPRESSION: No acute findings in the chest.
[2023-01-28 01:57] VITALS: PULSE 88
--- NOTE | 2023-01-28 02:39 | CT ---
EXAM: CT Angiography Chest With Intravenous Contrast CLINICAL HISTORY: ITS.REASON CT Reason: LEENA/pos dimer TECHNIQUE: Axial computed tomographic angiography images of the chest with intravenous contrast. CTDI is 24.95 mGy and DLP is 566.8 mGy-cm. This CT exam was performed using one or more of the following dose reduction techniques: automated exposure control, adjustment of the mA and/or kV according to patient size, and/or use of iterative reconstruction technique. MIP reconstructed images were created and reviewed. COMPARISON:Prior CT chest abdomen pelvis 11/09/2019. FINDINGS: Pulmonary arteries: Breathing motion artifact limits evaluation. No central pulmonary embolism. Aorta: Mildly aneurysmal ascending aorta 4.1 cm. No dissection. Lungs: Mild bibasilar atelectasis. No mass. Pleural space: Unremarkable. No significant effusion. No pneumothorax. Heart: Unremarkable. No cardiomegaly. No significant pericardial effusion. No evidence of RV dysfunction. Coronary calcifications. Bones/joints: Degenerative changes of the spine. Diffuse idiopathic skeletal hyperostosis with flowing anterior osteophytes at multiple levels. Old bilateral rib fracture deformities. No dislocation. Soft tissues: Unremarkable. Lymph nodes: Unremarkable. No enlarged lymph nodes. Pancreas: Atrophy of the pancreas. Multiple pancreatic low-density lesions in the body and tail of the pancreas decreased size of the pancreatic tail lesion 2 2.7 cm. Was 4 cm. The other 2 pancreatic body/tail lesions are similar to the prior. Limited evaluation. Gallbladder: Cholelithiasis. Kidneys and ureters: Nonobstructing right renal calculus. Marked interval decrease of hydronephrosis, partially visualized. IMPRESSION: 1. Breathing motion artifact limits evaluation. No central pulmonary embolism. 2. Mildly aneurysmal ascending aorta 4.1 cm. 3. Atrophy of the pancreas. Multiple pancreatic low-density lesions in the body and tail of the pancreas decreased size of the pancreatic tail lesion 2 2.7 cm. Was 4 cm. The other 2 pancreatic body/tail lesions are similar to the prior. Limited evaluation. 4. Other nonacute incidental findings.
[2023-01-28 03:14] VITALS: BP 142/86; TEMP 98.6
[2023-01-28 14:52] LABS: N. gonorrhoeae,PCR Negative (Negative)
[2023-01-28 15:06] LABS: C. trachomatis,PCR Negative (Negative)
== END 2023-01-28 03:22 | disposition home or self-care (01) ==
LOC: EC 21:53
DX: N39.0 Urinary tract infection, site not specified (principal); B97.0 Adenovirus as the cause of diseases classified elsewhere; I10 Essential (primary) hypertension; Z79.899 Other long term (current) drug therapy; Z88.8 Allergy status to other drugs, medicaments and biological substances; Z88.0 Allergy status to penicillin
CPT/HCPCS: 99284; 96374; 36415; 93005; 85379; 83880; 80053; 83605; 84484; 85025; 85610; 85730; 81001; 87491; 87591; 87086; 71046; 71275; J0696; Q9967